=== PATIENT | female | born 1985 | race African-American/Black ===

== ENCOUNTER 2021-01-31 07:54 | Outpatient (REF) | payer OTHER, SELFPAY ==
--- NOTE | ~2021-01-31 | XR_ITS ---
EXAMINATION: XR THORACIC SPINE CLINICAL INFORMATION: Dorsalgia COMPARISON: 07/10/2013 TECHNIQUE: 3 views of the thoracic spine were obtained. FINDINGS: Normal sagittal alignment of the thoracic spine. Partially imaged anterior fusion of the lower cervical spine. Posterior elements intact. XR/XR thoracic spine 3V IMPRESSION: No acute osseous abnormality of the thoracic spine.
== END 2021-01-31 07:55 | disposition home or self-care (01) ==
LOC: HO.XRAY 07:54
PROVIDERS: PCP Internal Medicine; Visit Provider Internal Medicine
DX: M54.9 Dorsalgia, unspecified (principal)
CPT/HCPCS: 72072

== ENCOUNTER 2021-01-31 07:59 | Outpatient (REF) | payer OTHER, SELFPAY ==
[2021-01-31 08:24] LABS: COVID-19 Test Negative (Negative)
== END 2021-01-31 08:00 | disposition home or self-care (01) ==
LOC: HO.LAB 07:59
PROVIDERS: PCP Internal Medicine; Visit Provider Internal Medicine
DX: Z20.822 Contact with and (suspected) exposure to COVID-19 (principal)
CPT/HCPCS: 36415; 87635; C9803

== ENCOUNTER 2021-02-08 22:00 | Emergency (ER) | payer OTHER, SELFPAY ==
[2021-02-08 22:04] VITALS: BP 127/70; PULSE 92; RESP 16; TEMP 36.1; O2SAT 98; BMI 44.1
== END 2021-02-09 00:46 | disposition left against medical advice (07) ==
PROVIDERS: Emergency Provider Emergency Medicine; PCP Internal Medicine
DX: R21 Rash and other nonspecific skin eruption (principal)
CPT/HCPCS: 99281; 99282

== ENCOUNTER 2021-02-13 11:45 | Outpatient (REF) | payer OTHER, SELFPAY | END 2021-02-13 11:46 | disposition home or self-care (01) | LOC: HO.LAB 11:45 | PROVIDERS: PCP Internal Medicine; Visit Provider Internal Medicine | DX: Z20.822 Contact with and (suspected) exposure to COVID-19 (principal) | CPT/HCPCS: C9803; U0003; U0005 ==

== ENCOUNTER 2021-04-14 09:00 | Outpatient (RCR) | payer OTHER, SELFPAY | END 2021-09-24 09:19 | disposition home or self-care (01) | LOC: HO.PTCHIC 09:00 | PROVIDERS: PCP Internal Medicine; Visit Provider Internal Medicine | DX: M54.9 Dorsalgia, unspecified (principal) | CPT/HCPCS: 97110; 97140; 97162 ==

== ENCOUNTER 2023-03-30 14:00 | Outpatient (RCR) | payer MEDICAID, SELFPAY | END 2023-10-14 11:30 | disposition home or self-care (01) | LOC: HO.PTCHIC 14:00 | PROVIDERS: PCP Internal Medicine; Visit Provider General Practice | DX: M54.6 Pain in thoracic spine (principal) | CPT/HCPCS: 97110; 97161 ==

== ENCOUNTER 2023-05-12 13:05 | Outpatient (REF) | payer MEDICAID, SELFPAY ==
--- NOTE | 2023-05-12 13:09 | EMG_ITS ---
Chief complaint: Hand numbness and pain worse at night History of cervical fusion. Reason for referral: Evaluate for Carpal Tunnel Syndrome Referred by: Dr. Quiroga Procedure done: Bilateral upper extremities NCS/EMG Precautions and/or limitations: None The limb temperature was monitored continuously and remained between 32-36 degrees C during the performance of the NCS. Nerve Conduction Studies Anti Sensory Summary Table ?Stim Site NR Onset (ms) Norm Onset (ms) Peak (ms) Norm Peak (ms) O-P Amp (?V) Norm O-P Amp Site1 Site2 Delta-0 (ms) Dist (cm) Farhat (m/s) Norm Farhat (m/s) Left Median Anti Sensory (2nd Digit) Wrist NR <3.6 >10 Wrist 2nd Digit 14.0 Right Median Anti Sensory (2nd Digit) Wrist NR <3.6 >10 Wrist 2nd Digit 14.0 Right Radial Anti Sensory (Thumb) Forearm ? 1.6 2.1 <3.1 20.1 Forearm Thumb 1.6 0.0 Left Ulnar Anti Sensory (5th Digit) Wrist ? 2.7 3.5 <3.7 16.3 >15.0 Wrist 5th Digit 2.7 14.0 52 Right Ulnar Anti Sensory (5th Digit) Wrist ? 2.5 3.3 <3.7 14.2 >15.0 Wrist 5th Digit 2.5 14.0 56 Motor Summary Table ?Stim Site NR Onset (ms) Norm Onset (ms) O-P Amp (mV) Norm O-P Amp iAmp (mV) Amp (1st) (%) Site1 Site2 Delta-0 (ms) Dist (cm) Farhat (m/s) Norm Farhat (m/s) Left Median Motor (Abd Poll Brev) Wrist ? 9.1 <3.9 9.2 >4.5 10.8 100.0 Elbow Wrist 4.3 19.0 44 >45 Elbow ? 13.4 8.2 9.5 89.1 Right Median Motor (Abd Poll Brev) Wrist ? 9.1 <3.9 3.3 >4.5 4.0 100.0 Elbow Wrist 4.3 19.5 45 >45 Elbow ? 13.4 2.6 3.2 78.8 Left Ulnar Motor (Abd Dig Minimi) Wrist ? 3.0 <3.0 8.5 >5 11.3 100.0 B Elbow Wrist 3.8 19.5 51 >45 B Elbow ? 6.8 8.7 11.6 102.4 A Elbow B Elbow 2.0 10.0 50 >45 A Elbow ? 8.8 8.2 10.9 96.5 Right Ulnar Motor (Abd Dig Minimi) Wrist ? 3.0 <3.0 8.4 >5 12.2 100.0 B Elbow Wrist 3.6 18.5 51 >45 B Elbow ? 6.6 8.1 11.9 96.4 A Elbow B Elbow 1.8 10.0 56 >45 A Elbow ? 8.4 7.6 11.1 90.5 EMG ?Side Muscle Nerve Root Ins Act Fibs Psw Amp Dur Poly Recrt Int Pat Comment Right 1stDorInt Ulnar C8-T1 Nml Nml Nml Nml Nml 0 Nml Complete Right FlexCarRad Median C6-7 Nml Nml Nml Nml Nml 0 Nml Complete Right Biceps Musculocut C5-6 Nml Nml Nml Nml Nml 0 Nml Complete Right Triceps Radial C6-7-8 Nml Nml Nml Nml Nml 0 Nml Complete Right Deltoid Axillary C5-6 Nml Nml Nml Nml Nml 0 Nml Complete Left 1stDorInt Ulnar C8-T1 Nml Nml Nml Nml Nml 0 Nml Complete Left FlexCarRad Median C6-7 Nml Nml Nml Nml Nml 0 Nml Complete Left Biceps Musculocut C5-6 Nml Nml Nml Nml Nml 0 Nml Complete Left Triceps Radial C6-7-8 Nml Nml Nml Nml Nml 0 Nml Complete Left Deltoid Axillary C5-6 Nml Nml Nml Nml Nml 0 Nml Complete FINDINGS: Right median motor nerve showed prolonged distal latency, small amplitude and normal conduction velocity. Left median motor nerve showed prolonged distal latency, normal amplitude and slow conduction velocity. Bilateral median sensory nerves showed no response. All other nerves tested were within normal. Concentric needle EMG was performed in selected muscles of the bilateral upper extremities. Study did not reveal signs of electric abnormalities as shown in the table below. IMPRESSION: 1. This is an abnormal study. 2. There is electrodiagnostic evidence for bilateral moderate-severe median neuropathy at the wrist, consistent with carpal tunnel syndrome. 3. There is no electrodiagnostic evidence for ulnar neuropathy, brachial plexopathy, or cervical radiculopathy. Thank you for your kind referral. Isabel Prather MD, [place] Board Certified, [place] Board [employer] Physical Medicine and Rehabilitation (ABPMR) Board Certified, [place] Board of Electrodiagnostic Medicine (ABEM) CODIN 21995 x 2 MTDD
== END 2023-05-12 13:06 | disposition home or self-care (01) ==
LOC: HO.NEURO 13:05
PROVIDERS: PCP Internal Medicine; Visit Provider Internal Medicine
DX: G56.03 Carpal tunnel syndrome, bilateral upper limbs (principal); R20.2 Paresthesia of skin
CPT/HCPCS: 95886; 95911

== ENCOUNTER → 2023-05-12 13:09 | Outpatient (BNV) | payer MEDICAID, SELFPAY | PROVIDERS: PCP Internal Medicine; Visit Provider Physical Medicine & Rehabilitation | DX: G56.13 Other lesions of median nerve, bilateral upper limbs (principal); G56.03 Carpal tunnel syndrome, bilateral upper limbs | CPT/HCPCS: 95886; 95911 ==

== ENCOUNTER 2023-08-26 10:46 | Outpatient (REF) | payer MEDICAID, SELFPAY ==
[2023-08-26 14:36] LABS: Creatinine Urine 100.63 mg/dL; Microalbumin Urine < 5.0 mg/L
[2023-08-27 07:58] LABS: ~HepC Num1 0.19 S/CO (0.00-0.79); ~Hepatitis C Antibody Nonreactive (Nonreactive)
== END 2023-08-26 10:47 | disposition home or self-care (01) ==
LOC: HO.CHCLDS 10:46
PROVIDERS: Visit Provider Internal Medicine
DX: E11.9 Type 2 diabetes mellitus without complications (principal); E66.01 Morbid (severe) obesity due to excess calories; Z68.41 Body mass index [BMI] 40.0-44.9, adult; Z79.4 Long term (current) use of insulin
CPT/HCPCS: 36415; 82570; 86803

== ENCOUNTER 2024-04-24 13:25 | Outpatient (REF) | payer MEDICAID, SELFPAY ==
[2024-04-24 15:19] LABS: Creatinine Urine 61.75 mg/dL; Microalbumin Urine < 5.0 mg/L
[2024-04-25 04:16] LABS: HIV AB/AG Nonreactive (Nonreactive); HIV Num 1 0.06 S/CO (0.00-0.99)
[2024-04-27 08:14] LABS: TS Negative Control Passed; TS Panel A 0; TS Panel B 0; TS Positive Control Passed; TSpotTB Negative (Negative)
== END 2024-04-24 13:26 | disposition home or self-care (01) ==
LOC: HO.CHCLDS 13:25
PROVIDERS: Visit Provider Internal Medicine
DX: Z00.00 Encounter for general adult medical examination without abnormal findings (principal); E11.9 Type 2 diabetes mellitus without complications; Z79.4 Long term (current) use of insulin
CPT/HCPCS: 36415; 82043; 82570; 86481; 87389

== ENCOUNTER 2024-09-20 10:50 | Outpatient (AMB) | payer OTHER, SELFPAY ==
[2024-09-20 11:08] VITALS: BP 156/88; PULSE 102; O2SAT 96
--- NOTE | 2024-09-20 11:08 | MHC.OFFVIS ---
Vital Signs 09/20/24 11:08 Weight 227 lb BP 156/88 H Blood Pressure Location Lt brachial Position Sitting Pulse 102 H Pulse Source Pulse Oximeter Pulse Oximetry (%) 96 Oxygen Delivery Method Room Air Intake Visit Reasons: Diabetic mononeurapthy Seals Engraver Required: No Allergies SEASONAL ALLERGIES Allergy (Intermediate, Uncoded 09/20/24 11:09) WATERY ITCHY EYES Medication List - Last Reconciled 09/20/24 by Susan Rae, [employer] albuterol sulfate 90 mcg/actuation (Ventolin HFA) inhalation aspirin 81 mg PO DAILY cholecalciferol (vitamin D3) 50 mcg PO DAILY diclofenac sodium 1% topical empagliflozin (Jardiance) 10 mg PO DAILY flash glucose sensor ([employer] Neisha 14 Day Sensor kit) As directed fluticasone propionate 110 mcg/actuation inhalation glipizide mg PO Lactobac. rhamnosus GG-inulin 10 billion cell -200 mg ([facility] [employer]) 1 cap PO DAILY lisinopril 5 mg PO DAILY multivitamin 1 tab PO DAILY pantoprazole 40 mg PO DAILY HPI Comments Details: Josiane is very pleasant 39 years old female who presents in my with complains on pain in the left lower extremity with sensation of the numbness in the left lower extremity mainly foot. She stated that this condition started to bother her several months ago when her reproduction order processor performed injection into for left foot. She is suffering from diabetes and she was told that this is diabetic polyneuropathy. However it is very unlikely the condition is polyneuropathy because polyneuropathy from diabetes usually symmetrical condition. Her past medical history significant for asthma and diabetes as well as obesity. Her past surgical history significant for ACDF. She denies smoking cigarettes denies drinking alcohol drinks green tea and she admits cannabis every other night. Review of Systems Const All systems reviewed & are unremarkable except as noted in HPI and below ENT Reports Normal hearing present Neuro Reports Normal hearing present, Denies Abnormal speech present, Denies confusion and Denies Sensory deficit (Neuro) Psych Denies confusion Physical Exam Vital Signs: Last Vital Signs Pulse 102 H 09/20/24 11:08 BP 156/88 H 09/20/24 11:08 Pulse Ox 96 09/20/24 11:08 Oxygen Delivery Method Room Air 09/20/24 11:08 Const General: no acute distress; No confusion Nutritional Appearance: obese morbidly obese Orientation/consciousness: patient oriented x3 and No confusion Eyes General: appearance normal, both eyes and all related structures Pupils: Equal, round and reactive pupils present EOM: EOMs intact bilaterally Neck Neck: Yes full ROM Chest Chest palpation & inspection: normal inspection of the chest Resp Effort & Inspection: normal respiratory effort, able to speak in complete sentences, normal respiratory pattern, no audible wheezes and no cough Cardio Jugular venous distension: no JVD GI Inspection: Yes normal to inspection Neuro General: patient oriented x3, gait normal and No confusion Cranial nerves: Yes CN's II-XII intact bilaterally, Yes Equal, round and reactive pupils present, Yes Normal hearing present and Yes Ability to bilaterally elevate shoulders present Speech: No Abnormal speech present Gait exam (Neuro): Normal gait present Motor exam (neuro): 5/5 motor strength present throughout Sensory Exam: No Sensory deficit (Neuro) Extrem Other: There is very faint pulsation in bilateral dorsalis pedis and posterior tibial arteries. The feet are warm on palpation. The capillary refill is normal bilaterally. No discoloration is observed. Range of motion is preserved in bilateral ankle joints. General: No pedal edema Psych Speech and movement: Normal speech and movement present Affect: normal affect Attitude: cooperative Thought process: Normal thought process present Thought content: Normal thought content present Insight: Good insight present (Psych) Judgement: Good judgement present (Psych) Assessment & Plan Assessment & Plan (1) Neuropathy of left foot: Code(s): G57.92 - Unspecified mononeuropathy of left lower limb Category: Medical (2) Diabetic angiopathy: Code(s): E11.51 - Type 2 diabetes mellitus with diabetic peripheral angiopathy without gangrene Category: Medical Plan The patient reports numbness in the foot after the steroid injection. Range of motion is appropriate. No weakness is observed. However neuropathy can not be excluded. I will send her for EMG. Coincidentally on the exam poor pulses were detected on bilateral lower extremities. I will send her for the examination with vascular surgery. We agreed that the patient will schedule an appointment with me after she will complete EMG. Orders: Orders NE electromyogram (EMG) Today G57.92 - Unspecified mononeuropathy of left lower limb Referrals Vascular Surgery Referral E11.51 - Type 2 diabetes mellitus with diabetic peripheral angiopathy without gangrene Coding Level of Care Code New Pt Level 3 (12079) Diagnoses Neuropathy of left foot G57.92 Diabetic angiopathy E11.51
--- OUTSIDE RECORDS SUMMARY | 2024-09-20 12:16 | XMS_ITS | Encounter Summary ---
Author Organization [employer] Address [address] [facility] 7t [place] [address] Care Team Providers Care Pocket Marker Name Role Phone Manjeet Quiroga MD Primary Care Provider [phone] Reason for Visit * Reason Comments Med Refill Encounter Details Date Type Department Care Team ([facility] Contact Info) Description 03/02/2023 Refill [facility] CHC MED & PEDS [address] [place], [place] [phone] Manjeet Quiroga MD [address] [place], [place] [phone] Type 2 diabetes mellitus with diabetic polyneuropathy (CMS/HCC) Social History Tobacco Use Types Packs/Day Years Used Date Smoking Tobacco: Never Smokeless Tobacco: Never Depression Answer Date Recorded Patient Health Questionnaire-9 Score 0 01/28/2023 Housing Stability Answer Date Recorded What is your housing situation today? I have jaki pittman 02/28/[address] you li ve. Do you have problems with any of the following? None of the above 02/28/2023 Food Insecurity Answer Date Recorded Within the past 12 months, y ou worried that your food would run out before you got money to buy more: Never True 02/28/2023 Within the past 12 months,th e food you bought just didn't last and you didn't have enough money to get more: Never True 12/2022 Transportation Answer Date Recorded In the past 12 months, has l ack of transportation kept you from medical appts, meetings, work or from getting things needed for daily living? No 02/28/2023 Utilities Answer Date Recorded In the past 12 months, has t he electric, gas, oil or water company threatened to shut off services in your home? No 02/28/2023 Depression Answer Date Recorded Patient Health Questionnaire-2 Score 0 01/28/2023 Comments Unknown Sex and Gender Information Value Date Recorded Sex Assigned at Female 03/23/2022 10:20 AM EDT Legal Sex Female 10:20 AM EDT Gender Identity Female 03/23/2022 10:20 AM EDT Sexual Orientation Straight 03/23/2022 10 :20 AM EDT documented as of this encounter Plan of Treatment Not on file documented as of this encounter Visit Diagnoses Diagnosis Type 2 diabetes mellitus with diabetic polyneuropathy (CMS/HCC) documented in this encounter Additional Health Concerns Assessment Noted Time PHQ-9 Depression Total Score: 0 01/29/20 23 4:36 PM EDT documented as of this encounter Care Teams Pocket Marker Relationship Specialty Start Date End Date Manjeet Quiroga MD [address] [place] [id number] PCP - General Internal Medicine 05/31/13 documented as of this encounter
--- OUTSIDE RECORDS SUMMARY | 2024-09-20 12:16 | XMS_ITS | Encounter Summary ---
Author Organization [facility] Address [address] [facility] [address] [place] [address] Care Team Providers Care Hairmasters Manager Name Role Phone Manjeet Quiroga MD Primary Care Provider [phone]- [phone] Encounter Details Date Type Department Care Team ([facility] st Contact Info) Description 12/03/2022 Orders Only [facility] MEDICINE [address] [place], [place] [phone] Arlene Abarca LPN Social History Tobacco Use Types Packs/Day Years Used Date Smoking Tobacco: Never Smokeless Tobacco: Never PHQ-2 Answer Date Recorded Patient Health Questionnaire-2 Score 3 10/13/2022 Comments Unknown Sex and Gender Information Value Date Recorded Sex Assigned at Female 03/23/2022 10:20 AM EDT Legal Sex Female 10:20 AM EDT Gender Identity Female 03/23/2022 10:20 AM EDT Sexual Orientation Straight 03/23/2022 10 :20 AM EDT COVID-19 Exposure Response Date Recorded In the last 10 days, have yo u been in contact with someone who was confirmed or suspected to have Coronavirus/COVID-19? No / Unsure 11/19/2022 9:10 AM EDT documented as of this encounter Plan of Treatment Not on file documented as of this encounter Visit Diagnoses Not on filedocumented in this encounter Additional Health Concerns Assessment Noted Time PHQ-9 Depression Total Score: 8 10/14/19 23 2:38 PM EDT documented as of this encounter Care Teams Hairmasters Manager Relationship Specialty Start Date End Date Manjeet Quiroga MD [address] [place] [phone] PCP - General Internal Medicine 05/31/13 documented as of this encounter
--- OUTSIDE RECORDS SUMMARY | 2024-09-20 12:16 | XMS_ITS | Encounter Summary ---
Author Organization [employer] Address [address] [facility] 7t [place] [address] Care Team Providers Care Property Coordinator Name Role Phone Manjeet Quiroga MD Primary Care Provider [phone]- [phone] Reason for Visit * Reason Comments Med Refill Encounter Details Date Type Department Care Team ([facility] Contact Info) Description 03/09/2023 Refill [facility] CHC MED & PEDS [address] [place], [place] [phone] Manjeet Quiroga MD [address] [place], [place] [phone] Type 2 diabetes mellitus with diabetic polyneuropathy (CMS/HCC) Social History Tobacco Use Types Packs/Day Years Used Date Smoking Tobacco: Never Smokeless Tobacco: Never Depression Answer Date Recorded Patient Health Questionnaire-9 Score 0 01/28/2023 Housing Stability Answer Date Recorded What is your housing situation today? I have jaki pittman 03/08/[address] you li ve. Do you have problems with any of the following? None of the above 03/08/2023 Food Insecurity Answer Date Recorded Within the past 12 months, y ou worried that your food would run out before you got money to buy more: Never True 03/08/2023 Within the past 12 months,th e food you bought just didn't last and you didn't have enough money to get more: Never True Transportation Answer Date Recorded In the past 12 months, has l ack of transportation kept you from medical appts, meetings, work or from getting things needed for daily living? No 03/08/2023 Utilities Answer Date Recorded In the past 12 months, has t he electric, gas, oil or water company threatened to shut off services in your home? No 03/08/2023 Depression Answer Date Recorded Patient Health Questionnaire-2 [...] documented as of this encounter Care Teams Property Coordinator Relationship Specialty Start Date End Date Manjeet Quiroga MD [address] [place] [id number] PCP - General Internal Medicine 05/31/13 documented as of this encounter
--- OUTSIDE RECORDS SUMMARY | 2024-09-20 12:16 | XMS_ITS | Encounter Summary ---
Author Organization [employer] Address [address] [facility] 7t [place] [address] Care Team Providers Care Wood Fence Erector Name Role Phone Manjeet Quiroga MD Primary Care Provider [phone] Reason for Visit * Reason Comments Med Refill Encounter Details Date Type Department Care Team ([facility] Contact Info) Description 03/08/2023 Refill [facility] CHC MED & PEDS [address] [place], [place] [phone] Manjeet Quiroga MD [address] [place], [place] [phone] Type 2 diabetes mellitus with diabetic polyneuropathy [...] documented as of this encounter Care Teams Wood Fence Erector Relationship Specialty Start Date End Date Manjeet Quiroga MD [address] [place] [id number] PCP - General Internal Medicine 05/31/13 documented as of this encounter
--- OUTSIDE RECORDS SUMMARY | 2024-09-20 12:16 | XMS_ITS | Encounter Summary ---
Author Organization [employer] Address [address] [place] [address] 7 [place] [address] Care Team Providers Care Deicer Element Winder Machine Name Role Phone Manjeet Quiroga MD Primary Care Provider [phone]- [phone] Encounter Details Date Type Department Care Team ([facility] st Contact Info) Description 01/05/2023 Orders Only [facility] CHC MED & PEDS [address] [place], [place] [phone] Manjeet Quiroga MD [address] [place] [address] Type 2 diabetes mellitus without complication, without long-term current use of insulin (CMS/HCC) (Primary Dx) Social History Tobacco Use Types Packs/Day Years [...] Visit Diagnoses Diagnosis Type 2 diabetes mellitus without complication, without long-term current use of insulin (CMS/HCC)- Primary documented in this encounter Additional Health Concerns Assessment Noted Time PHQ-9 Depression Total Score: 8 10/14/19 23 2:38 PM EDT documented as of this encounter Care Teams Deicer Element Winder Machine Relationship Specialty Start Date End Date Manjeet Quiroga MD [address] [place] [id number] PCP - General Internal Medicine 05/31/13 documented as of this encounter
--- OUTSIDE RECORDS SUMMARY | 2024-09-20 12:16 | XMS_ITS | Encounter Summary ---
Author Organization [employer] Address [address] [facility] 7t [place] [address] Care Team Providers Care Nonprofit Financial Controller Name Role Phone Manjeet Quiroga MD Primary Care Provider [phone] [phone] Encounter Details Date Type Department Care Team ([facility] Contact Info) Description 03/09/2023 Orders Only [facility] CHC MED & PEDS [address] [place], [place] [phone] Manjeet Quiroga MD [address] [place], [place] [phone] Bilateral carpal tunnel syndrome (Primary Dx); Cervical radiculopathy Social History Tobacco Use Types Packs/Day Years Used Date Smoking Tobacco: Never Smokeless Tobacco: Never Depression Answer Date Recorded Patient Health Questionnaire-9 Score 0 01/28/2023 Housing Stability Answer Date Recorded What is your housing situation today? I have jakitarik pittman 03/08/[address] you [...] as of this encounter Visit Diagnoses Diagnosis Bilateral carpal tunnel syndrome- Primary Carpal tunnel syndrome Cervical radiculopathy Brachial neuritis or radiculitis nos documented in this encounter Additional Health Concerns Assessment Noted Time PHQ-9 Depression Total Score: 0 01/29/20 23 4:36 PM EDT documented as of this encounter Care Teams Nonprofit Financial Controller Relationship Specialty Start Date End Date Manjeet Quiroga MD [address] [place] [phone] PCP - General Internal Medicine 05/31/13 documented as of this encounter
--- OUTSIDE RECORDS SUMMARY | 2024-09-20 12:17 | XMS_ITS | Encounter Summary ---
Author Organization [employer] Address [address] [place] [address] [address] [place] [address] Care Team Providers Care Manager State Name Role Phone Manjeet Quiroga MD Primary Care Provider [phone] Reason for Referral * Consultation (Routine) - Closed Specialty Diagnoses / Procedures Referred By Lu cotto Referred To Contact Physical Therapy Diagnoses Hand paresthesia Neck pain Manjeet Quiroga MD [address] [place] [address] Phone: tel: fax: Physical Therapy, AT [address] [facility] [address] [place] Phone: tel: fax: Referral ID Status Reason Start Date Expiration Date V isits Requested Visits Authorized [id number] Closed Specialty Services Required 08/10/2024 08/10/2025 1 1 Encounter Details Date Type Department Care Team (Late st Contact Info) Description 08/10/2024 Orders Only [facility] MEDICINE [address] [place] [address] Manjeet Quiroga MD [address] [place] [address] Hand paresthesia (Primary Dx); Neck pain Social History Tobacco Use Types Packs/Day Years Used Date Smoking Tobacco: Never Smokeless Tobacco: Never Alcohol Answer Date Recorded Q1: How often do you have a drink containing alc ohol? 3 04/11/2024 Q2: How many drinks containi ng alcohol do you have on a typical day when you are drinking? 1 04/11/2024 Q3: How often do you have six or more drinks on one occasion? 1 04/11/2024 Depression Answer Date Recorded Patient Health Questionnaire-9 Score 10 06/13/2024 Patient Health Questionnaire-9 Score 10 06/13/2024 Last PHQ-9: Questionnaire Data Not on file 0 06/13/2024 Housing Stability Answer Date Recorded What is your housing situation today? I have jaki pittman 04/04/[address] you li ve. Do you have problems with any of the following? None of the above 04/04/2024 Food Insecurity Answer Date Recorded Within the past 12 months, y ou worried that your food would run out before you got money to buy more: Never True 04/04/2024 Within the past 12 months,th e food you bought just didn't last and you didn't have enough money to get more: Never True 04/2024 Transportation Answer Date Recorded In the past 12 months, has l ack of transportation kept you from medical appts, meetings, work or from getting things needed for daily living? No 04/04/2024 Utilities Answer Date Recorded In the past 12 months, has t he electric, gas, oil or water company threatened to shut off services in your home? No 04/04/2024 Depression Answer Date Recorded Patient Health Questionnaire-2 Score 6 06/13/2024 Internet Access Answer Date Recorded Internet Access Q1 Yes 04/04/2024 Internet Access Q2 Not on file 04/04/2024 Comments Unknown Sex and Gender Information Value Date Recorded Sex Assigned at Female 03/23/2022 10:20 AM EDT Legal Sex Female 10:20 AM EDT Gender Identity Female 03/23/2022 10:20 AM EDT Sexual Orientation Straight 03/23/2022 10 :20 AM EDT documented as of this encounter Plan of Treatment Scheduled Referrals Name Type Priority Associated Diagnoses Orde r Schedule Referral to Physical Therapy Outpatient Referral Routine Hand paresthesia Neck pain Expected: 08/10/2024 (Approximate), Expires: 08/10/2025 documented as of this encounter Visit Diagnoses Diagnosis Hand paresthesia- Primary Disturbance of skin sensation Neck pain Cervicalgia documented in this encounter Additional Health Concerns Assessment Noted Time PHQ-9 Depression Total Score: 10 025 10:46 AM EST documented as of this encounter Care Teams Manager State Relationship Specialty Start Date End Date Manjeet Quiroga MD [address] [place] [id number] PCP - General Internal Medicine 05/31/13 documented as of this encounter
--- OUTSIDE RECORDS SUMMARY | 2024-09-20 12:17 | XMS_ITS | Clinical Summary ---
Author Organization [employer] [facility] Address [address] [facility] 7t [place] [address] Care Team Providers Care Electrical Machinist Name Role Phone Manjeet Quiroga MD Primary Care Provider +1- [phone] Allergies No known active allergies Medications * This document contains information received from the source organization and may not represent a complete record from that organization. insulin detemir (Levemir) 100 UNIT/ML injectionIndicat ions:Type 2 diabetes mellitus without complication, with long-term current use of insulin (CMS/[facility]) Inject 40 Units under the skin at bedtime. 10 mL 12 3 Active Blood Glucose Monitoring Suppl (FreeStyle [place] Lite) w/Device kitIndications:T ype 2 diabetes mellitus without complication, without long-term current use of insulin (CMS/HCC) Use 2 - 3 x day 1 kit 3 Active Continuous Blood Gluc Tare Worker (FreeStyle Neisha 2 [place]) deviceIndication s:Type 2 diabetes mellitus without complication, with long-term current use of insulin (CMS/HCC) To use daily 1 each 4 Active Continuous Blood Gluc Sensor (FreeStyle Neisha 2 Sensor) miscIndications: Type 2 diabetes mellitus without complication, with long-term current use of insulin (CMS/HCC) To use daily 2 each 11 4 Active aspirin 81 MG EC tablet Take 1 tablet by mouth. 90 tablet 3 4 Active ferrous sulfate (FeroSul) 325 (65 Fe) MG tabletIndication s:Type 2 diabetes mellitus without complication, without long-term current use of insulin (CMS/HCC) Take 1 tablet (325 mg) by mouth every other day. 45 tablet 4 Active glipiZIDE (Glucotrol) 5 MG tabletIndication s:Type 2 diabetes mellitus without complication, without long-term current use of insulin (CMS/HCC) 1 to 3 tabs ac breakfast 1 to 3 tabs ac supper 180 tablet 3 4 Active glucose blood (FreeStyle Precision Tani Test) test stripIndications :Type 2 diabetes mellitus without complication, without long-term current use of insulin (CMS/HCC) To use 2 times a day 100 each 12 4 02/02/20 25 Active Multiple Vitamin (Multi-Vitamin) tabletIndication s:Type 2 diabetes mellitus without complication, without long-term current use of insulin (CMS/[facility]) Take 1 tablet by mouth Once per day. 90 tablet 3 4 01/28/20 25 Active PARoxetine (Paxil) 10 MG tabletIndication s:Anxiety Take 1 tablet (10 mg) by mouth in the morning. 90 tablet 4 Active Alcohol Swabs (Alcohol Prep) 70 % pads To use 2 times a day 100 each 4 Active empagliflozin (Jardiance) 25 MGIndications:Ty pe 2 diabetes mellitus without complication, without long-term current use of insulin (CMS/[facility]) Take 1 tablet (25 mg) by mouth Once per day. 30 tablet 4 02/02/20 25 Active albuterol (Ventolin HFA) 108 (90 Base) MCG/ACT inhaler INHALE 2 PUFFS BY MOUTH FOUR TIMES DAILY NEEDED FOR WHEEZING OR SHORTNESS OF BREATH 18 g 1 4 Active celecoxib (CeleBREX) 200 MG capsuleIndicatio ns:Plantar fasciitis, bilateral TAKE 1 CAPSULE BY MOUTH TWICE DAILY 60 capsule 5 Active Lactobacillus-In ulin ([facility] skyrockit [facility]) capsuleIndicatio ns:Bloating TAKE 1 CAPSULE BY MOUTH EVERY DAY 30 capsule 5 Active lisinopril 5 MG tabletIndication s:Type 2 diabetes mellitus without complication, without long-term current use of insulin (CMS/HCC) TAKE 1 TABLET BY MOUTH EVERY DAY 90 tablet 5 Active cholecalciferol VITAMIN D (Vitamin D-3) 50 MCG (2000 UT) tabletIndication s:Health care maintenance TAKE 1 TABLET BY MOUTH EVERY DAY 30 tablet 3 5 Active gabapentin (Neurontin) 300 MG capsuleIndicatio ns:Type 2 diabetes mellitus with diabetic neuropathy, without long-term current use of insulin (CMS/HCC),Hand paresthesia Take 1 capsule (300 mg) by mouth 3 times daily. 90 capsule 11 5 08/08/19 26 Active cyclobenzaprine (Flexeril) 10 MG tabletIndication s:Neck pain,Cervical radiculopathy,Pl casa fasciitis, bilateral Take 1 tablet (10 mg) by mouth at bedtime for 10 days. 10 tablet 5 Active Active Problems Problem Noted Date Diagnosed Date Persistent depressive disorder 06/08/2024 Assessment & Plan (06/13/2024 11:11 AM EST): During IBH Consult Josiane presenting with depressed mood, Tearful, crying spells , hopelessness, irritable mood, loss of interests/pleasure , sense of isolation/loneliness , isolating, changes in sleep difficulty falling asleep and difficulty staying asleep , fatigue/loss of energy, inappropriate/excessive guilt , indecisiveness; for a period of 18+ mo, for most or all symptoms in the context of and financial concern. Patient reports she's being living with depression over the last years. Her mother three years ago and her brother two years ago. Josiane states at the beginning of her grieving process it was difficult to find her life purpose. But now she has gained a sense back of what's important and worth living for. Her depression however remains the same. She keeps herself busy at work, trying to socialize with friends and spending time with her dogs in the same house she used to live with her mother. Chronic panic is also associated with her depression as patient is diagnosed with diabetes. clinician engaged patient with active/reflective listening. Reviewed and assessed for risk, current stressors and protective factors using open-ended questions. Validated and empathized with patient's emotions and provided grief counseling. Pt will be referred out with Eric [facility] for medication management. Intake completed with N at [facility] for [facility] individual therapy. clinician will provide additional support as needed. Grief counseling 06/08/2024 Assessment & Plan (06/13/2024 11:11 AM EST): During IBH Consult Josiane presenting with depressed mood, Tearful, crying spells , hopelessness, irritable mood, loss of interests/pleasure , sense of isolation/loneliness , isolating, changes in sleep difficulty falling asleep and difficulty staying asleep , fatigue/loss of energy, inappropriate/excessive guilt , indecisiveness; for a period of 18+ mo, for most or all symptoms in the context of and financial concern. Patient reports she's being living with depression over the last years. Her mother three years ago and her brother two years ago. Josiane states at the beginning of her grieving process it was difficult to find her life purpose. But now she has gained a sense back of what's important and worth living for. Her depression however remains the same. She keeps herself busy at work, trying to socialize with friends and spending time with her dogs in the same house she used to live with her mother. Chronic panic is also associated with her depression as patient is diagnosed with diabetes. clinician engaged patient with active/reflective listening. Reviewed and assessed for risk, current stressors and protective factors using open-ended questions. Validated and empathized with patient's emotions and provided grief counseling. Pt will be referred out with Eric [facility] for medication management. Intake completed with BHN at [facility] for OP individual therapy. clinician will provide additional support as needed. Normocytic anemia 01/23/2022 Acute renal failure syndrome 12/23/2020 Acute nontraumatic kidney injury 12/23/2020 Anxiety 11/08/2017 Neck pain 04/27/2016 Alopecia 01/24/2013 Migraine 01/24/2013 Pes planus 01/24/2013 Chronic obstructive lung disease 02/19/2012 Obesity 02/19/2012 Diabetes mellitus type 2, uncomplicated 11/02/19 12 Encounters * This document contains information received from the source organization and may not represent a complete record from that organization. Date Type Department Care Team Description 09/18/2024 Refill [facility] [address] [place] [address] Manjeet Quiroga MD Neck pain; Cervical radiculopathy; Plantar fasciitis, bilateral 08/10/2024 Orders Only [facility] [address] [place] [address] Manjeet Quiroga MD Hand paresthesia (Primary Dx); Neck pain 08/10/2024 Telephone [place] [employer] [address] [place], [place] [phone] Manjeet Quiroga MD MRI CERVICAL SPINE DENIED 08/07/2024 2:30 PM EDT Office Visit [facility] [address] [place] [address] Manjeet Quiroga MD Controlled type 2 diabetes mellitus with hyperglycemia, without long-term current use of insulin (CMS/HCC) (Primary Dx); Type 2 diabetes mellitus with diabetic neuropathy, without long-term current use of insulin (CMS/HCC); Hand paresthesia; Neck pain; Cervical radiculopathy; Plantar fasciitis, bilateral 08/07/2024 Travel 08/03/2024 Refill [facility] [address] [place] [address] Manjeet Quiroga MD Health care maintenance 07/31/2024 Patient Outreach [facility] [address] [place] [address] Manjeet Osman MD Pre-visit Planning (SDOH negative, Tobacco screening negative. ) 07/16/2024 Refill [facility] [address] [place] [address] Manjeet Quiroga MD Type 2 diabetes mellitus without complication, without long-term current use of insulin ([facility]/HCC) 07/13/2024 Refill [facility] [address] [place] [address] Manjeet Quiroga MD Plantar fasciitis, bilateral; Bloating from Last 3 Months Immunizations Name Administration Dates Next Due DTaP 10/11/1991, 9,1987,1987,1987 HPV 9-Valent 02/24/2021,10/25/2020,07/23/2020 Hep B, adult 05/03/1998,01/03/1998,11/28/1997 Hib (PRP-T) 07/03/1988 IPV 10/11/1991, 9,1987,1987 Influenza injectable quadriv alent IIV4 with preservative 02/20/2019,02/28/2018,02/14/2016,2014 Influenza injectable quadriv alent preservative free 03/10/2022,04/26/2020 Influenza, IIV3, injectable 02/12/2014 Influenza, Split (incl. estefanía fied surface antigen) 02/19/2012 Influenza, seasonal, injecta ble, preservative free 02/02/2024 MMR 11/27/1997,07/03/1988 Pfizer Covid-19 Vaccine 12+ 05/26/2023 Pneumococcal Conjugate PCV 20 05/26/2023 Tdap 05/16/2020,02/12/2014 Varicella 03/30/2018,11/05/1998 Family History Medical History Relation Name Comments Diabetes type II Brother Kidney failure Brother Diabetes type II Father Diabetes type II Mother Relation Name Status Comments Brother Father Mother Social History Tobacco Use Types Packs/Day Years Used Date Smoking Tobacco: Never Smokeless Tobacco: Never Tobacco Cessation:Counseling Given: No Alcohol Answer Date Recorded Q1: How often [...] Orientation Straight 03/23/2022 10 :20 AM EDT Last Filed Vital Signs Vital Sign Reading Time Taken Comments Blood Pressure 112/72 08/07/2024 2:32 PM EDT Pulse 88 08/07/2024 2:32 PM EDT Temperature 36.8 ??C (98.2 ??F) 08/07/2024 2:32 PM ED T Respiratory Rate 20 08/07/2024 2:32 PM EDT Oxygen Saturation 98% 08/07/2024 2:32 PM EDT Inhaled Oxygen Concentration - - Weight 103 kg (227 lb 12.8 oz) 08/07/2024 2:32 P M EDT Height 156 cm (5' 1.42 ) 08/07/2024 2:32 PM EDT Body Mass Index 42.46 08/07/2024 2:32 PM EDT Plan of Treatment Health Maintenance Due Date Last Done Comments Diabetes: Foot Exam 1997 Family Planning (PISQ) 2002 Lipid Panel 11/11/2023 11/10/2022, 090 05/2021, 12/26/2020 COVID-19 Vaccine ( season) 2024 05/26/2023, 07/02/2021, 01/20/2021, Additional history exists Eye Exam 09/02/2024 Cervical Cancer Screening 10/19/2024 HPV/Cotest 10/19/2024 Pap Smear 10/19/2024 09/17/2023, 08/23, 07/05/2020, Additional history exists Diabetes: Hemoglobin A1C 11/07/2024 025, 04/11/2024, 12/21/2023, Additional history exists Alcohol/Substance Use Screening 04/11/2025 04/11/2024 Diabetes: Urine Protein Screening 04/24/2025 04/24/2024, 08/26/2023, 01/22/2022, Additional history exists Depression Screening 06/13/2025 06/13/2024, 06/13/19 SDOH Screening 07/31/2025 07/31/2024 Tobacco Screening 08/07/2025 08/07/2024 DTaP/Tdap/Td Vaccines (8 - Td or Tdap) 05/16/2030 05/16/2020, 02/12/2014, 10/11/1991, Additional history exists Zoster Vaccines (1 of 2) 2037 RSV Patients and Patients Aged 60 years or older (1 - 1-dose 75+ series) 2062 HIB Vaccines Completed 07/03/1988 IPV Vaccines Completed 10/11/1991, 08/23, 1987, Additional history exists Hepatitis B Vaccines Completed 05/03/1998, 01/03/1998, 11/28/1997 HPV Vaccines Completed 02/24/2021, 08/2020, 07/23/2020 Pneumococcal Vaccine: Pediatrics (0 to 5 Years) and At-Risk Patients (6 to 49) Years) Completed 05/26/2023 Hepatitis C Screening Completed 08/26/2023 Influenza Vaccine Completed 02/02/2024, , 04/26/2020, Additional history exists HIV Screening Completed 04/24/2024 Hepatitis A Vaccines Aged Out No long er eligible based on patient's age to complete this topic Meningococcal Vaccine Aged Out No dar brooke eligible based on patient's age to complete this topic RSV under 20 months Aged Out No longe r eligible based on patient's age to complete this topic Rotavirus Vaccines Aged Out No longer eligible based on patient's age to complete this topic Procedures Procedure Name Priority Date/Time Associated Diagnosis Comments POCT GLYCATED HEMOGLOBIN, TOTAL Routine 08/07/2024 2:57 PM EDT Controlled type 2 diabetes mellitus with hyperglycemia, without long-term current use of insulin (CMS/HCC) POCT GLUCOSE Routine 08/07/2024 2:56 PM EDT Controlled type 2 diabetes mellitus with hyperglycemia, without long-term current use of insulin (CMS/HCC) ALBUMIN, RANDOM URINE W/CREATININE Routine 04/24/2024 1:30 PM EST Type 2 diabetes mellitus without complication, with long-term current use of insulin (CMS/HCC) HIV 1/2 ANTIGEN/ANTIBODY, FOURTH GENERATION W/RFL Routine 04/24/2024 1:26 PM EST Health care maintenance HM PAP/HPV Routine 09/17/2023 9:04 AM EDT HEPATITIS C ANTIBODY Routine 08/26/2023 10:47 AM EDT Type 2 diabetes mellitus without complication, without long-term current use of insulin (CMS/HCC) Class 3 severe obesity due to excess calories with serious comorbidity and body mass index (BMI) of 40.0 to 44.9 in adult (CMS/HCC) Type 2 diabetes mellitus without complication, with long-term current use of insulin (CMS/HCC) LIPID PANEL, STANDARD Routine 11/10/2022 10:42 AM EDT Type 2 diabetes mellitus without complication, without long-term current use of insulin (CMS/HCC) from Last 3 Months or Most Recently Relevant to Health Maintenance Results * (ABNORMAL) POCT HGB A1C (08/07/2024 2:57 PM EDT) Hemoglobin A1C 7.8(A) 4.0 - 6.0 % [employer] Lot # [id number] Lot# Expiration Date [id number] Blood 08/07/2024 2:57 PM EDT us Manjeet Quiroga MD POINT OF CARE TEST ENTER/ED IT ORDERABLES Final Result * POCT Glucose (08/07/2024 2:56 PM EDT) Glucose Blood, POC 199 60 - 200 mg/dL [employer] Lot # [id number] Lot# Expiration Date [id number] Blood Capillary blood specimen / Unknown 08/07/2024 2:56 PM EDT Manjeet Quiroga MD POINT OF CARE TEST ENTER/ED IT ORDERABLES Final Result * Albumin, Random Urine W/Creatinine (04/24/2024 1:30 PM EST) Creatinine, Urine 61.75 mg/dL [facility] Microalbumin Urine <5.0 mg/L [facility] Microalbum Creatinine Ratio Ur TNP <30 ug/mg cr [facility] Comment:Unable to calculate albumin/creatinine ratio due to lowmicroalbumin or creatinine result. Urine (Urine, Random) 04/24/2024 1:30 PM EST 04/24/2024 2:09 PM EST Manjeet Quiroga MD LAB URINE ORDERABLES Final Result [facility] [address] [place] [phone] * HIV-1/2 Antigen and Antibodies, Fourth Generation, with Reflexes (04/24/2024 1:26 PM EST) HIV AB/AG Nonreactive Nonreactive [facility] Comment:HIV-1 p24 Ag and/or HIV-1/HIV-2 Ab not detected.A test result that is nonreactive does not exclude thepossibility of exposure to or infection with HIV-1 and/orHIV-2. Nonreactive results in this assay for individualswith prior exposure to HIV-1 and/or HIV-2 may be due toantigen and antibody levels that are below the limit ofdetection of this assay.The coRank HIV Ag/Ab Combo assay result andsupplemental assay results should be interpreted inconjunction with the patient's clinical presentation,history and other laboratory results. If the results areinconsistent with clinical evidence, additional testing issuggested to confirm the result. Blood Venous blood specimen / Unknown 04/24/2024 1:26 PM EST 04/24/2024 2:28 PM EST Manjeet Quiroga MD LAB BLOOD ORDERABLES Final Result Performing Organization Address [facility] Co de Phone Number [facility] [address] [place] [phone] * HM PAP/HPV (09/17/2023 9:04 AM EDT) Historical Provider HEALTH MAINTENANCE Final Result * Hepatitis C Ab (08/26/2023 10:47 AM EDT) Pathologist [facility] Hepatitis C Antibody Nonreactive Nonreactive [facility] Comment:Antibodies to HCV no t detected; does not exclude early acuteHCV infection. Blood Venous blood specimen / Unknown 08/26/2023 10:47 AM EDT 08/26/2023 2:04 PM EDT Manjeet Quiroga MD LAB BLOOD ORDERABLES Final Result Performing Organization Address [facility] Co de Phone Number [facility] [address] [place] [phone] * (ABNORMAL) Lipid Panel, Standard (11/10/2022 10:42 AM EDT) Cholesterol, Total 134 <200 mg/dL [facility] HDL Cholesterol 45(L) > OR = 50 mg/dL [facility] Triglycerides 97 <150 mg/dL [facility] LDL Cholesterol 71 mg/dL (calc) [facility] Comment: Reference range: <100 Desirable range <100 mg/dL for primary prevention; ?? <70 mg/dL for patients with CHD or diabetic patients with > or = 2 CHD risk factors. LDL-C is now calculated using the Sarahi calculation, which is a validated novel method providing better accuracy than the Friedewald equation in the estimation of LDL-C. Jerome PLUMMER et al. ZONIA. 2013;310(19): 0905-1032 (http://education.[employer].Eyesquad/faq/BAN263) Chol/HDLC Ratio 3.0 <5.0 (calc) [facility] Non-HDL Cholesterol 89 <130 mg/dL (calc) [facility] Comment: For patients with diabetes plus 1 major ASCVD risk factor, treating to a non-HDL-C goal of <100 mg/dL (LDL-C of <70 mg/dL) is considered a therapeutic option. Blood Venous blood specimen / Unknown 11/10/2022 10:42 AM EDT 11/10/2022 10:43 AM EDT Narrative [facility] - 11/11/2022 3:27 AM EDT FASTING:NO FASTING: NO Manjeet Quiroga MD LAB BLOOD ORDERABLES Final Result [facility] [address], [place] [phone] [facility] [address] [place] [phone] from Last 3 Months or Most Recently Relevant to Health Maintenance Insurance [facility] Care Teams Electrical Machinist Relationship Specialty Start Date End Date Manjeet Quiroga MD [address] [place] [address] [place] [address] PCP - General Internal Medicine 05/31/13
--- OUTSIDE RECORDS SUMMARY | 2024-09-20 12:17 | XMS_ITS | Encounter Summary ---
Author Organization [employer] [facility] Address [address] [place] [address] [address] [place] [address] Care Team Providers Care General Inspector Name Role Phone Manjeet Quiroga MD Primary Care Provider +[phone]- [phone] Encounter Details Date Type Department Care Team ([facility] st Contact Info) Description 12/22/2022 Orders Only [facility] [address] [place], [place] [phone] Cheryle Cruz LPN Social History Tobacco Use Types Packs/Day [...] documented as of this encounter Care Teams General Inspector Relationship Specialty Start Date End Date Manjeet Quiroga MD [address] [place] [address] PCP - General Internal Medicine 05/31/13 documented as of this encounter
--- OUTSIDE RECORDS SUMMARY | 2024-09-20 12:17 | XMS_ITS | Encounter Summary ---
Author Organization [employer] Address [address] [facility] [address]t [place] [address] Care Team Providers Care Senior Php Developer Name Role Phone Manjeet Quiroga MD Primary Care Provider +1- [phone] Reason for Visit * Reason Comments Med Refill Encounter Details Date Type Department Care Team ([facility] Contact Info) Description 10/25/2023 Refill [facility] [address] [place], [place] [phone] Manjeet Quiroga MD [address], [place] [phone] Mild episode of recurrent major depressive disorder (CMS/HCC) Social History Tobacco Use Types Packs/Day [...] as of this encounter Visit Diagnoses Diagnosis Mild episode of recurrent major depressive disorder (CMS/HCC) documented in this encounter Additional Health Concerns Assessment Noted Time PHQ-9 Depression Total Score: 0 01/29/20 23 4:36 PM EDT documented as of this encounter Care Teams Senior Php Developer Relationship Specialty Start Date End Date Manjeet Quiroga MD [address] [place] [phone] PCP - General Internal Medicine 05/31/13 documented as of this encounter
--- OUTSIDE RECORDS SUMMARY | 2024-09-20 12:17 | XMS_ITS | Encounter Summary ---
Author Organization [employer] Address [address] [facility] [address] [place] [address] Care Team Providers Care X Ray Consultant Name Role Phone Manjeet Quiroga MD Primary Care Provider +1- [phone] Encounter Details Date Type Department Care Team ([facility] st Contact Info) Description 10/21/2023 Orders Only [facility]S [address] [place], [place] [phone] Manjeet Quiroga MD [address] [place], [place] [phone] Type 2 diabetes mellitus without complication, without long-term current use of insulin ([facility]) Social History Tobacco Use Types Packs/Day Years Used Date Smoking Tobacco: Never Smokeless Tobacco: Never Depression Answer Date Recorded Patient Health Questionnaire-9 Score 0 01/28/2023 Housing Stability Answer Date Recorded What is your housing situation today? I have jaki toya 03/08/[address] you li [...] complication, without long-term current use of insulin ([facility]) documented in this encounter Additional Health Concerns Assessment Noted Time PHQ-9 Depression Total Score: 0 01/29/20 23 4:36 PM EDT documented as of this encounter Care Teams X Ray Consultant Relationship Specialty Start Date End Date Manjeet Quiroga MD [address] [place] [phone] PCP - General Internal Medicine 05/31/13 documented as of this encounter
--- OUTSIDE RECORDS SUMMARY | 2024-09-20 12:17 | XMS_ITS | Encounter Summary ---
Author Organization [employer] Address [address] [facility] 7[address] [place] [address] Care Team Providers Care Junior Media Buyer Name Role Phone Manjeet Quiroga MD Primary Care Provider [phone]- [phone] Reason for Visit * Reason Comments Med Refill Encounter Details Date Type Department Care Team ([facility] Contact Info) Description 02/03/2024 Refill [facility] [address] [place] [address] Manjeet Quiroga MD [address] [place], [place] [phone] Social History Tobacco Use Types Packs/Day Years [...] documented as of this encounter Care Teams Junior Media Buyer Relationship Specialty Start Date End Date Manjeet Quiroga MD [address] [place] [address] PCP - General Internal Medicine 05/31/13 documented as of this encounter
--- OUTSIDE RECORDS SUMMARY | 2024-09-20 12:17 | XMS_ITS | Encounter Summary ---
Author Organization [employer] Address 75 [facility] 7t [place] [address] Care Team Providers Care State Appellate Clerk Name Role Phone Manjeet Quiroga MD Primary Care Provider [phone]- [phone] Reason for Visit * Reason Comments Med Refill Encounter Details Date Type Department Care Team ([facility] Contact Info) Description 09/18/2024 Refill [facility] CHC MED & PEDS [address] [place], [place] [phone] Manjeet Quiroga MD 505 [place], [place] [phone] Neck pain; Cervical radiculopathy; Plantar fasciitis, bilateral Social History Tobacco Use Types Packs/Day Years [...] as of this encounter Visit Diagnoses Diagnosis Neck pain Cervicalgia Cervical radiculopathy Brachial neuritis or radiculitis nos Plantar fasciitis, bilateral documented in this encounter Additional Health Concerns Assessment Noted Time PHQ-9 Depression Total Score: 10 025 10:46 AM EST documented as of this encounter Care Teams State Appellate Clerk Relationship Specialty Start Date End Date Manjeet Quiroga MD [address] [place] [address] PCP - General Internal Medicine 05/31/13 documented as of this encounter
--- OUTSIDE RECORDS SUMMARY | 2024-09-20 12:17 | XMS_ITS | Clinical Summary ---
Author Organization [facility] Address 100 [facility] [address] 0 [place] [address] Phone Care Team Providers Care Independent Living Specialist Name Role Phone Manjeet Quiroga MD Primary Care Provider [phone]- [phone] Allergies No known active allergies Medications Multiple Vitamin (MULTIVITAMIN ADULT PO) Take 1 tablet by mouth 1 (one) time each day Active aspirin (ST JOEY) 81 MG EC tablet Take 1 tablet by mouth 1 (one) time each day Active cholecalciferol (VITAMIN D-3) 25 MCG (1000 UT) capsule Take 1 capsule by mouth 1 (one) time each day Active glipiZIDE (GLUCOTROL) 5 MG tablet Take 2 tablets by mouth 2 (two) times a day Active insulin glargine (LANTUS) 100 UNIT/ML injection Active lisinopril 5 MG tablet Take 1 tablet by mouth 1 (one) time each day Active pantoprazole (PROTONIX) 40 MG EC tablet Take 1 tablet by mouth 1 (one) time each day Active SITagliptin (JANUVIA) 50 MG tablet Take 50 mg by mouth 1 (one) time each day Active fluticasone HFA (FLOVENT HFA) 110 MCG/ACT inhaler Inhale 1 puff 2 (two) times a day Rinse mouth with water after use to reduce aftertaste and incidence of candidiasis. Do not swallow. Active albuterol HFA (PROVENTIL HFA;VENTOLIN HFA) 108 (90 Base) MCG/ACT inhaler Inhale 2 puffs if needed for wheezing Active LACTOBACILLUS PROBIOTIC PO Take by mouth 1 (one) time each day Active gabapentin (NEURONTIN) 100 MG capsule Take 100 mg by mouth in the morning and 100 mg in the evening and 100 mg before bedtime. Active Dulaglutide (Trulicity) 1.5 MG/0.5ML solution pen-injector Inject under the skin Active Active Problems Problem Noted Date Diagnosed Date Acute nontraumatic kidney injury 12/23/2020 Family History Medical History Relation Comments Diabetes Father Diabetes Mother Hypertension Mother Diabetes Sibling 1 Kidney disease Sibling 2 Relation Status Comments Father Mother Alive Sibling 1 Sibling 2 Social History Tobacco Use Types Packs/Day Years Used Date Smoking Tobacco: Never Smokeless Tobacco: Never Tobacco Cessation:Counseling Given: Not Answered Alcohol Use Standard Drinks/Week Comments Not Currently 1 (1 standard drink = 0.6 oz pur e alcohol) rare Comments No Sex and Gender Information Value Date Recorded Sex Assigned at Not on file Legal Sex Female 4:58 PM EST Gender Identity Not on file Sexual Orientation Not on file Last Filed Vital Signs Vital Sign Reading Time Taken Comments Blood Pressure 121/77 01/20/2022 3:58 PM EDT Pulse 84 01/20/2022 3:58 PM EDT Temperature - - Respiratory Rate - - Oxygen Saturation 99% 01/20/2022 3:58 PM EDT Inhaled Oxygen Concentration - - Weight 106 kg (233 lb) 01/20/2022 3:58 PM EDT Height 154.9 cm (5' 1 ) 06/10/2020 12:01 PM EST Body Mass Index 44.02 06/10/2020 12:01 PM EST Plan of Treatment Health Maintenance Due Date Last Done Comments Hepatitis B Vaccine (1 of 3 - 19+ 3-dose series) 2006 Diabetes: Hemoglobin A1C 01/20/2022 Diabetes: Ophthalmology Exam 01/20/2022 Diabetes: Pedal Pulse Checked 01/20/2022 Diabetes: Sensory Foot Exam 01/20/2022 Diabetes: Visual Foot Exam 01/20/2022 Influenza Vaccine (Season Ended) 2025 Pneumococcal Vaccine: Peds ( 0 to 5 Years) and At-Risk Patients (6 to 49 Years) Aged Out No longer eligible b ased on patient's age to complete this topic Insurance [facility] Medicaid [facility] Medicaid Care Teams Independent Living Specialist Relationship Specialty Start Date End Date Manjeet Quiroga MD PCP - General 06/03/20
--- OUTSIDE RECORDS SUMMARY | 2024-09-20 12:17 | XMS_ITS | Encounter Summary ---
Author Organization [facility] Address 75 [facility] 7t [place] [address] Care Team Providers Care Sheet Metal Supervisor Name Role Phone Manjeet Quiroga MD Primary Care Provider [phone] Encounter Details Date Type Department Care Team ([facility] st Contact Info) Description 10/06/2023 Orders Only [facility] CHC MED & PEDS [address] [place], [place] [phone] Manjeet Quiroga MD 505 [place], [place] [phone] Type 2 diabetes mellitus without complication, without long-term current use of insulin ([facility]) (Primary Dx) Social History Tobacco Use Types [...] complication, without long-term current use of insulin ([facility])- Primary documented in this encounter Additional Health Concerns Assessment Noted Time PHQ-9 Depression Total Score: 0 01/29/20 23 4:36 PM EDT documented as of this encounter Care Teams Sheet Metal Supervisor Relationship Specialty Start Date End Date Manjeet Quiroga MD [address] [place] [address] PCP - General Internal Medicine 05/31/13 documented as of this encounter
--- OUTSIDE RECORDS SUMMARY | 2024-09-20 12:17 | XMS_ITS | Clinical Summary ---
Author Organization [facility] Address [address] [place] [address] Phone Care Team Providers Care Wire Stitcher Machine Name Role Phone Manjeet Quiroga MD Primary Care Provider [phone] [phone] Allergies No known active allergies Medications diclofenac (VOLTAREN) 1 % topical gel Apply 4 g topically 2 times daily. 4 Active Lactobac. rhamnosus GG-inulin ([facility] [employer]) 10 billion cell -200 mg capsule, sprinkle Take 1 capsule by mouth 1 (one) time each day. 3 Active dulaglutide (Trulicity) 4.5 mg/0.5 mL pen injector injection Inject 5 mg into the skin. Active gabapentin (NEURONTIN) 100 mg capsule TAKE 1 CAPSULE BY MOUTH THREE TIMES DAILY 2 Active thiamine (Vitamin B-1, mononitrate,) 100 mg tablet 0 Active fluticasone HFA (Flovent HFA) 110 mcg/actuation inhaler Inhale 1 puff by mouth 2 (two) times a day. 1 Active multivitamin (MULTIPLE VITAMINS ORAL) TAKE 1 TABLET BY MOUTH EVERY DAY 1 Active lisinopriL (PRINIVIL,ZESTRIL) 5 mg tablet Take 5 mg by mouth daily. Active biotin 5 mg tablet Take 1 tablet by mouth 1 (one) time each day. Active cholecalciferol (VITAMIN D-3) 50 mcg (2,000 unit) tablet Take 1 tablet (2,000 Units total) by mouth 1 (one) time each day. Active aspirin 81 mg EC tablet Take 81 mg by mouth daily. Active clotrimazole-betam ethasone (LOTRISONE) 1-0.05 % cream Apply topically 2 (two) times a day. For 2 weeks 30 g 4 Active lidocaine (LIDODERM) 5 % patchIndications:D iabetic mononeuropathy simplex ([facility] V24, [facility] V28),Arthritis of right ankle,Plantar fascial fibromatosis Apply 1 patch topically 1 (one) time each day. Remove & discard patch within 12 hours or as directed by MD. 30 each 2 5 11/13/19 25 Active diclofenac (Voltaren Arthritis Pain) 1 % topical gel Apply 4 g topically 2 (two) times a day. 240 g 1 5 10/14/19 25 Active Active Problems Problem Noted Date Diagnosed Date Diabetes mellitus type 2, co ntrolled, with complications ([facility] [place], [facility] V28) 03/30/2024 Atypical squamous cells of u ndetermined significance (ASC-US) on cervical Pap smear 07/16/2020 Overview (03/30/2024): 07/05/2019 PAP - ASCUS, + HPV ( neg 16/18/45) Plan: Colpo negative 09/2021 PAP ASCUS, + HPV ( Neg 16/18/45) Colpo neg repeat pap in one year 2022 PAP LSIL, + HPV, ( neg 16, 8, 45) Colpo- benign repeat in one year 2023 PAP LSIL, + HPV Plan: COLPO- benign repeat in one year Obesity, morbid, BMI 40.0-49.9 ([facility] [place], [facility] V28) 07/05/2019 Encounters Date Type Department Care Team Description 08/14/2024 10:00 AM EDT Office Visit Orthopedic Surgery - [address] [address] Ladarius Amaro, DPM Diabetic mononeuropathy simplex ([facility] V24, [facility] V28) (Primary Dx); Arthritis of right ankle; Plantar fascial fibromatosis; Posterior tibial tendon dysfunction (PTTD) of right lower extremity; Posterior tibial tendon dysfunction (PTTD) of left lower extremity from Last 3 Months Immunizations Name Administration Dates Next Due HPV 9-valent (Gardisil) 9yo to less than 46yo 02/24/2021,10/25/2020,07/23/2020 Pfizer SARS-CoV-2 COVID-19, mRNA, LNP-S, preservative free 07/02/2021,01/20/2021,12/30/2020 Surgical History Surgery Date Site/Laterality Comments NECK SURGERY 07/30/2016 PROCEDURE: HISTORICAL NECK SURGERY; COMMENT: [facility] Medical History Medical History Date Comments Anemia DX:Anemia Anxiety state DX:Anxiety state Asthma DX:Asthma Diabetes mellitus type 2, co ntrolled, with complications ([facility] V24, [facility] V28) DX:Diabetes mellitus type 2, controlled, with complications ([facility]) Bacterial vaginosis 01/24/2016 DX:Bacterial vaginosis; COMMENT: 10/05/14, 10/05/13 Vitamin D insufficiency 10/05/2013 DX:Vitam in D insufficiency; COMMENT: Vitamin D = 26 Herpes 2009 DX:Herpes; COMME NT: + HSV Atypical squamous cells of undetermined significance (ASC-US) on cervical Pap smear 07/16/2020 DX:Atypical squamous cells o f undetermined significance (ASC-US) on cervical Pap smear Family History Medical History Relation Name Comments Diabetes Brother kidney disease Diabetes Father Stroke Maternal Grandfather Arthritis Maternal Grandmother Diabetes Maternal Grandmother Hypertension Maternal Grandmother Arthritis Mother Diabetes Mother Hypertension Mother Diabetes Sister Breast cancer Neg Hx Ovarian cancer Neg Hx Relation Name Status Comments Brother Father Maternal Grandfather Maternal Grandmother Mother Alive Sister Social History Tobacco Use Types Packs/Day Years Used Date Smoking Tobacco: Never Smokeless Tobacco: Never Tobacco Cessation:Counseling Given: Not Answered Alcohol Use Standard Drinks/Week Comments Yes 0 (1 standard drink = 0.6 oz pur e alcohol) Comments Unknown Sex and Gender Information Value Date Recorded Sex Assigned at Not on file Legal Sex Female 4:37 AM EST Gender Identity Not on file Sexual Orientation Not on file Obstetrics History Last Filed Vital Signs Vital Sign Reading Time Taken Comments Blood Pressure 111/73 10/20/2023 11:11 AM EDT Sitting R Arm Pulse 92 10/20/2023 11:11 AM EDT Temperature - - Respiratory Rate - - Oxygen Saturation - - Inhaled Oxygen Concentration - - Weight 106 kg (234 lb) 05/12/2024 10:09 AM EST Height 154.9 cm (5' 0.98 ) 05/12/2024 1 0:09 AM EST Body Mass Index 44.24 05/12/2024 10:09 AM EST Plan of Treatment Upcoming Encounters Date Type Department Care Team (Late st Contact Info) Description 10/19/2024 9:30 AM EDT Office Visit Orthopedic Surgery - [place] [address] [phone] Ladarius Amaro, DPNeptali [address] [address] 12/01/2024 9:45 AM EDT Office Visit Obstetrics & Gynecology - [address] [phone] Cher Martinez, RYANM [address] [place] [address] Health Maintenance Due Date Last Done Comments Diabetes: Annual Foot Exam 1997 Diabetes: Annual GFR (Glomerular Filtration Rate) 02/24/2022 02/24/2021 Social Influencers of Health Screening 05/02/2022 Diabetes: Annual Urine Albumin-Creatinine Ratio (uACR) 05/09/2022 02/24/2021 COVID-19 Vaccine ( season) 2024 05/26/2023, 07/02/2021, 01/20/2021, Additional history exists Diabetes: Annual Retina Eye Exam 09/02/2024 09/03/2023 Diabetes: Blood Sugar Control Test (HGBA1C) 02/07/2025 08/07/2024, 04/11/2024, 09/24/2022, Additional history exists Depression Screening 06/13/2025 06/13/2024 Cholesterol Screening (Lipid Panel) 11/11/2027 11/10/2022, 02/24/2021 Cervical Cancer Screening: HPV 09/16/2028 09/17/2023 DTaP,Tdap,and Td Vaccines (8 - Td or Tdap) 05/16/2030 05/16/2020, 02/12/2014, 10/11/1991, Additional history exists HIB Vaccines Completed 07/03/1988 IPV Vaccines Completed 10/11/1991, 08/23, 1987, Additional history exists MMR Vaccines Completed 11/27/1997, 07/03/1988 Hepatitis B Vaccines Completed 05/03/1998, 01/03/1998, 11/28/1997 Varicella Vaccines Aged Out 03/30/2018, 11/05/1998 No longer eligible based on patient's age to complete this topic HPV Vaccines Completed 02/24/2021, 08/2020, 07/23/2020 Hepatitis C Screening Completed 09/24/2022 Pneumococcal Vaccine: Pediatrics (0 to 5 Years) and At-Risk Patients (6 to 64 Years) Completed 05/26/2023 Influenza Vaccine Completed 02/02/2024, , 04/26/2020, Additional history exists HIV Screening Completed 04/24/2024, 07/05/2019 Hepatitis A Vaccines Aged Out No long er eligible based on patient's age to complete this topic Meningococcal ACWY Vaccine Aged Out N o longer eligible based on patient's age to complete this topic Meningococcal B Vaccine Aged Out No l onger eligible based on patient's age to complete this topic RSV Immunization Patients Under 20 months Aged Out No longer eligible based on patient's age to complete this topic Procedures Procedure Name Priority Date/Time Associated Diagnosis Comments HPV Routine 09/17/2023 DIABETES EYE EXAM Routine 09/03/2023 HEPATITIS C SCREENING Routine 09/24/2022 HEMOGLOBIN A1C Routine 09/24/2022 HIV SCREENING Routine 07/05/2019 from Last 3 Months or Most Recently Relevant to Health Maintenance Results * Cervical Cancer Screening: HPV (09/17/2023) Cervical Cancer Screening: HPV no interpretation , abstracted Historical Provider MD HEALTH MAINTENANCE Final Result * Diabetes Eye Exam (09/03/2023) Pathologist [facility] Diabetes: Annual Retina Eye Exam abstracted Historical Provider HEALTH MAINTENANCE Final Result * Hepatitis C Screening (09/24/2022) [facility]ologist [facility] Hepatitis C Screening abstracted Historical Provider HEALTH MAINTENANCE Final Result * (ABNORMAL) Hemoglobin A1c (09/24/2022) Pathologist [facility] Hemoglobin A1C 12.7(A) <=6.5 % Blood Venous blood specimen / Unknown Historical Provider LAB BLOOD ORDERABLES Carol Ann l Result * HIV Screening (07/05/2019) Pathologist [facility] HIV Screening abstracted Historical Provider HEALTH MAINTENANCE Final Result from Last 3 Months or Most Recently Relevant to Health Maintenance Insurance [facility] Care Teams Wire Stitcher Machine Relationship Specialty Start Date End Date Manjeet Quiroga MD [address] [place] [address] PCP - General Internal Medicine 07/22/20
--- OUTSIDE RECORDS SUMMARY | 2024-09-20 12:17 | XMS_ITS | Encounter Summary ---
Author Organization [employer] Address [address] [place] [address] 7 [place] [address] Care Team Providers Care Land Measurer Name Role Phone Manjeet Quiroga MD Primary Care Provider [phone]- [phone] Encounter Details Date Type Department Care Team ([facility] st Contact Info) Description 12/02/2022 Orders Only [facility] CHC MED & PEDS 505 [place], [place] [phone] Cheryle Cruz LPN Social History Tobacco Use [...] documented as of this encounter Care Teams Land Measurer Relationship Specialty Start Date End Date Manjeet Quiroga MD 505 [place], [place] [phone] PCP - General Internal Medicine 05/31/13 documented as of this encounter
--- OUTSIDE RECORDS SUMMARY | 2024-09-20 12:17 | XMS_ITS | Encounter Summary ---
Author Organization [employer] Address [address] [facility] [address] 7t [place] [address] Care Team Providers Care Mapping Technician Name Role Phone Manjeet Quiroga MD Primary Care Provider [phone] [phone] Encounter Details Date Type Department Care Team ([facility] st Contact Info) Description 10/06/2023 Telephone [facility] MEDICINE [address] [place] [address] Manjeet Quiroga MD 505 [place], [place] [phone] Social History Tobacco Use Types Packs/Day Years [...] documented as of this encounter Care Teams Mapping Technician Relationship Specialty Start Date End Date Manjeet Quiroga MD [address] [place] [address] PCP - General Internal Medicine 05/31/13 documented as of this encounter
--- OUTSIDE RECORDS SUMMARY | 2024-09-20 12:17 | XMS_ITS | Encounter Summary ---
Author Organization [employer] Address [address] [facility] [address] 7[address] [place] [address] Care Team Providers Care Clamper Name Role Phone Manjeet Quiroga MD Primary Care Provider [phone] Encounter Details Date Type Department Care Team ([facility] st Contact Info) Description 06/21/2024 Orders Only [facility] MEDICINE [address] [place], [place] [phone] Provider, MD Emilia Social History Tobacco Use Types Packs/Day Years [...] on file documented as of this encounter Procedures Procedure Name Priority Date/Time Associated Diagnosis Comments COLPOSCOPY Routine 10/20/2023 9:03 AM EDT HM PAP/HPV Routine 09/17/2023 9:04 AM EDT COLPOSCOPY Routine 10/13/2021 9:22 AM EDT HM PAP/HPV Routine 09/16/2021 9:15 AM EDT COLPOSCOPY Routine 07/23/2020 9:13 AM EST HM PAP/HPV Routine 07/05/2020 9:11 AM EST HM PAP/HPV Routine 02/21/2018 9:08 AM EDT documented in this encounter Results * Colposcopy (10/20/2023 9:03 AM EDT) Historical Provider IN CLINIC/BEDSIDE ORDERAB LES Final Result * HM PAP/HPV (09/17/2023 9:04 AM EDT) Historical Provider HEALTH MAINTENANCE Final Result * Colposcopy (10/13/2021 9:22 AM EDT) Historical Provider IN CLINIC/BEDSIDE ORDERAB LES Final Result * HM PAP/HPV (09/16/2021 9:15 AM EDT) Historical Provider HEALTH MAINTENANCE Final Result * Colposcopy (07/23/2020 9:13 AM EST) Historical Provider IN CLINIC/BEDSIDE ORDERAB LES Final Result * HM PAP/HPV (07/05/2020 9:11 AM EST) Historical Provider HEALTH MAINTENANCE Final Result * HM PAP/HPV (02/21/2018 9:08 AM EDT) Historical Provider HEALTH MAINTENANCE Final Result documented in this encounter Visit Diagnoses Not on filedocumented in this encounter Additional Health Concerns Assessment Noted Time PHQ-9 Depression Total Score: 10 025 10:46 AM EST documented as of this encounter Care Teams Clamper Relationship Specialty Start Date End Date Manjeet Quiroga MD [address] [place] [address] PCP - General Internal Medicine 05/31/13 documented as of this encounter
--- OUTSIDE RECORDS SUMMARY | 2024-09-20 12:17 | XMS_ITS | Encounter Summary ---
Author Organization [employer] [facility] Address [address] [place] [address] 7 [place] [address] Care Team Providers Care Still Operator Brandy Name Role Phone Manjeet Quiroga MD Primary Care Provider [phone]- [phone] Reason for Visit * Reason Comments Med Refill Encounter Details Date Type Department Care Team ([facility] Contact Info) Description 06/22/2022 Refill [facility] CHC MED & PEDS [address] [place], [place] [phone] Manjeet Quiroga MD [address] [place] [address] Bloating (Primary Dx) Social History Tobacco Use Types Packs/Day Years Used Date Smoking Tobacco: Never Assessed Comments Unknown Sex and Gender Information Value Date Recorded Sex Assigned at Female 03/23/2022 10:20 AM EDT Legal Sex Female 10:20 AM EDT Gender Identity Female 03/23/2022 10:20 AM EDT Sexual Orientation Straight 03/23/2022 10 :20 AM EDT documented as of this encounter Plan of Treatment Not on file documented as of this encounter Visit Diagnoses Diagnosis Bloating- Primary Flatulence, eructation, and gas pain documented in this encounter Care Teams Still Operator Brandy Relationship Specialty Start Date End Date Manjeet Quiroga MD [address] [place] [address] PCP - General Internal Medicine 05/31/13 documented as of this encounter
--- OUTSIDE RECORDS SUMMARY | 2024-09-20 12:17 | XMS_ITS | Encounter Summary ---
Author Organization [employer] Address 75 [facility] 7t [place] [address] Care Team Providers Care Auto Body Repair Teacher Name Role Phone Manjeet Quiroga MD Primary Care Provider [phone]- [phone] Reason for Visit * Reason Onset Date Comments Med Refill 11/04/2022 Encounter Details Date Type Department Care Team ([facility] st Contact Info) Description 11/04/[address] [facility] MEDICINE [address] [place] [address] Manjeet Quiroga MD [address] [place], [place] [phone] Med Refill Social History Tobacco Use Types Packs/Day Years [...] suspected to have Coronavirus/COVID-19? No / Unsure 10/13/2022 2:03 PM EDT documented as of this encounter Miscellaneous Notes * Telephone Encounter - Cheryle Cruz LPN - 11/04/2022 3:31 PM EDT Insulin and pen needles discontinued. * Telephone Encounter - Barbara Wilcox - 11/04/2022 3:14 PM EDT Tc from patient requesting inactive medication pen needle 31 gauge x 10/06. documented in this encounter Plan of Treatment Not on file documented as of this encounter Visit Diagnoses Not on filedocumented in this encounter Additional Health Concerns Assessment Noted Time PHQ-9 Depression Total Score: 8 10/14/19 23 2:38 PM EDT documented as of this encounter Care Teams Auto Body Repair Teacher Relationship Specialty Start Date End Date Manjeet Quiroga MD [address] [place] [address] PCP - General Internal Medicine 05/31/13 documented as of this encounter
--- OUTSIDE RECORDS SUMMARY | 2024-09-20 12:17 | XMS_ITS | Encounter Summary ---
Author Organization [employer] Address 75 [facility] 7t [place] [address] Care Team Providers Care Perfume And Toilet Water Maker Name Role Phone Manjeet Quiroga MD Primary Care Provider [phone]- [phone] Encounter Details Date Type Department Care Team ([facility] st Contact Info) Description 12/01/2022 Orders Only [facility] CHC MED & PEDS [address] [place], [place] [phone] Manjeet Quiroga MD 505 [place], [place] [phone] Type 2 diabetes mellitus without complication, with long-term current use of insulin (CMS/HCC) Social History Tobacco Use Types Packs/Day [...] Diagnosis Type 2 diabetes mellitus without complication, with long-term current use of insulin (CMS/HCC) documented in this encounter Additional Health Concerns Assessment Noted Time PHQ-9 Depression Total Score: 8 05/23/20 23 2:38 PM EDT documented as of this encounter Care Teams Perfume And Toilet Water Maker Relationship Specialty Start Date End Date Manjeet Quiroga MD [address] [place] [address] PCP - General Internal Medicine 05/31/13 documented as of this encounter
--- OUTSIDE RECORDS SUMMARY | 2024-09-20 12:17 | XMS_ITS | Encounter Summary ---
Author Organization [employer] Address [address] [facility] 7t [place] [address] Care Team Providers Care Supervisor Contact And Service Clerks Name Role Phone Manjeet Quiroga MD Primary Care Provider [phone] Encounter Details Date Type Department Care Team ([facility] st Contact Info) Description 10/28/2022 Orders Only [facility] MED & PEDS [address] [place], [place] [phone] Manjeet Quiroga MD [address] [place], [place] [phone] Other emphysema (CMS/HCC) (Primary Dx); Type 2 diabetes mellitus without complication, with [...] PM EDT documented as of this encounter Plan of Treatment Not on file documented as of this encounter Procedures Procedure Name Priority Date/Time Associated Diagnosis Comments QUANTIFERON(R)-TB GOLD PLUS, 1 TUBE Routine 11/10/2022 10:41 AM EDT Other emphysema (CMS/HCC) documented in this encounter Results * QuantiFERON??-TB Gold Plus, 1 Tube (11/10/2022 10:41 AM EDT) Quantiferon ??-TB Gold Plus, 1 Tube NEGATIVE NEGATIVE [facility] [employer] [employer] Comment: Negative test result. M. tuberculosis complex infection unlikely. NIL 0.08 IU/mL [facility] MITOGEN-NIL >10.00 IU/mL [facility] TB1-NIL <0.00 IU/mL [facility] TB2-NIL <0.00 IU/mL [facility] Comment: The Nil tube value reflects the background interferon gamma immune response of the patient's blood sample. This value has been subtracted from the patient's displayed TB and Mitogen results. Lower than expected results with the Mitogen tube prevent false-negative Quantiferon readings by detecting a patient with a potential immune suppressive condition and/or suboptimal pre-analytical specimen handling. The TB1 Antigen tube is coated with the M. tuberculosis-specific antigens designed to elicit responses from TB antigen primed CD4+ helper T-lymphocytes. The TB2 Antigen tube is coated with the M. tuberculosis-specific antigens designed to elicit responses from TB antigen primed CD4+ helper and CD8+ cytotoxic T-lymphocytes. For additional information, please refer to https://education.Appthority.Mojostreet/faq/YYI003 (This link is being provided for informational/ educational purposes only.) Blood Venous blood specimen / Unknown 11/10/2022 10:41 AM EDT 11/10/2022 10:42 AM EDT Manjeet Quiroga MD LAB BLOOD ORDERABLES Final Result [facility] [address], [place] [address] [facility] [address] [place] [address] documented in this encounter Visit Diagnoses Diagnosis Other emphysema (CMS/HCC)- Primary Other emphysema Type 2 diabetes mellitus without complication, with long-term current use of insulin ([facility]) documented in this encounter Additional Health Concerns Assessment Noted Time PHQ-9 Depression Total Score: 8 10/14/19 23 2:38 PM EDT documented as of this encounter Care Teams Supervisor Contact And Service Clerks Relationship Specialty Start Date End Date Manjeet Quiroga MD [address] [place] [address] PCP - General Internal Medicine 05/31/13 documented as of this encounter
== END 2024-09-20 11:13 | disposition home or self-care (01) ==
LOC: HO.PMC 10:51
PROVIDERS: PCP Internal Medicine; Referring Provider Podiatrist Foot & Ankle Surgery; Visit Provider Anesthesiology
DX: G57.92 Unspecified mononeuropathy of left lower limb (principal); E11.51 Type 2 diabetes mellitus with diabetic peripheral angiopathy without gangrene
CPT/HCPCS: 99203

== ENCOUNTER → 2024-09-20 10:50 | Outpatient (BNVA) | payer OTHER, SELFPAY | PROVIDERS: PCP Internal Medicine; Referring Provider Podiatrist Foot & Ankle Surgery; Visit Provider Anesthesiology | DX: E11.51 Type 2 diabetes mellitus with diabetic peripheral angiopathy without gangrene (principal); E11.41 Type 2 diabetes mellitus with diabetic mononeuropathy; G57.92 Unspecified mononeuropathy of left lower limb | CPT/HCPCS: 99202 ==

== ENCOUNTER 2024-09-29 10:22 | Outpatient (AMB) | payer OTHER, SELFPAY ==
--- NOTE | 2024-09-29 10:24 | MHC.OFFVIS ---
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 Patient rpeorts that she has had bilateral hand numbness and tingling for a few years now, She has numbness and tingling in the thumb, pointer finger and middle finger. 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 She has history of a cervical fusion and was worried that the numbness was due to this. Her symptoms are worse at night EMG/NCS done on 05/12/23 IMPRESSION: 1. This is an abnormal study. 2. There is electrodiagnostic evidence for bilateral moderate-severe median neuropathy at the wrist, consistent with carpal tunnel syndrome. 3. 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 Patient rpeorts that she has had bilateral hand numbness and tingling for a few years now, She has numbness and tingling in the thumb, pointer finger and middle finger. 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 She has history of a cervical fusion and was worried that the numbness was due to this. Her symptoms are worse at night EMG/NCS done on 05/12/23 IMPRESSION: 1. This is an abnormal study. 2. There is electrodiagnostic evidence for bilateral moderate-severe median neuropathy at the wrist, consistent with carpal tunnel syndrome. 3. 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 Good APB muscle firing and good finger cross. Vascular: Capillary refill brisk. ROM: Patient can make a fist and extend all their digits. Skin: No lacerations or abrasions noted. General: No ecchymosis. No erythema or evidence of infection. Assessment & Plan Assessment & Plan (1) Bilateral carpal tunnel syndrome: Code(s): G56.03 - Carpal tunnel syndrome, bilateral upper limbs Category: Medical Plan 1. Left carpal tunnel syndrome Symptoms constant, daily, worse at night I educated the patient about the condition. I discussed both operative and nonoperative treatment options. The patient would like to proceed with surgery. The risks and benefits of operative treatment were discussed with the patient and the patient wishes to proceed with surgery. These risks include, but are not limited to, risk of damage to blood vessels, nerves, tendons, infection, recurrence, incomplete relief of preoperative symptoms, persistent pain, possible need for further surgery, and the risks associated with regional blocks and/or anesthesia. Plan is to take the patient to the operating room at some point in the next few weeks for the following procedures: 1. Left carpal tunnel release under local All of the preoperative paperwork including the consent was discussed today. All of the patient's questions were answered in the clinic today. The patient understands that they will be in contact with our surgical specialist to discuss scheduling their procedure. Patient reports diabetes, last known A1c thought to be approximately 7, we will call to confirm this before surgery Denies blood thinners, asthma, heart issues, lung issues, kidney issues, or current smoking. 2. Carpal tunnel syndrome, right Symptoms constant, daily, worse at night Patient would like to proceed with operative intervention of the left prior to any intervention of the right Patient was advised that if she is recovering well at her postop, we can get the other side signed up at that time Patient is amenable to this plan Follow-up as needed Coding Level of Care Code New Pt Level 4 (26579) Diagnoses Bilateral carpal tunnel syndrome G56.03
[2024-09-29 10:30] VITALS: BMI 45.9
--- OUTSIDE RECORDS SUMMARY | 2024-09-29 10:53 | XMS_ITS | Clinical Summary ---
Author Organization [address] [facility] Address [address] [place] [address] Phone Care Team Providers Care Fourdrinier Machine Tender Name Role Phone Manjeet Quiroga MD Primary Care Provider [phone] Allergies No known active allergies Medications diclofenac (VOLTAREN) 1 % topical gel Apply 4 g topically 2 times daily. 4 Active Lactobac. rhamnosus GG-inulin ([facility] [employer] [address]) 10 billion cell -200 mg capsule, sprinkle [...] (LIDODERM) 5 % patchIndications:D iabetic mononeuropathy simplex ([facility] V24, [facility] V28),Arthritis of right ankle,Plantar fascial fibromatosis Apply [...] mellitus type 2, co ntrolled, with complications ([facility] V24, [facility] V28) 03/30/2024 Atypical squamous cells of u [...] in one year Obesity, morbid, BMI 40.0-49.9 ([facility] V24, [facility] V28) 07/05/2019 Encounters Date Type Department Care Team Description 08/14/2024 10:00 AM EDT Office Visit Orthopedic Surgery - [address] [address] Ladarius Amaro, DPM Diabetic mononeuropathy simplex ([facility] V24, [facility] V28) (Primary Dx); Arthritis of right ankle; [...] SURGERY 07/30/2016 PROCEDURE: HISTORICAL NECK SURGERY; COMMENT: [facility] Medical History Medical History Date Comments Anemia DX:Anemia Anxiety state DX:Anxiety state Asthma DX:Asthma Diabetes mellitus type 2, co ntrolled, with complications ([facility] V24, [facility] V28) DX:Diabetes mellitus type 2, controlled, with complications ([facility]) Bacterial vaginosis 01/24/2016 DX:Bacterial vaginosis; COMMENT: 10/05/14, [...] AM EDT Office Visit Orthopedic Surgery - [place] [address] [phone] Ladarius Amaro, DPNeptali [address] [address] 12/01/2024 9:45 AM EDT Office Visit Obstetrics & Gynecology - [address] [phone] Cher Martinez, RYANM [address] [place] [address] Health Maintenance Due Date Last Done Comments [...] Result * Diabetes Eye Exam (09/03/2023) Pathologist [facility] Diabetes: Annual Retina Eye Exam abstracted Historical Provider HEALTH MAINTENANCE Final Result * Hepatitis C Screening (09/24/2022) Pathologist [facility] Hepatitis C Screening abstracted Historical Provider HEALTH MAINTENANCE Final Result * (ABNORMAL) Hemoglobin A1c (09/24/2022) Pathologist [facility] Hemoglobin A1C 12.7(A) <=6.5 % Blood Venous blood specimen / Unknown Historical Provider LAB BLOOD ORDERABLES Carol Ann l Result * HIV Screening (07/05/2019) Pathologist [facility] HIV Screening abstracted Historical Provider HEALTH MAINTENANCE Final Result from Last 3 Months or Most Recently Relevant to Health Maintenance Insurance [facility] Care Teams Fourdrinier Machine Tender Relationship Specialty Start Date End Date Manjeet Quiroga MD [address] [place] [address] PCP - General Internal Medicine 07/22/20
--- OUTSIDE RECORDS SUMMARY | 2024-09-29 10:53 | XMS_ITS | Encounter Summary ---
Author Organization [employer] Address [address] [facility] 7t [place] [address] Care Team Providers Care Outside Property Agent Name Role Phone Manjeet Quiroga MD Primary Care Provider [phone] Reason for Visit * Reason Comments Med Refill Encounter Details Date Type Department Care Team ([facility] Contact Info) Description 02/03/2024 Refill [facility] MEDICINE [address] [place] [address] Manjeet Quiroga MD [address] [facility] [address] [place], [place] [phone] Social History Tobacco Use Types Packs/Day Years [...] documented as of this encounter Care Teams Outside Property Agent Relationship Specialty Start Date End Date Manjeet Quiroga MD [address] [place] [address] PCP - General Internal Medicine 05/31/13 documented as of this encounter
--- OUTSIDE RECORDS SUMMARY | 2024-09-29 10:53 | XMS_ITS | Encounter Summary ---
Author Organization [employer] Address [address] [facility] [address] [facility] [address] 7[address] [place] [address] Care Team Providers Care Special Needs Babysitter Name Role Phone Manjeet Quiroga MD Primary Care Provider [phone] Encounter Details Date Type Department Care Team ([facility] st Contact Info) Description 10/21/2023 Orders Only [facility] CH[facility] MED & PEDS [address] [place], [place] [phone] Manjeet Quiroga MD [address] [place], [place] [phone] Type 2 diabetes mellitus without complication, without long-term current use of insulin ([facility]) Social History Tobacco Use Types Packs/Day Years [...] complication, without long-term current use of insulin ([facility]) documented in this encounter Additional Health Concerns Assessment Noted Time PHQ-9 Depression Total Score: 0 01/29/20 23 4:36 PM EDT documented as of this encounter Care Teams Special Needs Babysitter Relationship Specialty Start Date End Date Manjeet Quiroga MD [address] [place] [address] PCP - General Internal Medicine 05/31/13 documented as of this encounter
--- OUTSIDE RECORDS SUMMARY | 2024-09-29 10:53 | XMS_ITS | Encounter Summary ---
Author Organization [employer] Address [address] [facility] 7t [place] [address] Care Team Providers Care Gang Saw Operator Name Role Phone Manjeet Quiroga MD Primary Care Provider [phone] Reason for Visit * Reason Comments Med Refill Encounter Details Date Type Department Care Team ([facility] Contact Info) Description 10/25/2023 Refill [facility] CHC MED & PEDS [address] [place], [place] [phone] Manjeet Quiroga MD [address] [place], [place] [phone] Mild episode of recurrent major depressive disorder [...] documented as of this encounter Care Teams Gang Saw Operator Relationship Specialty Start Date End Date Manjeet Quiroga MD [address] [place] [address] PCP - General Internal Medicine 05/31/13 documented as of this encounter
--- OUTSIDE RECORDS SUMMARY | 2024-09-29 10:53 | XMS_ITS | Clinical Summary ---
Author Organization [facility] Address [address] [facility] [address] [place] [address] Phone Care Team Providers Care Industrial Technology Education Teacher Name Role Phone Manjeet Quiroga MD Primary Care Provider [phone] Allergies No known active allergies Medications Multiple [...] patient's age to complete this topic Insurance [facility] Medicaid [facility] Medicaid Care Teams Industrial Technology Education Teacher Relationship Specialty Start Date End Date Manjeet Quiroga MD PCP - General 06/03/20
--- OUTSIDE RECORDS SUMMARY | 2024-09-29 10:53 | XMS_ITS | Clinical Summary ---
Author Organization [employer] Address [address] 7t [place] [address] Care Team Providers Care Computer System Technician Name Role Phone Manjeet Quiroga MD Primary Care Provider [phone] Allergies No known active allergies Medications * This document contains information received from the source organization and may not represent a complete record from that organization. insulin detemir (Levemir) 100 UNIT/ML injectionIndicat ions:Type 2 diabetes mellitus without complication, with long-term current use of insulin (CMS/[facility]) Inject 40 Units under the skin at bedtime. 10 mL 12 3 Active Blood Glucose Monitoring Suppl (FreeStyle [place] Lite) w/Device kitIndications:T ype 2 diabetes mellitus without complication, without long-term current use of insulin (CMS/HCC) Use 2 - 3 x day 1 kit 3 Active Continuous Blood Gluc Call Center Coordinator (FreeStyle Neisha 2 [place]) deviceIndication s:Type 2 diabetes mellitus without complication, [...] use of insulin (CMS/HCC) Take 1 tablet by mouth Once per [...] complication, without long-term current use of insulin (CMS/[facility]) Take 1 tablet (25 mg) by [...] DAILY 60 capsule 5 Active Lactobacillus-In ulin ([facility] [employer] [facility]) capsuleIndicatio ns:Bloating TAKE 1 CAPSULE BY MOUTH [...] neuropathy, without long-term current use of insulin ([facility]),Hand paresthesia Take 1 capsule (300 mg) by [...] medication management. Intake completed with N at [facility] for OP individual therapy. clinician will provide [...] medication management. Intake completed with BHN at [facility] for OP individual therapy. clinician will provide additional support as needed. Normocytic anemia 01/23/2022 Acute renal failure syndrome 12/23/2020 Acute nontraumatic kidney injury 12/23/2020 Anxiety 11/08/2017 Neck pain 04/27/2016 Alopecia 01/24/2013 Migraine 01/24/2013 Pes planus 01/24/2013 Chronic obstructive lung disease 02/19/2012 Obesity 02/19/2012 Diabetes mellitus type 2, uncomplicated 11/02/19 12 Encounters Date Type Department Care Team Description 09/18/2024 Refill [facility] MED & PEDS [address] [place] [address] Manjeet Quiroga MD Neck pain; Cervical radiculopathy; Plantar fasciitis, bilateral 08/10/2024 Orders Only [facility] MEDICINE [address] [place] [address] Manjeet Quiroga MD Hand paresthesia (Primary Dx); Neck pain 08/10/2024 Telephone [facility] [employer] [address] [place], [place] [phone] Manjeet Quiroga MD MRI CERVICAL SPINE DENIED 08/07/2024 2:30 PM EDT Office Visit [facility] MED & PEDS [address] [place] [address] Manjeet Quiroga MD Controlled type 2 diabetes mellitus with hyperglycemia, without long-term current use of insulin (CMS/HCC) (Primary Dx); Type 2 diabetes mellitus with diabetic neuropathy, without long-term current use of insulin (CMS/HCC); Hand paresthesia; Neck pain; Cervical radiculopathy; Plantar fasciitis, bilateral 08/07/2024 Travel 08/03/2024 Refill [facility] MED & PEDS [address] [place] [address] Manjeet Quiroga MD Health care maintenance 07/31/2024 Patient Outreach [facility] [address] [place] [address] Manjeet Quiroga MD Pre-visit Planning (SDOH negative, Tobacco screening negative. ) 07/16/2024 Refill [facility] [address] [place] [address] Manjeet Quiroga MD Type 2 diabetes mellitus without complication, without long-term current use of insulin (CMS/HCC) 07/13/2024 Refill [facility] [address] [place] [address] Manjeet Quiroga MD Plantar fasciitis, bilateral; Bloating from Last 3 Months Immunizations Name Administration Dates Next Due DTaP 10/11/1991,198 9,1987,1987,1987 HPV 9-Valent 02/24/2021,10/25/2020,07/23/2020 Hep B, adult [...] Planning (PISQ) 2002 Lipid Panel 11/11/2023 11/10/2022, 09/0 05/2021, 12/26/2020 COVID-19 Vaccine ( season) 2024 [...] Media Lot # [id number] Lot# Expiration Date [id number] Blood 08/07/2024 2:57 PM EDT us Manjeet Quiroga MD POINT OF CARE TEST ENTER/ED IT ORDERABLES Final Result * POCT Glucose (08/07/2024 2:56 PM EDT) Glucose Blood, POC 199 60 - 200 mg/dL QC Media Lot # [id number] Lot# Expiration Date [id number] Blood Capillary blood specimen / Unknown 08/07/2024 2:56 PM EDT Manjeet Quiroga MD POINT OF CARE TEST ENTER/ED IT ORDERABLES Final Result * Albumin, Random Urine W/Creatinine (04/24/2024 1:30 PM EST) Pathologist [facility] Creatinine, Urine 61.75 mg/dL [facility] Microalbumin Urine <5.0 mg/L [facility] Microalbum Creatinine Ratio Ur TNP <30 ug/mg cr [facility] Comment:Unable to calculate albumin/creatinine ratio due to lowmicroalbumin or creatinine result. Urine (Urine, Random) 04/24/2024 1:30 PM EST 04/24/2024 2:09 PM EST Manjeet Quiroga MD LAB URINE ORDERABLES Final Result [facility] [address] [place] [phone] * HIV-1/2 Antigen and Antibodies, Fourth Generation, with Reflexes (04/24/2024 1:26 PM EST) HIV AB/AG Nonreactive Nonreactive [facility] Comment:HIV-1 p24 Ag and/or HIV-1/HIV-2 Ab not detected.A test result that is nonreactive does not exclude thepossibility of exposure to or infection with HIV-1 and/orHIV-2. Nonreactive results in this assay for individualswith prior exposure to HIV-1 and/or HIV-2 may be due toantigen and antibody levels that are below the limit ofdetection of this assay.The [employer] HIV Ag/Ab Combo assay result andsupplemental assay results should be interpreted inconjunction with the patient's clinical presentation,history and other laboratory results. If the results areinconsistent with clinical evidence, additional testing issuggested to confirm the result. Blood Venous blood specimen / Unknown 04/24/2024 1:26 PM EST 04/24/2024 2:28 PM EST Manjeet Quiroga MD LAB BLOOD ORDERABLES Final Result Performing Organization Address [facility] de Phone Number [facility] [address] [place] [phone] * HM PAP/HPV (09/17/2023 9:04 AM EDT) Historical Provider HEALTH MAINTENANCE Final Result * Hepatitis C Ab (08/26/2023 10:47 AM EDT) Pathologist [facility] Hepatitis C Antibody Nonreactive Nonreactive [facility] Comment:Antibodies to HCV no t detected; does not exclude early acuteHCV infection. Blood Venous blood specimen / Unknown 08/26/2023 10:47 AM EDT 08/26/2023 2:04 PM EDT Manjeet Quiroga MD LAB BLOOD ORDERABLES Final Result Performing Organization Address [facility] de Phone Number [facility] [address] [place] [phone] * (ABNORMAL) Lipid Panel, Standard (11/10/2022 10:42 AM EDT) Cholesterol, Total 134 <200 mg/dL [facility] [place] [facility] HDL Cholesterol 45(L) > OR = 50 mg/dL [facility] [place] [facility] Triglycerides 97 <150 mg/dL [facility] [place] [facility] LDL Cholesterol 71 mg/dL (calc) [facility] [place] [facility] Comment: Reference range: <100 Desirable range <100 mg/dL for primary prevention; ?? <70 mg/dL for patients with CHD or diabetic patients with > or = 2 CHD risk factors. LDL-C is now calculated using the Sarahi calculation, which is a validated novel method providing better accuracy than the Friedewald equation in the estimation of LDL-C. Jerome SS et al. ZONIA. 2013;310(19): 9460-7628 (http://education.Lamahui/faq/NDM033) Chol/HDLC Ratio 3.0 <5.0 (calc) [facility] [place] [facility] Non-HDL Cholesterol 89 <130 mg/dL (calc) [facility] [place] [facility] Comment: For patients with diabetes plus 1 major ASCVD risk factor, treating to a non-HDL-C goal of <100 mg/dL (LDL-C of <70 mg/dL) is considered a therapeutic option. Blood Venous blood specimen / Unknown 11/10/2022 10:42 AM EDT 11/10/2022 10:43 AM EDT Narrative [facility] - 11/11/2022 3:27 AM EDT FASTING:NO FASTING: NO Manjeet Quiroga MD LAB BLOOD ORDERABLES Final Result [facility] [address], [place] [address] [facility] [place] [facility] [address] [place] [phone] from Last 3 Months or Most Recently Relevant to Health Maintenance Insurance [facility] [place] [id number] [place] [id number] Care Teams Computer System Technician Relationship Specialty Start Date End Date Manjeet Quiroga MD [address] [place] [address] [place] [address] PCP - General Internal Medicine 05/31/13
--- OUTSIDE RECORDS SUMMARY | 2024-09-29 10:53 | XMS_ITS | Encounter Summary ---
Author Organization [employer] Address [address] [facility] 7t [place] [address] Care Team Providers Care Jd Edwards Name Role Phone Manjeet Quiroga MD Primary Care Provider [phone] Reason for Visit * Reason Onset Date Comments Med Refill 11/04/2022 Encounter Details Date Type Department Care Team ([facility] Contact Info) Description 11/04/2022 Telephone [facility] MEDICINE [address] [place] [address] Manjeet Quiroga MD 505 [place] [address] Med Refill Social History Tobacco Use Types [...] documented as of this encounter Care Teams Jd Edwards Relationship Specialty Start Date End Date Manjeet Quiroga MD [address] [place] [address] PCP - General Internal Medicine 05/31/13 documented as of this encounter
--- OUTSIDE RECORDS SUMMARY | 2024-09-29 10:53 | XMS_ITS | Encounter Summary ---
Author Organization [employer] Address [address] [facility] 7t [place] [address] Care Team Providers Care Cobol Developer Name Role Phone Manjeet Quiroga MD Primary Care Provider [phone] Encounter Details Date Type Department Care Team ([facility] st Contact Info) Description 12/01/2022 Orders Only [facility] CHC MED & PEDS [address] [place], [place] [phone] Manjeet Quiroga MD 505 [place], [place] [phone] Type 2 diabetes mellitus without complication, with [...] documented as of this encounter Care Teams Cobol Developer Relationship Specialty Start Date End Date Manjeet Quiroga MD [address] [place] [address] PCP - General Internal Medicine 05/31/13 documented as of this encounter
--- OUTSIDE RECORDS SUMMARY | 2024-09-29 10:53 | XMS_ITS | Encounter Summary ---
Author Organization [employer] Address [address] 7t [place] [address] Care Team Providers Care Board Certified Arts Therapist Name Role Phone Manjeet Quiroag MD Primary Care Provider [phone] Encounter Details Date Type Department Care Team ([facility] st Contact Info) Description 06/21/2024 Orders Only [facility] MEDICINE [address] [place], [place] [phone] Provider, MD Emilia Social History Tobacco Use [...] documented as of this encounter Care Teams Board Certified Arts Therapist Relationship Specialty Start Date End Date Manjeet Quiroga MD [address] [place] [address] PCP - General Internal Medicine 05/31/13 documented as of this encounter
--- OUTSIDE RECORDS SUMMARY | 2024-09-29 10:53 | XMS_ITS | Encounter Summary ---
Author Organization [employer] Address [address] [facility] 7t [place] [address] Care Team Providers Care Respiratory Physician Name Role Phone Manjeet Quiroga MD Primary Care Provider [phone] Encounter Details Date Type Department Care Team ([facility] st Contact Info) Description 10/28/2022 Orders Only [facility] CHC MED & PEDS [address] [place], [place] [phone] Manjeet Quiroga MD 505 [place], [place] [phone] Other emphysema (CMS/HCC) (Primary Dx); Type 2 [...] ??-TB Gold Plus, 1 Tube NEGATIVE NEGATIVE [facility] Comment: Negative test result. M. tuberculosis complex infection unlikely. NIL 0.08 IU/mL [facility] [employer] MITOGEN-NIL >10.00 IU/mL [facility] [employer] Diagnost TB1-NIL <0.00 IU/mL [facility] [place] [facility] [employer] Diagnost TB2-NIL <0.00 IU/mL [facility] [place] [facility] Comment: The Nil tube value reflects the [...] T-lymphocytes. For additional information, please refer to https://education.SalesLoft.Eduquia/faq/EKD226 (This link is being provided for informational/ educational purposes only.) Blood Venous blood specimen / Unknown 11/10/2022 10:41 AM EDT 11/10/2022 10:42 AM EDT Manjeet Quiroga MD LAB BLOOD ORDERABLES Final Result [facility] [address], [place] [address] [facility] [place] [facility] 200 [place] [address] documented in this encounter Visit Diagnoses Diagnosis Other emphysema (CMS/HCC)- Primary Other emphysema Type 2 diabetes mellitus without complication, with long-term current use of insulin ([facility]) documented in this encounter Additional Health Concerns Assessment Noted Time PHQ-9 Depression Total Score: 8 10/14/19 23 2:38 PM EDT documented as of this encounter Care Teams Respiratory Physician Relationship Specialty Start Date End Date Manjeet Quiroga MD [address] [place] [address] PCP - General Internal Medicine 05/31/13 documented as of this encounter
--- OUTSIDE RECORDS SUMMARY | 2024-09-29 10:53 | XMS_ITS | Encounter Summary ---
Author Organization [employer] Address [address] [facility] 7t [place] [address] Care Team Providers Care Admission Discharge Rn Name Role Phone Manjeet Quiroga MD Primary Care Provider [phone] Reason for Visit * Reason Comments Med Refill Encounter Details Date Type Department [facility] Description 03/08/2023 Refill [facility] CHC MED & PEDS 505 [place], [place] [phone] Manjeet Quiroga MD 505 [place], [place] [phone] Type 2 diabetes mellitus with diabetic polyneuropathy [...] documented as of this encounter Care Teams Admission Discharge Rn Relationship Specialty Start Date End Date Manjeet Quiroga MD [address] [place] [address] PCP - General Internal Medicine 05/31/13 documented as of this encounter
--- OUTSIDE RECORDS SUMMARY | 2024-09-29 10:53 | XMS_ITS | Encounter Summary ---
Author Organization [employer] Address [address] [facility] 7t [place] [address] Care Team Providers Care Utilities Ground Worker Name Role Phone Manjeet Quiroga MD Primary Care Provider [phone] Encounter Details Date Type Department Care Team ([facility] st Contact Info) Description 12/02/2022 Orders Only [facility] CHC MED & PEDS [address] [place] [address] Cheryle Cruz LPN Social History Tobacco Use [...] documented as of this encounter Care Teams Utilities Ground Worker Relationship Specialty Start Date End Date Manjeet Quiroga MD 505 [place], [place] [phone] PCP - General Internal Medicine 05/31/13 documented as of this encounter
--- OUTSIDE RECORDS SUMMARY | 2024-09-29 10:53 | XMS_ITS | Encounter Summary ---
Author Organization [employer] Address [address] [facility] 7t [place] [address] Care Team Providers Care Leather Sprayer Name Role Phone Manjeet Quiroga MD Primary Care Provider [phone] Encounter Details Date Type Department Care Team (Late st Contact Info) Description 12/03/2022 Orders Only [facility] MEDICINE 230 [place], [place] [phone] Arleen Abarca LPN Social History Tobacco Use Types [...] documented as of this encounter Care Teams Leather Sprayer Relationship Specialty Start Date End Date Manjeet Quiroga MD [address] [place] [address] PCP - General Internal Medicine 05/31/13 documented as of this encounter
--- OUTSIDE RECORDS SUMMARY | 2024-09-29 10:53 | XMS_ITS | Encounter Summary ---
Author Organization [employer] Address [address] [facility] [address] 7t [place] [address] Care Team Providers Care Fiber Heel Piece Shaper Name Role Phone Manjeet Quiroga MD Primary Care Provider [phone] Encounter Details Date Type Department Care Team (Late st Contact Info) Description 10/06/2023 Telephone [facility] MEDICINE [address] [place] [address] Manjeet Quiroga MD [address] [place], [place] [phone] Social History Tobacco Use Types Packs/Day Years [...] documented as of this encounter Care Teams Fiber Heel Piece Shaper Relationship Specialty Start Date End Date Manjeet Quiroga MD [address] [place] [address] PCP - General Internal Medicine 05/31/13 documented as of this encounter
--- OUTSIDE RECORDS SUMMARY | 2024-09-29 10:53 | XMS_ITS | Encounter Summary ---
Author Organization [employer] Address [address] [facility] [address] 7t [place] [address] Care Team Providers Care Hydraulic Press Operator Name Role Phone Manjeet Quiroga MD Primary Care Provider [phone] Encounter Details Date Type Department Care Team ([facility] st Contact Info) Description 03/09/2023 Orders Only [facility] CHC MED & PEDS [address] [place], [place] [phone] Manjeet Quiroga MD 505 [place], [place] [phone] Bilateral carpal tunnel syndrome (Primary Dx); Cervical [...] documented as of this encounter Care Teams Hydraulic Press Operator Relationship Specialty Start Date End Date Manjeet Quiroga MD [address] [place] [address] PCP - General Internal Medicine 05/31/13 documented as of this encounter
--- OUTSIDE RECORDS SUMMARY | 2024-09-29 10:53 | XMS_ITS | Encounter Summary ---
Author Organization [employer] Address [address] [facility] 7t [place] [address] Care Team Providers Care Special Police Name Role Phone Manjeet Quiroga MD Primary Care Provider [phone] Reason for Visit * Reason Comments Med Refill Encounter Details Date Type Department Care Team ([facility] Contact Info) Description 03/02/2023 Refill [facility] CHC MED & PEDS 505 [place], [place] [phone] Manjeet Quiroga MD 505 [place], [place] [phone] Type 2 diabetes mellitus with diabetic polyneuropathy (CMS/HCC) Social History Tobacco Use Types Packs/Day Years Used Date Smoking Tobacco: Never Smokeless Tobacco: Never Depression Answer Date Recorded Patient Health Questionnaire-9 Score 0 01/28/2023 Housing Stability Answer Date Recorded What is your housing situation today? I have jakitarik pittman 02/28/[address] you [...] as of this encounter Care Teams Special Police Relationship Specialty Start Date End Date Manjeet Quiroga MD [address] [place] [address] PCP - General Internal Medicine 05/31/13 documented as of this encounter
--- OUTSIDE RECORDS SUMMARY | 2024-09-29 10:53 | XMS_ITS | Encounter Summary ---
Author Organization [employer] Address [address] [place] [address] 7 [place] [address] Care Team Providers Care Electrocardiograph Repairer Name Role Phone Manjeet Quiroga MD Primary Care Provider [phone] Encounter Details Date Type Department Care Team ([facility] st Contact Info) Description 01/05/2023 Orders Only [facility] CHC MED & PEDS 505 [place], [place] [phone] Manjeet Quiroga MD 505 [place] [address] Type 2 diabetes mellitus without complication, without [...] documented as of this encounter Care Teams Electrocardiograph Repairer Relationship Specialty Start Date End Date Manjeet Quiroga MD [address] [place] [address] PCP - General Internal Medicine 05/31/13 documented as of this encounter
--- OUTSIDE RECORDS SUMMARY | 2024-09-29 10:53 | XMS_ITS | Encounter Summary ---
Author Organization [employer] Address [address] [facility] 7t [place] [address] Care Team Providers Care Moisture Conditioner Operator Name Role Phone Manjeet Quiroga MD Primary Care Provider [phone] Reason for Visit * Reason Comments Med Refill Encounter Details Date Type Department Care Team ([facility] Contact Info) Description 09/18/2024 Refill [facility] CHC MED & PEDS 505 [place], [place] [phone] Manjeet Quiroga MD 505 [place], [place] [phone] Neck pain; Cervical radiculopathy; Plantar fasciitis, bilateral [...] documented as of this encounter Care Teams Moisture Conditioner Operator Relationship Specialty Start Date End Date Manjeet Quiroga MD [address] [place] [address] PCP - General Internal Medicine 05/31/13 documented as of this encounter
--- OUTSIDE RECORDS SUMMARY | 2024-09-29 10:53 | XMS_ITS | Encounter Summary ---
Author Organization [employer] Address [address] [place] [address] 7 [place] [address] Care Team Providers Care Vp Analysis Name Role Phone Manjeet Quiroga MD Primary Care Provider [phone] Reason for Visit * Reason Comments Med Refill Encounter Details Date Type Department Care Team ([facility] Contact Info) Description 06/22/2022 Refill [facility] CH[facility] MED & PEDS 505 [place], [place] [phone] Manjeet Quiroga MD 505 [place] [address] Bloating (Primary Dx) Social History Tobacco Use [...] pain documented in this encounter Care Teams Vp Analysis Relationship Specialty Start Date End Date Manjeet Quiroga MD 505 [place] [address] PCP - General Internal Medicine 05/31/13 documented as of this encounter
--- OUTSIDE RECORDS SUMMARY | 2024-09-29 10:53 | XMS_ITS | Encounter Summary ---
Author Organization [employer] Address [address] [facility] 7t [place] [address] Care Team Providers Care Radiation Control Worker Name Role Phone Manjeet Quiroga MD Primary Care Provider [phone] Encounter Details Date Type Department Care Team ([facility] st Contact Info) Description 10/06/2023 Orders Only [facility] CHC MED & PEDS 505 [place], [place] [phone] Manjeet Quiroga MD 505 [place], [place] [phone] Type 2 diabetes mellitus without complication, without long-term current use of insulin (CMS/[facility]) (Primary Dx) Social History Tobacco Use Types [...] complication, without long-term current use of insulin ([facility])- Primary documented in this encounter Additional Health Concerns Assessment Noted Time PHQ-9 Depression Total Score: 0 01/29/20 23 4:36 PM EDT documented as of this encounter Care Teams Radiation Control Worker Relationship Specialty Start Date End Date Manjeet Quiroga MD [address] [place] [address] PCP - General Internal Medicine 05/31/13 documented as of this encounter
--- OUTSIDE RECORDS SUMMARY | 2024-09-29 10:53 | XMS_ITS | Encounter Summary ---
Author Organization [employer] Address [address] [place] [address] 7t [place] [address] Care Team Providers Care Fire Support Man Name Role Phone Manjeet Quiroga MD Primary Care Provider [phone] Encounter Details Date Type Department Care Team (Late st Contact Info) Description 12/22/2022 Orders Only [facility] CHC MED & PEDS 505 [place], [place] [phone] Cheryle Cruz LPN Social History Tobacco Use [...] documented as of this encounter Care Teams Fire Support Man Relationship Specialty Start Date End Date Manjeet Quiroga MD 505 [place] [address] PCP - General Internal Medicine 05/31/13 documented as of this encounter
--- OUTSIDE RECORDS SUMMARY | 2024-09-29 10:53 | XMS_ITS | Encounter Summary ---
Author Organization [employer] Address [address] [facility] 7t [place] [address] Care Team Providers Care College Sports Coach Name Role Phone Manjeet Quiroga MD Primary Care Provider [phone] Reason for Visit * Reason Comments Med Refill Encounter Details Date Type Department Care Team ([facility] Contact Info) Description 03/09/2023 Refill [facility] CHC MED & PEDS [address] [place], [place] [phone] Manjeet Quiroga MD 505 [place], [place] [phone] Type 2 diabetes mellitus with diabetic polyneuropathy [...] documented as of this encounter Care Teams College Sports Coach Relationship Specialty Start Date End Date Manjeet Quiroga MD [address] [place] [address] PCP - General Internal Medicine 05/31/13 documented as of this encounter
--- OUTSIDE RECORDS SUMMARY | 2024-09-29 10:53 | XMS_ITS | Encounter Summary ---
Author Organization [employer] Address 75 [facility] 7t [place] [address] Care Team Providers Care Law Clerk Name Role Phone Manjeet Quiroga MD Primary Care Provider [phone] Reason for Referral * Consultation (Routine) - Closed Specialty Diagnoses / Procedures Referred By Contryder cotto Referred To Contact Physical Therapy Diagnoses Hand paresthesia Neck pain Manjeet Quiroga MD [address] [place] [address] Phone: tel: fax: Physical Therapy, AT [address] [facility] [place] Phone: tel: fax: Referral ID Status Reason Start Date Expiration Date V isits Requested Visits Authorized [id number] Closed Specialty Services Required 08/10/2024 08/10/2025 1 1 Encounter Details Date Type Department Care Team (Late st Contact Info) Description 08/10/2024 Orders Only [facility] MEDICINE [address] [place] [address] Manjeet Quiroga MD [address] [place] [address] Hand paresthesia (Primary Dx); Neck pain Social [...] housing situation today? I have jaki toya 04/04/[address] you li [...] documented as of this encounter Care Teams Law Clerk Relationship Specialty Start Date End Date Manjeet Quiroga MD [address] [place] [address] PCP - General Internal Medicine 05/31/13 documented as of this encounter
== END 2024-09-29 10:52 | disposition home or self-care (01) ==
LOC: HO.HOS 10:23
PROVIDERS: PCP Internal Medicine
DX: G56.03 Carpal tunnel syndrome, bilateral upper limbs (principal)
CPT/HCPCS: 99204

== ENCOUNTER → 2024-09-29 10:22 | Outpatient (BNVA) | payer OTHER, SELFPAY | PROVIDERS: PCP Internal Medicine | DX: G56.03 Carpal tunnel syndrome, bilateral upper limbs (principal) | CPT/HCPCS: 99202 ==

== ENCOUNTER 2024-10-03 09:52 | Outpatient (AMB) | payer OTHER, SELFPAY ==
--- NOTE | 2024-10-03 10:00 | A.OFFVIS_ITS ---
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 Pain has been constant for about two years. Left leg is worse. Legs feel sore and numb at times. Her legs also cramp. Patient is on her feet anywhere from 8-12 hours a day at work. Patient is diabetic, since about 17 years old. Accompanied by: Self / Same As Patient Allergies SEASONAL ALLERGIES Allergy (Intermediate, Uncoded 09/29/24 10:33) WATERY ITCHY EYES HPI HPI HARVEST FIELD TICKETER/Pain Mngmnt referral for LE swelling: Details: Josiane is presenting today on a referral from Pain [facility]te for concerns of bilateral, L>R, lower extremity pain and swelling. Complaints include pain in bilateral lower extremities, swelling of lower extremities, cramping, fatigue, and heaviness of the lower extremities. It has been affecting their daily activities including walking, working, and standing. It is noted in bilateral legs, slightly worse in the left. She has been treated for plantar fasciitis recently as well. She is a diabetic on oral medications; her BG readings get as high as the 200s but never in the 300s. She is not a cigarette smoker, never been a smoker. There is a significant family hx of uncontrolled DM with several family members having arterial dx and amputations. Patient denies any previous venous surgery or injections. Patient denies any history of DVT/ PE. Patient denies any history of phlebitis. Trial of compression includes - elevation, compression socks, and leg massagers, all have been helpful They now present for vascular evaluation regarding their varicose veins. 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 Review of Systems Const Reports as per HPI and Denies weakness ENT Reports Normal hearing present and Denies dizziness Card Reports as per HPI, Denies chest pain, Denies chest pain at rest, Denies chest pain with activity, Denies dyspnea and Denies dyspnea on exertion Resp Reports as per HPI, Denies cough, Denies dyspnea and Denies dyspnea on exertion GI Reports as per HPI, Denies abdominal pain, Denies nausea and Denies vomiting Musc Denies numbness Skin/Breast Reports as per HPI, Denies erythema and Denies wounds Neuro Reports Normal hearing present, Denies dizziness, Denies numbness, Denies Sensory deficit (Neuro) and Denies weakness Psych Reports no additional complaints Endo Reports no additional complaints Physical Exam Const General: healthy appearing and no acute distress Orientation/consciousness: patient oriented x3 HEENT Head: Yes normal to inspection Ears: hearing grossly normal bilaterally Mouth: Normal oral and palatal mucosa present Resp Effort & Inspection: normal respiratory effort and able to speak in complete sentences Auscultation: clear to auscultation bilaterally Cardio Jugular venous distension: no JVD Rate: regular rate Rhythm: regular rhythm Heart sounds: S1 normal heart sound present and S2 normal heart sound present Bruits: no abdominal aortic bruits, no carotid bruits, no femoral bruits and no renal bruits Peripheral pulses: Peripheral pulses 2+ throughout GI Inspection: Yes normal to inspection Palpation (GI): No Abdominal aortic bruit present Skin General skin exam: no rashes or lesions noted Wounds: no wounds Hair: normal Neuro General: patient oriented x3 Cranial nerves: Yes Normal hearing present Cognition (Neuro): normal cognition Gait exam (Neuro): Normal gait present Motor exam (neuro): 5/5 motor strength present throughout Sensory Exam: No Sensory deficit (Neuro) Extrem Other: Bilateral lower extremities: trace peripheral edema noted. No varicosities or tortuosities noted. No discoloration noted. CEAP: C - 3 E - primary A - superficial P - reflux General: Yes normal to inspection, Yes full ROM, Yes capillary refill normal and Yes normal gait Assessment & Plan Assessment & Plan (1) Varicose veins of both lower extremities with inflammation: Code(s): I83.11 - Varicose veins of right lower extremity with inflammation; I83.12 - Varicose veins of left lower extremity with inflammation Category: Medical Plan: Josiane is presenting today on a referral from Pain [facility]te for ongoing bilateral lower extremity pain and swelling >2y. In short, the patient has evidence of venous insufficiency. I have discussed the pathophysiology with the patient. In addition I have provided informational material regarding venous disease to the patient. We have discussed conservative measures including compression, elevation, and exercise. We were able to provide her with some compression socks today. I have taken the liberty of ordering venous insufficiency testing with the patient. They will follow up with me after testing. The patient had an opportunity to ask questions regarding the treatment plan. All questions were answered. Imaging studies, laboratory studies and physical exam results were discussed and reviewed in detail. No major barriers to understanding were identified. The patient expressed understanding and agreement with the above treatment plan. The patient is aware they should c ontact our office by phone for worsening of the current condition or the appearance of new symptoms. Thank you for allowing me to participate in the vascular care of this patient. If you have any questions or concerns regarding the treatment for the above condition please do not hesitate to contact me. The office telephone contact is [phone]. This note is constructed using voice recognition software. While every effort has been made to ensure accuracy, welt maker errors may have been included. Thank you for allowing me to participate in the care of your patient. Yours sincerely, AILEEN Coe Orders: Orders US venous duplex LE BI 1 Week I83.11 - Varicose veins of right lower extremity with inflammation, I83.12 - Varicose veins of left lower extremity with inflammation Coding Level of Care Code New Pt Level 4 (13915) Diagnoses Varicose veins of both lower extremities with inflammation I83.11; I83.12
--- OUTSIDE RECORDS SUMMARY | 2024-10-03 10:42 | XMS_ITS | Encounter Summary ---
Author Organization [employer] Address 75 [facility] 7t [place] [address] Care Team Providers Care Fill Technician Name Role Phone Manjeet Quiroga MD Primary Care Provider [phone] Reason for Visit * Reason Comments Med Refill Encounter Details Date Type Department Care Team ([facility] Contact Info) Description 03/02/2023 Refill [facility] CHC MED & PEDS [address] [place], [place] [phone] Manjeet Quiroga MD 505 [place] [address] Type 2 diabetes mellitus with diabetic polyneuropathy [...] documented as of this encounter Care Teams Fill Technician Relationship Specialty Start Date End Date Manjeet Quiroga MD [address] [place] [address] PCP - General Internal Medicine 05/31/13 documented as of this encounter
--- OUTSIDE RECORDS SUMMARY | 2024-10-03 10:42 | XMS_ITS | Encounter Summary ---
Author Organization [employer] Address 75 [facility] 7t [place] [address] Care Team Providers Care Counterintelligence Agent Name Role Phone Manjeet Quiroga MD Primary Care Provider [phone] Encounter Details Date Type Department Care Team ([facility] st Contact Info) Description 10/06/2023 Orders Only [facility] CHC MED & PEDS [address] [place], [place] [phone] Manjeet Quiroga MD 505 [place], [place] [phone] Type 2 diabetes mellitus without complication, without long-term current use of insulin (CMS/[facility]) (Primary Dx) Social History Tobacco Use [...] complication, without long-term current use of insulin ([facility])- Primary documented in this encounter Additional Health Concerns Assessment Noted Time PHQ-9 Depression Total Score: 0 01/29/20 23 4:36 PM EDT documented as of this encounter Care Teams Counterintelligence Agent Relationship Specialty Start Date End Date Manjeet Quiroga MD [address] [place] [address] PCP - General Internal Medicine 05/31/13 documented as of this encounter
--- OUTSIDE RECORDS SUMMARY | 2024-10-03 10:42 | XMS_ITS | Encounter Summary ---
Author Organization [employer] Address 75 [facility] 7t [place] [address] Care Team Providers Care Security Systems Engineer Name Role Phone Manjeet Quiroga MD Primary Care Provider [phone] Encounter Details Date Type Department Care Team ([facility] st Contact Info) Description 12/01/2022 Orders Only [facility] CHC MED & PEDS [address] [place], [place] [phone] Manjeet Quiroga MD 505 [place], [place] [phone] Type 2 diabetes mellitus without complication, with [...] documented as of this encounter Care Teams Security Systems Engineer Relationship Specialty Start Date End Date Manjeet Quiroga MD [address] [place] [address] PCP - General Internal Medicine 05/31/13 documented as of this encounter
--- OUTSIDE RECORDS SUMMARY | 2024-10-03 10:42 | XMS_ITS | Encounter Summary ---
Author Organization [employer] Address [address] [facility] 7t [place] [address] Care Team Providers Care White Work Cleaner Name Role Phone Manjeet Quiroga MD Primary Care Provider [phone] Reason for Visit * Reason Onset Date Comments Med Refill 11/04/2022 Encounter Details Date Type Department Care Team ([facility] Contact Info) Description 11/04/2022 Telephone [facility] MEDICINE [address] [place] [address] Manjeet Quiroga MD 505 [place] [address] Med Refill Social History Tobacco Use Types [...] documented as of this encounter Care Teams White Work Cleaner Relationship Specialty Start Date End Date Manjeet Quiroga MD [address] [place] [address] PCP - General Internal Medicine 05/31/13 documented as of this encounter
--- OUTSIDE RECORDS SUMMARY | 2024-10-03 10:42 | XMS_ITS | Encounter Summary ---
Author Organization [employer] Address 75 [facility] 7t [place] [address] Care Team Providers Care Diet Supervisor Name Role Phone Manjeet Quiroga MD Primary Care Provider [phone] Encounter Details Date Type Department Care Team (Late st Contact Info) Description 12/22/2022 Orders Only [facility] CHC MED & PEDS [address] [place], [place] [phone] Cheryle Cruz LPN Social History Tobacco Use [...] documented as of this encounter Care Teams Diet Supervisor Relationship Specialty Start Date End Date Manjeet Quiroga MD 505 [place] [address] PCP - General Internal Medicine 05/31/13 documented as of this encounter
--- OUTSIDE RECORDS SUMMARY | 2024-10-03 10:42 | XMS_ITS | Clinical Summary ---
Author Organization [facility] Address [address] [facility] [address] [place] [address] Phone Care Team Providers Care Lithographic Retoucher Apprentice Name Role Phone Manjeet Quiroga MD Primary Care Provider [phone] Allergies No known active allergies Medications Multiple [...] patient's age to complete this topic Insurance [facility] Medicaid [facility] Medicaid Care Teams Lithographic Retoucher Apprentice Relationship Specialty Start Date End Date Manjeet Quiroga MD PCP - General 06/03/20
--- OUTSIDE RECORDS SUMMARY | 2024-10-03 10:42 | XMS_ITS | Encounter Summary ---
Author Organization [employer] Address [address] [place] [address] 7 [place] [address] Care Team Providers Care Hydro Plant Site Manager Name Role Phone Manjeet Quiroga MD Primary Care Provider [phone] Encounter Details Date Type Department Care Team ([facility] st Contact Info) Description 01/05/2023 Orders Only [facility] CHC MED & PEDS [address] [place], [place] [phone] Manjeet Quiroga MD 505 [place] [address] Type 2 diabetes mellitus without complication, without [...] documented as of this encounter Care Teams Hydro Plant Site Manager Relationship Specialty Start Date End Date Manjeet Quiroga MD [address] [place] [address] PCP - General Internal Medicine 05/31/13 documented as of this encounter
--- OUTSIDE RECORDS SUMMARY | 2024-10-03 10:42 | XMS_ITS | Encounter Summary ---
Author Organization [employer] Address 75 [facility] 7t [place] [address] Care Team Providers Care Center Lead Consultant Name Role Phone Manjeet Quiroga MD Primary Care Provider [phone] Encounter Details Date Type Department Care Team ([facility] st Contact Info) Description 10/28/2022 Orders Only [facility] CHC MED & PEDS 505 [place], [place] [phone] Manjeet Quiroga MD 505 [place], [place] [phone] Other emphysema (CMS/HCC) (Primary Dx); Type 2 [...] ??-TB Gold Plus, 1 Tube NEGATIVE NEGATIVE [facility] [place] [facility] Comment: Negative test result. M. tuberculosis complex infection unlikely. NIL 0.08 IU/mL [facility] [place] [employer]-Speak With Met MITOGEN-NIL >10.00 IU/mL [facility] [place] sa[facility] Diagnost TB1-NIL <0.00 IU/mL [facility] [place] [employer] Diagnost TB2-NIL <0.00 IU/mL [facility] [place] [facility] Comment: The Nil tube value reflects the [...] T-lymphocytes. For additional information, please refer to https://education.minicabit.Vive Unique/faq/WJM846 (This link is being provided for informational/ educational purposes only.) Blood Venous blood specimen / Unknown 11/10/2022 10:41 AM EDT 11/10/2022 10:42 AM EDT Manjeet Quiroga MD LAB BLOOD ORDERABLES Final Result [facility] [address], [place] [address] [facility] [place] [facility] [address] [place] [address] documented in this encounter Visit Diagnoses Diagnosis Other emphysema (CMS/HCC)- Primary Other emphysema Type 2 diabetes mellitus without complication, with long-term current use of insulin ([facility]) documented in this encounter Additional Health Concerns Assessment Noted Time PHQ-9 Depression Total Score: 8 10/14/19 23 2:38 PM EDT documented as of this encounter Care Teams Center Lead Consultant Relationship Specialty Start Date End Date Manjeet Quiroga MD [address] [place] [address] PCP - General Internal Medicine 05/31/13 documented as of this encounter
--- OUTSIDE RECORDS SUMMARY | 2024-10-03 10:42 | XMS_ITS | Encounter Summary ---
Author Organization [employer] Address 75 [facility] 7t [place] [address] Care Team Providers Care Sample Collector Name Role Phone Manjeet Quiroga MD Primary Care Provider [phone] Encounter Details Date Type Department Care Team ([facility] st Contact Info) Description 12/02/2022 Orders Only [facility] CHC MED & PEDS [address] [place] [address] Cheryle Cruz LPN Social History [...] documented as of this encounter Care Teams Sample Collector Relationship Specialty Start Date End Date Manjeet Quiroga MD 505 [place], [place] [phone] PCP - General Internal Medicine 05/31/13 documented as of this encounter
--- OUTSIDE RECORDS SUMMARY | 2024-10-03 10:42 | XMS_ITS | Encounter Summary ---
Author Organization [employer] Address [address] [place] [address] 7 [place] [address] Care Team Providers Care Program Aide Group Work Name Role Phone Manjeet Quiroga MD Primary Care Provider [phone] Reason for Visit * Reason Comments Med Refill Encounter Details Date Type Department Care Team ([facility] Contact Info) Description 06/22/2022 Refill [facility] CHC MED & PEDS [address] [place], [place] [phone] Manjeet Quiroga MD 505 [place] [address] Bloating (Primary Dx) Social History Tobacco Use [...] pain documented in this encounter Care Teams Program Aide Group Work Relationship Specialty Start Date End Date Manjeet Quiroga MD 505 [place] [address] PCP - General Internal Medicine 05/31/13 documented as of this encounter
--- OUTSIDE RECORDS SUMMARY | 2024-10-03 10:42 | XMS_ITS | Encounter Summary ---
Author Organization [employer] Address 75 [facility] 7t [place] [address] Care Team Providers Care Refinisher Name Role Phone Manjeet Quiroga MD Primary Care Provider [phone] Reason for Visit * Reason Comments Med Refill Encounter Details Date Type Department Care Team ([facility] Contact Info) Description 02/03/[address] [facility] MEDICINE [address] [place] [address] Manjeet Quiroga MD [address] [facility] [address] [place], [place] [phone] Social History Tobacco Use Types Packs/Day Years [...] documented as of this encounter Care Teams Refinisher Relationship Specialty Start Date End Date Manjeet Quiroga MD [address] [place] [address] PCP - General Internal Medicine 05/31/13 documented as of this encounter
--- OUTSIDE RECORDS SUMMARY | 2024-10-03 10:42 | XMS_ITS | Clinical Summary ---
Author Organization [address] [facility] Address [address] [place] [address] Phone Care Team Providers Care Relay Record Clerk Name Role Phone Manjeet Quiroga MD Primary Care Provider [phone] Allergies No known active allergies Medications diclofenac (VOLTAREN) 1 % topical gel Apply 4 g topically 2 times daily. 4 Active Lactobac. rhamnosus GG-inulin ([facility] Aspyra) 10 billion cell -200 mg capsule, sprinkle [...] (LIDODERM) 5 % patchIndications:D iabetic mononeuropathy simplex ([facility] V24, [facility] V28),Arthritis of right ankle,Plantar fascial fibromatosis Apply [...] mellitus type 2, co ntrolled, with complications ([facility] V24, [facility] V28) 03/30/2024 Atypical squamous cells of u [...] in one year Obesity, morbid, BMI 40.0-49.9 ([facility] V24, [facility] /[facility] V28) 07/05/2019 Encounters Date Type Department Care Team Description 08/14/2024 10:00 AM EDT Office Visit Orthopedic Surgery - [address] [address] Ladarius Amaro, DPM Diabetic mononeuropathy simplex ([facility] V24, [facility] V28) (Primary Dx); Arthritis of right ankle; [...] SURGERY 07/30/2016 PROCEDURE: HISTORICAL NECK SURGERY; COMMENT: [facility] Medical History Medical History Date Comments Anemia DX:Anemia Anxiety state DX:Anxiety state Asthma DX:Asthma Diabetes mellitus type 2, co ntrolled, with complications ([facility]/HCC V24, [facility] V28) DX:Diabetes mellitus type 2, controlled, with complications ([facility]) Bacterial vaginosis 01/24/2016 DX:Bacterial vaginosis; COMMENT: 10/05/14, [...] AM EDT Office Visit Orthopedic Surgery - [place] [address] [phone] Ladarius Amaro, DPNeptali [address] [address] 12/01/2024 9:45 AM EDT Office Visit Obstetrics & Gynecology - [address] [phone] Cher Martinez, RYANM [address] [place] [address] Health Maintenance Due Date Last Done Comments [...] Result * Diabetes Eye Exam (09/03/2023) Pathologist [facility] Diabetes: Annual Retina Eye Exam abstracted Historical Provider HEALTH MAINTENANCE Final Result * Hepatitis C Screening (09/24/2022) Pathologist [facility] Hepatitis C Screening abstracted Historical Provider HEALTH MAINTENANCE Final Result * (ABNORMAL) Hemoglobin A1c (09/24/2022) Pathologist [facility] Hemoglobin A1C 12.7(A) <=6.5 % Blood Venous blood specimen / Unknown Historical Provider LAB BLOOD ORDERABLES Carol Ann l Result * HIV Screening (07/05/2019) Pathologist [facility] HIV Screening abstracted Historical Provider HEALTH MAINTENANCE Final Result from Last 3 Months or Most Recently Relevant to Health Maintenance Insurance [facility] Care Teams Relay Record Clerk Relationship Specialty Start Date End Date Manjeet Quiroga MD [address] [place] [address] PCP - General Internal Medicine 07/22/20
--- OUTSIDE RECORDS SUMMARY | 2024-10-03 10:42 | XMS_ITS | Encounter Summary ---
Author Organization [employer] Address [address] [facility] [address] 7t [place] [address] Care Team Providers Care Account Receivable Associate Name Role Phone Manjeet Quiroga MD Primary Care Provider [phone] Encounter Details Date Type Department Care Team ([facility] st Contact Info) Description 03/09/2023 Orders Only [facility] CHC MED & PEDS [address] [place], [place] [phone] Manjeet Quiroga MD [address] [place], [place] [phone] Bilateral carpal tunnel syndrome (Primary Dx); Cervical [...] documented as of this encounter Care Teams Account Receivable Associate Relationship Specialty Start Date End Date Manjeet Quiroga MD [address] [place] [address] PCP - General Internal Medicine 05/31/13 documented as of this encounter
--- OUTSIDE RECORDS SUMMARY | 2024-10-03 10:42 | XMS_ITS | Encounter Summary ---
Author Organization [employer] Address 75 [facility] 7t [place] [address] Care Team Providers Care Quality Control Tech Raw Materials Name Role Phone Manjeet Quiroga MD Primary Care Provider [phone] Reason for Visit * Reason Comments Med Refill Encounter Details Date Type Department Care Team ([facility] Contact Info) Description 03/09/2023 Refill [facility] CHC MED & PEDS 505 [place], [place] [phone] Manjeet Quiroga MD 505 [place], [place] [phone] Type 2 diabetes mellitus with diabetic polyneuropathy [...] documented as of this encounter Care Teams Quality Control Tech Raw Materials Relationship Specialty Start Date End Date Manjeet Quiroga MD [address] [place] [address] PCP - General Internal Medicine 05/31/13 documented as of this encounter
--- OUTSIDE RECORDS SUMMARY | 2024-10-03 10:42 | XMS_ITS | Encounter Summary ---
Author Organization [employer] Address [address] [facility] [address] 7t [place] [address] Care Team Providers Care Hop Farm Worker Name Role Phone Manjeet Quiroga MD Primary Care Provider [phone] Encounter Details Date Type Department Care Team ([facility] st Contact Info) Description 10/21/2023 Orders Only [facility] CHC MED & PEDS 505 [place], [place] [phone] Manjeet Quiroga MD 505 [place], [place] [phone] Type 2 diabetes mellitus without complication, without long-term current use of insulin ([facility]) Social History Tobacco Use Types Packs/Day Years [...] complication, without long-term current use of insulin ([facility]) documented in this encounter Additional Health Concerns Assessment Noted Time PHQ-9 Depression Total Score: 0 01/29/20 23 4:36 PM EDT documented as of this encounter Care Teams Hop Farm Worker Relationship Specialty Start Date End Date Manjeet Quiroga MD [address] [place] [address] PCP - General Internal Medicine 05/31/13 documented as of this encounter
--- OUTSIDE RECORDS SUMMARY | 2024-10-03 10:42 | XMS_ITS | Encounter Summary ---
Author Organization [employer] Address 75 [facility] 7t [place] [address] Care Team Providers Care Flight Attendant/Inflight Manager Name Role Phone Manjeet Quiroga MD Primary Care Provider [phone] Reason for Visit * Reason Comments Med Refill Encounter Details Date Type Department Care Team ([facility] Contact Info) Description 10/25/2023 Refill [facility] CHC MED & PEDS 505 [place], [place] [phone] Manjeet Quiroga MD 505 [place], [place] [phone] Mild episode of recurrent major depressive disorder [...] documented as of this encounter Care Teams Flight Attendant/Inflight Manager Relationship Specialty Start Date End Date Manjeet Quiroga MD 505 [place] [address] PCP - General Internal Medicine 05/31/13 documented as of this encounter
--- OUTSIDE RECORDS SUMMARY | 2024-10-03 10:42 | XMS_ITS | Encounter Summary ---
Author Organization [employer] Address 75 [facility] 7t [place] [address] Care Team Providers Care Log Chain Worker Name Role Phone Manjeet Quiroga MD Primary Care Provider [phone] Reason for Visit * Reason Comments Med Refill Encounter Details Date Type Department Care Team ([facility] Contact Info) Description 09/18/2024 Refill [facility] CHC MED & PEDS 505 [place], [place] [phone] Manjeet Quiroga MD 505 [place], [place] [phone] Neck pain; Cervical radiculopathy; Plantar fasciitis, bilateral [...] documented as of this encounter Care Teams Log Chain Worker Relationship Specialty Start Date End Date Manjeet Quiroga MD [address] [place] [address] PCP - General Internal Medicine 05/31/13 documented as of this encounter
--- OUTSIDE RECORDS SUMMARY | 2024-10-03 10:42 | XMS_ITS | Encounter Summary ---
Author Organization [employer] Address 75 [facility] 7t [place] [address] Care Team Providers Care Planner Chief Name Role Phone Manjeet Quiroga MD Primary Care Provider [phone] Encounter Details Date Type Department Care Team (Late st Contact Info) Description 12/03/2022 Orders Only [facility] MEDICINE 230 [place], [place] [phone] Arlene Abarca LPN Social History Tobacco Use [...] documented as of this encounter Care Teams Planner Chief Relationship Specialty Start Date End Date Manjeet Quiroga MD [address] [place] [address] PCP - General Internal Medicine 05/31/13 documented as of this encounter
--- OUTSIDE RECORDS SUMMARY | 2024-10-03 10:42 | XMS_ITS | Encounter Summary ---
Author Organization [employer] Address [address] [facility] [address] 7t [place] [address] Care Team Providers Care Manufacturers Agent Name Role Phone Manjeet Quiroga MD Primary Care Provider [phone] Encounter Details Date Type Department Care Team ([facility] st Contact Info) Description 06/21/2024 Orders Only [facility] MEDICINE 230 [place], [place] [phone] Provider, MD Emilia Social History Tobacco Use [...] documented as of this encounter Care Teams Manufacturers Agent Relationship Specialty Start Date End Date Manjeet Quiroga MD [address] [place] [address] PCP - General Internal Medicine 05/31/13 documented as of this encounter
--- OUTSIDE RECORDS SUMMARY | 2024-10-03 10:42 | XMS_ITS | Encounter Summary ---
Author Organization [employer] Address 75 [facility] 7t [place] [address] Care Team Providers Care Lead Carpenter Name Role Phone Manjeet Quiroga MD Primary Care Provider [phone] Reason for Referral * Consultation (Routine) - Closed Specialty Diagnoses / Procedures Referred By Contryder cotto Referred To Contact Physical Therapy Diagnoses Hand paresthesia Neck pain Manjeet Quiroga MD 505 [place] [address] Phone: tel: fax: Physical Therapy, AT [address] [facility] [place] Phone: tel: fax: Referral ID Status Reason Start Date Expiration Date V isits Requested Visits Authorized [id number] Closed Specialty Services Required 08/10/2024 08/10/2025 1 1 Encounter Details Date Type Department Care Team (Late st Contact Info) Description 08/10/2024 Orders Only [facility] MEDICINE 230 [place] [address] Manjeet Quiroga MD 505 [place] [address] Hand paresthesia (Primary Dx); Neck pain Social [...] documented as of this encounter Care Teams Lead Carpenter Relationship Specialty Start Date End Date Manjeet Quiroga MD [address] [place] [address] PCP - General Internal Medicine 05/31/13 documented as of this encounter
--- OUTSIDE RECORDS SUMMARY | 2024-10-03 10:42 | XMS_ITS | Encounter Summary ---
Author Organization [employer] Address [address] [facility] [address] 7t [place] [address] Care Team Providers Care Mixing House Operator Name Role Phone Manjeet Quiroga MD Primary Care Provider [phone] Encounter Details Date Type Department Care Team ([facility] st Contact Info) Description 10/06/2023 Telephone [facility] MEDICINE 230 [place] [address] Manjeet Quiroga MD [address] [place], [place] [phone] Social History Tobacco Use Types Packs/Day Years [...] documented as of this encounter Care Teams Mixing House Operator Relationship Specialty Start Date End Date Manjeet Quiroga MD [address] [place] [address] PCP - General Internal Medicine 05/31/13 documented as of this encounter
--- OUTSIDE RECORDS SUMMARY | 2024-10-03 10:42 | XMS_ITS | Encounter Summary ---
Author Organization [employer] Address 75 [facility] 7t [place] [address] Care Team Providers Care Captain Cannery Tender Name Role Phone Manjeet Quiroga MD Primary Care Provider [phone] Reason for Visit * Reason Comments Med Refill Encounter Details Date Type Department Care Team ([facility] Contact Info) Description 03/08/2023 Refill [facility] CHC MED & PEDS 505 [place], [place] [phone] Manjeet Quiroga MD 505 [place] [address] Type 2 diabetes mellitus with diabetic polyneuropathy [...] documented as of this encounter Care Teams Captain Cannery Tender Relationship Specialty Start Date End Date Manjeet Quiroga MD [address] [place] [address] PCP - General Internal Medicine 05/31/13 documented as of this encounter
--- OUTSIDE RECORDS SUMMARY | 2024-10-03 10:42 | XMS_ITS | Clinical Summary ---
Author Organization [employer] Address [address] [facility] [address] 7t [place] [address] Care Team Providers Care Publications Production Supervisor Name Role Phone Manjeet Quiroga MD Primary Care Provider [phone] Allergies No known active allergies Medications * This document contains information received from the source organization and may not represent a complete record from that organization. insulin detemir (Levemir) 100 UNIT/ML injectionIndicat ions:Type 2 diabetes mellitus without complication, with long-term current use of insulin (CMS/[facility]) Inject 40 Units under the skin at bedtime. 10 mL 12 3 Active Blood Glucose Monitoring Suppl ([employer] [place] Lite) w/Device kitIndications:T ype 2 diabetes mellitus without complication, without long-term current use of insulin (CMS/HCC) Use 2 - 3 x day 1 kit 3 Active Continuous Blood Gluc Marketing Operations Associate ([employer] Neisha 2 [place]) deviceIndication s:Type 2 diabetes mellitus without complication, [...] complication, without long-term current use of insulin (CMS/[facility]) Take 1 tablet (25 mg) by mouth [...] DAILY 60 capsule 5 Active Lactobacillus-In ulin ([facility] [employer] [facility]) capsuleIndicatio ns:Bloating TAKE 1 CAPSULE BY MOUTH [...] neuropathy, without long-term current use of insulin ([facility]),Hand paresthesia Take 1 capsule (300 mg) by [...] medication management. Intake completed with N at [facility] for OP individual therapy. clinician will provide [...] medication management. Intake completed with BHN at [facility] for OP individual therapy. clinician will provide additional support as needed. Normocytic anemia 01/23/2022 Acute renal failure syndrome 12/23/2020 Acute nontraumatic kidney injury 12/23/2020 Anxiety 11/08/2017 Neck pain 04/27/2016 Alopecia 01/24/2013 Migraine 01/24/2013 Pes planus 01/24/2013 Chronic obstructive lung disease 02/19/2012 Obesity 02/19/2012 Diabetes mellitus type 2, uncomplicated 11/02/19 12 Encounters Date Type Department Care Team Description 09/18/2024 Refill [facility] CHC MED & PEDS [address] [place] [address] Manjeet Quiroga MD Neck pain; Cervical radiculopathy; Plantar fasciitis, bilateral 08/10/2024 Orders Only [facility] MEDICINE 230 [place] [address] Manjeet Quiroga MD Hand paresthesia (Primary Dx); Neck pain 08/10/2024 Telephone [employer] 230 [place], [place] [phone] Manjeet Quiroga MD MRI CERVICAL SPINE DENIED 08/07/2024 2:30 PM EDT Office Visit [facility] MED & PEDS 505 [place] [address] Manjeet Quiroga MD Controlled type 2 diabetes mellitus with hyperglycemia, without long-term current use of insulin (CMS/HCC) (Primary Dx); Type 2 diabetes mellitus with diabetic neuropathy, without long-term current use of insulin (CMS/HCC); Hand paresthesia; Neck pain; Cervical radiculopathy; Plantar fasciitis, bilateral 08/07/2024 Travel 08/03/2024 Refill [facility] MED & PEDS 505 [place] [address] Manjeet Quiroga MD Health care maintenance 07/31/2024 Patient Outreach [facility] MED & PEDS 505 [place] [address] Manjeet Quiroga MD Pre-visit Planning (SDOH negative, Tobacco screening negative. ) 07/16/2024 Refill [facility] MED & PEDS 505 [place] [address] Manjeet Quiroga MD Type 2 diabetes mellitus without complication, without long-term current use of insulin (CMS/HCC) 07/13/2024 Refill [facility] MED & PEDS 505 [place] [address] Manjeet Quiroga MD Plantar fasciitis, bilateral; Bloating [...] Media Lot # [id number] Lot# Expiration Date [id number] Blood 08/07/2024 2:57 PM EDT us Manjeet Quiroga MD POINT OF CARE TEST ENTER/ED IT ORDERABLES Final Result * POCT Glucose (08/07/2024 2:56 PM EDT) Glucose Blood, POC 199 60 - 200 mg/dL QC Media Lot # [id number] Lot# Expiration Date [id number] Blood Capillary blood specimen / Unknown 08/07/2024 2:56 PM EDT Manjeet Quiroga MD POINT OF CARE TEST ENTER/ED IT ORDERABLES Final Result * Albumin, Random Urine W/Creatinine (04/24/2024 1:30 PM EST) Pathologist [facility] Creatinine, Urine 61.75 mg/dL [facility] Microalbumin Urine <5.0 mg/L [facility] Microalbum Creatinine Ratio Ur TNP <30 ug/mg cr [facility] Comment:Unable to calculate albumin/creatinine ratio due to lowmicroalbumin or creatinine result. Urine (Urine, Random) 04/24/2024 1:30 PM EST 04/24/2024 2:09 PM EST Manjeet Quiroga MD LAB URINE ORDERABLES Final Result [facility] [address] [place] [phone] * HIV-1/2 Antigen and Antibodies, Fourth Generation, with Reflexes (04/24/2024 1:26 PM EST) HIV AB/AG Nonreactive Nonreactive [facility] Comment:HIV-1 p24 Ag and/or HIV-1/HIV-2 Ab not detected.A test result that is nonreactive does not exclude thepossibility of exposure to or infection with HIV-1 and/orHIV-2. Nonreactive results in this assay for individualswith prior exposure to HIV-1 and/or HIV-2 may be due toantigen and antibody levels that are below the limit ofdetection of this assay.The [employer] HIV Ag/Ab Combo assay result andsupplemental assay results should be interpreted inconjunction with the patient's clinical presentation,history and other laboratory results. If the results areinconsistent with clinical evidence, additional testing issuggested to confirm the result. Blood Venous blood specimen / Unknown 04/24/2024 1:26 PM EST 04/24/2024 2:28 PM EST Manjeet Quiroga MD LAB BLOOD ORDERABLES Final Result Performing Organization Address [facility] de Phone Number [facility] [address] [place] [phone] * HM PAP/HPV (09/17/2023 9:04 AM EDT) Historical Provider HEALTH MAINTENANCE Final Result * Hepatitis C Ab (08/26/2023 10:47 AM EDT) Pathologist [facility] Hepatitis C Antibody Nonreactive Nonreactive [facility] Comment:Antibodies to HCV no t detected; does not exclude early acuteHCV infection. Blood Venous blood specimen / Unknown 08/26/2023 10:47 AM EDT 08/26/2023 2:04 PM EDT Manjeet Quiroga MD LAB BLOOD ORDERABLES Final Result Performing Organization Address [facility] de Phone Number [facility] [address] [place] [phone] * (ABNORMAL) Lipid Panel, Standard (11/10/2022 10:42 AM EDT) Cholesterol, Total 134 <200 mg/dL [facility] HDL Cholesterol 45(L) > OR = 50 mg/dL [facility] Triglycerides 97 <150 mg/dL [facility] LDL Cholesterol 71 mg/dL (calc) [facility] Comment: Reference range: <100 Desirable range <100 mg/dL for primary prevention; ?? <70 mg/dL for patients with CHD or diabetic patients with > or = 2 CHD risk factors. LDL-C is now calculated using the Sarahi calculation, which is a validated novel method providing better accuracy than the Friedewald equation in the estimation of LDL-C. Jerome SS et al. ZONIA. 2013;310(19): 6824-4726 (http://education.Parental Health/faq/KSJ563) Chol/HDLC Ratio 3.0 <5.0 (calc) [facility] Non-HDL Cholesterol 89 <130 mg/dL (calc) [facility] Comment: For patients with diabetes plus 1 major ASCVD risk factor, treating to a non-HDL-C goal of <100 mg/dL (LDL-C of <70 mg/dL) is considered a therapeutic option. Blood Venous blood specimen / Unknown 11/10/2022 10:42 AM EDT 11/10/2022 10:43 AM EDT Narrative [facility] - 11/11/2022 3:27 AM EDT FASTING:NO FASTING: NO Manjeet Quiroga MD LAB BLOOD ORDERABLES Final Result [facility] [address], [place] [phone] [facility] [address] [place] [phone] from Last 3 Months or Most Recently Relevant to Health Maintenance Insurance [facility] [place] [id number] [place] [id number] Care Teams Publications Production Supervisor Relationship Specialty Start Date End Date Manjeet Quiroga MD [address] [place] [address] [place] [address] PCP - General Internal Medicine 05/31/13
== END 2024-10-03 10:46 | disposition home or self-care (01) ==
LOC: HO.HVS 09:53
PROVIDERS: PCP Internal Medicine; Visit Provider Physician Assistant Surgical
DX: I83.11 Varicose veins of right lower extremity with inflammation (principal); I83.12 Varicose veins of left lower extremity with inflammation
CPT/HCPCS: 99204

== ENCOUNTER → 2024-10-03 09:52 | Outpatient (BNVA) | payer OTHER, SELFPAY | PROVIDERS: PCP Internal Medicine; Visit Provider Physician Assistant Surgical | DX: I83.11 Varicose veins of right lower extremity with inflammation (principal); I83.12 Varicose veins of left lower extremity with inflammation | CPT/HCPCS: 99202 ==

== ENCOUNTER 2024-10-26 09:03 | Day surgery (SDC) | payer OTHER, SELFPAY ==
--- OUTSIDE RECORDS SUMMARY | 2024-10-10 15:02 | XMS_ITS | Encounter Summary ---
Author Organization [employer] Address 75 [facility] 7t [place] [address] Care Team Providers Care Physical Security Manager Name Role Phone Manjeet Quiroga MD Primary Care Provider [phone] Reason for Visit * Reason Comments Med Refill Encounter Details Date Type Department Care Team ([facility] Contact Info) Description 03/09/2023 Refill [facility] CHC MED & PEDS 505 [place], [place] [phone] Manjeet Quiroga MD 505 [place], [place] [phone] Type 2 diabetes mellitus with diabetic polyneuropathy [...] as of this encounter Plan of Treatment Upcoming Encounters Date Type Department Care Team (Late st Contact Info) Description 10/19/2024 9:45 AM EDT Office Visit [facility] CHC MED & PEDS 505 [place] [address] Manjeet Quiroga MD 505 [place] [address] documented as of this encounter Visit Diagnoses Diagnosis Type 2 diabetes mellitus with diabetic polyneuropathy (CMS/HCC) documented in this encounter Additional Health Concerns Assessment Noted Time PHQ-9 Depression Total Score: 0 01/29/20 23 4:36 PM EDT documented as of this encounter Care Teams Physical Security Manager Relationship Specialty Start Date End Date Manjeet Quiroga MD 505 [place] [address] PCP - General Internal Medicine 05/31/13 documented as of this encounter
--- OUTSIDE RECORDS SUMMARY | 2024-10-10 15:02 | XMS_ITS | Encounter Summary ---
Author Organization [employer] Address 75 [facility] 7t [place] [address] Care Team Providers Care Svp Business Development Name Role Phone Manjeet Quiroga MD Primary Care Provider [phone] Reason for Visit * Reason Comments Med Refill Encounter Details Date Type Department Care Team ([facility] Contact Info) Description 03/08/2023 Refill [facility] CHC MED & PEDS 505 [place], [place] [phone] Manjeet Quiroga MD 505 [place], [place] [phone] Type 2 diabetes mellitus with diabetic polyneuropathy [...] Description 10/19/2024 9:45 AM EDT Office Visit [facility] CHC MED & PEDS 505 [place] [address] Manjeet Quiroga MD 505 [place] [address] documented as of this encounter Visit Diagnoses Diagnosis Type 2 diabetes mellitus with diabetic polyneuropathy (CMS/HCC) documented in this encounter Additional Health Concerns Assessment Noted Time PHQ-9 Depression Total Score: 0 01/29/20 23 4:36 PM EDT documented as of this encounter Care Teams Svp Business Development Relationship Specialty Start Date End Date Manjeet Quiroga MD 505 [place] [address] PCP - General Internal Medicine 05/31/13 documented as of this encounter
--- OUTSIDE RECORDS SUMMARY | 2024-10-10 15:02 | XMS_ITS | Encounter Summary ---
Author Organization [employer] Address [address] [facility] [address] 7t [place] [address] Care Team Providers Care Merchandise Coordinator Name Role Phone Manjeet Quiroga MD Primary Care Provider [phone] Encounter Details Date Type Department Care Team ([facility] st Contact Info) Description 06/21/2024 Orders Only [facility] MEDICINE 230 [place], [place] [phone] Provider, MD Emilia Social History Tobacco Use [...] Upcoming Encounters Date Type Department Care Team ([facility] st Contact Info) Description 10/19/2024 9:45 AM EDT Office Visit [facility] MED & PEDS 505 [place] [address] Manjeet Quiroga MD 505 [place] [address] documented as of this encounter Procedures Procedure [...] Results * Colposcopy (10/20/2023 9:03 AM EDT) us Historical Provider IN CLINIC/BEDSIDE ORDERAB LES Final Result * HM PAP/HPV (09/17/2023 9:04 AM EDT) Historical Provider HEALTH MAINTENANCE Final Result * Colposcopy (10/13/2021 9:22 AM EDT) Historical Provider IN CLINIC/BEDSIDE ORDERAB LES Final Result * HM PAP/HPV (09/16/2021 9:15 AM EDT) [facility] Provider HEALTH MAINTENANCE Final Result * Colposcopy (07/23/2020 9:13 AM EST) [facility] Provider IN CLINIC/BEDSIDE ORDERAB LES Final Result * HM PAP/HPV (07/05/2020 9:11 AM EST) [facility] Provider HEALTH MAINTENANCE Final Result * HM PAP/HPV (02/21/2018 9:08 AM EDT) [facility] Provider HEALTH MAINTENANCE Final Result documented in this encounter Visit Diagnoses Not on filedocumented in this encounter Additional Health Concerns Assessment Noted Time PHQ-9 Depression Total Score: 10 025 10:46 AM EST documented as of this encounter Care Teams Merchandise Coordinator Relationship Specialty Start Date End Date Manjeet Quiroga MD [address] [place] [phone] PCP - General Internal Medicine 05/31/13 documented as of this encounter
--- OUTSIDE RECORDS SUMMARY | 2024-10-10 15:02 | XMS_ITS | Encounter Summary ---
Author Organization [employer] [facility] Address [address] [place] [address] 7 [place] [address] Care Team Providers Care Career Center Advisor Name Role Phone Manjeet Quiroga MD Primary Care Provider [phone] Encounter Details Date Type Department Care Team ([facility] Contact Info) Description 12/02/2022 Orders Only [facility] MED & PEDS 505 [place] [address] Cheryle Cruz LPN Social History Tobacco Use [...] Upcoming Encounters Date Type Department Care Team ([facility] Contact Info) Description 10/19/2024 9:45 AM EDT Office Visit [facility] MED & PEDS 505 [place] [address] Manjeet Quiroga MD 505 [place] [address] documented as of this encounter Visit Diagnoses Not on filedocumented in this encounter Additional Health Concerns Assessment Noted Time PHQ-9 Depression Total Score: 8 10/14/19 23 2:38 PM EDT documented as of this encounter Care Teams Career Center Advisor Relationship Specialty Start Date End Date Manjeet Quiroga MD 505 [place] [address] PCP - General Internal Medicine 05/31/13 documented as of this encounter
--- OUTSIDE RECORDS SUMMARY | 2024-10-10 15:02 | XMS_ITS | Encounter Summary ---
Author Organization [employer] Address 75 [facility] 7 [place] [address] Care Team Providers Care Landcare Facilitator Name Role Phone Manjeet Quiroga MD Primary Care Provider [phone] Reason for Visit * Reason Onset Date Comments Medication Question 10/09/2024 Encounter Details Date Type Department Care Team ([facility] Contact Info) Description 10/09/2024 Telephone [facility] CHC MED & PEDS [address] [place] [address] Manjeet Quiroga MD [address] [place] [address] Medication Question Social History Tobacco Use Types Packs/Day Years [...] AM EDT documented as of this encounter Miscellaneous Notes * Telephone Encounter - Graciela Gee RN - 10/09/2024 11:09 AM EDT TC to patient. She stated she is still having neck and back pain. We discussed taking cyclobenzaprine PRN vs routinely. She stated she only would like to use medication PRN. She also would like to inform provider that she has finished with PT and she is still having pain. Appointment scheduled for 10/19/24 and appointment in December canceled d/t patient needing to be seen sooner. * Telephone Encounter - Romi Machuca - 10/09/2024 9:29 AM EDT Tc from pt requesting a call back to discuss medication cyclobenzaprine (Flexeril) 10 MG tablet. Contact pt at [phone] documented in this encounter Plan of Treatment Upcoming Encounters Date Type Department Care Team (Late st Contact Info) Description 10/19/2024 9:45 AM EDT Office Visit [facility] CH[facility] MED & PEDS [address] [place] [address] Manjeet Quiroga MD [address] [place] [address] documented as of this encounter Visit Diagnoses Diagnosis Neck pain Cervicalgia Cervical radiculopathy Brachial neuritis or radiculitis nos Plantar fasciitis, bilateral documented in this encounter Additional Health Concerns Assessment Noted Time PHQ-9 Depression Total Score: 10 025 10:46 AM EST documented as of this encounter Care Teams Landcare Facilitator Relationship Specialty Start Date End Date Manjeet Quiroga MD [address] [place] [address] PCP - General Internal Medicine 05/31/13 documented as of this encounter
--- OUTSIDE RECORDS SUMMARY | 2024-10-10 15:02 | XMS_ITS | Encounter Summary ---
Author Organization [employer] [facility] Address [address] [place] [address] [address], [place] [address] Care Team Providers Care Building Services Coordinator Name Role Phone Manjeet Quiroga MD Primary Care Provider [phone] Encounter Details Date Type Department Care Team (Late Contact Info) Description 12/22/2022 Orders Only [facility] MED & PEDS [address] [place] [address] Cheryle Cruz LPN Social History Tobacco Use [...] Encounters Date Type Department Care Team (Late Contact Info) Description 10/19/2024 9:45 AM EDT Office Visit [facility] MED & PEDS [address] [place] [address] Manjeet Quiroga MD 505 [place] [address] documented as of this encounter Visit Diagnoses Not on filedocumented in this encounter Additional Health Concerns Assessment Noted Time PHQ-9 Depression Total Score: 8 10/14/19 23 2:38 PM EDT documented as of this encounter Care Teams Building Services Coordinator Relationship Specialty Start Date End Date Manjeet Quiroga MD [address] [place] [address] PCP - General Internal Medicine 05/31/13 documented as of this encounter
--- OUTSIDE RECORDS SUMMARY | 2024-10-10 15:02 | XMS_ITS | Encounter Summary ---
Author Organization [employer] Address 75 [facility] 7t [place] [address] Care Team Providers Care Supervisor Quilting Name Role Phone Manjeet Quiroga MD Primary Care Provider [phone] Reason for Visit * Reason Comments Med Refill Encounter Details Date Type Department Care Team ([facility] Contact Info) Description 03/02/[address] [facility] CHC MED & PEDS [address] [place], [place] [phone] Manjeet Quiroga MD [address] [place], [place] [phone] Type 2 diabetes mellitus with diabetic polyneuropathy [...] Description 10/19/2024 9:45 AM EDT Office Visit [facility] CHC MED & PEDS [address] [place] [address] Manjeet Quiroga MD [address] [place] [address] documented as of this encounter Visit Diagnoses Diagnosis Type 2 diabetes mellitus with diabetic polyneuropathy (CMS/HCC) documented in this encounter Additional Health Concerns Assessment Noted Time PHQ-9 Depression Total Score: 0 01/29/20 23 4:36 PM EDT documented as of this encounter Care Teams Supervisor Quilting Relationship Specialty Start Date End Date Manjeet Quiroga MD [address] [place] [address] PCP - General Internal Medicine 05/31/13 documented as of this encounter
--- OUTSIDE RECORDS SUMMARY | 2024-10-10 15:02 | XMS_ITS | Encounter Summary ---
Author Organization [employer] [facility] Address [address] [place] [address] 7 [place] [address] Care Team Providers Care Data Specialist Name Role Phone Manjeet Quiroga MD Primary Care Provider [phone] Encounter Details Date Type Department Care Team ([facility] Contact Info) Description 12/03/2022 Orders Only [facility] MEDICINE [address] [place], [place] [phone] Arlene Abarca LPN Social History Tobacco Use [...] Upcoming Encounters Date Type Department Care Team ([facility] Contact Info) Description 10/19/2024 9:45 AM EDT Office Visit [facility] CHC MED & PEDS [address] [place], [place] [phone] Manjeet Quiroga MD [address] [place], [place] [phone] documented as of this encounter Visit Diagnoses Not on filedocumented in this encounter Additional Health Concerns Assessment Noted Time PHQ-9 Depression Total Score: 8 10/14/19 23 2:38 PM EDT documented as of this encounter Care Teams Data Specialist Relationship Specialty Start Date End Date Manjeet Quiroga MD [address] [place] [address] PCP - General Internal Medicine 05/31/13 documented as of this encounter
--- OUTSIDE RECORDS SUMMARY | 2024-10-10 15:02 | XMS_ITS | Clinical Summary ---
Author Organization [address] [employer] [facility] Address [address] [place] [address] Phone Care Team Providers Care Recycling Sorter Name Role Phone Manjeet Quiroga MD Primary Care Provider [phone] Allergies No known active allergies Medications diclofenac (VOLTAREN) 1 % topical gel Apply 4 g topically 2 times daily. 4 Active Lactobac. rhamnosus GG-inulin ([facility] Zoomph) 10 billion cell -200 mg capsule, sprinkle [...] (LIDODERM) 5 % patchIndications:D iabetic mononeuropathy simplex ([facility] V24, [facility] V28),Arthritis of right ankle,Plantar fascial fibromatosis [...] mellitus type 2, co ntrolled, with complications ([facility] V24, [facility] V28) 03/30/2024 Atypical squamous cells of u [...] in one year Obesity, morbid, BMI 40.0-49.9 ([facility] V24, [facility] /[facility] V28) 07/05/2019 Encounters Date Type Department Care Team Description 08/14/2024 10:00 AM EDT Office Visit Orthopedic Surgery - [address] [address] Ladarius Amaro, DPM Diabetic mononeuropathy simplex ([facility] V24, [facility] V28) (Primary Dx); Arthritis of right ankle; [...] SURGERY 07/30/2016 PROCEDURE: HISTORICAL NECK SURGERY; COMMENT: [facility] Medical History Medical History Date Comments Anemia DX:Anemia Anxiety state DX:Anxiety state Asthma DX:Asthma Diabetes mellitus type 2, co ntrolled, with complications ([facility]/HCC V24, [facility] V28) DX:Diabetes mellitus type 2, controlled, with complications ([facility]) Bacterial vaginosis 01/24/2016 DX:Bacterial vaginosis; COMMENT: [...] AM EDT Office Visit Orthopedic Surgery - [place] [address] [phone] Ladarius Amaro, DPNeptali [address] [address] 12/01/2024 9:45 AM EDT Office Visit Obstetrics & Gynecology - [address] [phone] Cher Martinez, RYANM [address] [place] [address] Health Maintenance Due Date Last Done Comments [...] Result * Diabetes Eye Exam (09/03/2023) Pathologist [facility] Diabetes: Annual Retina Eye Exam abstracted Historical Provider HEALTH MAINTENANCE Final Result * Hepatitis C Screening (09/24/2022) Pathologist [facility] Hepatitis C Screening abstracted Historical Provider HEALTH MAINTENANCE Final Result * (ABNORMAL) Hemoglobin A1c (09/24/2022) Pathologist [facility] Hemoglobin A1C 12.7(A) <=6.5 % Blood Venous blood specimen / Unknown Historical Provider LAB BLOOD ORDERABLES Carol Ann l Result * HIV Screening (07/05/2019) Pathologist [facility] HIV Screening abstracted Historical Provider HEALTH MAINTENANCE Final Result from Last 3 Months or Most Recently Relevant to Health Maintenance Insurance [facility] Care Teams Recycling Sorter Relationship Specialty Start Date End Date Manjeet Quiroga MD [address] [place] [address] PCP - General Internal Medicine 07/22/20
--- OUTSIDE RECORDS SUMMARY | 2024-10-10 15:02 | XMS_ITS | Encounter Summary ---
Author Organization [employer] Address 75 [facility] 7t [place] [address] Care Team Providers Care Junior Network Administrator Name Role Phone Manjeet Quiroga MD Primary Care Provider [phone] Encounter Details Date Type Department Care Team ([facility] st Contact Info) Description 03/09/2023 Orders Only [facility] CHC MED & PEDS [address] [place], [place] [phone] Manjeet Quiroga MD [address] [place], [place] [phone] Bilateral carpal tunnel syndrome (Primary Dx); Cervical [...] Office Visit [facility] MED & PEDS [address] [place] [address] Manjeet Quiroga MD [address] [place] [address] documented as of this encounter Visit Diagnoses Diagnosis Bilateral carpal tunnel syndrome- Primary Carpal tunnel syndrome Cervical radiculopathy Brachial neuritis or radiculitis nos documented in this encounter Additional Health Concerns Assessment Noted Time PHQ-9 Depression Total Score: 0 01/29/20 23 4:36 PM EDT documented as of this encounter Care Teams Junior Network Administrator Relationship Specialty Start Date End Date Manjeet Quiroga MD [address] [place] [address] PCP - General Internal Medicine 05/31/13 documented as of this encounter
--- OUTSIDE RECORDS SUMMARY | 2024-10-10 15:02 | XMS_ITS | Encounter Summary ---
Author Organization [employer] Address 75 [facility] 7 [place] [address] Care Team Providers Care Translator/Interpreter Name Role Phone Manjeet Quiroga MD Primary Care Provider [phone] Encounter Details Date Type Department Care Team ([facility] Contact Info) Description 12/01/2022 Orders Only [facility] MED & PEDS [address] [place], [place] [phone] Manjeet Quiroga MD [address] [place] [address] Type 2 diabetes mellitus without complication, with long-term current use of insulin ([facility]) Social History Tobacco Use Types [...] Upcoming Encounters Date Type Department Care Team ([facility] Contact Info) Description 10/19/2024 9:45 AM EDT Office Visit [facility] MED & PEDS [address] [place] [address] Manjeet Quiroga MD [address] [place] [address] documented as of this encounter Visit Diagnoses Diagnosis Type 2 diabetes mellitus without complication, with long-term current use of insulin ([facility]) documented in this encounter Additional Health Concerns Assessment Noted Time PHQ-9 Depression Total Score: 8 10/14/19 23 2:38 PM EDT documented as of this encounter Care Teams Translator/Interpreter Relationship Specialty Start Date End Date Manjeet Quiroga MD 505 [facility] [address] PCP - General Internal Medicine 05/31/13 documented as of this encounter
--- OUTSIDE RECORDS SUMMARY | 2024-10-10 15:02 | XMS_ITS | Encounter Summary ---
Author Organization [employer] [facility] Address [address] [place] [address] 7 [place] [address] Care Team Providers Care Barrel Scraper Name Role Phone Manjeet Quiroga MD Primary Care Provider [phone] Encounter Details Date Type Department Care Team (Late Contact Info) Description 01/05/2023 Orders Only [facility] MED & PEDS [address] [place] [address] Manjeet Quiroga MD [address] [place] [address] Type 2 diabetes mellitus without complication, without long-term current use of insulin ([facility]) (Primary Dx) Social History Tobacco Use Types [...] Description 10/19/2024 9:45 AM EDT Office Visit [facility] MED & PEDS [address] [place] [address] Manjeet Quiroga MD [address] [place], [place] [phone] documented as of this encounter Visit Diagnoses Diagnosis Type 2 diabetes mellitus without complication, without long-term current use of insulin ([facility])- Primary documented in this encounter Additional Health Concerns Assessment Noted Time PHQ-9 Depression Total Score: 8 10/14/19 23 2:38 PM EDT documented as of this encounter Care Teams Barrel Scraper Relationship Specialty Start Date End Date Manjeet Quiroga MD [address] [place] [address] PCP - General Internal Medicine 05/31/13 documented as of this encounter
--- OUTSIDE RECORDS SUMMARY | 2024-10-10 15:03 | XMS_ITS | Encounter Summary ---
Author Organization [employer] Address 75 [facility] 7 [place] [address] Care Team Providers Care Associate Store Leader Name Role Phone Manjeet Quiroga MD Primary Care Provider [phone] Encounter Details Date Type Department Care Team ([facility] Contact Info) Description 10/28/2022 Orders Only [facility] CHC MED & PEDS [address] [place], [place] [phone] Manjeet Quiroga MD [address] [place], [place] [phone] Other emphysema (CMS/HCC) (Primary Dx); Type 2 [...] Upcoming Encounters Date Type Department Care Team ([facility] Contact Info) Description 10/19/2024 9:45 AM EDT Office Visit [facility] MED & PEDS [address] [place] [address] Manjeet Quiroga MD [address] [place] [address] documented as of this encounter Procedures Procedure Name Priority Date/Time Associated Diagnosis Comments QUANTIFERON(R)-TB GOLD PLUS, 1 TUBE Routine 11/10/2022 10:41 AM EDT Other emphysema (CMS/HCC) documented in this encounter Results * QuantiFERON??-TB Gold Plus, 1 Tube (11/10/2022 10:41 AM EDT) Quantiferon ??-TB Gold Plus, 1 Tube NEGATIVE NEGATIVE [place] Comment: Negative test result. M. tuberculosis complex infection unlikely. NIL 0.08 IU/mL [facility] [place] [facility] MITOGEN-NIL >10.00 IU/mL [facility] [place] [facility] TB1-NIL <0.00 IU/mL [facility] TB2-NIL <0.00 IU/mL [facility] Comment: The Nil tube value reflects the [...] T-lymphocytes. For additional information, please refer to https://education.[employer].Bevy/faq/UKC699 (This link is being provided for informational/ educational purposes only.) Blood Venous blood specimen / Unknown 11/10/2022 10:41 AM EDT 11/10/2022 10:42 AM EDT us Manjeet Quiroga MD LAB BLOOD ORDERABLES Final Result [facility] [address] [facility], [facility], [place] [address] [facility] [address] [place] [address] documented in this encounter Visit Diagnoses Diagnosis Other emphysema (CMS/HCC)- Primary Other emphysema Type 2 diabetes mellitus without complication, with long-term current use of insulin (CMS/[facility]) documented in this encounter Additional Health Concerns Assessment Noted Time PHQ-9 Depression Total Score: 8 10/14/19 23 2:38 PM EDT documented as of this encounter Care Teams Associate Store Leader Relationship Specialty Start Date End Date Manjeet Quiroga MD [address] [place] [address] PCP - General Internal Medicine 05/31/13 documented as of this encounter
--- OUTSIDE RECORDS SUMMARY | 2024-10-10 15:03 | XMS_ITS | Clinical Summary ---
Author Organization [facility] Address [address] [facility] [address] 0 [place] [address] Phone Care Team Providers Care Golf Course Manager Name Role Phone Manjeet Quiroga MD Primary Care Provider [phone]- [phone] Allergies No known active allergies Medications Multiple [...] Medicaid [facility] Medicaid Care Teams Golf Course Manager Relationship Specialty Start Date End Date Manjeet Quiroga MD PCP - General 06/03/20
--- OUTSIDE RECORDS SUMMARY | 2024-10-10 15:03 | XMS_ITS | Encounter Summary ---
Author Organization [employer] Address [address] [place] [address] 7[place] [address] Care Team Providers Care Pulmonology Technician Name Role Phone Manjeet Quiroga MD Primary Care Provider [phone] Reason for Referral * Consultation (Routine) - Closed Specialty Diagnoses / Procedures Referred By Lu cotto Referred To Contact Physical Therapy Diagnoses Hand paresthesia Neck pain Manjeet Quiroga MD [address] [place] [address] Phone: tel: fax: Physical Therapy, AT [address] [place] Phone: tel: fax: Referral ID Status Reason Start Date Expiration Date V isits Requested Visits Authorized [id number] Closed Specialty Services Required 08/10/2024 08/10/2025 1 1 Encounter Details Date Type Department Care Team (Late st Contact Info) Description 08/10/2024 Orders Only [facility] MEDICINE [address] [place] [address] Manjeet Quiroga MD [address] [place] [address] Hand paresthesia (Primary Dx); Neck pain Social [...] Upcoming Encounters Date Type Department Care Team ([facility] st Contact Info) Description 10/19/2024 9:45 AM EDT Office Visit [facility] CHC MED & PEDS [address] [place] [address] Manjeet Quiroga MD [address] [place], [place] [phone] Scheduled Referrals Name Type Priority Associated Diagnoses [...] documented as of this encounter Care Teams Pulmonology Technician Relationship Specialty Start Date End Date Manjeet Quiroga MD [address] [place] [address] PCP - General Internal Medicine 05/31/13 documented as of this encounter
--- OUTSIDE RECORDS SUMMARY | 2024-10-10 15:03 | XMS_ITS | Encounter Summary ---
Author Organization [employer] Address 75 [facility] 7t [place] [address] Care Team Providers Care Kier Pleater Name Role Phone Manjeet Quiroga MD Primary Care Provider [phone] Encounter Details Date Type Department Care Team ([facility] st Contact Info) Description 10/21/2023 Orders Only [facility] CHC MED & PEDS [address] [place], [place] [phone] Manjeet Quiroga MD [address] [place], [place] [phone] Type 2 diabetes mellitus without complication, without long-term current use of insulin ([facility]) Social History Tobacco Use Types [...] Description 10/19/2024 9:45 AM EDT Office Visit [facility] MED & PEDS [address] [place] [address] Manjeet Quiroga MD [address] [place] [address] documented as of this encounter Visit Diagnoses Diagnosis Type 2 diabetes mellitus without complication, without long-term current use of insulin ([facility]) documented in this encounter Additional Health Concerns Assessment Noted Time PHQ-9 Depression Total Score: 0 01/29/20 23 4:36 PM EDT documented as of this encounter Care Teams Kier Pleater Relationship Specialty Start Date End Date Manjeet Quiroga MD [address] [place] [address] PCP - General Internal Medicine 05/31/13 documented as of this encounter
--- OUTSIDE RECORDS SUMMARY | 2024-10-10 15:03 | XMS_ITS | Encounter Summary ---
Author Organization [employer] Address 75 [facility] 7 [place] [address] Care Team Providers Care Meter Repairer Helper Name Role Phone Manjeet Quiroga MD Primary Care Provider [phone] Reason for Visit * Reason Onset Date Comments Med Refill 11/04/2022 Encounter Details Date Type Department Care Team ([facility] st Contact Info) Description 11/04/2022 Telephone [facility] MEDICINE [address] [place] [address] Manjeet Quiroga MD [address] [place] [address] Med Refill Social History Tobacco Use Types [...] Description 10/19/2024 9:45 AM EDT Office Visit [facility] MED & PEDS [address] [place] [address] Manjeet Quiroga MD [address] [place] [address] documented as of this encounter Visit Diagnoses Not on filedocumented in this encounter Additional Health Concerns Assessment Noted Time PHQ-9 Depression Total Score: 8 10/14/19 23 2:38 PM EDT documented as of this encounter Care Teams Meter Repairer Helper Relationship Specialty Start Date End Date Manjeet Quiroga MD [address] [place] [address] PCP - General Internal Medicine 05/31/13 documented as of this encounter
--- OUTSIDE RECORDS SUMMARY | 2024-10-10 15:03 | XMS_ITS | Encounter Summary ---
Author Organization [employer] Address 75 [facility] 7 [place] [address] Care Team Providers Care Field Marketing Manager Name Role Phone Manjeet Quiroga MD Primary Care Provider [phone] Reason for Visit * Reason Comments Med Refill Encounter Details Date Type Department Care Team ([facility] Contact Info) Description 09/18/2024 Refill [facility] CHC MED & PEDS [address] [place], [place] [phone] Manjeet Quiroga MD [address] [place], [place] [phone] Neck pain; Cervical radiculopathy; Plantar fasciitis, bilateral [...] 10/19/2024 9:45 AM EDT Office Visit [facility] MED & PEDS [address] [place] [address] Manjeet Quiroga MD [address] [place] [address] documented as of this encounter Visit Diagnoses Diagnosis Neck pain Cervicalgia Cervical radiculopathy Brachial neuritis or radiculitis nos Plantar fasciitis, bilateral documented in this encounter Additional Health Concerns Assessment Noted Time PHQ-9 Depression Total Score: 10 025 10:46 AM EST documented as of this encounter Care Teams Field Marketing Manager Relationship Specialty Start Date End Date Manjeet Quiroga MD [address] [place] [address] PCP - General Internal Medicine 05/31/13 documented as of this encounter
--- OUTSIDE RECORDS SUMMARY | 2024-10-10 15:03 | XMS_ITS | Encounter Summary ---
Author Organization [facility] Address [address] [place] [address] 7 [place] [address] Care Team Providers Care Wing Commander Name Role Phone Manjeet Quiroga MD Primary Care Provider [phone] Reason for Visit * Reason Comments Med Refill Encounter Details Date Type Department Care Team ([facility] Contact Info) Description 06/22/2022 Refill [facility] MED & PEDS [address] [place] [address] Manjeet Quiroga MD 505 [place] [address] Bloating (Primary Dx) Social History Tobacco Use [...] Upcoming Encounters Date Type Department Care Team ([facility] Contact Info) Description 10/19/2024 9:45 AM EDT Office Visit [facility] MED & PEDS [address] [place], [place] [phone] Manjeet Quiroga MD [address] [place], [place] [phone] documented as of this encounter Visit Diagnoses Diagnosis Bloating- Primary Flatulence, eructation, and gas pain documented in this encounter Care Teams Wing Commander Relationship Specialty Start Date End Date Manjeet Quiroga MD [address] [place] [address] PCP - General Internal Medicine 05/31/13 documented as of this encounter
--- OUTSIDE RECORDS SUMMARY | 2024-10-10 15:03 | XMS_ITS | Clinical Summary ---
Author Organization [employer] Address [address] [facility] [address] [address] [place] [address] Care Team Providers Care Pipe Installer Name Role Phone Manjeet Quiroga MD Primary Care Provider [phone] Allergies No known active allergies Medications * This document contains information received from the source organization and may not represent a complete record from that organization. insulin detemir (Levemir) 100 UNIT/ML injectionIndicat ions:Type 2 diabetes mellitus without complication, with long-term current use of insulin (CMS/[facility]) Inject 40 Units under the skin at bedtime. 10 mL 12 3 Active Blood Glucose Monitoring Suppl ([employer]Style [place] Lite) w/Device kitIndications:T ype 2 diabetes mellitus without complication, without long-term current use of insulin (CMS/HCC) Use 2 - 3 x day 1 kit 3 Active Continuous Blood Gluc Banquet Captain (FreeStyle Neisha 2 [place]) deviceIndication s:Type 2 diabetes mellitus without complication, [...] complication, without long-term current use of insulin (CMS/[facility]) Take 1 tablet by mouth Once [...] complication, without long-term current use of insulin (CMS/[facility]) Take 1 tablet (25 mg) by [...] DAILY 60 capsule 5 Active Lactobacillus-In ulin ([facility]) capsuleIndicatio ns:Bloating TAKE 1 CAPSULE BY MOUTH [...] medication management. Intake completed with N at [facility] for OP individual therapy. clinician will provide [...] medication management. Intake completed with BHN at [facility] for OP individual therapy. clinician will provide additional support as needed. Normocytic anemia 01/23/2022 Acute renal failure syndrome 12/23/2020 Acute nontraumatic kidney injury 12/23/2020 Anxiety 11/08/2017 Neck pain 04/27/2016 Alopecia 01/24/2013 Migraine 01/24/2013 Pes planus 01/24/2013 Chronic obstructive lung disease 02/19/2012 Obesity 02/19/2012 Diabetes mellitus type 2, uncomplicated 11/02/19 12 Encounters Date Type Department Care Team Description 10/09/2024 Telephone [facility] [address] [place] [address] Manjeet Quiroga MD Medication Question 09/18/2024 Refill [facility] [address] [place] [address] Manjeet Quiroga MD Neck pain; Cervical radiculopathy; Plantar fasciitis, bilateral 08/10/2024 Orders Only [facility] [address] [place] [phone] Manjeet Quiroga MD Hand paresthesia (Primary Dx); Neck pain 08/10/2024 Telephone [facility] [employer] [facility] [address] [place], [place] [phone] Manjeet Quiroga MD MRI CERVICAL SPINE DENIED 08/07/2024 2:30 PM EDT Office Visit [facility] [address] [place] [address] Manjeet Quiroga MD Controlled type 2 diabetes mellitus with hyperglycemia, without long-term current use of insulin (CMS/HCC) (Primary Dx); Type 2 diabetes mellitus with diabetic neuropathy, without long-term current use of insulin (CMS/HCC); Hand paresthesia; Neck pain; Cervical radiculopathy; Plantar fasciitis, bilateral 08/07/2024 Travel 08/03/2024 Refill [facility] [address] [place] [address] Manjeet Quiroga MD Health care maintenance 07/31/2024 Patient Outreach [facility] [address] [place] [address] Manjeet Quiroga MD Pre-visit Planning (SDOH negative, Tobacco screening negative. ) 07/16/2024 Refill [facility] [address] [place] [address] Manjeet Quiroga MD Type 2 diabetes mellitus without complication, without long-term current use of insulin (CMS/HCC) 07/13/2024 Refill [facility] [address] [place] [address] Manjeet Quiroga MD Plantar fasciitis, bilateral; Bloating from Last 3 Months Immunizations Immunization Administration Dates Next Due DTaP 10/11/1991, 9,1987,1987,1987 [...] 08/07/2024 2:32 PM EDT Plan of Treatment Upcoming Encounters Date Type Department Care Team (Late st Contact Info) Description 10/19/2024 9:45 AM EDT Office Visit [facility] [address] [place], [place] [phone] Manjeet Quiroga MD [address] [place], [place] [phone] Health Maintenance Due Date Last Done Comments Disability Screening 1987 Diabetes: Foot Exam 1997 Family Planning (PISQ) 2002 Lipid Panel 11/11/2023 11/10/2022, 0905/2021, 12/26/2020 COVID-19 Vaccine ( season) 2024 05/26/2023, [...] 05/03/1998, 01/03/1998, 11/28/1997 HPV Vaccines Completed 02/24/2021, 060 08/2020, 07/23/2020 Pneumococcal Vaccine: Pediatrics (0 to [...] Media Lot # [id number] Lot# Expiration Date [id number] Blood 08/07/2024 2:57 PM EDT us Manjeet Quiroga MD POINT OF CARE TEST ENTER/ED IT ORDERABLES Final Result * POCT Glucose (08/07/2024 2:56 PM EDT) Glucose Blood, POC 199 60 - 200 mg/dL QC Media Lot # [id number] Lot# Expiration Date [id number] Blood Capillary blood specimen / Unknown 08/07/2024 2:56 PM EDT Manjeet Quiroga MD POINT OF CARE TEST ENTER/ED IT ORDERABLES Final Result * Albumin, Random Urine W/Creatinine (04/24/2024 1:30 PM EST) Creatinine, Urine 61.75 mg/dL [facility] Microalbumin Urine <5.0 mg/L [facility] Microalbum Creatinine Ratio Ur TNP <30 ug/mg cr [facility] Comment:Unable to calculate albumin/creatinine ratio due to lowmicroalbumin or creatinine result. Urine (Urine, Random) 04/24/2024 1:30 PM EST 04/24/2024 2:09 PM EST Manjeet Quiroga MD LAB URINE ORDERABLES Final Result [facility] [address] [place] [phone] * HIV-1/2 Antigen and Antibodies, Fourth Generation, with Reflexes (04/24/2024 1:26 PM EST) HIV AB/AG Nonreactive Nonreactive [facility] Comment:HIV-1 p24 Ag and/or HIV-1/HIV-2 Ab not detected.A test result that is nonreactive does not exclude thepossibility of exposure to or infection with HIV-1 and/orHIV-2. Nonreactive results in this assay for individualswith prior exposure to HIV-1 and/or HIV-2 may be due toantigen and antibody levels that are below the limit ofdetection of this assay.The [employer] HIV Ag/Ab Combo assay result andsupplemental assay results should be interpreted inconjunction with the patient's clinical presentation,history and other laboratory results. If the results areinconsistent with clinical evidence, additional testing issuggested to confirm the result. Blood Venous blood specimen / Unknown 04/24/2024 1:26 PM EST 04/24/2024 2:28 PM EST us Manjeet Quiroga MD LAB BLOOD ORDERABLES Final Result Performing Organization Address [facility] Co de Phone Number [facility] [address] [place] [phone] * HM PAP/HPV (09/17/2023 9:04 AM EDT) Historical Provider HEALTH MAINTENANCE Final Result * Hepatitis C Ab (08/26/2023 10:47 AM EDT) Hepatitis C Antibody Nonreactive Nonreactive [facility] Comment:Antibodies to HCV no t detected; does not exclude early acuteHCV infection. Blood Venous blood specimen / Unknown 08/26/2023 10:47 AM EDT 08/26/2023 2:04 PM EDT Manjeet Quiroga MD LAB BLOOD ORDERABLES Final Result Performing Organization Address City/[facility] Co de Phone Number [facility] [address] [place] [address] [phone] * (ABNORMAL) Lipid Panel, Standard (11/10/2022 10:42 AM EDT) Cholesterol, Total 134 <200 mg/dL [facility] [place] [email or web address] HDL Cholesterol 45(L) > OR = 50 mg/dL [facility] [place] [email or web address] Triglycerides 97 <150 mg/dL [facility] [place] [email or web address] LDL Cholesterol 71 mg/dL (calc) [facility] [place] [facility] Comment: Reference range: <100 Desirable range <100 mg/dL for primary prevention; ?? <70 mg/dL for patients with CHD or diabetic patients with > or = 2 CHD risk factors. LDL-C is now calculated using the Sarahi calculation, which is a validated novel method providing better accuracy than the Friedewald equation in the estimation of LDL-C. Jerome SS et al. ZONIA. 2013;310(19): 3374-2323 (http://education.FuturestateIT/faq/DQC173) Chol/HDLC Ratio 3.0 <5.0 (calc) [facility] [place] [email or web address] Non-HDL Cholesterol 89 <130 mg/dL (calc) [facility] [place] [email or web address] Comment: For patients with diabetes plus 1 major ASCVD risk factor, treating to a non-HDL-C goal of <100 mg/dL (LDL-C of <70 mg/dL) is considered a therapeutic option. Blood Venous blood specimen / Unknown 11/10/2022 10:42 AM EDT 11/10/2022 10:43 AM EDT Narrative [facility] - 11/11/2022 3:27 AM EDT FASTING:NO FASTING: NO us Manjeet Quiroga MD LAB BLOOD ORDERABLES Final Result [facility] [address], [place] [phone] [facility] [place] [email or web address] [address] [place] [phone] from Last 3 Months or Most Recently Relevant to Health Maintenance Insurance [facility] [place] [id number] # [id number] [place] [id number] 1R [place] [id number] Care Teams Pipe Installer Relationship Specialty Start Date End Date Manjeet Quiroga MD [address] [place] [address] [place] [id number] PCP - General Internal Medicine 05/31/13
--- OUTSIDE RECORDS SUMMARY | 2024-10-10 15:03 | XMS_ITS | Encounter Summary ---
Author Organization [employer] Address [address] [facility] 7[address] [place] [address] Care Team Providers Care Supervisor Cigar Processing Name Role Phone Manjeet Quiroga MD Primary Care Provider [phone] Reason for Visit * Reason Comments Med Refill Encounter Details Date Type Department Care Team ([facility] Contact Info) Description 02/03/2024 Refill [facility] [address] [place] [address] Manjeet Quiroga MD [address] [place], [place] [phone] Social History Tobacco Use Types Packs/Day Years [...] 10/19/2024 9:45 AM EDT Office Visit [facility] [address] [place] [address] Manjeet Quiroga MD [address] [place] [address] documented as of this encounter Visit Diagnoses Not on filedocumented in this encounter Additional Health Concerns Assessment Noted Time PHQ-9 Depression Total Score: 0 01/29/20 23 4:36 PM EDT documented as of this encounter Care Teams Supervisor Cigar Processing Relationship Specialty Start Date End Date Manjeet Quiroga MD [address] [place] [address] PCP - General Internal Medicine 05/31/13 documented as of this encounter
--- OUTSIDE RECORDS SUMMARY | 2024-10-10 15:03 | XMS_ITS | Encounter Summary ---
Author Organization [employer] Address [address] [facility] 7t [place] [address] Care Team Providers Care Aquaculture Worker Name Role Phone Manjeet Quiroga MD Primary Care Provider [phone] Reason for Visit * Reason Comments Med Refill Encounter Details Date Type Department Care Team ([facility] Contact Info) Description 10/25/2023 Refill [facility] [address] [place], [place] [phone] Manjeet Quiroga MD [address] [place], [place] [phone] Mild episode of recurrent major depressive disorder [...] Description 10/19/2024 9:45 AM EDT Office Visit [facility] [address] [place] [address] Manjeet Quiroga MD [address] [place] [address] documented as of this encounter Visit Diagnoses Diagnosis Mild episode of recurrent major depressive disorder (CMS/HCC) documented in this encounter Additional Health Concerns Assessment Noted Time PHQ-9 Depression Total Score: 0 01/29/20 23 4:36 PM EDT documented as of this encounter Care Teams Aquaculture Worker Relationship Specialty Start Date End Date Manjeet Quiroga MD [address] [place] [address] PCP - General Internal Medicine 05/31/13 documented as of this encounter
--- OUTSIDE RECORDS SUMMARY | 2024-10-10 15:03 | XMS_ITS | Encounter Summary ---
Author Organization [employer] Address [address] [facility] [address]t [place] [address] Care Team Providers Care Assistant Spa Director Name Role Phone Manjeet Quiroga MD Primary Care Provider [phone] Encounter Details Date Type Department Care Team ([facility] st Contact Info) Description 10/06/2023 Orders Only [facility] [address] [place], [place] [phone] Manjeet Quiroga MD [address] [place], [place] [phone] Type 2 diabetes mellitus without complication, without long-term current use of insulin ([facility]) (Primary Dx) Social History [...] Description 10/19/2024 9:45 AM EDT Office Visit [facility] [address] [place] [address] Manjeet Quiroga MD [address] [place] [address] documented as of this encounter Visit Diagnoses Diagnosis Type 2 diabetes mellitus without complication, without long-term current use of insulin ([facility])- Primary documented in this encounter Additional Health Concerns Assessment Noted Time PHQ-9 Depression Total Score: 0 01/29/20 23 4:36 PM EDT documented as of this encounter Care Teams Assistant Spa Director Relationship Specialty Start Date End Date Manjeet Quiroga MD [address] [place] [address] PCP - General Internal Medicine 05/31/13 documented as of this encounter
--- OUTSIDE RECORDS SUMMARY | 2024-10-10 15:03 | XMS_ITS | Encounter Summary ---
Author Organization [employer] Address [address] [facility] [address] [place] [address] Care Team Providers Care Librarian Special Library Name Role Phone Manjeet Quiroga MD Primary Care Provider [phone] Encounter Details Date Type Department Care Team ([facility] st Contact Info) Description 10/06/2023 Telephone [facility] [address] [place] [address] Manjeet Quiroga MD [address] [place], [place] [phone] Social History Tobacco Use Types Packs/Day Years [...] Description 10/19/2024 9:45 AM EDT Office Visit [facility] [address] [place] [address] Manjeet Quiroga MD [address] [place] [address] documented as of this encounter Visit Diagnoses Not on filedocumented in this encounter Additional Health Concerns Assessment Noted Time PHQ-9 Depression Total Score: 0 01/29/20 23 4:36 PM EDT documented as of this encounter Care Teams Librarian Special Library Relationship Specialty Start Date End Date Manjeet Quiroga MD [address] [place] [address] PCP - General Internal Medicine 05/31/13 documented as of this encounter
[2024-10-26 10:16] VITALS: BP 126/68; PULSE 78; RESP 12; TEMP 36.6; O2SAT 99; BMI 42.5
--- NOTE | 2024-10-26 10:38 | MHC.SHP ---
Pre-Procedural Eval Section A - 24 Hr Update-Section A only Date of Service: 10/26/24 The patient is an INPATIENT: No Changes since office visit: No Cold of Flu in the past 2 weeks, No New Medical Problems, No Changes in Medication and No Patient answered all questions The patient has been examined within 24 hours of the surgical procedure. The History & Physical has been completed within 30 days and I have reviewed it.: Yes Section B - Complete if H&P > 30 days Chief Complaint: Carpal tunnel syndrome, left upper limb Allergies: Allergies Allergy/AdvReac Type Severity Reaction Status Date / Time SEASONAL ALLERGIES Allergy Intermediate WATERY Uncoded 10/26/24 10:15 ITCHY EYES Plan Diagnosis/Plan: Unchanged I have reviewed the history and physical and performed a pertinent physical examination on my patient. No changes have occurred unless specified. Time Spent With Patient Time: Total time managing care of this patient today ____ minutes.
--- NOTE | 2024-10-26 10:38 | W.PM.OPN ---
Operative Note Operative Note Date of Service: 10/26/24 Narrative: Preop diagnosis: 1. Left Carpal tunnel syndrome Postop diagnosis: same Procedure: 1. Left Carpal tunnel release Surgeon: Diamond Parr MD Fishing Vessel Operator: Skyler GALLAGHER Anesthesia: local block using 1% lidocaine with epinephrine Findings: Thickened transverse carpal ligament. EBL: Less than 5 mL Specimens: None Complications: None Disposition: Brought to recovery room in stable condition Plan: Follow-up for 10-14 days for wound check and suture removal Indications: The patient is 39 years old, with left carpal tunnel syndrome that has been unresponsive to nonoperative management. The risks and benefits of operative treatment including but not limited to risk of damage to blood vessels, nerves, tendons, infection, persistent pain, persistent symptoms, or possible need for additional surgery were discussed with the patient and the patient wishes to proceed with surgery. Procedure: Once consent was obtained a local block was performed using a combination of 1% lidocaine with epinephrine. The patient was then brought back to the operating suite and placed on the operative table in supine position. The left upper extremity was prepped and draped in a standard surgical fashion. Once assured that we had a good block, a 2.0 cm longitudinal incision was made centered over the carpal tunnel. The incision was made through the skin to the subcutaneous tissues using a #15 blade. Dissection was made down to the level of the transverse carpal ligament with care being taken to protect the palmar cutaneous nerve. Once the transverse carpal ligament was clearly visualized, a longitudinal incision was made in the transverse carpal ligament 1st using a #15 blade, then using tenotomy scissors under direct visualization. Care was taken to look for and protect the motor branch of the median nerve when seen in this area. Once satisfied with our carpal tunnel release the wound was copiously irrigated with normal saline and hemostasis was obtained with a brief period of local pressure. The skin edges were reapproximated with some 5.0 nylon suture material and a sterile dressing was applied. The patient appears to have tolerated the procedure well and with no complications. All digits were well vascularized at the conclusion of the case.
[2024-10-26 11:57] VITALS: BP 106/67; PULSE 70; RESP 18; O2SAT 99
== END 2024-10-26 12:43 | disposition home or self-care (01) ==
PROVIDERS: PCP Internal Medicine; Visit Provider Orthopaedic Surgery
PROC: (CPT 64721; principal; 2024-10-26 11:00)
DX: G56.02 Carpal tunnel syndrome, left upper limb (principal); R20.0 Anesthesia of skin; R20.2 Paresthesia of skin; J30.2 Other seasonal allergic rhinitis; Z98.1 Arthrodesis status
CPT/HCPCS: 64721; J0171; J2003

== ENCOUNTER → 2024-10-26 09:03 | Outpatient (BNV) | payer OTHER, SELFPAY | PROVIDERS: PCP Internal Medicine; Visit Provider Orthopaedic Surgery | DX: G56.02 Carpal tunnel syndrome, left upper limb (principal) | CPT/HCPCS: 64721 ==

== ENCOUNTER 2024-10-31 09:11 | Outpatient (REF) | payer OTHER, SELFPAY ==
--- NOTE | 2024-10-31 09:15 | EMG_ITS ---
FINDINGS: Left tibial and peroneal motor studies were performed. Left superficial peroneal, sural, and median and lateral mixed plantar sensory studies were performed. Tibial H-reflex was obtained, and paraspinal muscles were tested with a needle with some limb muscles. IMPRESSION: 1. 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 2. There is also evidence of chronic left lower lumbar radiculopathy. MD ELIZABETH Garcia/BONNY / [id number]
== END 2024-10-31 09:12 | disposition home or self-care (01) ==
LOC: HO.NEURO 09:11
PROVIDERS: PCP Internal Medicine; Visit Provider Anesthesiology
DX: E11.51 Type 2 diabetes mellitus with diabetic peripheral angiopathy without gangrene (principal); G57.92 Unspecified mononeuropathy of left lower limb
CPT/HCPCS: 95886; 95910

== ENCOUNTER 2024-11-01 13:11 | Outpatient (REF) | payer OTHER, SELFPAY ==
--- NOTE | ~2024-11-01 | US_ITS ---
EXAMINATION: US LOWER EXTREMITY VENOUS (REFLUX EXAM), BILATERAL CLINICAL INFORMATION: Inflammation, right lower extremity. COMPARISON: None. TECHNIQUE: Color flow triplex imaging and compression Doppler was performed to evaluate both the deep and the superficial systems bilaterally. To evaluate the superficial system, the examination was performed in the upright position. Color-flow Doppler ultrasound and compression ultrasound were utilized. In addition, maneuvers were utilized to demonstrate reflux. FINDINGS: 1. DEEP VENOUS ULTRASOUND OF THE RIGHT LOWER EXTREMITY: Common Femoral Vein: Compressible, normal respiratory variation and augmented flow. Femoral Vein: Compressible, normal color flow and augmentation. Popliteal Vein: Compressible, normal augmentation. Deep Reflux: There is no evidence of reflux in the deep system in either the common femoral vein, superficial femoral or the popliteal vein. There is no evidence of a Rousseau's cyst. 2. SUPERFICIAL ULTRASOUND WITH DOPPLER OF RIGHT LOWER EXTREMITY: GREAT SAPHENOUS VEIN: Saphenofemoral Junction: 0.7 cm; Reflux: 0 ms Proximal Thigh: 0.4 cm; Reflux: 0 ms Mid Thigh: 0.3 cm; Reflux: 0 ms Distal Thigh: Not identified. At Knee: Not identified. Proximal Calf: 0.1 cm; Reflux: 0 ms Mid Calf: 0.1 cm; Reflux: 0 ms Distal Calf: 0.1 cm; Reflux: 0 ms DUPLICATED MEDIAL GREAT SAPHENOUS VEIN: Diameter: None imaged Reflux: NA DUPLICATED LATERAL GREAT SAPHENOUS VEIN: Diameter: 0.6 cm. Reflux: NA SMALL SAPHENOUS VEIN: Saphenopopliteal Junction: 0.2 cm; Reflux: 0 ms Proximal: 0.2 cm; Reflux: 0 ms Distal: 0.1 cm; Reflux: 0 ms VEIN OF GIACOMINI: Size: 0.3 cm. Reflux: NA PERFORATORS: Location: Mid thigh and proximal calf. Size: 0.2 cm. Reflux: NA VARICOSITIES: Location: None imaged. Size: NA Reflux: NA 3. DEEP VENOUS ULTRASOUND OF THE LEFT LOWER EXTREMITY: Common Femoral Vein: Compressible, normal respiratory variation and augmented flow. Femoral Vein: Compressible, normal color flow and augmentation. Popliteal Vein: Compressible, normal augmentation. Deep Reflux: There is no evidence of reflux in the deep system in either the common femoral vein, superficial femoral or the popliteal vein. There is no evidence of a Rousseau's cyst. 4. SUPERFICIAL ULTRASOUND WITH DOPPLER OF LEFT LOWER EXTREMITY: GREAT SAPHENOUS VEIN: Saphenofemoral Junction: 0.9 cm; Reflux: 0 ms Proximal Thigh: 0.3 cm; Reflux: 0 ms Mid Thigh: 0.3 cm; Reflux: 0 ms Distal Thigh: 0.2 cm; Reflux: 0 ms At Knee: 0.2 cm; Reflux: 0 ms Proximal Calf: 0.2 cm; Reflux: 0 ms Mid Calf: 0.2 cm; Reflux: 0 ms Distal Calf: 0.2 cm; Reflux: 0 ms DUPLICATED MEDIAL GREAT SAPHENOUS VEIN: Diameter: None imaged Reflux: NA DUPLICATED LATERAL GREAT SAPHENOUS VEIN: Diameter: 0.6 cm. Reflux: NA SMALL SAPHENOUS VEIN: Saphenopopliteal Junction: 0.1 cm; Reflux: 0 ms Proximal: 0.2 cm; Reflux: 0 ms Distal: 0.1 cm; Reflux: 0 ms VEIN OF GIACOMINI: Size: 0.3 cm. Reflux: NA PERFORATORS: Location: Small saphenous vein mid segment. Mid thigh and proximal calf. Size: 0.1-0.3 cm. Reflux: NA VARICOSITIES: Location: None Imaged Size: NA Reflux: NA US/US venous insuf bilat IMPRESSION: Right: No venous insufficiency. No gross varices. Perforators without reflux. Left: No venous insufficiency. No gross varices. Perforators without reflux. Electronically signed by: Florentino Roper MD 11/01/2024 03:48 PM EDT
--- OUTSIDE RECORDS SUMMARY | 2024-11-01 14:50 | XMS_ITS | Clinical Summary ---
Author Organization [facility] Address [address] [facility] [address] [place] [address] Phone Care Team Providers Care Financial Investment Adviser Name Role Phone Manjeet Quiroga MD Primary Care Provider [phone] Allergies No known active allergies Medications Multiple [...] patient's age to complete this topic Insurance [facility] Medicaid [facility] Medicaid Care Teams Financial Investment Adviser Relationship Specialty Start Date End Date Manjeet Quiroga MD PCP - General 06/03/20
== END 2024-11-01 13:12 | disposition home or self-care (01) ==
LOC: HO.US 13:11
PROVIDERS: PCP Internal Medicine; Visit Provider Physician Assistant Surgical
DX: I83.11 Varicose veins of right lower extremity with inflammation (principal); I83.12 Varicose veins of left lower extremity with inflammation
CPT/HCPCS: 93970

== ENCOUNTER → 2024-11-01 13:18 | Outpatient (BNV) | payer OTHER, SELFPAY | PROVIDERS: PCP Internal Medicine; Visit Provider Radiology Diagnostic Radiology | DX: R22.41 Localized swelling, mass and lump, right lower limb (principal) | CPT/HCPCS: 93970 ==

== ENCOUNTER 2024-11-08 09:34 | Outpatient (AMB) | payer OTHER, SELFPAY ==
--- NOTE | 2024-11-08 09:37 | MHC.OFFVIS ---
Intake Visit Reasons: PO-Lt CTR 10/26/24 Intake Note: Josiane is a 39 year old right hand dominant female who presents today for a post operative visit status post left carpal tunnel release DOS: 10/26/[address] Diamond Parr. Sutures removed and steri strips applied. Patient reports she is feeling weakness in her left wrist. 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 She would also like to discuss a right carpal tunnel release. Suture removd and steri strips applied. Allergies SEASONAL ALLERGIES Allergy (Intermediate, Uncoded 11/08/24 09:51) WATERY ITCHY EYES HPI HPI PO-Lt CTR 10/26/24: Details: Josiane is a 39 year old right hand dominant female who presents today for a post operative visit status post left carpal tunnel release DOS: 10/26/[address] Diamond Parr. Sutures removed and steri strips applied. Patient reports she is feeling weakness in her left wrist. No numbness or tingling in the left wrist. 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 She would also like to discuss a right carpal tunnel release. Suture removd and steri strips applied. 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 Good APB muscle firing and good finger cross. Vascular: Capillary refill brisk. ROM: Patient can make a fist and extend all their digits. Skin: Well approximated and well healing incision site noted over the volar left wrist No lacerations or abrasions noted. General: No ecchymosis. No erythema or evidence of infection. Assessment & Plan Assessment & Plan (1) Bilateral carpal tunnel syndrome: Code(s): G56.03 - Carpal tunnel syndrome, bilateral upper limbs Category: Medical Plan 1. Status post left carpal tunnel release With almost complete symptom resolution postoperatively DOS 10/26/2024 Patient appears to be recovering well postoperatively Patient is educated about the typical recovery course Due to her slightly limited range of motion, patient is referred to occupational therapy for range of motion and gentle strengthening of the left hand Patient is amenable to this plan We will hold off on right carpal tunnel release until the left hand has recovered fully per the patient Follow-up as needed Orders: Orders OT Evaluation and Treatment Today G56.03 - Carpal tunnel syndrome, bilateral upper limbs Coding Level of Care Code Global (17219) Diagnoses Bilateral carpal tunnel syndrome G56.03
--- OUTSIDE RECORDS SUMMARY | 2024-11-08 10:33 | XMS_ITS | Encounter Summary ---
Author Organization [employer] Address [address] [facility] [address] [place] [address] Care Team Providers Care Ad Clerk Name Role Phone Manjeet Quiroga MD Primary Care Provider [phone] Reason for Visit * Reason Comments Med Refill Encounter Details Date Type Department Care Team ([facility] Contact Info) Description 03/09/2023 Refill [facility] MED & PEDS [address] [place], [place] [phone] Manjeet Quiroga MD [address] [place], [place] [phone] Type 2 diabetes mellitus with diabetic polyneuropathy [...] Care Team (Late st Contact Info) Description 11/16/2024 1:00 PM EDT Office Visit [facility] MED & PEDS [address] [place] [address] Manjeet Quiroga MD [address] [place] [address] documented as of this encounter Visit Diagnoses Diagnosis Type 2 diabetes mellitus with diabetic polyneuropathy (CMS/HCC) documented in this encounter Additional Health Concerns Assessment Noted Time PHQ-9 Depression Total Score: 0 01/29/20 23 4:36 PM EDT documented as of this encounter Care Teams Ad Clerk Relationship Specialty Start Date End Date Manjeet Quiroga MD [address] [place] [address] PCP - General Internal Medicine 05/31/13 documented as of this encounter
== END 2024-11-08 10:03 | disposition home or self-care (01) ==
LOC: HO.HOS 09:35
PROVIDERS: PCP Internal Medicine
DX: G56.03 Carpal tunnel syndrome, bilateral upper limbs (principal)
CPT/HCPCS: 99024

== ENCOUNTER → 2024-11-08 09:34 | Outpatient (BNVA) | payer OTHER, SELFPAY | PROVIDERS: PCP Internal Medicine | DX: G56.03 Carpal tunnel syndrome, bilateral upper limbs (principal) | CPT/HCPCS: 99212 ==

== ENCOUNTER 2024-11-09 10:27 | Outpatient (AMB) | payer OTHER, SELFPAY ==
[2024-11-09 10:32] VITALS: BMI 42.3
--- NOTE | 2024-11-09 10:32 | MHC.OFFVIS ---
Vital Signs 11/09/24 10:32 Height 5 ft 1 in Weight 224 lb BMI 42.3 Intake Visit Reasons: follow up s/p [facility] 11/01/24 Intake Note: follow up [facility] 11/01/24 for LE pain, Left LE worse than Right LE. Pt works on feet 8-12 hours a day. Accompanied by: Self / Same As Patient Allergies SEASONAL ALLERGIES Allergy (Intermediate, Uncoded 11/09/24 10:34) WATERY ITCHY EYES HPI HPI follow up s/p [facility] 11/01/24: Details: Josiane is presenting today on a follow up to [facility], performed on 11/01. She continues to endorse bilateral lower extremity swelling and pain. She recently had carpal tunnel surgery in the left hand, which has made it difficult for her to put on the compression socks; she had been wearing compression socks prior to that with relief. She has no new concerns today. 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 Review of Systems Const Reports as per HPI and Denies weakness ENT Reports Normal hearing present and Denies dizziness Card Reports as per HPI, Denies chest pain, Denies chest pain at rest, Denies chest pain with activity, Denies dyspnea and Denies dyspnea on exertion Resp Reports as per HPI, Denies cough, Denies dyspnea and Denies dyspnea on exertion GI Reports as per HPI, Denies abdominal pain, Denies nausea and Denies vomiting Musc Denies numbness Skin/Breast Reports as per HPI, Denies erythema and Denies wounds Neuro Reports Normal hearing present, Denies dizziness, Denies numbness, Denies Sensory deficit (Neuro) and Denies weakness Psych Reports no additional complaints Endo Reports no additional complaints Physical Exam Vital Signs: BMI result Body Mass Index 42.3 Const General: healthy appearing and no acute distress Orientation/consciousness: patient oriented x3 HEENT Head: Yes normal to inspection Ears: hearing grossly normal bilaterally Mouth: Normal oral and palatal mucosa present Resp Effort & Inspection: normal respiratory effort and able to speak in complete sentences Auscultation: clear to auscultation bilaterally Cardio Jugular venous distension: no JVD Rate: regular rate Rhythm: regular rhythm Heart sounds: S1 normal heart sound present and S2 normal heart sound present Bruits: no abdominal aortic bruits, no carotid bruits, no femoral bruits and no renal bruits Peripheral pulses: Peripheral pulses 2+ throughout GI Inspection: Yes normal to inspection Palpation (GI): No Abdominal aortic bruit present Skin General skin exam: no rashes or lesions noted Wounds: no wounds Hair: normal Neuro General: patient oriented x3 Cranial nerves: Yes Normal hearing present Cognition (Neuro): normal cognition Gait exam (Neuro): Normal gait present Motor exam (neuro): 5/5 motor strength present throughout Sensory Exam: No Sensory deficit (Neuro) Extrem Other: Bilateral lower extremities: trace peripheral edema noted. No varicosities or tortuosities noted. No discoloration noted. General: Yes normal to inspection, Yes full ROM, Yes capillary refill normal and Yes normal gait Results Reviewed Results Reviewed: Brief summary of venous insufficiency testing is as follows: right great saphenous vein: negative; diminuitive past mid-thigh, unable to follow until prox right calf right small saphenous vein: negative right accessory vein: none present left great saphenous vein: negative left small saphenous vein: negative left accessory vein: none present Please note there is no evidence of any venous aneurysms or significant tortuosity Assessment & Plan Assessment & Plan (1) Varicose veins of both lower extremities with inflammation: Code(s): I83.11 - Varicose veins of right lower extremity with inflammation; I83.12 - Varicose veins of left lower extremity with inflammation Category: Medical Plan: Josiane is presenting today on follow up to US, performed on 11/01. The US was negative for insufficiency. She continues with bilateral lower extremity swelling and pain. We discussed the importance of continuing with compression socks (when she is able to put them on), elevation, and physical activity. We discussed to follow up with her PCP for further evaluation. We discussed the importance of healthy, well balanced meals. We discussed that if she had any further vascular concerns in the future, she can reach out to us. Thank you for allowing us to participate in the patient's care. If there are any questions or concerns, please do not hesitate to reach out to us. Coding Level of Care Code Est Pt Level 4 (66677) Diagnoses Varicose veins of both lower extremities with inflammation I83.11; I83.12 Comment review of US
--- OUTSIDE RECORDS SUMMARY | 2024-11-09 11:52 | XMS_ITS | Encounter Summary ---
Author Organization [employer] Address [address] [facility] 7[address] [place] [address] Care Team Providers Care Time Buyer Name Role Phone Manjeet Quiroga MD Primary Care Provider [phone] Reason for Visit * Reason Comments Med Refill Encounter Details Date Type Department Care Team ([facility] Contact Info) Description 03/09/2023 Refill [facility] MED & PEDS [address] [place], [place] [phone] Manjeet Quiroga MD [address] [place], [place] [phone] Type 2 diabetes mellitus with diabetic polyneuropathy [...] Description 11/16/2024 1:00 PM EDT Office Visit [facility] MED & PEDS [address] [place] [address] Manjeet Quiroga MD [address] [place] [address] documented as of this encounter Visit Diagnoses Diagnosis Type 2 diabetes mellitus with diabetic polyneuropathy (CMS/HCC) documented in this encounter Additional Health Concerns Assessment Noted Time PHQ-9 Depression Total Score: 0 01/29/20 23 4:36 PM EDT documented as of this encounter Care Teams Time Buyer Relationship Specialty Start Date End Date Manjeet Quiroga MD [address] [place] [address] PCP - General Internal Medicine 05/31/13 documented as of this encounter
== END 2024-11-09 10:44 | disposition home or self-care (01) ==
LOC: HO.HVS 10:28
PROVIDERS: PCP Internal Medicine; Visit Provider Physician Assistant Surgical
DX: I83.11 Varicose veins of right lower extremity with inflammation (principal); I83.12 Varicose veins of left lower extremity with inflammation
CPT/HCPCS: 99214

== ENCOUNTER → 2024-11-09 10:27 | Outpatient (BNVA) | payer OTHER, SELFPAY | PROVIDERS: PCP Internal Medicine; Visit Provider Physician Assistant Surgical | DX: I83.11 Varicose veins of right lower extremity with inflammation (principal); I83.12 Varicose veins of left lower extremity with inflammation | CPT/HCPCS: 99212 ==

== ENCOUNTER 2024-11-23 11:00 | Outpatient (RCR) | payer OTHER, SELFPAY ==
--- NOTE | 2024-11-13 11:32 | MHC.OT.EP ---
[address] [phone] Occupational Therapy Plan of Care Patient Name: Josiane Pettit Date of Evaluation: 11/13/24 Diagnosis: B/L CTS; Post-op L CTR Pain Location: Pain free at rest Moderate sharp pain w/ unexpected gripping Pain Score: 0 Pain Scale Used: Numeric (0 - 10) Aggravating Factors: Gripping, lifting Alleviating Factors: Ice PRN, no longer taking meds Assessment: 39 yo female w/ hx of B/L CTS over the past year with worsening symptoms at night, now post-op CTR 10/26/24. 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 Currently, she reports mostly pain free and has some tenderness in palm, but has been doing massage as instructed by Skyler. She still have numbness in both hands, but has been able to sleep better overall and is still avoiding heavy lifting and gripping with left. We have initiated OT with education on scar and soft tissue management, tendon glides and wrist stretches. I anticipate she will do well w/ course of OT. Frequency and Duration: The patient will be seen 2x/wk for 4 weeks Short Term Goals: Ind w/ self massage Ind w/ heat and cold modalities Ind w/ HEP [facility] Goals: Progress to strengthening program Good use of left hand w/ bimanual homecare tasks Full wrist AROM Treatment Plan: Therapeutic Exercise Therapeutic Activity Home Exercise Program Splinting Neuro Re-ed Patient Education Desensitization/Sensory Re-ed Edema Control ADL Training Paraffin Fluidotherapy MHP Cold Packs Joint Mobilization Soft Tissue Mobilization Kinesiotaping right nighttime CTS orthosis Electronically Signed By: Jasmin Claudio, OTR/L CHT Please Sign and return to therapist. Thank you once again for your referral.
--- NOTE | 2024-11-23 12:52 | MHC.OT.OP ---
[address] [phone] F: [phone] Occupational Therapy Progress Note Patient Name: Josiane Pettit Diagnosis: B/L CTS; Post-op L CTR Date of Surgery: 10/26/24 Date of Evaluation: 11/13/24 Treatments to Date: 2 Cancellations to Date: No Shows to Date: Subjective: I dont think i need to come to therapy it all feels good Pain Score: 0 Pain Location: pain free Objective Measures: Pt reports constant numbness in D1-D3 B/L'ly [place] Median nerve distribution 4.31 B/L'ly and ulnar distribution 2.83 B/L'ly Status: Assessment: Mild edema over surgical area Short Term Goals: Ind w/ self massage MET Ind w/ heat and cold modalities Ind w/ HEP MET [facility] Goals: Progress to strengthening program Good use of left hand w/ bimanual homecare tasks Full wrist AROM Frequency and Duration: The patient will be seen 2x/wk for 4 weeks Treatment Plan: Therapeutic Exercise Therapeutic Activity Home Exercise Program Splinting Neuro Re-ed Patient Education Desensitization/Sensory Re-ed Edema Control ADL Training Paraffin Fluidotherapy MHP Cold Packs Joint Mobilization Soft Tissue Mobilization Kinesiotaping right nighttime CTS orthosis Electronically Signed By: Moon Talavera OTR/L Reviewed/agree with student documentation: Therapist:
== END 2024-11-23 12:51 | disposition home or self-care (01) ==
LOC: HO.OT 11:00
PROVIDERS: PCP Internal Medicine
DX: G56.03 Carpal tunnel syndrome, bilateral upper limbs (principal)
CPT/HCPCS: 97110; 97140; 97165

== ENCOUNTER 2025-02-28 09:16 | Outpatient (REF) | payer OTHER, SELFPAY ==
[2025-02-28 14:22] LABS: MANUAL DIFF FLAG NO
[2025-02-28 14:24] LABS: MANUAL DIFF FLAG NO
[2025-02-28 14:29] LABS: Hematocrit 37.1 % (37.0-47.0); Hematocrit 38.6 % (37.0-47.0); Hemoglobin 12.0 g/dl (12.0-16.0); Hemoglobin 12.1 g/dl (12.0-16.0); Imm Gran Abs Auto 0.02 X10*3/uL (0.00-0.03); Imm Gran Abs Auto 0.03 X10*3/uL (0.00-0.03); Imm Gran Pct Auto 0.2 % (0.0-0.4); Imm Gran Pct Auto 0.3 % (0.0-0.4); Lymphocytes Absolute Auto 1.9 X10*3/uL (1.2-4.9); Lymphocytes Absolute Auto 2.0 X10*3/uL (1.2-4.9); Mean Corpuscular HGB Conc 31.1 g/dl (31.0-35.0); Mean Corpuscular HGB Conc 32.6 g/dl (31.0-35.0); Mean Corpuscular Hemoglobin 25.5 pg (27.0-33.0); Mean Corpuscular Hemoglobin 26.4 pg (27.0-33.0); Mean Corpuscular Volume 80.8 fL (80.0-98.0); Mean Corpuscular Volume 82.1 fL (80.0-98.0); NRBC Abs Auto 0.000 X10*3/uL (0.0-0.012); NRBC Pct Auto 0.0 /100WBC (0.0-0.2); Platelet Count 272 X10*3/uL (160-400); Platelet Count 276 X10*3/uL (160-400); Red Blood Count 4.59 X10*6/uL (4.20-5.50); Red Blood Count 4.70 X10*6/uL (4.20-5.50); White Blood Count 10.9 X10*3/uL (4.8-10.8); White Blood Count 11.0 X10*3/uL (4.8-10.8)
[2025-02-28 14:59] LABS: Alanine Aminotransferase 22 U/L (0-31); Albumin Level 4.0 g/dL (3.5-5.0); Alkaline Phosphatase 87 U/L (39-117); Anion Gap 10 (12-20); Aspartate Amino Transferase 29 U/L (5-31); Blood Urea Nitrogen 15 mg/dL (9-16); Calcium 8.9 mg/dL (8.4-10.2); Carbon Dioxide 27 mmol/L (22-29); Chloride 106 mmol/L (96-108); Cholesterol 147 mg/dL (<200); Estimated Glomerular Filt Rate > 60; HDL Cholesterol 44 mg/dL (>40); Potassium 4.1 mmol/L (3.3-5.1); Sodium 139 mmol/L (135-145); Total Protein 6.9 g/dL (6.5-8.0); Triglycerides 75 mg/dL (<150)
== END 2025-02-28 09:17 | disposition home or self-care (01) ==
LOC: HO.CHCLDS 09:16
PROVIDERS: Visit Provider Internal Medicine
DX: E11.9 Type 2 diabetes mellitus without complications (principal); D64.9 Anemia, unspecified; L68.0 Hirsutism
CPT/HCPCS: 36415; 80053; 80061; 82627; 83036; 84403; 84443; 85025

== ENCOUNTER 2025-03-13 15:48 | Outpatient (REF) | payer OTHER, SELFPAY ==
--- OUTSIDE RECORDS SUMMARY | 2025-03-08 11:15 | XMS_ITS | Encounter Summary ---
Author Organization [employer] Address [address] [facility] [address] [place] [address] Care Team Providers Care Press Tender Name Role Phone Manjeet Quiroga MD Primary Care Provider [phone] Reason for Visit * Reason Comments Discussed the blood test results and ult rasound Asthma Rash Encounter Details Date Type Department Care Team ([facility] Contact Info) Description 03/08/2025 11:15 AM EDT Telemedicine [facility] MED & PEDS [address] [place] [address] Manjeet Quiroga MD [address] [place] [address] Skin rash (Primary Dx); Chronic obstructive pulmonary disease, unspecified COPD type (CMS/HCC) (HCC); Hirsutism Social History Tobacco Use Types Packs/Day Years [...] Orientation Straight 03/23/2022 10 :20 AM EDT Travel History Travel Start Travel End [place] 02/22/2025 02/26/2025 documented as of this encounter Progress Notes * Manjeet Quiroga MD - 03/08/2025 11:15 AM EDT SUBJECTIVE Josiane Pettit is a 40 y.o. female who presents for Discussed the blood test results and ultrasound, Asthma, and Rash. Asthma She complains of cough. There is no shortness of breath. Pertinent negatives include no appetite change. Her past medical history is significant for asthma. Rash Associated symptoms include coughing. Pertinent negatives include no shortness of breath. Her past medical history is significant for asthma. 1) patient was concerned about PCOS. Some blood test were ordered as well as an ultrasound of the pelvis. 2) history of cough that started that started 2 to 3 days ago alleviated by the use of albuterol. No associated fever. Patient is also complaining of a runny nose. 3)skin rash of the right posterior thoracic wall that started after a trip to [facility] 1 week ago. The rash is itchy. The itchiness is partially alleviated with the use of 1 tab of 25 benadryl taken last night. Problem List[1] Allergies[2] Medications Ordered Prior to Encounter[3] Review of Systems Constitutional: Negative for appetite change, chills and diaphoresis. Respiratory: Positive for cough. Negative for choking and shortness of breath. Cardiovascular: Negative for leg swelling. Gastrointestinal: Negative for anal bleeding, blood in stool and constipation. Musculoskeletal: Negative for gait problem and joint swelling. Skin: Positive for rash. OBJECTIVE There were no vitals filed for this visit. Physical Exam Assessment/Plan Assessment/Plan Diagnoses and all orders for this visit: Skin rash - hydrocortisone 2.5 % cream; Apply topically 2 times daily. - fexofenadine (Lou) 180 MG tablet; Take 1 tablet (180 mg) by mouth if needed each day (Allergies). Possible contact dermatitis ( Pt recently travelled to [facility] ). Instructed to contact the office if no improvement in the next week or so. Chronic obstructive pulmonary disease, unspecified COPD type (CMS/HCC) ([facility]) Comments: H/o Ashtma/COPD Continue w/ albuterol as needed for now Start Lou as directed Call if no improvement in the next 24-48 hours. Hirsutism Comments: Labs reviewed: acceptable. All questions answered. US of the Pelvis: no convincing findings to suggest PCOS. [1] Patient Active Problem List Diagnosis Acute renal failure syndrome Anxiety Chronic obstructive lung disease ([facility]) Diabetes mellitus type 2, uncomplicated ([facility]) Normocytic anemia Obesity Alopecia Migraine Neck pain Pes planus Acute nontraumatic kidney injury Persistent depressive disorder Grief counseling [2] No Known Allergies [3] Current Outpatient Medications on File Prior to Visit Medication Sig Dispense Refill albuterol (Ventolin HFA) 108 (90 Base) MCG/ACT inhaler INHALE 2 PUFFS BY MOUTH FOUR TIMES DAILY NEEDED FOR WHEEZING OR SHORTNESS OF BREATH 18 g 1 Alcohol Swabs (Alcohol Prep) 70 % pads To use 2 times a day 100 each 11 Aspirin Low Dose 81 MG EC tablet TAKE 1 TABLET BY MOUTH EVERY DAY 90 tablet 3 Blood Glucose Monitoring Suppl (Red [place] Lite) w/Device kit Use 2 - 3 x day 1 kit 0 celecoxib (CeleBREX) 200 MG capsule TAKE 1 CAPSULE BY MOUTH TWICE DAILY 60 capsule 0 cholecalciferol VITAMIN D (Vitamin D-3) 50 MCG (2000 UT) tablet TAKE 1 TABLET BY MOUTH EVERY DAY 90tablet 1 Continuous Blood Gluc Food Service Employee (FreeStyle Nesiha 2 [place]) device To use daily 1 each 0 Continuous Blood Gluc Sensor (FreeStyle Neisha 2 Sensor) misc To use daily 2 each 11 cyclobenzaprine (Flexeril) 10 MG tablet Take 1 tablet (10 mg) by mouth at bedtime for 10 days. 10 tablet 0 Ferrous Sulfate (iron) 325 (65 Fe) MG tablet TAKE 1 TABLET BY MOUTH EVERY OTHER DAY 45 tablet 11 gabapentin (Neurontin) 300 MG capsule Take 1 capsule (300 mg) by mouth 3 times daily. 90 capsule 11 glipiZIDE (Glucotrol) 5 MG tablet 1 to 3 tabs ac breakfast 1 to 3 tabs ac supper 180 tablet 3 Jardiance 25 MG TAKE 1 TABLET BY MOUTH EVERY DAY 30 tablet 11 Lactobacillus-Inulin (Culturee Digestive Health) capsule TAKE 1 CAPSULE BY MOUTH EVERY DAY 30 capsule 11 lisinopril 5 MG tablet TAKE 1 TABLET BY MOUTH EVERY DAY 90 tablet 0 PARoxetine (Paxil) 10 MG tablet Take 1 tablet (10 mg) by mouth in the morning. 90 tablet 0 Tirzepatide (Mounjaro) 2.5 MG/0.5ML solution auto-injector Inject 2.5 mg under the skin 1 (one) time per week. 2 mL 2 No current facility-administered medications on file prior to visit. documented in this encounter Plan of Treatment Upcoming Encounters Date Type Department Care Team (Late st Contact Info) Description 07/16/2025 10:30 AM EST Office Visit [facility] [address] [place] [address] Nury Draper, OD [address] [place] [address] documented as of this encounter Visit Diagnoses Diagnosis Skin rash- Primary Rash and other nonspecific skin eruption Chronic obstructive pulmonary disease, unspecified COPD type (CMS/HCC) (HCC) Hirsutism documented in this encounter Additional Health Concerns Assessment Noted Time PHQ-9 Depression Total Score: 10 025 10:46 AM EST documented as of this encounter Care Teams Press Tender Relationship Specialty Start Date End Date Manjeet Quiroga MD [address] [place] [id number] PCP - General Internal Medicine 05/31/13 documented as of this encounter
--- NOTE | ~2025-03-13 | XR_ITS ---
EXAMINATION: XR CHEST CLINICAL INFORMATION: cough > 2 weeks COMPARISON: February 27, 2011 is not available on PACS. TECHNIQUE: PA and lateral views FINDINGS: No consolidation, pleural effusion or pneumothorax. No hyperinflation. Cardiomediastinal silhouette size is normal. Metallic plate lower cervical spine no fully included in the exam. Patient's large body habitus/obesity. No multilevel thoracic spondylosis. XR/XR chest 2V IMPRESSION: No acute airspace disease. Electronically signed by: Florentino Roper MD 03/13/2025 03:57 PM EDT
--- OUTSIDE RECORDS SUMMARY | 2025-03-13 15:20 | XMS_ITS | Encounter Summary ---
Author Organization [facility] Address [address] [facility] 7t [place] [address] Care Team Providers Care Digital Intern Name Role Phone Manjeet Quiroga MD Primary Care Provider [phone] Reason for Referral * Medications - Closed Specialty Diagnoses / Procedures Referred By Contac t Referred To Contact Diagnoses Chronic obstructive pulmonary disease, unspecified COPD type (CMS/HCC) ([facility]) Trinidad Bravo MD [address] [place] [address] Phone: tel: fax: Referral ID Status Reason Start Date Expiration Date Visits Re quested Visits Authorized [id number] Closed 1 1 Reason for Visit * Reason Comments Cough Nasal Congestion Sore Throat Shortness of Breath Encounter Details Date Type Department Care Team ([facility] st Contact Info) Description 03/13/2025 3:20 PM EDT Office Visit [facility] [address] [place] [address] Trinidad Bravo MD [address] [place] [phone] Cough in adult (Primary Dx); Sore throat; Nasal congestion; Chronic obstructive pulmonary disease, unspecified COPD type (CMS/HCC) (HCC) Social History Tobacco Use Types Packs/Day Years Used Date Smoking Tobacco: Never Passive Smoke Exposure: Never Smokeless Tobacco: Never Tobacco Cessation:Counseling Given: Not Answered Alcohol Answer Date Recorded Q1: How often [...] EDT Travel History Travel Start Travel End [place] 02/22/2025 02/26/2025 documented as of this encounter Last Filed Vital Signs Vital Sign Reading Time Taken Comments Blood Pressure 122/82 03/13/2025 3:25 PM EDT Pulse 91 03/13/2025 3:25 PM EDT Temperature 37.2 C (98.9 F) 03/13/2025 3:25 PM EDT Respiratory Rate 22 03/13/2025 3:25 PM EDT Oxygen Saturation 96% 03/13/2025 3:25 PM EDT Inhaled Oxygen Concentration - - Weight 99.3 kg (219 lb) 03/13/2025 3:25 PM EDT Height 154.9 cm (5' 1 ) 03/13/2025 3:25 PM EDT Body Mass Index 41.38 03/13/2025 3:25 PM EDT documented in this encounter Progress Notes * Trinidad Bravo MD - 03/13/2025 3:20 PM EDT Subjective History was provided by the patient. Josiane Pettit is a 40 y.o. female with type 2 diabetes, copd, renal diease who presents for evaluation of symptoms of a URI. She was in [place] and returned on 02/26 then on 02/28 had stuffy nose, head cold then had stomach bug on 03/04/ with nausea, vomiting diarrhea and has had dry cough, chills and SOB since. She also had rash on right back. Onset of symptoms was 2 weeks ago, unchanged since that time. Evaluation to date: none. Treatment to date: seen 03/08/25 for cough diagnosis COPD allegrastarted. Objective Vitals: 03/13/25 1525 BP: 122/82 BP Location: Left arm Patient Position: Sitting BP Cuff Size: Large adult Pulse: 91 Resp: 22 Temp: 98.9 ??F (37.2 ??C) TempSrc: Oral SpO2: 96% Weight: 219 lb (99.3 kg) Height: 5' 1 (1.549 m) Physical Exam Constitutional: Appearance: Normal appearance. HENT: Right Ear: Tympanic membrane normal. Left Ear: Tympanic membrane normal. Nose: Congestion and rhinorrhea present. Mouth/Throat: Pharynx: Oropharynx is clear. No oropharyngeal exudate. Eyes: Conjunctiva/sclera: Conjunctivae normal. Cardiovascular: Rate and Rhythm: Normal rate and regular rhythm. Heart sounds: Normal heart sounds. Pulmonary: Effort: Pulmonary effort is normal. Breath sounds: Normal breath sounds. Comments: Episodes of hacking cough Musculoskeletal: Cervical back: Normal range of motion. No rigidity or tenderness. Lymphadenopathy: Cervical: Cervical adenopathy present. Skin: Findings: Bruising present. Neurological: Mental Status: She is alert. Psychiatric: Behavior: Behavior normal. No visits with results within 2 Day(s) from this visit. Latest known visit with results is: Documentation on 03/05/2025 Component Date Value Ref Range Status Pap Smear 02/08/2025 4. LSIL (A) 1. NILM Final HPV 02/08/2025 Detected (A) Undetected, Indeterminate, Quantitative, Not Detected Final Assessment & Plan Cough in adult Cough > 2 weeks with cough suggestive of pertussis. Will treatment with azithromycin and check chest x-ray. Starti ICS due to history COPD. Supportive care and follow up is symptoms worsen or do not improve. Orders: POCT Rapid Influenza B MARIO ID NOW POCT Rapid Influenza A MARIO ID NOW azithromycin (Zithromax) 250 MG tablet; Take 2 tablets (500 mg) by mouth Once per day for 1 day, THEN 1 tablet (250 mg) Once per day for 4 days. XR Chest 2 Views; Future albuterol (Ventolin HFA) 108 (90 Base) MCG/ACT inhaler; INHALE 2 PUFFS BY MOUTH FOUR TIMES DAILY ASNEEDED FOR WHEEZING OR SHORTNESS OF BREATH benzonatate (Tessalon Perles) 100 MG capsule; Take 1 capsule (100 mg) by mouth if needed in the morning, at noon, and at bedtime for cough for up to 7 days. Do not crush or chew. Sore throat Orders: POCT Rapid Strep A MARIO ID NOW POCT Rapid Covid-19 MARIO ID NOW Nasal congestion Orders: POCT Rapid Influenza B MARIO ID NOW POCT Rapid Strep A MARIO ID NOW POCT Rapid Influenza A MARIO ID NOW POCT Rapid Covid-19 MARIO ID NOW Chronic obstructive pulmonary disease, unspecified COPD type ([facility]/HCC) ([facility]) Orders: Mometasone Furoate (Asmanex HFA) 200 MCG/ACT aerosol; 1 puff po bid -No evidence of respiratory distress. Symptoms mild. -No evidence of dehydration. -Supportive care advised. -Isolation recommendations discussed. -ER precautions discussed. -Seek medical attention for worsening symptoms. documented in this encounter Miscellaneous Notes * Assessment & Plan Note - Trinidad Bravo MD - 03/13/2025 3:20 PM EDT Associated Problem(s): Chronic obstructive lung disease (HCC) Orders: Mometasone Furoate (Asmanex HFA) 200 MCG/ACT aerosol; 1 puff po bid documented in this encounter Plan of Treatment Upcoming Encounters Date Type Department Care Team (Late st Contact Info) Description 07/16/2025 10:30 AM EST Office Visit [facility] [address] [place] [address] Nury Draper, OD [address] [place] [address] documented as of this encounter Procedures Procedure Name Priority Date/Time Associated Diagnosis Comments XR CHEST 2 VIEWS Routine 03/13/2025 4:07 PM EDT Cough in adult POC MARIO ID NOW STREP A Routine 03/13/2025 3:42 PM EDT Sore throat Nasal congestion POCT INFLUENZA A (ID NOW RAPID MOLECULAR) Routine 03/13/2025 3:41 PM EDT Nasal congestion Cough in adult POCT COVID-19 AG MARIO ID NOW Routine 03/13/2025 3:41 PM EDT Sore throat Nasal congestion POCT INFLUENZA B (ID NOW RAPID MOLECULAR) Routine 03/13/2025 3:40 PM EDT Nasal congestion Cough in adult documented in this encounter Results * XR Chest 2 Views (03/13/2025 4:07 PM EDT) Anatomical Region Laterality Modality Chest Radiographic Candi ging 03/13/2025 4:07 PM EDT Narrative 03/13/2025 4:00 PM EDT [facility] [address] [place] [address] XRay Report Signed Patient: Josiane Pettit MR#: [id number] : 1985 Acct:[id number] Age/Sex: 40 / F ADM Date: 03/13/25 Loc: [facility] Attending Dr: Trinidad Bravo MD Ordering Physician: Trinidad Bravo MD Date of Service: 03/13/25 Procedure(s): XR chest 2V Accession Number(s): [id number] cc: Trinidad Bravo MD Reason for Exam: cough > 2 weeks EXAMINATION: XR CHEST CLINICAL INFORMATION: cough > 2 weeks COMPARISON: February 27, 2011 is not available on PACS. TECHNIQUE: PA and lateral views FINDINGS: No consolidation, pleural effusion or pneumothorax. No hyperinflation. Cardiomediastinal silhouette size is normal. Metallic plate lower cervical spine no fully included in the exam. Patient's large body habitus/obesity. No multilevel thoracic spondylosis. XR/XR chest 2V IMPRESSION: No acute airspace disease. Electronically signed by: Florentino Roper MD 03/13/2025 03:57 PM EDT Dictated By: Florentino Lyon MD Signed By: <Electronically signed by Florentino Monte MD in OV> 03/13/25 1557 DD/ 1607 TD/TT: 03/13/25 1555 Acquisition Manager: Procedure Note Donotuseinterpreter, Image - 03/13/2025 [place] [address] XRay Report Signed Patient: Babar Pettit#: [id number] : 1985Acct:[id number] Age/Sex: 40 / FADM Date: 03/13/25 Loc: [facility] Attending Dr: Trinidad Bravo MD Ordering Physician: Trinidad Bravo MD Date of Service: 03/13/25 Procedure(s): XR chest 2V Accession Number(s): [id number] cc: Trinidad Bravo MD Reason for Exam: cough > 2 weeks EXAMINATION: XR CHEST CLINICAL INFORMATION: cough > 2 weeks COMPARISON: February 27, 2011 is not available on PACS. TECHNIQUE: PA and lateral views FINDINGS: No consolidation, pleural effusion or pneumothorax. No hyperinflation. Cardiomediastinal silhouette size is normal. Metallic plate lower cervical spine no fully included in the exam. Patient's large body habitus/obesity. No multilevel thoracic spondylosis. XR/XR chest 2V IMPRESSION: No acute airspace disease. Electronically signed by: Florentino Roper MD 03/13/2025 03:57 PM EDT RP Dictated By: Florentino yLon MD Signed By: <Electronically signed by Florentino Monte MDin OV> 03/13/25 1557 DD/ 1607 TD/TT: 03/13/25 155 Acquisition Manager: Trinidad Bravo MD IMG XR PROCEDURES Final Re sult * POCT Rapid Strep A MARIO ID NOW (03/13/2025 3:42 PM EDT) [facility] Rapid Strep A Screen Negative Negative, None Detected QC Media Lot # [id number] Lot# Expiration Date Swab 03/13/2025 3:42 PM EDT Trinidad Bravo MD POINT OF CARE TEST ENTER/E DIT ORDERABLES Final Result * POCT Rapid Covid-19 MARIO ID NOW (03/13/2025 3:41 PM EDT) [facility] Coronavirus Antigen PCR Negative Negative, Indeterminate, None Detected, Invalid, Specimen unsatisfactory for evaluation, Weakly Positive, 2+ QC Media Lot # [id number] Lot# Expiration Date Swab 03/13/2025 3:41 PM EDT Trinidad Bravo MD POINT OF CARE TEST ENTER/E DIT ORDERABLES Final Result * POCT Rapid Influenza A MARIO ID NOW (03/13/2025 3:41 PM EDT) [facility] Influenza A Negative Negative, Indeterminate [facility] QC Media Lot # [id number] [facility] Lot# Expiration Date [facility] Swab 03/13/2025 3:41 PM EDT Trinidad Bravo MD POINT OF CARE TEST ENTER/E DIT ORDERABLES Final Result Performing Organization Address City/[facility]/ZIP Co de Phone Number [facility] [address] [place] [address] [phone] * POCT Rapid Influenza B MARIO ID NOW (03/13/2025 3:40 PM EDT) Influenza B Negative Negative, Indeterminate [facility] QC Media Lot # [id number] [facility] Lot# Expiration Date [facility] Swab 03/13/2025 3:40 PM EDT Trinidad Bravo MD POINT OF CARE TEST ENTER/E DIT ORDERABLES Final Result Performing Organization Address [facility] Co de Phone Number [facility] [address] [place] [address] [phone] documented in this encounter Visit Diagnoses Diagnosis Cough in adult- Primary Sore throat Acute pharyngitis Nasal congestion Other diseases of nasal cavity and sinuses Chronic obstructive pulmonary disease, unspecified COPD type (CMS/HCC) (HCC) documented in this encounter Additional Health Concerns Assessment Noted Time PHQ-9 Depression Total Score: 10 025 10:46 AM EST documented as of this encounter Care Teams Digital Intern Relationship Specialty Start Date End Date Manjeet Quiroga MD [address] [place] [address] PCP - General Internal Medicine 05/31/13 documented as of this encounter
--- OUTSIDE RECORDS SUMMARY | 2025-03-13 20:48 | XMS_ITS | Encounter Summary ---
Author Organization [employer] [facility] Address [address] [facility] 7t [place] [address] Care Team Providers Care Director Of Property Management Name Role Phone Manjeet Quiroga MD Primary Care Provider [phone] Encounter Details Date Type Department Care Team (Late Contact Info) Description 12/03/2022 Orders Only [facility] [address] [place], [place] [phone] Arlene Abarca LPN Social History Tobacco Use [...] EDT Travel History Travel Start Travel End [place] 02/22/2025 02/26/2025 COVID-19 Exposure Response Date Recorded In the last 10 days, have yo u been in contact with someone who was confirmed or suspected to have Coronavirus/COVID-19? No / Unsure 11/19/2022 9:10 AM EDT documented as of this encounter Plan of Treatment Upcoming Encounters Date Type Department Care Team (Late Contact Info) Description 07/16/2025 10:30 AM EST Office Visit [facility] [address] [place], [place] [phone] Nury Draper, OD [address] [place], [place] [phone] documented as of this encounter Visit Diagnoses Not on filedocumented in this encounter Additional Health Concerns Assessment Noted Time PHQ-9 Depression Total Score: 8 10/14/19 23 2:38 PM EDT documented as of this encounter Care Teams Director Of Property Management Relationship Specialty Start Date End Date Manjeet Quiroga MD [address] [place] [address] PCP - General Internal Medicine 05/31/13 documented as of this encounter
--- OUTSIDE RECORDS SUMMARY | 2025-03-13 20:48 | XMS_ITS | Encounter Summary ---
Author Organization [employer] Address [address] [place] [address] 7 [place] [address] Care Team Providers Care Sales Estimator Name Role Phone Manjeet Quiroga MD Primary Care Provider [phone] Encounter Details Date Type Department Care Team (Late Contact Info) Description 01/05/2023 Orders Only [facility] MED & PEDS [address] [place], [place] [phone] Manjeet Quiroga MD [address] [place] [address] Type 2 diabetes mellitus without complication, without long-term current use of insulin ([facility]) (Primary Dx) Social History Tobacco Use [...] EDT Travel History Travel Start Travel End [place] 02/22/2025 02/26/2025 documented as of this encounter Plan of Treatment Upcoming Encounters Date Type Department Care Team (Late Contact Info) Description 07/16/2025 10:30 AM EST Office Visit [facility] OPT[facility] [address] [place], [place] [phone] Nury Draper, OD [address] [place], [place] [phone] documented as of this encounter Visit Diagnoses Diagnosis Type 2 diabetes mellitus without complication, without long-term current use of insulin (HCC)- Primary documented in this encounter Additional Health Concerns Assessment Noted Time PHQ-9 Depression Total Score: 8 10/14/19 23 2:38 PM EDT documented as of this encounter Care Teams Sales Estimator Relationship Specialty Start Date End Date Manjeet Quiroga MD [address] [place] [address] PCP - General Internal Medicine 05/31/13 documented as of this encounter
--- OUTSIDE RECORDS SUMMARY | 2025-03-13 20:48 | XMS_ITS | Encounter Summary ---
Author Organization [employer] Address [address] [facility] 7t [place] [address] Care Team Providers Care Pulp Maker Name Role Phone Manjeet Quiroga MD Primary Care Provider [phone] Reason for Visit * Reason Comments Med Refill Encounter Details Date Type Department Care Team ([facility] Contact Info) Description 03/02/2023 Refill [facility] CH[facility] MED & PEDS [address] [place], [place] [phone] Manjeet Quiroga MD [address] [place], [place] [phone] Type 2 diabetes mellitus with diabetic polyneuropathy [...] EDT Travel History Travel Start Travel End [place] 02/22/2025 02/26/2025 documented as of this encounter Plan of Treatment Upcoming Encounters Date Type Department Care Team (Late st Contact Info) Description 07/16/2025 10:30 AM EST Office Visit [facility] OPT[facility] [address] [place] [address] TarNury salas, OD [address] [place] [address] documented as of this encounter Visit Diagnoses Diagnosis Type 2 diabetes mellitus with diabetic polyneuropathy (HCC) documented in this encounter Additional Health Concerns Assessment Noted Time PHQ-9 Depression Total Score: 0 01/29/20 23 4:36 PM EDT documented as of this encounter Care Teams Pulp Maker Relationship Specialty Start Date End Date Manjeet Quiroga MD [address] [place] [address] PCP - General Internal Medicine 05/31/13 documented as of this encounter
--- OUTSIDE RECORDS SUMMARY | 2025-03-13 20:48 | XMS_ITS | Encounter Summary ---
Author Organization [employer] Address [address] [facility] 7t [place] [address] Care Team Providers Care Warehouse Incentive Selector Name Role Phone Manjeet Quiroga MD Primary Care Provider [phone] Reason for Visit * Reason Comments Med Refill Encounter Details Date Type Department Care Team ([facility] Contact Info) Description 03/09/2023 Refill [facility] CHC MED & PEDS [address] [place], [place] [phone] Manjeet Quiroga MD [address] [place], [place] [phone] Type 2 diabetes mellitus with diabetic polyneuropathy [...] EDT Travel History Travel Start Travel End [place] 02/22/2025 02/26/2025 documented as of this encounter Plan of Treatment Upcoming Encounters Date Type Department Care Team (Late st Contact Info) Description 07/16/2025 10:30 AM EST Office Visit [facility] OPT[facility] [address] [place] [address] TarNury salas, OD [address] [place] [address] documented as of this encounter Visit Diagnoses Diagnosis Type 2 diabetes mellitus with diabetic polyneuropathy (HCC) documented in this encounter Additional Health Concerns Assessment Noted Time PHQ-9 Depression Total Score: 0 01/29/20 23 4:36 PM EDT documented as of this encounter Care Teams Warehouse Incentive Selector Relationship Specialty Start Date End Date Manjeet Quiroga MD [address] [place] [address] PCP - General Internal Medicine 05/31/13 documented as of this encounter
--- OUTSIDE RECORDS SUMMARY | 2025-03-13 20:48 | XMS_ITS | Encounter Summary ---
Author Organization [employer] Address [address] [facility] 7t [place] [address] Care Team Providers Care Nicking Machine Operator Name Role Phone Manjeet Quiroga MD Primary Care Provider [phone] Encounter Details Date Type Department Care Team ([facility] st Contact Info) Description 03/09/2023 Orders Only [facility] CHC MED & PEDS [address] [place], [place] [phone] Manjeet Quiroga MD [address] [place], [place] [phone] Bilateral carpal tunnel syndrome (Primary Dx); Cervical [...] EDT Travel History Travel Start Travel End [place] 02/22/2025 02/26/2025 documented as of this encounter Plan of Treatment Upcoming Encounters Date Type Department Care Team (Late st Contact Info) Description 07/16/2025 10:30 AM EST Office Visit [facility] OPT[facility] [address] [place] [address] Nury Draper, OD [address] [place] [address] documented as of this encounter Visit Diagnoses Diagnosis Bilateral carpal tunnel syndrome- Primary Carpal tunnel syndrome Cervical radiculopathy Brachial neuritis or radiculitis nos documented in this encounter Additional Health Concerns Assessment Noted Time PHQ-9 Depression Total Score: 0 01/29/20 23 4:36 PM EDT documented as of this encounter Care Teams Nicking Machine Operator Relationship Specialty Start Date End Date Manjeet Quiroga MD [address] [place] [address] PCP - General Internal Medicine 05/31/13 documented as of this encounter
--- OUTSIDE RECORDS SUMMARY | 2025-03-13 20:48 | XMS_ITS | Encounter Summary ---
Author Organization [employer] Address [address] [facility] 7t [place] [address] Care Team Providers Care Press Bucker Name Role Phone Manjeet Quiroga MD Primary Care Provider [phone] Reason for Visit * Reason Comments Med Refill Encounter Details Date Type Department Care Team ([facility] Contact Info) Description 03/08/2023 Refill [facility] CHC MED & PEDS [address] [place], [place] [phone] Manjeet Quiroga MD [address] [place], [place] [phone] Type 2 diabetes mellitus with diabetic polyneuropathy [...] EDT Travel History Travel Start Travel End [place] 02/22/2025 02/26/2025 documented as of this encounter Plan of Treatment Upcoming Encounters Date Type Department Care Team (Late st Contact Info) Description 07/16/2025 10:30 AM EST Office Visit [facility] OPT[facility] [address] [place] [address] TarNury salas, OD [address] [place] [address] documented as of this encounter Visit Diagnoses Diagnosis Type 2 diabetes mellitus with diabetic polyneuropathy (HCC) documented in this encounter Additional Health Concerns Assessment Noted Time PHQ-9 Depression Total Score: 0 01/29/20 23 4:36 PM EDT documented as of this encounter Care Teams Press Bucker Relationship Specialty Start Date End Date Manjeet Quiroga MD [address] [place] [address] PCP - General Internal Medicine 05/31/13 documented as of this encounter
--- OUTSIDE RECORDS SUMMARY | 2025-03-13 20:49 | XMS_ITS | Encounter Summary ---
Author Organization [employer] Address [address] [facility] 7t [place] [address] Care Team Providers Care Credit Collection Associate Name Role Phone Manjeet Quiroga MD Primary Care Provider [phone] Encounter Details Date Type Department Care Team (Late Contact Info) Description 12/02/2022 Orders Only [facility] CHC MED & PEDS [address] [place], [place] [phone] Cheryle Cruz LPN Social History Tobacco Use [...] EDT Travel History Travel Start Travel End [place] 02/22/2025 02/26/2025 COVID-19 Exposure Response Date Recorded In the last 10 days, have yo u been in contact with someone who was confirmed or suspected to have Coronavirus/COVID-19? No / Unsure 11/19/2022 9:10 AM EDT documented as of this encounter Plan of Treatment Upcoming Encounters Date Type Department Care Team (Late Contact Info) Description 07/16/2025 10:30 AM EST Office Visit [facility] OPTOMETRY [address] [place], [place] [phone] Nury Draper, OD [address] [place], [place] [phone] documented as of this encounter Visit Diagnoses Not on filedocumented in this encounter Additional Health Concerns Assessment Noted Time PHQ-9 Depression Total Score: 8 10/14/19 23 2:38 PM EDT documented as of this encounter Care Teams Credit Collection Associate Relationship Specialty Start Date End Date Manjeet Quiroga MD [address] [place] [address] PCP - General Internal Medicine 05/31/13 documented as of this encounter
--- OUTSIDE RECORDS SUMMARY | 2025-03-13 20:49 | XMS_ITS | Encounter Summary ---
Author Organization [employer] Address 75 [facility] 7t [place] [address] Care Team Providers Care Rad Technologist Name Role Phone Manjeet Quiroga MD Primary Care Provider [phone] Encounter Details Date Type Department Care Team ([facility] st Contact Info) Description 10/06/2023 Orders Only [facility] CHC MED & PEDS [address] [place], [place] [phone] Manjeet Quiroga MD [address] [place], [place] [phone] Type 2 diabetes mellitus without complication, without long-term current use of insulin ([facility]) (Primary Dx) Social History Tobacco Use Types [...] EDT Travel History Travel Start Travel End [place] 02/22/2025 02/26/2025 documented as of this encounter Plan of Treatment Upcoming Encounters Date Type Department Care Team (Late st Contact Info) Description 07/16/2025 10:30 AM EST Office Visit [facility] OPT[facility] [address] [place] [address] TarNury salas, OD [address] [place] [address] documented as of this encounter Visit Diagnoses Diagnosis Type 2 diabetes mellitus without complication, without long-term current use of insulin (HCC)- Primary documented in this encounter Additional Health Concerns Assessment Noted Time PHQ-9 Depression Total Score: 0 01/29/20 23 4:36 PM EDT documented as of this encounter Care Teams Rad Technologist Relationship Specialty Start Date End Date Manjeet Quiroga MD [address] [place] [address] PCP - General Internal Medicine 05/31/13 documented as of this encounter
--- OUTSIDE RECORDS SUMMARY | 2025-03-13 20:49 | XMS_ITS | Encounter Summary ---
Author Organization [employer] Address 75 [facility] 7t [place] [address] Care Team Providers Care Wash House Supervisor Name Role Phone Manjeet Quiroga MD Primary Care Provider [phone] Reason for Visit * Reason Comments Med Refill Encounter Details Date Type Department Care Team ([facility] Contact Info) Description 10/25/2023 Refill [facility] CHC MED & PEDS [address] [place], [place] [phone] Manjeet Quiroga MD 505 [place], [place] [phone] Mild episode of recurrent major depressive disorder [...] EDT Travel History Travel Start Travel End [place] 02/22/2025 02/26/2025 documented as of this encounter Plan of Treatment Upcoming Encounters Date Type Department Care Team (Late st Contact Info) Description 07/16/2025 10:30 AM EST Office Visit [facility] OPTOMETRY [address] [place], [place] [phone] Nury Draper, OD [address] [place] [address] documented as of this encounter Visit Diagnoses Diagnosis Mild episode of recurrent major depressive disorder (CMS/HCC) documented in this encounter Additional Health Concerns Assessment Noted Time PHQ-9 Depression Total Score: 0 01/29/20 4:36 PM EDT documented as of this encounter Care Teams Wash House Supervisor Relationship Specialty Start Date End Date Manjeet Quiroga MD 505 [place] [address] PCP - General Internal Medicine 05/31/13 documented as of this encounter
--- OUTSIDE RECORDS SUMMARY | 2025-03-13 20:49 | XMS_ITS | Encounter Summary ---
Author Organization [employer] Address 75 [facility] 7 [place] [address] Care Team Providers Care Cable Rigger Name Role Phone Manjeet Quiroga MD Primary Care Provider [phone] Encounter Details Date Type Department Care Team (Latest Contact Info) Description 02/28/2025 Results Follow-Up [facility] CHC MED & PEDS 505 [place], [place] [phone] Manjeet Quiroga MD [address] [place], [place] [phone] CBC auto differential, CBC auto differential, Comprehensive Metabolic Panel, Additional followed-up results: 8 Social History Tobacco Use Types Packs/Day Years [...] EDT Travel History Travel Start Travel End [place] 02/22/2025 02/26/2025 documented as of this encounter Plan of Treatment Upcoming Encounters Date Type Department Care Team (Late st Contact Info) Description 07/16/2025 10:30 AM EST Office Visit [facility] OPTOMETRY [address] [place] [address] Tarjosue Nury, OD [address] [place] [address] documented as of this encounter Visit Diagnoses Not on filedocumented in this encounter Additional Health Concerns Assessment Noted Time PHQ-9 Depression Total Score: 10 025 10:46 AM EST documented as of this encounter Care Teams Cable Rigger Relationship Specialty Start Date End Date Manjeet Quiroga MD 505 [place] [address] PCP - General Internal Medicine 05/31/13 documented as of this encounter
--- OUTSIDE RECORDS SUMMARY | 2025-03-13 20:49 | XMS_ITS | Encounter Summary ---
Author Organization [employer] Address [address] [facility] [address] 7t [place] [address] Care Team Providers Care Director International Name Role Phone Manjeet Quiroga MD Primary Care Provider [phone] Encounter Details Date Type Department Care Team ([facility] st Contact Info) Description 10/06/2023 Telephone [facility] MEDICINE [address] [place] [address] Manjeet Quiroga MD [address] [place], [place] [phone] Social History Tobacco Use Types Packs/Day Years [...] Description 07/16/2025 10:30 AM EST Office Visit [facility] OPTOMETRY [address] [place], [place] [phone] Nury Draper, OD [address] [place] [address] documented as of this encounter Visit Diagnoses Not on filedocumented in this encounter Additional Health Concerns Assessment Noted Time PHQ-9 Depression Total Score: 0 01/29/20 23 4:36 PM EDT documented as of this encounter Care Teams Director International Relationship Specialty Start Date End Date Manjeet Quiroga MD 505 [place] [address] PCP - General Internal Medicine 05/31/13 documented as of this encounter
--- OUTSIDE RECORDS SUMMARY | 2025-03-13 20:49 | XMS_ITS | Encounter Summary ---
Author Organization [employer] Address 75 [facility] 7t [place] [address] Care Team Providers Care Transformer Mechanic Name Role Phone Manjeet Quiroga MD Primary Care Provider [phone] Encounter Details Date Type Department Care Team ([facility] Contact Info) Description 02/13/2025 Orders Only [facility] [address] [place], [place] [phone] Provider, MD Emilia Social History Tobacco Use [...] EDT Travel History Travel Start Travel End [place] 02/22/2025 02/26/2025 documented as of this encounter Plan of Treatment Upcoming Encounters Date Type Department Care Team (Late st Contact Info) Description 07/16/2025 10:30 AM EST Office Visit [facility] OPTOMETRY [address] [place] [address] TarkaMekaNury, OD [address] [place] [address] documented as of this encounter Procedures Procedure Name Priority Date/Time Associated Diagnosis Comments US ABDOMEN LIMITED Routine 02/13/2025 2:10 PM EDT documented in this encounter Results * US Abdomen Limited (02/13/2025 2:10 PM EDT) Anatomical Region Laterality Modality Abdomen Ultrasound us Historical Provider MD RODRIGUEZ US PROCEDURES Final R esult documented in this encounter Visit Diagnoses Not on filedocumented in this encounter Additional Health Concerns Assessment Noted Time PHQ-9 Depression Total Score: 10 025 10:46 AM EST documented as of this encounter Care Teams Transformer Mechanic Relationship Specialty Start Date End Date Manjeet Quiroga MD 505 [place] [address] PCP - General Internal Medicine 05/31/13 documented as of this encounter
--- OUTSIDE RECORDS SUMMARY | 2025-03-13 20:49 | XMS_ITS | Encounter Summary ---
Author Organization [employer] Address 75 [facility] 7t [place] [address] Care Team Providers Care Plater Helper Name Role Phone Manjeet Quiroga MD Primary Care Provider [phone] Encounter Details Date Type Department Care Team ([facility] Contact Info) Description 10/28/2022 Orders Only [facility] CHC MED & PEDS 505 [place], [place] [phone] Manjeet Quiroga MD [address] [place], [place] [phone] Other emphysema (CMS/HCC) (Primary Dx); Type 2 [...] Travel Start Travel End [place] 02/22/2025 02/26/2025 COVID-19 Exposure Response Date Recorded In the last 10 days, have yo u been in contact with someone who was confirmed or suspected to have Coronavirus/COVID-19? No / Unsure 10/13/2022 2:03 PM EDT documented as of this encounter Plan of Treatment Upcoming Encounters Date Type Department Care Team (Late st Contact Info) Description 07/16/2025 10:30 AM EST Office Visit [facility] OPTOMETRY [address] [place] [address] Nury Draper, OD [address] [place] [address] documented as of this encounter Procedures Procedure Name Priority Date/Time Associated Diagnosis Comments QUANTIFERON(R)-TB GOLD PLUS, 1 TUBE Routine 11/10/2022 10:41 AM EDT Other emphysema (CMS/HCC) documented in this encounter Results * QuantiFERON??-TB Gold Plus, 1 Tube (11/10/2022 10:41 AM EDT) [facility] Quantiferon -TB Gold Plus, 1 Tube NEGATIVE NEGATIVE [facility] [place] [employer] Comment: Negative test result. M. tuberculosis complex infection unlikely. NIL 0.08 IU/mL [facility] [place] [employer] MITOGEN-NIL >10.00 IU/mL [facility] [place] [employer] TB1-NIL <0.00 IU/mL [facility] [place] [employer] TB2-NIL <0.00 IU/mL [facility] [place] [employer] Comment: The Nil tube value reflects [...] T-lymphocytes. For additional information, please refer to https://education.SavvyCard.Localo/faq/MRA577 (This link is being provided for informational/ educational purposes only.) Blood Venous blood specimen / Unknown 11/10/2022 10:41 AM EDT 11/10/2022 10:42 AM EDT Manjeet Quiroga MD LAB BLOOD ORDERABLES Final Result [facility] [address] [facility], [facility], [place] [address] [facility] [place] [facility] [address] [place] [address] documented in this encounter Visit Diagnoses Diagnosis Other emphysema (HCC)- Primary Other emphysema Type 2 diabetes mellitus without complication, with long-term current use of insulin (HCC) documented in this encounter Additional Health Concerns Assessment Noted Time PHQ-9 Depression Total Score: 8 10/14/19 23 2:38 PM EDT documented as of this encounter Care Teams Plater Helper Relationship Specialty Start Date End Date Manjeet Quiroga MD [address] [place] [address] PCP - General Internal Medicine 05/31/13 documented as of this encounter
--- OUTSIDE RECORDS SUMMARY | 2025-03-13 20:49 | XMS_ITS | Encounter Summary ---
Author Organization [employer] Address 75 [facility] 7t [place] [address] Care Team Providers Care Nuclear Auxiliary Operator Name Role Phone Manjeet Quiroga MD Primary Care Provider [phone] Encounter Details Date Type Department Care Team ([facility] Contact Info) Description 12/01/2022 Orders Only [facility] CHC MED & PEDS 505 [place], [place] [phone] Manjeet Quiroga MD [address] [place], [place] [phone] Type 2 diabetes mellitus without complication, with long-term current use of insulin ([facility]) Social History Tobacco Use Types [...] Upcoming Encounters Date Type Department Care Team ([facility] Contact Info) Description 07/16/2025 10:30 AM EST Office Visit [facility] OPTOMETRY [address] [place] [address] ManjeetNury salas, OD [address] [place] [address] documented as of this encounter Visit Diagnoses Diagnosis Type 2 diabetes mellitus without complication, with long-term current use of insulin (HCC) documented in this encounter Additional Health Concerns Assessment Noted Time PHQ-9 Depression Total Score: 8 10/14/19 23 2:38 PM EDT documented as of this encounter Care Teams Nuclear Auxiliary Operator Relationship Specialty Start Date End Date Manjeet Quiroga MD [address] [place] [address] PCP - General Internal Medicine 05/31/13 documented as of this encounter
--- OUTSIDE RECORDS SUMMARY | 2025-03-13 20:49 | XMS_ITS | Encounter Summary ---
Author Organization [employer] Address 75 [facility] 7t [place] [address] Care Team Providers Care Programming Development Project Manager Name Role Phone Manjeet Quiroga MD Primary Care Provider [phone] Encounter Details Date Type Department Care Team (Late Contact Info) Description 12/22/2022 Orders Only [facility] CHC MED & PEDS [address] [place], [place] [phone] Cheryle Cruz LPN Social History Tobacco Use [...] EDT Travel History Travel Start Travel End [place] 02/22/2025 02/26/2025 documented as of this encounter Plan of Treatment Upcoming Encounters Date Type Department Care Team (Late Contact Info) Description 07/16/2025 10:30 AM EST Office Visit [facility] OPTOMETRY [address] [place], [place] [phone] Nury Draper OD [address] [place] [address] documented as of this encounter Visit Diagnoses Not on filedocumented in this encounter Additional Health Concerns Assessment Noted Time PHQ-9 Depression Total Score: 8 10/14/19 23 2:38 PM EDT documented as of this encounter Care Teams Programming Development Project Manager Relationship Specialty Start Date End Date Manjeet Quiroga MD [address] [place] [address] PCP - General Internal Medicine 05/31/13 documented as of this encounter
--- OUTSIDE RECORDS SUMMARY | 2025-03-13 20:49 | XMS_ITS | Encounter Summary ---
Author Organization [employer] Address [address] [place] [address] 7t [place] [address] Care Team Providers Care Warp Clamper Name Role Phone Manjeet Quiroga MD Primary Care Provider [phone] Reason for Referral * Consultation (Routine) - Closed Specialty Diagnoses / Procedures Referred By Lu cotto Referred To Contact Physical Therapy Diagnoses Hand paresthesia Neck pain Manjeet Quiroga MD [address] [place] [address] Phone: tel: fax: Physical Therapy, AT [address] [facility] [address] [place] Phone: tel: fax: Referral ID Status Reason Start Date Expiration Date V isits Requested Visits Authorized [id number] Closed Specialty Services Required 08/10/2024 08/10/2025 1 1 Encounter Details Date Type Department Care Team (Late st Contact Info) Description 08/10/2024 Orders Only [facility] MEDICINE [address] [place] [address] Manjeet Quiroga MD [address] [place] [address] Hand paresthesia (Primary Dx); Neck pain Social [...] EDT Travel History Travel Start Travel End [place] 02/22/2025 02/26/2025 documented as of this encounter Plan of Treatment Upcoming Encounters Date Type Department Care Team (Late st Contact Info) Description 07/16/2025 10:30 AM EST Office Visit [facility] OPTOMETRY [address] [place] [address] Nury Draper, CRUZITO [address] [place] [address] Scheduled Referrals Name Type Priority Associated Diagnoses [...] documented as of this encounter Care Teams Warp Clamper Relationship Specialty Start Date End Date Manjeet Quiroga MD [address] [place] [address] PCP - General Internal Medicine 05/31/13 documented as of this encounter
--- OUTSIDE RECORDS SUMMARY | 2025-03-13 20:49 | XMS_ITS | Encounter Summary ---
Author Organization [employer] Address 75 [facility] 7t [place] [address] Care Team Providers Care Pocket Cutter Name Role Phone Manjeet Quiroga MD Primary Care Provider [phone] Encounter Details Date Type Department Care Team ([facility] st Contact Info) Description 10/21/2023 Orders Only [facility] CHC MED & PEDS 505 [place], [place] [phone] Manjeet Quiroga MD [address] [place], [place] [phone] Type 2 diabetes mellitus without complication, without long-term current use of insulin ([facility]) Social History Tobacco Use [...] EDT Travel History Travel Start Travel End [place] 02/22/2025 02/26/2025 documented as of this encounter Plan of Treatment Upcoming Encounters Date Type Department Care Team (Late st Contact Info) Description 07/16/2025 10:30 AM EST Office Visit [facility] OPTOMETRY [address] [place], [place] [phone] Nury Draper, OD [address] [place] [address] documented as of this encounter Visit Diagnoses Diagnosis Type 2 diabetes mellitus without complication, without long-term current use of insulin (HCC) documented in this encounter Additional Health Concerns Assessment Noted Time PHQ-9 Depression Total Score: 0 01/29/20 23 4:36 PM EDT documented as of this encounter Care Teams Pocket Cutter Relationship Specialty Start Date End Date Manjeet Quiroga MD [address] [place] [address] PCP - General Internal Medicine 05/31/13 documented as of this encounter
--- OUTSIDE RECORDS SUMMARY | 2025-03-13 20:49 | XMS_ITS | Encounter Summary ---
Author Organization [employer] Address [address] [place] [address] 7 [place] [address] Care Team Providers Care Talent Consultant Name Role Phone Manjeet Quiroga MD Primary Care Provider [phone] Reason for Visit * Reason Comments Med Refill Encounter Details Date Type Department Care Team ([facility] Contact Info) Description 06/22/2022 Refill [facility] CHC MED & PEDS [address] [place], [place] [phone] Manjeet Quiroga MD [address] [place] [address] Bloating (Primary Dx) Social History Tobacco Use Types Packs/Day Years Used Date Smoking Tobacco: Never Assessed Comments Unknown Sex and Gender Information Value Date Recorded Sex Assigned at Female 03/23/2022 10:20 AM EDT Legal Sex Female 10:20 AM EDT Gender Identity Female 03/23/2022 10:20 AM EDT Sexual Orientation Straight 03/23/2022 10 :20 AM EDT Travel History Travel Start Travel End [place] 02/22/2025 02/26/2025 documented as of this encounter Plan of Treatment Upcoming Encounters Date Type Department Care Team ([facility] Contact Info) Description 07/16/2025 10:30 AM EST Office Visit [facility] OPTOMETRY [address] [place], [place] [phone] TarkaNury, OD [address] [place] [address] documented as of this encounter Visit Diagnoses Diagnosis Bloating- Primary Flatulence, eructation, and gas pain documented in this encounter Care Teams Talent Consultant Relationship Specialty Start Date End Date Manjeet Quiroga MD [address] [place] [address] PCP - General Internal Medicine 05/31/13 documented as of this encounter
--- OUTSIDE RECORDS SUMMARY | 2025-03-13 20:49 | XMS_ITS | Clinical Summary ---
Author Organization [employer] Address [address] [place] [address] Care Team Providers Care Director Cardiac Name Role Phone Manjeet Quiroga MD Primary Care Provider [phone] Allergies No known active allergies Medications * This document contains information received from the source organization and may not represent a complete record from that organization. Blood Glucose Monitoring Suppl ([employer] [place] Lite) w/Device kitIndications: Type 2 diabetes mellitus without complication, without long-term current use of insulin (HCC) Use 2 - 3 x day 1 kit 02/17/20 23 Active Continuous Blood Gluc Powder Coat Painter (FreeStyle Neisha 2 [place]) deviceIndicatio ns:Type 2 diabetes mellitus without complication, with long-term current use of insulin ([facility]) To use daily 1 each 08/26/19 24 Active Continuous Blood Gluc Sensor (FreeStyle Neisha 2 Sensor) miscIndications :Type 2 diabetes mellitus without complication, with long-term current use of insulin ([facility]) To use daily 2 each 11 08/26/19 24 Active glipiZIDE (Glucotrol) 5 MG tabletIndicatio ns:Type 2 diabetes mellitus without complication, without long-term current use of insulin ([facility]) 1 to 3 tabs ac breakfast 1 to 3 tabs ac supper 180 tablet 3 02/02/20 24 Active PARoxetine (Paxil) 10 MG tabletIndicatio ns:Anxiety Take 1 tablet (10 mg) by mouth in the morning. 90 tablet 02/02/20 24 Active Alcohol Swabs (Alcohol Prep) 70 % pads To use 2 times a day 100 each 11 02/02/20 24 Active Lactobacillus-I nulin ([facility]) capsuleIndicati ons:Bloating TAKE 1 CAPSULE BY MOUTH EVERY DAY 30 capsule 11 07/14/19 25 Active gabapentin (Neurontin) 300 MG capsuleIndicati ons:Type 2 diabetes mellitus with diabetic neuropathy, without long-term current use of insulin ([facility]),Hand paresthesia Take 1 capsule (300 mg) by mouth 3 times daily. 90 capsule 11 08/08/19 25 026 Active cholecalciferol VITAMIN D (Vitamin D-3) 50 MCG (1999) tabletIndicatio ns:Health care maintenance TAKE 1 TABLET BY MOUTH EVERY DAY 90 tablet 1 10/26/19 25 Active Aspirin Low Dose 81 MG EC tablet TAKE 1 TABLET BY MOUTH EVERY DAY 90 tablet 3 12/29/19 25 Active lisinopril 5 MG tabletIndicatio ns:Type 2 diabetes mellitus without complication, without long-term current use of insulin ([facility]) TAKE 1 TABLET BY MOUTH EVERY DAY 90 tablet 01/03/20 25 Active cyclobenzaprine (Flexeril) 10 MG tabletIndicatio ns:Neck pain,Cervical radiculopathy,P lantar fasciitis, bilateral Take 1 tablet (10 mg) by mouth at bedtime for 10 days. 10 tablet 02/16/20 25 Active celecoxib (CeleBREX) 200 MG capsuleIndicati ons:Cervical radiculopathy,P lantar fasciitis, bilateral TAKE 1 CAPSULE BY MOUTH TWICE DAILY 60 capsule 02/16/20 25 Active Tirzepatide (Mounjaro) 2.5 MG/0.5ML solution auto-injectorIn dications:Type 2 diabetes mellitus without complication, without long-term current use of insulin ([facility]),Class 3 severe obesity due to excess calories with serious comorbidity and body mass index (BMI) of 40.0 to 44.9 in adult ([facility]) Inject 2.5 mg under the skin 1 (one) time per week. 2 mL 2 02/16/20 25 Active Ferrous Sulfate (iron) 325 (65 Fe) MG tabletIndicatio ns:Type 2 diabetes mellitus without complication, without long-term current use of insulin ([facility]) TAKE 1 TABLET BY MOUTH EVERY OTHER DAY 45 tablet 11 02/21/20 25 Active Jardiance 25 MGIndications:T ype 2 diabetes mellitus without complication, without long-term current use of insulin ([facility]) TAKE 1 TABLET BY MOUTH EVERY DAY 30 tablet 11 02/21/20 25 Active hydrocortisone 2.5 % creamIndication s:Skin rash Apply topically 2 times daily. 20 g 03/08/20 25 Active fexofenadine (Lou) 180 MG tabletIndicatio ns:Skin rash Take 1 tablet (180 mg) by mouth if needed each day (Allergies). 30 tablet 3 03/08/20 25 026 Active azithromycin (Zithromax) 250 MG tabletIndicatio ns:Cough in adult Take 2 tablets (500 mg) by mouth Once per day for 1 day, THEN 1 tablet (250 mg) Once per day for 4 days. 6 tablet 03/13/20 25 025 Active albuterol (Ventolin HFA) 108 (90 Base) MCG/ACT inhalerIndicati ons:Cough in adult INHALE 2 PUFFS BY MOUTH FOUR TIMES DAILY NEEDED FOR WHEEZING OR SHORTNESS OF BREATH 18 g 1 03/13/20 25 Active Mometasone Furoate (Asmanex HFA) 200 MCG/ACT aerosolIndicati ons:Chronic obstructive pulmonary disease, unspecified COPD type (CMS/HCC) (HCC) 1 puff po bid 13 g 1 03/13/20 25 Active benzonatate (Tessalon Perles) 100 MG capsuleIndicati ons:Cough in adult Take 1 capsule (100 mg) by mouth if needed in the morning, at noon, and at bedtime for cough for up to 7 days. Do not crush or chew. 20 capsule 03/13/20 25 025 Active ferrous sulfate (FeroSul) 325 (65 Fe) MG tabletIndicatio ns:Type 2 diabetes mellitus without complication, without long-term current use of insulin ([facility]) Take 1 tablet (325 mg) by mouth every other day. 45 tablet 02/02/20 24 025 Discontinued empagliflozin (Jardiance) 25 MGIndications:T ype 2 diabetes mellitus without complication, without long-term current use of insulin ([facility]) Take 1 tablet (25 mg) by mouth Once per day. 30 tablet 02/02/20 24 025 Discontinued albuterol (Ventolin HFA) 108 (90 Base) MCG/ACT inhaler INHALE 2 PUFFS BY MOUTH FOUR TIMES DAILY NEEDED FOR WHEEZING OR SHORTNESS OF BREATH 18 g 1 05/19/20 24 025 Discontinued(Re order (will not trigger notification to Pharmacy)) celecoxib (CeleBREX) 200 MG capsuleIndicati ons:Plantar fasciitis, bilateral TAKE 1 CAPSULE BY MOUTH TWICE DAILY 60 capsule 07/14/19 25 025 Discontinued(Re order (will not trigger notification to Pharmacy)) cyclobenzaprine (Flexeril) 10 MG tabletIndicatio ns:Neck pain,Cervical radiculopathy,P lantar fasciitis, bilateral Take 1 tablet (10 mg) by mouth at bedtime for 10 days. 10 tablet 08/08/19 25 025 Discontinued(Re order (will not trigger notification to Pharmacy)) Active Problems Problem Noted Date Diagnosed Date [...] medication management. Intake completed with [facility] at [facility] for OP individual therapy. clinician will provide [...] medication management. Intake completed with N at [facility] for OP individual therapy. clinician will provide additional support as needed. Normocytic anemia 01/23/2022 Acute renal failure syndrome 12/23/2020 Acute nontraumatic kidney injury 12/23/2020 Anxiety 11/08/2017 Neck pain 04/27/2016 Alopecia 01/24/2013 Migraine 01/24/2013 Pes planus 01/24/2013 Chronic obstructive lung disease 02/19/2012 Assessment & Plan (03/13/2025 3:41 PM EDT): Orders: Mometasone Furoate (Asmanex HFA) 200 MCG/ACT aerosol; 1 puff po bid Obesity 02/19/2012 Diabetes mellitus type 2, uncomplicated 11/02/19 12 Encounters Date Type Department Care Team Description 03/13/2025 3:20 PM EDT Office Visit [facility] [address] [place] [address] Trinidad Bravo MD Cough in adult (Primary Dx); Sore throat; Nasal congestion; Chronic obstructive pulmonary disease, unspecified COPD type (CMS/HCC) (HCC) 03/13/2025 Travel 03/08/2025 11:15 AM EDT Telemedicine [facility] [address] [place] [address] Manjeet Quiroga MD Skin rash (Primary Dx); Chronic obstructive pulmonary disease, unspecified COPD type ([facility]/HCC) ([facility]); Hirsutism 03/07/2025 Telephone [facility] [address] [place] [address] Manjeet Quiroga MD Chart Prep 03/01/2025 Telephone [facility] [address] [place] [address] Manjeet Quiroga MD Results 02/28/2025 Results Follow-Up [facility] [address] [place] [address] Manjeet Quiroga MD CBC auto differential, CBC auto differential, Comprehensive Metabolic Panel, Additional followed-up results: 8 02/19/2025 Refill [facility] [address] [place] [address] Manjeet Quiroga MD Type 2 diabetes mellitus without complication, without long-term current use of insulin ([facility]) 02/15/2025 1:00 PM EDT Office Visit [facility] [address] [place] [address] Manjeet Quiroga MD Type 2 diabetes mellitus without complication, without long-term current use of insulin ([facility]) (Primary Dx); Chronic obstructive pulmonary disease, unspecified COPD type (CMS/HCC); Cervical radiculopathy; Bilateral carpal tunnel syndrome; Normocytic anemia; Neck pain; Cervical radiculopathy; Plantar fasciitis, bilateral; Hirsutism; Encounter for immunization; Class 3 severe obesity due to excess calories with serious comorbidity and body mass index (BMI) of 40.0 to 44.9 in adult 02/15/2025 Travel 02/14/2025 Telephone [facility] [address] [place] [address] Manjeet Quiroga MD Chart Prep 02/13/2025 Orders Only [facility] [address] [place] [address] [phone] ProviderEmilia MD 01/01/2025 Refill [facility] [address] [place] [address] Manjeet Quiroga MD Type 2 diabetes mellitus without complication, without long-term current use of insulin ([facility]) 12/27/2024 Refill [facility] [address] [place] [address] Manjeet Quiroga MD from Last 3 Months Immunizations Immunization Administration Dates Next Due DTaP 10/11/1991, 9,1987,1987,1987 HPV 9-Valent 02/24/2021,10/25/2020,07/23/2020 Hep B, adult 05/03/1998,01/03/1998,11/28/1997 Hib (PRP-T) 07/03/1988 IPV 10/11/1991, 9,1987,1987 Influenza injectable quadriv alent IIV4 with preservative 02/20/2019,02/28/2018,02/14/2016,2014 Influenza injectable quadriv alent preservative free 03/10/2022,04/26/2020 Influenza, IIV3, injectable 02/12/2014 Influenza, Split (incl. estefanía fied surface antigen) 02/19/2012 Influenza, seasonal, injecta ble, preservative free 02/15/2025,02/02/2024 MMR 11/27/1997,07/03/1988 Pfizer Covid-19 Vaccine 12+ 05/26/2023 [...] Travel Start Travel End [place] 02/22/2025 02/26/2025 Last Filed Vital Signs Vital Sign Reading [...] Mass Index 41.38 03/13/2025 3:25 PM EDT Plan of Treatment Upcoming Encounters Date Type Department Care Team (Late st Contact Info) Description 07/16/2025 10:30 AM EST Office Visit [facility] [address] [place] [address] Nury Draper, OD [address] [place] [address] Health Maintenance Due Date Last Done Comments Family Planning (PISQ) 2002 Eye Exam 09/02/2024 Depression Monitoring 12/11/2024 06/13/2024, 025 COVID-19 Vaccine ( season) 2025 05/26/2023, 07/02/2021, 01/20/2021, Additional history exists Colposcopy 02/09/2025 10/20/2023, 09/22, 07/23/2020 Alcohol/Substance Use Screening 04/11/2025 04/11/2024 Diabetes: Urine Protein Screening 04/24/2025 04/24/2024, 08/26/2023, 01/22/2022, Additional history exists Diabetes: Hemoglobin A1C 05/31/2025 025, 02/15/2025, 11/16/2024, Additional history exists SDOH Screening 07/31/2025 07/31/2024 Diabetes: Foot Exam 11/16/2025 11/16/2024 Cervical Cancer Screening 02/08/2026 HPV/Cotest 02/08/2026 02/08/2025 Pap Smear 02/08/2026 02/08/2025, 08/23, 09/16/2021, Additional history exists Lipid Panel 02/28/2026 02/28/2025, 10/23, 01/22/2022, Additional history exists Disability Screening 03/08/2026 03/08/2025 Tobacco Screening 03/13/2026 03/13/2025 DTaP/Tdap/Td Vaccines (8 - Td or Tdap) [...] Years) and At-Risk Patients (6 to 49) Years Completed 05/26/2023 Hepatitis C Screening Completed 08/26/2023 HIV Screening Completed 04/24/2024 Influenza Vaccine Completed 02/15/2025, , 03/10/2022, Additional history exists Hepatitis A Vaccines Aged Out No long [...] PM EDT Sore throat Nasal congestion POCT COVID-19 AG MARIO ID NOW Routine 03/13/2025 3:41 PM EDT Sore throat Nasal congestion POCT INFLUENZA A (ID NOW RAPID MOLECULAR) Routine 03/13/2025 3:41 PM EDT Nasal congestion Cough in adult POCT INFLUENZA B (ID NOW RAPID MOLECULAR) Routine 03/13/2025 3:40 PM EDT Nasal congestion Cough in adult DHEA SULFATE Routine 02/28/2025 9:21 AM EDT Hirsutism TESTOSTERONE, TOTAL, MALES (ADULT), IA Routine 02/28/2025 9:21 AM EDT Hirsutism HEMOGLOBIN A1C Routine 02/28/2025 9:21 AM EDT Type 2 diabetes mellitus without complication, without long-term current use of insulin (HCC) TSH W/REFLEX TO FT4 Routine 02/28/2025 9 :21 AM EDT Type 2 diabetes mellitus without complication, without long-term current use of insulin (HCC) Normocytic anemia LIPID PANEL, STANDARD Routine 02/28/2025 9:21 AM EDT Type 2 diabetes mellitus without complication, without long-term current use of insulin (HCC) Normocytic anemia COMPREHENSIVE METABOLIC PANEL Routine 02/28/2025 9:21 AM EDT Type 2 diabetes mellitus without complication, without long-term current use of insulin (HCC) Normocytic anemia CBC WITH AUTO DIFFERENTIAL Routine 02/28/2025 9:21 AM EDT Type 2 diabetes mellitus without complication, without long-term current use of insulin (HCC) Normocytic anemia CBC WITH AUTO DIFFERENTIAL Routine 02/28/2025 9:21 AM EDT Normocytic anemia US PELVIS TRANSVAGINAL Routine 02/28/2025 Hirsutism POCT GLUCOSE Routine 02/15/2025 3:23 PM EDT Type 2 diabetes mellitus without complication, without long-term current use of insulin (CMS/HCC) POCT GLYCATED HEMOGLOBIN, TOTAL Routine 02/15/2025 3:22 PM EDT Type 2 diabetes mellitus without complication, without long-term current use of insulin (CMS/HCC) US ABDOMEN LIMITED Routine 02/13/2025 2: 10 PM EDT HM PAP/HPV Routine 02/08/2025 ALBUMIN, RANDOM URINE W/CREATININE Routine 04/24/2024 1:30 PM EST Type 2 diabetes mellitus without complication, with long-term current use of insulin (CMS/HCC) HIV 1/2 ANTIGEN/ANTIBODY, FOURTH GENERATION W/RFL Routine 04/24/2024 1:26 PM EST Health care maintenance COLPOSCOPY Routine 10/20/2023 9:03 AM EDT HEPATITIS C ANTIBODY Routine 08/26/2023 10:47 AM EDT Type 2 diabetes mellitus without complication, without long-term current use of insulin (CMS/HCC) Class 3 severe obesity due to excess calories with serious comorbidity and body mass index (BMI) of 40.0 to 44.9 in adult (CMS/HCC) Type 2 diabetes mellitus without complication, with long-term current use of insulin (CMS/HCC) from Last 3 Months or Most Recently Relevant to Health Maintenance Results * XR Chest 2 Views (03/13/2025 4:07 PM EDT) Anatomical Region Laterality Modality Chest Radiographic Candi ging 03/13/2025 4:07 PM EDT Narrative 03/13/2025 4:00 PM EDT [address] [address] XRay Report Signed Patient: Josiane Pettit MR#: [id number] : 1985 Acct:[id number] Age/Sex: 40 / F ADM Date: 03/13/25 Loc: [facility] Attending Dr: Trinidad Bravo MD Ordering Physician: Trinidad Bravo MD Date of Service: 03/13/25 Procedure(s): XR chest 2V Accession Number(s): [id number] cc: Trinidad Bravo MD Reason for Exam: [...] 03:57 PM EDT RP Dictated By: Florentino Lyon MD Signed By: <Electronically signed by Florentino Monte MD in OV> 03/13/25 1557 DD/ 1607 TD/TT: 03/13/25 1555 Software Program Manager: Procedure Note Donotuseinterpreter, Image - 03/13/[address] [address] XRay Report Signed Patient: Soila PettitdMR#: [id number] : 1985Acct:[id number] Age/Sex: 40 / FADM Date: 03/13/25 Loc: T[facility] Attending Dr: Trinidad Bravo MD Ordering Physician: Trinidad Bravo MD Date of Service: 03/13/25 Procedure(s): XR chest 2V Accession Number(s): [id number] cc: Trinidad Bravo MD Reason for Exam: [...] 03:57 PM EDT RP Dictated By: Florentino Lyon MD Signed By: <Electronically signed by Florentino Monte MDin OV> 03/13/25 1557 DD/ 1607 TD/TT: 03/13/25 1555 Software Program Manager: Trinidad Bravo MD IMG XR PROCEDURES Final Re sult * POCT Rapid Strep A MARIO ID NOW (03/13/2025 3:42 PM EDT) Pathologist [facility] Rapid Strep A Screen Negative Negative, None Detected QC Media Lot # [id number] Lot# Expiration Date Swab 03/13/2025 3:42 PM EDT Trinidad Bravo MD POINT OF CARE TEST ENTER/E DIT ORDERABLES Final Result * POCT Rapid Influenza A MARIO ID NOW (03/13/2025 3:41 PM EDT) Influenza A Negative Negative, Indeterminate [facility] QC Media Lot # [id number] [facility] Lot# Expiration Date [facility] Swab 03/13/2025 3:41 PM EDT Trinidad Bravo MD POINT OF CARE TEST ENTER/E DIT ORDERABLES Final Result [facility] [address] [place] [phone] * POCT Rapid Covid-19 MARIO ID NOW (03/13/2025 3:41 PM EDT) [facility] Coronavirus Antigen PCR Negative Negative, Indeterminate, None Detected, Invalid, Specimen unsatisfactory for evaluation, Weakly Positive, 2+ QC Media Lot # [id number] Lot# Expiration Date ,026 Swab 03/13/2025 3:41 PM EDT Trinidad Bravo MD POINT OF CARE TEST ENTER/E DIT ORDERABLES Final Result * POCT Rapid Influenza B MARIO ID NOW (03/13/2025 3:40 PM EDT) [facility] Influenza B Negative Negative, Indeterminate [facility] QC Media Lot # [id number] [facility] Lot# Expiration Date , [facility] Swab 03/13/2025 3:40 PM EDT Trinidad Bravo MD POINT OF CARE TEST ENTER/E DIT ORDERABLES Final Result Performing Organization Address City/[facility]/ZIP Co de Phone Number [facility] [address] [place] [phone] * TSH with Reflex to Free T4 (02/28/2025 9:21 AM EDT) [facility] TSH reflex Free T4 1.70 0.32 - 4.0 uIU/mL [facility] Blood Venous blood specimen / Unknown 02/28/2025 9:21 AM EDT 02/28/2025 2:18 PM EDT Manjeet Quiroga MD LAB BLOOD ORDERABLES Final Result Performing Organization Address [facility]/ZIP Co de Phone Number [facility] [address] [place] [phone] * (ABNORMAL) CBC auto differential (02/28/2025 9:21 AM EDT) Only the most recent of2 resultswithin the time period is included. White Blood Count 10.9(H) 4.8 - 10.8 X10*3/uL [facility] Red Blood Count 4.70 4.20 - 5.50 X10*6/uL [facility] Hemoglobin 12.0 12.0 - 16.0 g/dl [facility] Hematocrit 38.6 37.0 - 47.0 % [facility] Mean Corpuscular Volume 82.1 80.0 - 98.0 fL [facility] Mean Corpuscular Hemoglobin 25.5(L) 27.0 - 33.0 pg [facility] Mean Corpuscular HGB Conc 31.1 31.0 - 35.0 g/dl [facility] Red Cell Distribution Width 15.3 11.0 - 16.0 % [facility] Platelet Count 272 160 - 400 X10*3/uL [facility] Mean Platelet Volume 11.6 9.4 - 12.3 fL [facility] Neutrophils Percent Auto 64.5 45 - 73 % [facility] Imm Gran Pct Auto 0.3 0.0 - 0.4 % [facility] Lymphocytes Percent Auto 18.1(L) 20 - 40 % [facility] Monocytes Percent Auto 9.0 2 - 11 % [facility] Eosinophils Percent Auto 7.5(H) 0 - 4 % [facility] Basophils Percent Auto 0.6 0 - 2 % [facility] NRBC Pct Auto 0.0 0.0 - 0.2 /100WBC [facility] Neutrophils Absolute Auto 7.0 2.0 - 8.3 x10*3/uL [facility] Imm Gran Abs Auto 0.03 0.00 - 0.03 X10*3/uL [facility] Lymphocytes Absolute Auto 2.0 1.2 - 4.9 X10*3/uL [facility] Monocytes Absolute Auto 1.0 0.1 - 1.2 X10*3/uL [facility] Eosinophils Absolute Auto 0.8(H) 0.0 - 0.4 X10*3/uL [facility] Basophils Absolute Auto 0.1 0.0 - 0.2 X10*3/uL [facility] NRBC Abs Auto 0.000 0.0 - 0.012 X10*3/uL [facility] Blood Venous blood specimen / Unknown 02/28/2025 9:21 AM EDT 02/28/2025 2:18 PM EDT us Manjeet Quiroga MD LAB BLOOD ORDERABLES Final Result Performing Organization Address [facility]/ZIP Co de Phone Number [facility] [address] [place] [phone] * DHEA Sulfate (02/28/2025 9:21 AM EDT) DHEA Sulfate 133 19 - 237 mcg/dL [facility] Comment:THIS TEST WAS PERFOR MED AT:[facility] [address] [id number] WESTBROOK MD Blood Venous blood specimen / Unknown 02/28/2025 9:21 AM EDT 02/28/2025 2:18 PM EDT us Manjeet Quiroga MD LAB BLOOD ORDERABLES Final Result Performing Organization Address City/[facility]/ZIP Co de Phone Number [facility] [address] [place] [phone] * Testosterone, Total, males (Adult), IA (02/28/2025 9:21 AM EDT) Testosterone, Total 13 2 - 45 ng/dL [facility] Comment:For additional infor robert, please refer [email or web address](This link is being provided for informational/educational purposes only.)This test was developed and its analytical performancecharacteristics have been determined by [employer] [place], [place]. It hasnot been cleared or approved by the U.S. Food and DrugAdministration. This assay has been validated pursuantto the CLIA regulations and is used for clinicalpurposes.THIS TEST WAS PERFORMED AT:[facility] [place] [address]LPKLJNHRYAN STEIN MD,PHD Blood Venous blood specimen / Unknown 02/28/2025 9:21 AM EDT 02/28/2025 2:18 PM EDT Manjeet Quiroga MD LAB BLOOD ORDERABLES Final Result Performing Organization Address [facility]/ZIP Co de Phone Number [facility] [address] [place] [phone] * (ABNORMAL) Hemoglobin A1c (02/28/2025 9:21 AM EDT) Hemoglobin A1c 7.3(H) <6.0 % [facility] Comment:Hemoglobin A1C Refer ence Range Adults: 4.8 - 6.0 % Non diabetic: < 6.0 % Goal: < 7.0 %Additional Action Suggested: > 8.0 %Note: Hemoglobin A1c results are invalid for patients with abnormal amounts of HbF. Blood transfusions may impact the HbA1c concentration in the patient sample. Estimated Average Glucose 163 mg/dL [facility] Comment:eAG = Estimated ave rage glucose which is %A1C expressed asaverage glucose, using the formula of the [id number] Glucose study (ADAG), Diabetes Care, Vol.31,#8,Aug. 2007 Blood Venous blood specimen / Unknown 02/28/2025 9:21 AM EDT 02/28/2025 2:18 PM EDT Manjeet Quiroga MD LAB BLOOD ORDERABLES Final Result Performing Organization Address [facility]/ZIP Co de Phone Number [facility] [address] [place] [phone] * Lipid Panel, Standard (02/28/2025 9:21 AM EDT) Triglycerides 75 <150 mg/dL [facility] Comment:Desirable Triglyceri de: less than 150 mg/dLBorderline High Triglyceride 150-199 mg/dLHigh Triglyceride: 200-499 mg/dLVery High Triglyceride: greater than or equal to 5OO mg/dL Cholesterol 147 <200 mg/dL [facility] Comment:Desirable Cholestero l: less than 200 mg/dLBorderline High Cholesterol: 200-239 mg/dLHigh Cholesterol: greater than 239 mg/dL LDL Cholesterol Calculated 88 <100 mg/dL [facility] Comment:Desirable LDL: less than 100 mg/dLNear Optimal/Above Optimal LDL: 110- 129 mg/dLBorderline High LDL: 130-159 mg/dLHigh LDL: 160-189 mg/dLVery High LDL: greater than or equal to 190 mg/dL HDL Cholesterol 44 >40 mg/dL [facility] Comment:Desirable HDL: great er than 40 mg/dL Note: This HDL assay may give artificially low results in patients with liver disease. Blood Venous blood specimen / Unknown 02/28/2025 9:21 AM EDT 02/28/2025 2:18 PM EDT us Manjeet Quiroga MD LAB BLOOD ORDERABLES Final Result [facility] [address] [place], [place] [phone] * (ABNORMAL) Comprehensive Metabolic Panel (02/28/2025 9:21 AM EDT) Sodium 139 135 - 145 mmol/L [facility] Potassium 4.1 3.3 - 5.1 mmol/L [facility] Chloride 106 96 - 108 mmol/L [facility] Carbon Dioxide 27 22 - 29 mmol/L [facility] Anion Gap 10(L) 12 - 20 [facility] Urea Nitrogen (BUN) 15 9 - 16 mg/dL [facility] Creatinine, Serum 0.69 0.5 - 1.4 mg/dL [facility] Estimated Glomerular Filt Rate >60 [facility] Comment:Chronic Kidney Disea se: Estimated GFR < 60 mL/min/1.98z0Wteavn Kidney Disease: Estimated GFR < 15 mL/min/1.73m2 Glucose 94 60 - 115 mg/dL [facility] Calcium 8.9 8.4 - 10.2 mg/dL [facility] Bilirubin, Total 0.6 0.0 - 1.0 mg/dL [facility] Aspartate Amino Transferase 29 5 - 31 U/L [facility] Alanine Aminotransferase 22 0 - 31 U/L [facility] Total Protein 6.9 6.5 - 8.0 g/dL [facility] Albumin Level 4.0 3.5 - 5.0 g/dL [facility] Alkaline Phosphatase 87 39 - 117 U/L [facility] Blood Venous blood specimen / Unknown 02/28/2025 9:21 AM EDT 02/28/2025 2:18 PM EDT us Manjeet Quiroga MD LAB BLOOD ORDERABLES Final Result [facility] [address] [place] [address] [phone] * US Pelvis Transvaginal (02/28/2025) Anatomical Region Laterality Modality Pelvis Ultrasound us Manjeet Quiroga MD IMG US PROCEDURES Final Res ult * POCT Glucose (02/15/2025 3:23 PM EDT) Glucose Blood, POC 184 60 - 200 mg/dL QC Media Lot # [id number] Lot# Expiration Date Blood Capillary blood specimen / Unknown 02/15/2025 3:23 PM EDT us Manjeet Quiroga MD POINT OF CARE TEST ENTER/ED IT ORDERABLES Final Result * (ABNORMAL) POCT Hgb A1c (02/15/2025 3:22 PM EDT) Hemoglobin A1C 7.2(A) 4.0 - 5.7 % QC Media Lot # [id number] Lot# Expiration Date ,[id number] Blood 02/15/2025 3:22 PM EDT Manjeet Quiroga MD POINT OF CARE TEST ENTER/ED IT ORDERABLES Edited Result - Final * US Abdomen Limited (02/13/2025 2:10 PM EDT) Anatomical Region Laterality Modality Abdomen Ultrasound Historical Provider IMG US PROCEDURES Final R esult * (ABNORMAL) HM PAP/HPV (02/08/2025) Pap Smear 4. LSIL(A) 1. NILM HPV Detected(A ) Undetected, Indeterminate , Quantitative, Not Detected Narrative Cherie Banks - 02/08/2025 Results in care every where under labs Historical Provider HEALTH MAINTENANCE Final Result * Albumin, Random Urine W/Creatinine (04/24/2024 1:30 PM EST) Creatinine, Urine 61.75 mg/dL [facility] Microalbumin Urine <5.0 mg/L [facility] Microalbum Creatinine Ratio Ur TNP <30 ug/mg cr [facility] Comment:Unable to calculate albumin/creatinine ratio due to lowmicroalbumin or creatinine result. Urine (Urine, Random) 04/24/2024 1:30 PM EST 04/24/2024 2:09 PM EST Manjeet Quiroga MD LAB URINE ORDERABLES Final Result [facility] [address] [place] [phone] * HIV-1/2 Antigen and Antibodies, Fourth Generation, with Reflexes (04/24/2024 1:26 PM EST) Pathologist [facility] HIV AB/AG Nonreactive Nonreactive [facility] Comment:HIV-1 p24 Ag and/or HIV-1/HIV-2 Ab not detected.A test result that is nonreactive does not exclude thepossibility of exposure to or infection with HIV-1 and/orHIV-2. Nonreactive results in this assay for individualswith prior exposure to HIV-1 and/or HIV-2 may be due toantigen and antibody levels that are below the limit ofdetection of this assay.The [facility] HIV Ag/Ab Combo assay result andsupplemental assay results should be interpreted inconjunction with the patient's clinical presentation,history and other laboratory results. If the results areinconsistent with clinical evidence, additional testing issuggested to confirm the result. Blood Venous blood specimen / Unknown 04/24/2024 1:26 PM EST 04/24/2024 2:28 PM EST us Manjeet Quiroga MD LAB BLOOD ORDERABLES Final Result [facility] [address] [place] [phone] * Colposcopy (10/20/2023 9:03 AM EDT) us Historical Provider MD IN CLINIC/BEDSIDE ORDERAB LES Final Result * Hepatitis C Ab (08/26/2023 10:47 AM EDT) Pathologist [facility] Hepatitis C Antibody Nonreactive Nonreactive [facility] Comment:Antibodies to HCV no t detected; does not exclude early acuteHCV infection. Blood Venous blood specimen / Unknown 08/26/2023 10:47 AM EDT 08/26/2023 2:04 PM EDT Manjeet Quiroga MD LAB BLOOD ORDERABLES Final Result Performing Organization Address [facility]/ZIP Co de Phone Number [facility] [address] [place] [phone] from Last 3 Months or Most Recently Relevant to Health Maintenance Insurance [facility] [place] [id number] Care Teams Director Cardiac Relationship Specialty Start Date End Date Manjeet Quiroga MD [address] [place] [address] RAS Conde [phone] PCP - General Internal Medicine 05/31/13
--- OUTSIDE RECORDS SUMMARY | 2025-03-13 20:49 | XMS_ITS | Encounter Summary ---
Author Organization [employer] Address [address] [place] [address] Care Team Providers Care Clearance Rep Name Role Phone Manjeet Quiroga MD Primary Care Provider [phone] Encounter Details Date Type Department Care Team (Latest Contact Info) Description 03/13/2025 Travel Social History Tobacco Use Types Packs/Day Years Used Date Smoking Tobacco: Never Passive Smoke Exposure: Never Smokeless Tobacco: Never Alcohol Answer Date [...] Description 07/16/2025 10:30 AM EST Office Visit [facility] [address] [place] [address] TarkaNury, OD [address] [place] [address] documented as of this encounter Visit Diagnoses Not on filedocumented in this encounter Additional Health Concerns Assessment Noted Time PHQ-9 Depression Total Score: 10 025 10:46 AM EST documented as of this encounter Care Teams Clearance Rep Relationship Specialty Start Date End Date Manjeet Quiroga MD [address] [place] [phone] PCP - General Internal Medicine 05/31/13 documented as of this encounter
--- OUTSIDE RECORDS SUMMARY | 2025-03-13 20:49 | XMS_ITS | Encounter Summary ---
Author Organization [employer] Address [address] [place] [address] Care Team Providers Care Manager Services Name Role Phone Manjeet Quiroga MD Primary Care Provider [phone] Reason for Visit * Reason Comments Med Refill Encounter Details Date Type Department Care Team ([facility] Contact Info) Description 09/18/2024 Refill [facility] [address] [place], [place] [phone] Manjeet Quiroga MD [address] [place], [place] [phone] Neck pain; Cervical radiculopathy; Plantar fasciitis, bilateral [...] Description 07/16/2025 10:30 AM EST Office Visit [facility] [address] [place] [address] Manjeetjosue Nury, OD [address] [place] [address] documented as of this encounter Visit Diagnoses Diagnosis Neck pain Cervicalgia Cervical radiculopathy Brachial neuritis or radiculitis nos Plantar fasciitis, bilateral documented in this encounter Additional Health Concerns Assessment Noted Time PHQ-9 Depression Total Score: 10 025 10:46 AM EST documented as of this encounter Care Teams Manager Services Relationship Specialty Start Date End Date Manjeet Quiroga MD [address] [place] [address] PCP - General Internal Medicine 05/31/13 documented as of this encounter
--- OUTSIDE RECORDS SUMMARY | 2025-03-13 20:49 | XMS_ITS | Clinical Summary ---
Author Organization [address] [facility] Address [address] [place] [address] Phone Care Team Providers Care Nurse'S Companion Name Role Phone Manjeet Quiroga MD Primary Care Provider [phone] Allergies No known active allergies Medications diclofenac (VOLTAREN) 1 % topical gel Apply 4 g topically 2 times daily. 4 Active Lactobac. rhamnosus GG-inulin ([facility]) 10 billion cell -200 mg capsule, sprinkle [...] BY MOUTH EVERY DAY 1 Active lisinopriL (PRINIVIL,ZESTR IL) 5 mg tablet Take 5 mg by mouth daily. Active biotin 5 mg tablet Take 1 tablet by mouth 1 (one) time each day. Active cholecalciferol (VITAMIN D-3) 50 mcg (2,000 unit) tablet Take 1 tablet (2,000 Units total) by mouth 1 (one) time each day. Active aspirin 81 mg EC tablet Take 81 mg by mouth daily. Active clotrimazole-be tamethasone (LOTRISONE) 1-0.05 % cream Apply topically 2 (two) times a day. For 2 weeks 30 g 4 Active Jardiance 25 mg tablet Take 1 tablet (25 mg total) by mouth 1 (one) time each day. 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 Persistent depressive disorder 06/08/2024 Diabetes mellitus type 2, co ntrolled, with complications ([facility] V24, [facility] V28) 03/30/2024 Normocytic anemia 01/23/2022 Acute nontraumatic kidney injury ([facility] V24) 0 12/23/2020 Acute renal failure syndrome ([facility] V24) 12/23 Atypical squamous cells of u ndetermined significance [...] in one year Obesity, morbid, BMI 40.0-49.9 ([facility] V24, [facility] V28) 07/05/2019 Anxiety 11/08/2017 Neck pain 04/27/2016 Alopecia 01/24/2013 Migraine 01/24/2013 Pes planus 01/24/2013 Chronic obstructive lung disease ([facility] V24, [place]/[facility] V28) 02/19/2012 Encounters Date Type Department Care Team Description 02/28/2025 10:27 AM EDT - 02/28/2025 11:59 PM EDT Hospital Encounter [facility] Ultrasound [address] [place] [phone] Hirsutism Discharge Disposition: Home or Self Care 02/28/2025 Results Follow-Up Obstetrics and Gynecology - [address] [phone] Judy Mckeon RN 02/13/2025 7:15 AM EDT - 02/13/2025 11:59 PM EDT Hospital Encounter Radiology Department - [address] [phone] LUQ pain Discharge Disposition: Home or Self Care 02/08/2025 10:00 AM EDT Office Visit Obstetrics & Gynecology - [address] [phone] Sherrell Santos, RYANM Women's annual routine gynecological examination (Primary Dx); LGSIL of cervix of undetermined significance; Papanicolaou smear of cervix with low risk human papillomavirus (HPV) DNA test positive; Female infertility; Venereal disease screening; Encounter for screening for viral disease; Vaginal discharge; Vaginal itching; LUQ pain 01/23/2025 9:00 AM EDT Office Visit Orthopedic Surgery [facility] [address] [place] [phone] Ladarius Amaro, DPM Plantar fascial fibromatosis (Primary Dx); Equinus contracture of ankle; Diabetic mononeuropathy simplex (CMS/HCC V24, CMS/HCC V28); Arthritis of right ankle; Posterior tibial tendon dysfunction (PTTD) of left lower extremity; Posterior tibial tendon dysfunction (PTTD) of right lower extremity from Last 3 Months Immunizations Immunization Administration Dates Next Due DTaP (Infanrix) 6wks to less than 7yo ,09/14/1988,1987,1987,1987 HPV 9-valent (Gardisil) 9yo to less than 46yo 02/24/2021,10/25/2020,07/23/2020 Hepatitis B (Bvwghfy-S-Cajun , Recombivax HB-Adult) 19yo and older 05/03/1998,01/03/1998,11/28/1997 HiB PRP-T conjugate (Acthib, Hiberix) 6wks and older 07/03/1988 IPV Inactivated polio (Ipol) 6wks and older 10/11/1991,09/14/1988,1987,1987 Influenza Quadrivalent, 0.5m l, preservative free (Fluarix; FluLaval; Fluzone) ages 6mo and older (Afluria) 3yo and older 03/10/2022,04/26/2020 Influenza Quadrivalent, with preservative (Fluzone; Afluria) 6mo and older 02/20/2019,02/28/2018,02/14/2016,2014 Influenza Split 02/19/2012 Influenza trivalent, 0.5mL, preservative free (Fluarix; FluLaval; Fluzone) ages 6mo and older (Afluria) 3 years and older 02/02/2024 Influenza trivalent, with preservative (Fluzone; Afluria) 6mo and older 02/12/2014 MMR, measles mumps and rubel la Live (Priorix; M-M-R II) 12mo and older 11/27/1997,07/03/1988 Pfizer (ages 12 & older) YE S-CoV-2 COVID-19, mRNA, LNP-S, rosalba-sucrose, preservative free 07/02/2021 Pfizer SARS-CoV-2 COVID-19, mRNA, LNP-S, preservative free 07/02/2021,01/20/2021,12/30/2020 Pneumococcal conjugate 20 va lent (Prevnar 20, PCV 20) 2mo and older 05/26/2023 Tdap Tetanus diptheria acell ular pertussis (Boostrix; Adacel) 7yo and older 05/16/2020,02/12/2014 Varicella live (Varivax) 12m o and older 03/30/2018,11/05/1998 Surgical History Surgery Date Site/Laterality Comments NECK SURGERY 07/30/2016 PROCEDURE: HISTORICAL NECK SURGERY; COMMENT: [facility] Medical History Medical History Date Comments Anemia DX:Anemia Anxiety state DX:Anxiety state Asthma DX:Asthma Diabetes mellitus type 2, co ntrolled, with complications ([facility]/HCC V24, [facility] V28) DX:Diabetes mellitus type 2, controlled, with complications ([facility]) Bacterial vaginosis 01/24/2016 DX:Bacterial vaginosis; COMMENT: 10/05/14, [...] Sexual Orientation Not on file Obstetrics History Para Term AB IAB SAB Ectopic Multiple Livin g Live Births 0 0 0 0 0 0 0 0 Last Filed Vital Signs Vital Sign Reading Time Taken Comments Blood Pressure 113/77 02/08/2025 10:19 AM EDT Pulse 90 02/08/2025 10:19 AM EDT Temperature - - Respiratory Rate - - Oxygen Saturation - - Inhaled Oxygen Concentration - - Weight 99.5 kg (219 lb 6.4 oz) 02/08/2025 10:19 AM EDT Height 154.9 cm (5' 1 ) 02/08/2025 10:19 AM EDT Body Mass Index 41.46 02/08/2025 10:19 AM EDT Plan of Treatment Upcoming Encounters Date Type Department Care Team (Late st Contact Info) Description 04/23/2025 1:30 PM EST Procedure visit Obstetrics [facility]necology [facility] [address] [place], [place] [phone] Tasia Palma DO [address] [place], [place] 04/23/2025 1:30 PM EST Procedure visit Obstetrics and Gynecology - [facility] [address] [place] [phone] 05/02/2025 9:45 AM EST Office Visit Orthopedic Surgery - [place] [address] [phone] Ladarius Amaro, DPM [address] [phone] Health Maintenance Due Date Last Done Comments Diabetes: Annual Foot Exam 1997 Diabetes: Annual GFR (Glomerular Filtration Rate) 02/24/2022 02/24/2021 Social Influencers of Health Screening 05/02/2022 Diabetes: Annual Urine Albumin-Creatinine Ratio (uACR) 05/09/2022 02/24/2021 Depression Screening 05/24/2024 Diabetes: Annual Retina Eye Exam 09/02/2024 09/03/2023 COVID-19 Vaccine ( season) 2025 05/26/2023, 07/02/2021, 07/02/2021, Additional history exists Diabetes: Blood Sugar Control Test (HGBA1C) 08/15/2025 02/15/2025, 11/16/2024, 08/07/2024, Additional history exists Cholesterol Screening (Lipid Panel) 11/11/2027 11/10/2022, 02/24/2021 Cervical Cancer Screening: HPV 02/08/2030 02/08/2025, 02/08/2025, 09/17/2023 DTaP,Tdap,and Td Vaccines (8 - Td or Tdap) 05/16/2030 05/16/2020, 02/12/2014, 10/11/1991, Additional history exists RSV Immunization Adult Patients (1 - 1-dose 75+ series) 2062 HIB Vaccines Completed 07/03/1988 IPV Vaccines Completed 10/11/1991, 08/23, 1987, Additional history exists MMR Vaccines Completed 11/27/1997, 07/03/1988 Hepatitis B Vaccines Completed 05/03/1998, 01/03/1998, 11/28/1997 Varicella Vaccines Aged Out 03/30/2018, 11/05/1998 No longer eligible based on patient's age to complete this topic HPV Vaccines Completed 02/24/2021, 08/2020, 07/23/2020 Pneumococcal Vaccine: Pediatrics (0 to 5 Years) and At-Risk Patients (6 to 49 Years) Completed 05/26/2023 HIV Screening Completed 02/08/2025, 06/2023, 07/05/2019 Hepatitis C Screening Completed 02/08/2025, 023 Influenza Vaccine Completed 02/15/2025, , 03/10/2022, Additional [...] Name Priority Date/Time Associated Diagnosis Comments US PELVIS NON OB COMPLETE W TRANSVAGINAL Routine 02/28/2025 10:51 AM EDT Hirsutism US ABDOMEN LIMITED Routine 02/13/2025 7: 42 AM EDT LUQ pain HEPATITIS C ANTIBODY Routine 02/08/2025 10:48 AM EDT Encounter for screening for viral disease HIV 1, 2 ANTIBODY, P24 ANTIGEN WITH REFLEX TO DIFFERENTIATION Routine 02/08/2025 10:48 AM EDT Encounter for screening for viral disease TREPONEMA PALLIDUM ANTIBODY WITH REFLEX TO RPR AND PARTICLE AGGLUTINATION Routine 02/08/2025 10:48 AM EDT Venereal disease screening TRICHOMONAS VAGINALIS ANTIGEN Routine 02/08/2025 10:36 AM EDT Vaginal discharge Vaginal itching WET PREP, GENITAL Routine 02/08/2025 10: 36 AM EDT Vaginal discharge Vaginal itching CHLAMYDIA TRACHOMATIS AND NEISSERIA GONORRHOEAE PCR Routine 02/08/2025 10:36 AM EDT Venereal disease screening PAP SMEAR Routine 02/08/2025 10:27 AM EDT Women's annual routine gynecological examination LGSIL of cervix of undetermined significance Papanicolaou smear of cervix with low risk human papillomavirus (HPV) DNA test positive HPV GENOTYPE Routine 02/08/2025 10:27 AM EDT Women's annual routine gynecological examination LGSIL of cervix of undetermined significance Papanicolaou smear of cervix with low risk human papillomavirus (HPV) DNA test positive HPV WITH REFLEX GENOTYPE Routine 02/08/2025 10:27 AM EDT Women's annual routine gynecological examination LGSIL of cervix of undetermined significance Papanicolaou smear of cervix with low risk human papillomavirus (HPV) DNA test positive HM DIABETES EYE EXAM Routine 09/03/2023 HEMOGLOBIN A1C Routine 09/24/2022 from Last 3 Months or Most Recently Relevant to Health Maintenance Results * US Pelvis Non OB Complete w Transvaginal (02/28/2025 10:51 AM EDT) Anatomical Region Laterality Modality Body, Pelvis Ultrasound 03/05/2025 2:00 PM EDT Impressions 03/05/2025 2:03 PM EDT No convincing findings to suggest PCOS. 1. 2.7 cm diameter hypoechoic right ovarian cysts, likely functional in a patient of this age. This results in a larger than normal calculated right ovarian volume. 2. Solitary small cyst arising from the left ovary suggestive of a normal follicle. -------- FINAL REPORT -------- Dictated By: Celestine Jaimes Dictated Date: 03/05/2025 14:00 ET Assigned Physician: Celestine Jaimes Reviewed and Electronically Signed By: Celestine Jaimes Signed Date: 03/05/2025 14:03 ET Workstation ID: [id number] Transcribed By: Self Edit Transcribed Date: 03/05/2025 14:00 ET Narrative 03/05/2025 2:03 PM EDT Procedure: Ultrasound of the pelvis. HISTORY: hirsutism ? pcos?. TECHNIQUE: Transabdominal and endovaginal grayscale, color Doppler, and spectral Doppler ultrasound evaluation of the pelvis. COMPARISON: 10/02/2022. FINDINGS: The uterus is anteverted and measures 8 x 3.8 x 5.1 cm. Endometrial stripe within normal limits in this premenopausal aged patient, measuring 9 mm. Normal myometrium. Incidentally noted clustered nabothian cysts. Right ovarian volume is 16.1 mL. Left ovarian volume is 5.6 mL. Normal bilateral ovarian Doppler flow. There is a 2.7 x 1.8 x 2.1 cm hypoechoic lesion without Doppler flow in the left ovary suggestive of a functional cyst. A small solitary cyst in the left ovary is likely a normal follicle. Procedure Note Celestine Jaimes MD - 03/05/2025 Procedure: Ultrasound of the pelvis. HISTORY: hirsutism ? pcos?. TECHNIQUE: Transabdominal and endovaginal grayscale, color Doppler, andspectral Doppler ultrasound evaluation of the pelvis. COMPARISON: 10/02/2022. FINDINGS: The uterus is anteverted and measures 8 x 3.8 x 5.1 cm. Endometrialstripe within normal limits in this premenopausal aged patient, measuring9 mm. Normal myometrium. Incidentally noted clustered nabothian cysts. Right ovarian volume is 16.1 mL. Left ovarian volume is 5.6 mL. Normal bilateral ovarian Doppler flow. There is a 2.7 x 1.8 x 2.1 cm hypoechoic lesion without Doppler flow inthe left ovary suggestive of a functional cyst. A small solitary cyst in the left ovary is likely a normal follicle. IMPRESSION: No convincing findings to suggest PCOS. 1. 2.7 cm diameter hypoechoic right ovarian cysts, likely functional in apatient of this age. This results in a larger than normal calculatedright ovarian volume. 2. Solitary small cyst arising from the left ovary suggestive of a normalfollicle. -------- FINAL REPORT -------- Dictated By: Celestine Jaimes Dictated Date: 03/05/2025 14:00 ET Assigned Physician: Celestine Jaimes Reviewed and Electronically Signed By: Celestine Jaimes Signed Date: 03/05/2025 14:03 ET Workstation ID: [id number] Transcribed By: Self Edit Transcribed Date: 03/05/2025 14:00 ET us Manjeet Quiroga MD IMG US PROCEDURES Final R esult * US Abdomen Limited (02/13/2025 7:42 AM EDT) Anatomical Region Laterality Modality Body Ultrasound 02/13/2025 8:18 AM EDT Impressions 02/13/2025 8:20 AM EDT No abnormality detected in the left upper quadrant. -------- FINAL REPORT -------- Dictated By: Avani Pedro Dictated Date: 02/13/2025 08:18 ET Assigned Physician: Avani Pedro Reviewed and Electronically Signed By: Avani Pedro Signed Date: 02/13/2025 08:20 ET Workstation ID: [id number] Transcribed By: Self Edit Transcribed Date: 02/13/2025 08:18 ET Narrative 02/13/2025 8:20 AM EDT EXAM: Abdomen ultrasound, limited HISTORY: Incidental left upper quadrant pain with light palpation during routine physical exam. COMPARISON: None, correlation with CT abdomen and pelvis 05/04/2020 FINDINGS: Spleen: Normal in size measuring 9.2 cm. No focal abnormality. Left kidney: Normal in size measuring 11.6 cm in craniocaudad extent. No hydronephrosis, focal lesions, or shadowing stones. Free fluid: None. Procedure Note Avani Pedro MD - 02/13/2025 EXAM: Abdomen ultrasound, limited HISTORY: Incidental left upper quadrant pain with light palpation duringroutine physical exam. COMPARISON: None, correlation with CT abdomen and pelvis 05/04/2020 FINDINGS: Spleen: Normal in size measuring 9.2 cm. No focal abnormality. Left kidney: Normal in size measuring 11.6 cm in craniocaudad extent. Nohydronephrosis, focal lesions, or shadowing stones. Free fluid: None. IMPRESSION: No abnormality detected in the left upper quadrant. -------- FINAL REPORT -------- Dictated By: Avani Pedro Dictated Date: 02/13/2025 08:18 ET Assigned Physician: Avani Pedro Reviewed and Electronically Signed By: Avani Pedro Signed Date: 02/13/2025 08:20 ET Workstation ID: [id number] Transcribed By: Self Edit Transcribed Date: 02/13/2025 08:18 ET Sherrell Santos CNM IMG US PROCEDURES Final Resul t * Hepatitis C antibody (02/08/2025 10:48 AM EDT) Hepatitis C Antibody Negative Negative LAB CHEMISTRY METHOD 02/08/2025 1:20 PM EDT [facility] Blood Venous blood specimen / Unknown Venipuncture / Unknown 02/08/2025 10:48 AM EDT 02/08/2025 11:29 AM EDT Sherrell Santos [facility] BLOOD ORDERABLES Final Re sult [facility] [address] [place] [address], [place] [phone] * HIV 1,2 antibody, p24 antigen with reflex to differentiation (02/08/2025 10:48 AM EDT) HIV Combo AB/AG Negative Negative LAB CHEMISTRY METHOD 02/08/2025 1:21 PM EDT [facility] Blood Venous blood specimen / Unknown Venipuncture / Unknown 02/08/2025 10:48 AM EDT 02/08/2025 11:29 AM EDT Narrative [facility] - 02/08/2025 1:21 PM EDT This assay is a 4th generation assay allowing for earlier detection of HIV infection by detecting the presence of the HIV-1 p24 antigen as well as the traditional antibodies to HIV type 1 (including group O) and type 2. Use of a 4th generation assay is the current CDC recommendation for HIV screening. [facility] BLOOD ORDERABLES Final Re sult Performing Organization Address [facility]/ZIP Co de Phone Number [facility] [address] [place] [address], [place] [phone] * Treponema pallidum antibody with reflex to RPR and particle agglutination (02/08/2025 10:48 AM EDT) T. Pallidum Antibodies Negative Negative LAB CHEMISTRY METHOD 02/08/2025 2:13 PM EDT [facility] Blood Venous blood specimen / Unknown Venipuncture / Unknown 02/08/2025 10:48 AM EDT 02/08/2025 11:29 AM EDT [facility] BLOOD ORDERABLES Final Re sult Performing Organization Address [facility] Co de Phone Number [facility] [address] [place] [address], [place] [phone] * Trichomonas vaginalis antigen (02/08/2025 10:36 AM EDT) Trichomonas vaginalis Negative Negative 02/08/2025 1:40 PM EDT [facility] Swab Vaginal structure / Unknown Non-blood Collection / Unknown 02/08/2025 10:36 AM EDT 02/08/2025 11:47 AM EDT [facility] MICROBIOLOGY - GENERAL OR DERABLES Final Result Performing Organization Address City/[facility]/ZIP Co de Phone Number [facility] [address] [place] [address], [place] [phone] * Chlamydia trachomatis and Neisseria gonorrhoeae molecular study (02/08/2025 10:36 AM EDT) Neisseria gonorrhoeae PCR Negative Negative LAB MOLECULAR DIAGNOSTICS METHOD 02/09/2025 1:18 PM EDT [facility] Chlamydia trachomatis PCR Negative Negative LAB MOLECULAR DIAGNOSTICS METHOD 02/09/2025 1:18 PM EDT [facility] Swab Vaginal structure / Unknown Non-blood Collection / Unknown 02/08/2025 10:36 AM EDT 02/08/2025 11:47 AM EDT [facility] MICROBIOLOGY - GENERAL OR DERABLES Final Result [facility] [address] [place] [address], * Wet prep, genital (02/08/2025 10:36 AM EDT) Clue Cells, Wet Prep Negative Negative 02/08/2025 1:40 PM EDT [facility] Yeast, Wet Prep Negative Negative 02/08/2025 1:40 PM EDT [facility] Trichomonas, Wet Prep Indeterminate Negative 02/08/2025 1:40 PM EDT [facility] Comment:Refer to Trichomonas antigen. Swab Vaginal structure / Unknown Non-blood Collection / Unknown 02/08/2025 10:36 AM EDT 02/08/2025 11:47 AM EDT [facility] MICROBIOLOGY - GENERAL OR DERABLES Final Result [facility] [address] [place] [address], * HPV genotype (02/08/2025 10:27 AM EDT) HPV Type 16 Negative Negative LAB MICROBIOLOGY METHOD 02/16/2025 6:40 AM EDT [facility] HPV Type 18/45 Negative Negative LAB MICROBIOLOGY METHOD 02/16/2025 6:40 AM EDT [facility] HPV Type 16,18, and others Valid LAB MICROBIOLOGY METHOD 02/16/2025 6:40 AM EDT [facility] Brushing Cervix uteri structure / Unknown 02/08/2025 10:27 AM EDT 02/09/2025 6:18 AM EDT Sherrell Santos [facility] MOLECULAR DIAGNOSTICS ORD ERABLES Final Result [facility] [address] [place] [address], [place] [phone] * (ABNORMAL) HPV with reflex genotype (02/08/2025 10:27 AM EDT) HPV Positive( A) Negative LAB MICROBIOLOGY METHOD 02/15/2025 8:00 AM EDT [facility] Brushing Cervix uteri structure / Unknown 02/08/2025 10:27 AM EDT 02/09/2025 6:18 AM EDT Sherrell DAVIS LAB MOLECULAR DIAGNOSTICS ORD ERABLES Final Result Performing Organization Address City/[facility]/ZIP Co de Phone Number [facility] [address] [place] [address], [place] [phone] * (ABNORMAL) Pap smear (02/08/2025 10:27 AM EDT) Interpretation Low grade squamous intraepithelial lesion Atypical squamous cells of undetermined significance, cannot exclude high grade(A) 02/28/2025 11:50 AM EDT [facility] at 1150 EDT Clinical Information Lgsil pos hpv 2023 colpo benign 02/28/2025 11:50 AM EDT [facility] General Categorization Epithelial cell abnormality, see interpretation 02/28/2025 11:50 AM EDT [facility] Other Findings Fungal organisms morphologically consistent with Jolene spp Shift in ele suggestive of bacterial vaginosis 02/28/2025 11:50 AM EDT [facility] Specimen Adequacy Satisfactory for evaluation, endocervical/lindsay sformation zone component absent 02/28/2025 11:50 AM EDT [facility] Pap Methodology Liquid Based Pap Test 02/28/2025 11:50 AM EDT [facility] Disclaimer The Pap test is a screening test which carries an inherent false negative rate. These test results should be correlated with the patient's clinical findings and history. This Pap test was processed using an automated screening system. Technical cytopathology services provided by [facility], at [address] [place] [id number] (CLIA # [id number]/Dashawn Reynoso MD, Stone Repairer.) 02/28/2025 11:50 AM EDT [facility] Console Pap Interpretation Reported 02/28/2025 11:50 AM [facility] Brushing Cervix uteri structure / Unknown 02/08/2025 10:27 AM EDT 02/09/2025 6:18 AM EDT Comment:Lgsil pos hpv 2023 c olpo benign Sherrell Santos CNNeptali LAB CYTOLOGY ORDERABLES Final Result [facility] [address] [place] [address], * Diabetes Eye Exam (09/03/2023) Diabetes: Annual Retina Eye Exam abstracted Historical Provider HEALTH MAINTENANCE Final Result * (ABNORMAL) Hemoglobin A1c (09/24/2022) Hemoglobin A1C 12.7(A) <=6.5 % Blood Venous blood specimen / Unknown us Historical Provider LAB BLOOD ORDERABLES Carol Ann racquel Result from Last 3 Months or Most Recently Relevant to Health Maintenance Insurance [facility] Care Teams Nurse'S Companion Relationship Specialty Start Date End Date Manjeet Quiroga MD [address] [place] [address] PCP - General Internal Medicine 07/22/20
--- OUTSIDE RECORDS SUMMARY | 2025-03-13 20:49 | XMS_ITS | Clinical Summary ---
Author Organization Located Within [facility] Address [address] [facility] [address] [place] [address] Phone Care Team Providers Care Director Voice Name Role Phone Manjeet Quiroga MD Primary Care Pr ovider Allergies No known active allergies Medications Lactobac 42-Bifid 0-cffzkj-MEO 30-500-50 mg PwPk Take by mouth. Activ e multivitamins with iron-folic acid (CENTRUM COMPLETE) 18-400 mg-mcg Tab Take 1 tablet by mouth. Active albuterol 90 mcg/actuation inhaler Inhale 2 puffs into the lungs. Active VENTOLIN HFA 90 mcg/actuation inhaler TAKE 2 PUFFS BY MOUTH FOUR TIMES DAILY NEEDED FOR SHORTNESS OF BREATH OR FOR WHEEZING 1 Active aspirin 81 MG EC tablet Take 1 tablet by mouth. Active cholecalcifero l (VITAMIN D3) 2,000 unit tablet Take 2,000 Units by mouth daily. 1 Active FREESTYLE ELIZABETH 14 DAY READER Misc as directed. 1 Active fluticasone propionate (FLOVENT HFA) 110 mcg/actuation inhaler Inhale 1 puff into the lungs. Active lisinopril (PRINIVIL,ZEST RIL) 5 MG tablet Take 1 tablet by mouth. Active pantoprazole (PROTONIX) 40 MG tablet Take 1 tablet by mouth. Active FREESTYLE ELIZABETH 14 DAY SENSOR Kit by Miscellaneous route. Active JARDIANCE 10 mg tabletIndicati ons:Type 2 diabetes mellitus with hyperglycemia, with long-term current use of insulin Take 1 tablet (10 mg total) by mouth every morning. 90 tablet 1 2 Active LANTUS SOLOSTAR U-100 INSULIN 100 unit/mL (3 mL) InPn injection penIndications :Type 2 diabetes mellitus with hyperglycemia, with long-term current use of insulin Inject 50 Units under the skin nightly at bedtime. 45 mL 1 2 Active Active Problems Problem Noted Date Diagnosed Date Type 2 diabetes mellitus wit h hyperglycemia, with long-term current use of insulin 02/20/2021 Assessment & Plan (05/19/2022 2:24 PM EST): The patient informs me that she apparently had an A1c below 7% but cannot recall exactly when this was when I saw her over 10 months ago she had an A1c of 7.2% and I increase Trulicity to 3.0 so is possible that her A1c dropped below 7% but she stopped taking her medications. She stopped Trulicity because of vomiting but she also stopped all her other medications. So at this point I am prescribing Lantus to 50 units as opposed to 30 and stopping the glipizide. I also prescribed Jardiance 10 mg daily. She should take her medications in order to have improved glycemic control. I do not have any of her lab work I requested repeat hemoglobin A1c for follow- up visit in 3 months urine microalbumin comprehensive and lipid panel which should be done fasting prior to the follow-up visit. I told the patient that if she has lab work done at another facility and is current she should bring that in to have the primary care physician's office forwarded to us. The patient did ask if I could check a cortisol level because she has difficulty losing weight. If the cortisol was elevated then I can do dexamethasone suppression test. She was advised to do cortisol level fasting. Assessment & Plan (07/07/2021 12:00 PM EST): Good improvement in the hemoglobin A1c from 9.9 to 7.2%. I am going to increase Trulicity to 3.0 mg weekly and. Januvia but she will continue her other medications such as Jardiance and glipizide. Eventually if her glucose do decreases below 7% we can potentially stop glipizide. Assuming that she tolerates the higher dose of Trulicity. She is having vomiting and diarrhea but she believes it is from eating certain food products and hopefully that is the case so that she will have to stop her medication or Trulicity because she is doing quite well with it. She will follow in 3 months. Assessment & Plan (02/20/2021 12:46 PM EDT): The patient does not want to become dependent on insulin. She had an improvement in her glycemic control her hemoglobin A1c dropped from 11.3 to 9.9%. This is on glipizide and Jardiance and monitoring her diet. I have convinced the patient to try Trulicity which is GLP-1 agonist. This medication has 4 mechanisms of action. It acts on the hypothalamus to suppress appetite so she will need as much. It decreases gastric emptying so she feels full and does not eat as much. It inhibits hepatic gluconeogenesis to prevent sugar production in the liver. It also stimulates insulin secretion in a glucose dependent manner. It is associated with possible nausea, vomiting, diarrhea, constipation. We will not know if she will tolerate it until she tries it. The patient will experience nausea but the nausea does improve and we start out with the smallest dose of Trulicity. Today I have given the patient a sample of Trulicity 0.75 mg weekly. I gave her a sample lot number [id number], expiration 7 01/2023. She has no history of pancreatitis or medullary thyroid carcinoma so she should be fine to use this medication. Family History Medical History Relation Comments No Known Problems Father COPD Mother Diabetes Mother Hypertension Mother Relation Status Comments Father Other Mother Alive Social History Tobacco Use Types Packs/Day Years Used Date Smoking Tobacco: Never Smokeless Tobacco: Never Alcohol Use Standard Drinks/Week Comments Not Currently 0 (1 standard drink = 0.6 oz pur e alcohol) Education Answer Date Recorded Are you interested in more education? Not on mariaelena e 09/19/2022 Are you concerned about learning? Not on file 09/19/2022 No 09/19/2022 No 09/19/2022 Digital Access Answer Date Recorded No 10/17/2022 No 10/17/2022 No 10/17/2022 Reliable internet access at home? Not on file 10/17/2022 Device with a working camera? Not on file Comments Unknown Sex and Gender Information Value Date Recorded Sex Assigned at Not on file Legal Sex Female 9:38 AM EDT Gender Identity Not on file Sexual Orientation Not on file Last Filed Vital Signs Vital Sign Reading Time Taken Comments Blood Pressure 108/62 05/19/2022 1:43 PM EST Pulse 85 05/19/2022 1:43 PM EST Temperature - - Respiratory Rate 16 02/20/2021 11:53 AM EDT Oxygen Saturation 100% 05/19/2022 1:43 PM EST Inhaled Oxygen Concentration - - Weight 110 kg (242 lb 6.4 oz) 05/19/2022 1:43 PM EST Height 154.9 cm (5' 0.98 ) 07/07/2021 11:[address] Body Mass Index 45.83 07/07/2021 11:42 AM EST Plan of Treatment Health Maintenance Due Date Last Done Comments DEPRESSION SCREENING 1999 HEPATITIS C SCREENING 2005 HIV ONE-TIME SCREENING (18-65 YEARS) 2005 PNEUMOCOCCAL VACCINES (0-49 years) (1 of 2 - PCV) 2006 PAP SMEAR 02/18/2008 DIABETIC EYE EXAM 02/20/2021 CREATININE LEVEL 02/24/2022 02/24/2021 LIPID PANEL 02/24/2022 02/24/2021 POTASSIUM LEVEL 02/24/2022 02/24/2021 HEMOGLOBIN A1C 08/17/2022 05/19/2022, 06/24, 02/20/2021 BLOOD PRESSURE 11/17/2022 05/19/2022 INFLUENZA VACCINE (#1) 2024 , 02/20/2019, 02/28/2018, Additional history exists COVID-19 VACCINE ( season) 2025 01/20/2021, 12/30/2020 Adult Td,Tdap Booster 05/16/2030 05/16/2020, 014 HIB VACCINES Completed 07/03/1988 SMOKING STATUS SCREENING (Once After 26 Yrs) Completed 02/20/2021 HEPATITIS A VACCINES Aged Out No long er eligible based on patient's age to complete this topic MENINGOCOCCAL VACCINES (ACWY) Aged Out No longer eligible based on patient's age to complete this topic MENINGOCOCCAL VACCINES (B) Aged Out N o longer eligible based on patient's age to complete this topic Medical Devices Not on file Procedures Procedure Name Priority Date/Time Associated Diagnosis Comments POCT HEMOGLOBIN A1C Routine 05/19/2022 2 :13 PM EST Type 2 diabetes mellitus with hyperglycemia, with long-term current use of insulin LIPID PANEL Routine 02/24/2021 7:50 AM EDT Type 2 diabetes mellitus with hyperglycemia, with long-term current use of insulin COMPREHENSIVE METABOLIC PANEL Routine 02/24/2021 7:50 AM EDT Type 2 diabetes mellitus with hyperglycemia, with long-term current use of insulin from Last 3 Months or Most Recently Relevant to Health Maintenance Results * (ABNORMAL) POCT Hemoglobin A1c (05/19/2022 2:13 PM EST) Hemoglobin A1c 12.5(A) 4.2 - 5.8 % Other 05/19/2022 2:13 PM EST Tan York DO POINT OF CARE TEST ORDERABLES Fi nal Result * (ABNORMAL) Comprehensive metabolic panel (02/24/2021 7:50 AM EDT) Pathologist [facility] SODIUM 137 133 - 146 mmol/L [facility] POTASSIUM 4.5 3.3 - 5.1 mmol/L [facility] Comment:Specimen slightly he molyzed, result may be falsely elevated. CHLORIDE 102 96 - 108 mmol/L [facility] CO2 26 21 - 35 mmol/L [facility] BUN 15 6 - 19 mg/dL [facility] CREATININE 0.70 0.5 - 1.5 mg/dL [facility] GLUCOSE 164(H) 70 - 99 mg/dL [facility] ALBUMIN 3.9 3.9 - 4.8 g/dL [facility] TOTAL PROTEIN 7.3 6.5 - 8.0 g/dL [facility] CALCIUM 9.2 8.4 - 10.3 mg/dL [facility] ALKALINE PHOSPHATASE 81 39 - 117 U/L [facility] TOTAL BILIRUBIN 0.3 0.0 - 1.2 mg/dL [facility] AST 19 0 - 37 U/L [facility] ALT 14 0 - 40 U/L [facility] GLOBULIN 3.4 1 - 4.8 g/dL [facility] EGFR 113 >59 mL/min/1.7 3m2 [facility] Comment:Estimated glomerular filtration rate calculated using the CKD-EPI equation. ANION GAP 14 10 - 20 mmol/L [facility] Blood 02/24/2021 7:50 AM EDT 02/24/2021 7:51 AM EDT us [facility] BLOOD ORDERABLES Final Resul t Performing Organization Address City/[facility] Co de Phone Number [address] [phone] * (ABNORMAL) Lipid panel (02/24/2021 7:50 AM EDT) HDL 49 mg/dL [facility] Comment: Interpretation <40 mg/dL: Low HDL cholesterol (major risk factor for CHD) Greater than or equal to 60 mg/dL: High HDL cholesterol ( negative risk factor for CHD) HDL - cholesterol is affected by a number of factors, e.g. smoking, excerise, hormones, sex and age. CHOLESTEROL 151 0 - 240 mg/dL [facility] TRIGLYCERIDES 116 30 - 160 mg/dL [facility] LDL 79 50 - 129 mg/dL [facility] Comment: LDL levels in terms of risk for coronary heart disease: <100 mg/dL: Optimal 100-129 mg/dL: Near or above optimal 130-159 mg/dL: Borderline high 160-189 mg/dL: High >190 mg/dL: Very High CARDIAC RISK RATIO 3.1(L) 3.3 - 4.4 C [facility] Blood 02/24/2021 7:50 AM EDT 02/24/2021 7:51 AM EDT us Tan York LAB BLOOD ORDERABLES Final Resul t Performing Organization Address City/[facility]/ZIP Co de Phone Number [address] [phone] from Last 3 Months or Most Recently Relevant to Health Maintenance Insurance [facility] [employer] [facility] [employer] [facility] [employer] [facility] [employer] [facility] [employer] [facility] C3 ACO Care Teams Director Voice Relationship Specialty Start Date End Date Manjeet Quiroga MD [address] [place] [address] [place] [address] PCP - General Internal Medicine 01/08/21 Additional Source Comments The information contained in this document represents components of the legal health record. It is not the complete legal health record.Located Within [facility]
--- OUTSIDE RECORDS SUMMARY | 2025-03-13 20:49 | XMS_ITS | Encounter Summary ---
Author Organization [facility] Address [address] [place] [address] Care Team Providers Care Record Press Supervisor Name Role Phone Manjeet Quiroga MD Primary Care Provider [phone] Encounter Details Date Type Department Care Team (Late Contact Info) Description 02/28/2025 Results Follow-Up Obstetrics and Gynecology [address] [phone] Judy Mckeon RN Social History Tobacco Use Types Packs/Day Years Used Date Smoking Tobacco: Never Smokeless Tobacco: Never Alcohol Use Standard Drinks/Week Comments Yes 0 (1 standard drink = 0.6 oz pur e alcohol) Comments Unknown Sex and Gender Information Value Date Recorded Sex Assigned at Not on file Legal Sex Female 4:37 AM EST Gender Identity Not on file Sexual Orientation Not on file documented as of this encounter Plan of Treatment Upcoming Encounters Date Type Department Care Team ([facility] Contact Info) Description 04/23/2025 1:30 PM EST Procedure visit Obstetrics [facility] [place] [address] [place], [place] [phone] Tasia Palma DO [address] [place], [place] 04/23/2025 1:30 PM EST Procedure visit Obstetrics [facility]necology [place] [address] [place] [phone] 05/02/2025 9:45 AM EST Office Visit Orthopedic Surgery - [place] [address] [facility] [address] [place] [phone] Ladarius Amaro DPM [address] [phone] documented as of this encounter Visit Diagnoses Not on filedocumented in this encounter Care Teams Record Press Supervisor Relationship Specialty Start Date End Date Manjeet Quiroga MD [address] [place] [address] PCP - General Internal Medicine 07/22/20 documented as of this encounter
--- OUTSIDE RECORDS SUMMARY | 2025-03-13 20:49 | XMS_ITS | Encounter Summary ---
Author Organization [employer] Address [address] [facility] 7 [place] [address] Care Team Providers Care Senior Technical Trainer Name Role Phone Manjeet Quiroga MD Primary Care Provider [phone] Reason for Visit * Reason Onset Date Comments Med Refill 11/04/2022 Encounter Details Date Type Department Care Team ([facility] st Contact Info) Description 11/04/2022 Telephone [facility] MEDICINE [address] [place] [address] Manjeet Quiroga MD [address] [place] [address] Med Refill Social History Tobacco Use Types [...] inactive medication pen needle 31 gauge x /16. documented in this encounter Plan of Treatment Upcoming Encounters Date Type Department Care Team (Late st Contact Info) Description 07/16/2025 10:30 AM EST Office Visit [facility] OPTOMETRY [address] [place], [place] [phone] Nury Draper, OD [address] [place] [address] documented as of this encounter Visit Diagnoses Not on filedocumented in this encounter Additional Health Concerns Assessment Noted Time PHQ-9 Depression Total Score: 8 10/14/19 23 2:38 PM EDT documented as of this encounter Care Teams Senior Technical Trainer Relationship Specialty Start Date End Date Manjeet Quiroga MD [address] [place] [id number] PCP - General Internal Medicine 05/31/13 documented as of this encounter
--- OUTSIDE RECORDS SUMMARY | 2025-03-13 20:49 | XMS_ITS | Encounter Summary ---
Author Organization [employer] Address [address] [facility] 7t [place] [address] Care Team Providers Care Casino Manager Name Role Phone Manjeet Quiroga MD Primary Care Provider [phone] Reason for Visit * Reason Comments Med Refill Encounter Details Date Type Department Care Team ([facility] Contact Info) Description 02/03/2024 Refill [facility] MEDICINE [address] [place] [address] Manjeet Quiroga MD [address] [place], [place] [phone] Social History Tobacco Use Types Packs/Day Years [...] EDT Travel History Travel Start Travel End [place] 02/22/2025 02/26/2025 documented as of this encounter Plan of Treatment Upcoming Encounters Date Type Department Care Team (Late st Contact Info) Description 07/16/2025 10:30 AM EST Office Visit [facility] OPTOMETRY [address] [place] [address] TarNury salas, OD [address] [place] [address] documented as of this encounter Visit Diagnoses Not on filedocumented in this encounter Additional Health Concerns Assessment Noted Time PHQ-9 Depression Total Score: 0 01/29/20 23 4:36 PM EDT documented as of this encounter Care Teams Casino Manager Relationship Specialty Start Date End Date Manjeet Quiroga MD [address] [place] [address] PCP - General Internal Medicine 05/31/13 documented as of this encounter
--- OUTSIDE RECORDS SUMMARY | 2025-03-13 20:49 | XMS_ITS | Encounter Summary ---
Author Organization [employer] Address [address] [facility] [address] [place] [address] Care Team Providers Care Map Maker Name Role Phone Manjeet Quiroga MD Primary Care Provider [phone] Encounter Details Date Type Department Care Team ([facility] st Contact Info) Description 06/21/2024 Orders Only [facility] MEDICINE [address] [place], [place] [phone] Provider, MD Emilia Social History Tobacco Use [...] EDT Travel History Travel Start Travel End [place] 02/22/2025 02/26/2025 documented as of this encounter Plan of Treatment Upcoming Encounters Date Type Department Care Team (Late st Contact Info) Description 07/16/2025 10:30 AM EST Office Visit [facility] OPTOMETRY [address] [place] [address] Nury Draper, OD [address] [place] [address] documented as of this encounter Procedures Procedure [...] * HM PAP/HPV (09/16/2021 9:15 AM EDT) [facility] Provider HEALTH MAINTENANCE Final Result * Colposcopy (07/23/2020 9:13 AM EST) [facility] Provider IN CLINIC/BEDSIDE ORDERAB LES Final Result * HM PAP/HPV (07/05/2020 9:11 AM EST) [facility] Provider HEALTH MAINTENANCE Final Result * HM PAP/HPV (02/21/2018 9:08 AM EDT) [facility] Provider HEALTH MAINTENANCE Final Result documented in this encounter Visit Diagnoses Not on filedocumented in this encounter Additional Health Concerns Assessment Noted Time PHQ-9 Depression Total Score: 10 025 10:46 AM EST documented as of this encounter Care Teams Map Maker Relationship Specialty Start Date End Date Manjeet Quiroga MD [address] [place] [id number] PCP - General Internal Medicine 05/31/13 documented as of this encounter
== END 2025-03-13 15:49 | disposition home or self-care (01) ==
LOC: HO.HHCX 15:48
PROVIDERS: Visit Provider Family Medicine
DX: R05.9 Cough, unspecified (principal)
CPT/HCPCS: 71046

== ENCOUNTER → 2025-03-13 15:48 | Outpatient (BNV) | payer OTHER, SELFPAY | PROVIDERS: Visit Provider Radiology Diagnostic Radiology | DX: R05.9 Cough, unspecified (principal) | CPT/HCPCS: 71046 ==

== ENCOUNTER 2025-03-30 10:42 | Outpatient (REF) | payer OTHER, SELFPAY ==
--- OUTSIDE RECORDS SUMMARY | 2025-03-30 09:40 | XMS_ITS | Encounter Summary ---
Author Organization [employer] Address [address] [facility] 7t [place] [address] Care Team Providers Care Wire Puller Name Role Phone Manjeet Quiroga MD Primary Care Provider [phone] Reason for Visit * Reason Comments Rash Encounter Details Date Type Department Care Team ([facility] Contact Info) Description 03/30/2025 9:40 AM EST Office Visit [facility] [address] [place] [address] Larissa Almanza NP [address] [place] [address] Rash (Primary Dx) Social History Tobacco Use Types [...] the past 12 months, has t he [employer], gas, oil or water company threatened to [...] AM EDT documented as of this encounter Last Filed Vital Signs Vital Sign Reading Time Taken Comments Blood Pressure 109/62 03/30/2025 9:48 AM EST Pulse 86 03/30/2025 9:48 AM EST Temperature 36.6 C (97.9 F) 03/30/2025 9:48 AM EST Respiratory Rate 18 03/30/2025 9:48 AM EST Oxygen Saturation 98% 03/30/2025 9:48 AM EST Inhaled Oxygen Concentration - - Weight 99.3 kg (219 lb) 03/30/2025 9:48 AM EST Height - - Body Mass Index 41.38 03/13/2025 3:25 PM EDT documented in this encounter Progress Notes * Larissa Almanza NP - 03/30/2025 9:40 AM EST Josiane Pettit is a 40 y.o. female who presents to the office for Chief Complaint Patient presents with Rash Problem List[1] Medical History[2] Allergies[3] Josiane Pettit, 40-year-old female - Developed slight itch preceding trip to [employer] - Persistent itch in same area after returning home - Progression to itchy, dark patch on right side and stomach, onset of patch on stomach 2 days prior to visit (March 28, 2025) - Tried triamcinolone and hydrocortisone creams without improvement, worsening itch - Denies history of eczema - Denies fever, joint pain, cough, abdominal symptoms, urinary symptoms, vaginal symptoms - History of diabetes, reports frequent UTIs - Reports chronic body aches, recently more severe Review of Systems Musculoskeletal: Positive for back pain. BP 109/62 (BP Location: Right arm, Patient Position: Sitting, BP Cuff Size: Large adult) Pulse 86 Temp 97.9 ??F (36.6 ??C) (Temporal) Resp 18 Wt 219 lb (99.3 kg) LMP 03/07/2025 (Exact Date) SpO2 98% BMI 41.38 kg/m?? Physical Exam Vitals reviewed. HENT: Head: Normocephalic and atraumatic. Nose: Nose normal. Eyes: Conjunctiva/sclera: Conjunctivae normal. Cardiovascular: Rate and Rhythm: Normal rate and regular rhythm. Pulmonary: Effort: Pulmonary effort is normal. Breath sounds: Normal breath sounds. Musculoskeletal: General: Tenderness present. Cervical back: Normal range of motion and neck supple. Neurological: General: No focal deficit present. Mental Status: She is alert. - HEENT: Examination of the face reveals no rashes. - ABDOMEN: Examination reveals hyperpigmented macules on the right side and stomach, well demarcated, starting as papules and coalescing into plaques. - SKIN: Hyperpigmented macules, well demarcated, starting as papules and coalescing into plaques, noted on the right side and stomach. No rashes on the face. Results: Assessment & Plan Rash Orders: RPR (Monitor) with Reflex to Titer; Future Chlamydia/N. Gonorrhoeae, PCR, Urine Hepatitis C Antibody with Reflex to HCV, RNA, Quantitative, Real-Time PCR; Future HIV-1/2 Antigen and Antibodies, Fourth Generation, with Reflexes; Future Rash: - Rash with pruritus and hyperpigmentation, etiology unclear. Differential diagnosis includes eczematous, autoimmune, or inflammatory process. Pattern not consistent with classic eczema. Tinea considered but not confirmed. STI-related rash considered unlikely. - Ordered urine tests for gonorrhea and chlamydia, HIV, Hepatitis C, and syphilis screening. Recommended continuation of topical steroids and consideration of systemic steroids. Requested dermatologycolleague consultation for further evaluation. - Risks and side effects: Consent obtained for additional evaluation. Current Medications[4] Based on our discussion, I have outlined the following instructions for you: - Go to the lab to have the urine and blood tests done for gonorrhea, chlamydia, HIV, Hepatitis C, and syphilis as ordered. - Keep using the cream or ointment (topical steroids) on your rash as you have been doing. - You may be asked to take medicine by mouth (systemic steroids) if needed, depending on further evaluation. - You will see a paint specialist (guardian ad litem) soon for more help with your rash. - You have agreed to have these extra tests and evaluations done. Thank you again for your visit, and we look forward to supporting you in your journey to better health. This note was drafted using Ambient (AI) technology. The patient/patient's guardian has been informed and has consented to the use of this technology: Yes [1] Patient Active Problem List Diagnosis Acute renal failure syndrome Anxiety Chronic obstructive lung disease (HCC) Diabetes mellitus type 2, uncomplicated (HCC) Normocytic anemia Obesity Alopecia Migraine Neck pain Pes planus Acute nontraumatic kidney injury Persistent depressive disorder Grief counseling [2] No past medical history on file. [3] No Known Allergies [4] Current Outpatient Medications: albuterol (Ventolin HFA) 108 (90 Base) MCG/ACT inhaler, INHALE 2 PUFFS BY MOUTH FOUR TIMES DAILY ASNEEDED FOR WHEEZING OR SHORTNESS OF BREATH, Disp: 18 g, Rfl: 1 Alcohol Swabs (Alcohol Prep) 70 % pads, To use 2 times a day, Disp: 100 each, Rfl: 11 Aspirin Low Dose 81 MG EC tablet, TAKE 1 TABLET BY MOUTH EVERY DAY, Disp: 90 tablet, Rfl: 3 Blood Glucose Monitoring Suppl (DonorPathyle [place] Lite) w/Device kit, Use 2 - 3 x day, Disp: 1 kit,Rfl: 0 celecoxib (CeleBREX) 200 MG capsule, TAKE 1 CAPSULE BY MOUTH TWICE DAILY, Disp: 60 capsule, Rfl: 0 cholecalciferol VITAMIN D (Vitamin D-3) 50 MCG (2000 UT) tablet, TAKE 1 TABLET BY MOUTH EVERY DAY, Disp: 90 tablet, Rfl: 1 Continuous Blood Gluc Joy Operator Helper (DonorPathyle Neisha 2 [place]) device, To use daily, Disp: 1 each, Rfl: 0 Continuous Blood Gluc Sensor (FreeStyle Neisha 2 Sensor) [facility], To use daily, Disp: 2 each, Rfl: 11 cyclobenzaprine (Flexeril) 10 MG tablet, Take 1 tablet (10 mg) by mouth at bedtime for 10 days., Disp: 10 tablet, Rfl: 0 Ferrous Sulfate (iron) 325 (65 Fe) MG tablet, TAKE 1 TABLET BY MOUTH EVERY OTHER DAY, Disp: 45 tablet, Rfl: 11 fexofenadine (Lou) 180 MG tablet, Take 1 tablet (180 mg) by mouth if needed each day (Allergies)., Disp: 30 tablet, Rfl: 3 fluticasone furoate (Arnuity Ellipta) 200 MCG/ACT inhaler, Inhale 1 puff Once per day. Rinse mouth with water after use to reduce aftertaste and incidence of candidiasis. Do not swallow., Disp: 1 each, Rfl: 11 gabapentin (Neurontin) 300 MG capsule, Take 1 capsule (300 mg) by mouth 3 times daily., Disp: 90 capsule, Rfl: 11 glipiZIDE (Glucotrol) 5 MG tablet, 1 to 3 tabs ac breakfast 1 to 3 tabs ac supper, Disp: 180 tablet, Rfl: 3 hydrocortisone 2.5 % cream, Apply topically 2 times daily., Disp: 20 g, Rfl: 0 Jardiance 25 MG, TAKE 1 TABLET BY MOUTH EVERY DAY, Disp: 30 tablet, Rfl: 11 Lactobacillus-Inulin ([facility]) capsule, TAKE 1 CAPSULE BY MOUTH EVERY DAY, Disp: 30 capsule, Rfl: 11 lisinopril 5 MG tablet, TAKE 1 TABLET BY MOUTH EVERY DAY, Disp: 90 tablet, Rfl: 1 Mometasone Furoate (Asmanex HFA) 200 MCG/ACT aerosol, 1 puff po bid, Disp: 13 g, Rfl: 1 PARoxetine (Paxil) 10 MG tablet, Take 1 tablet (10 mg) by mouth in the morning., Disp: 90 tablet, Rfl: 0 Tirzepatide (Mounjaro) 2.5 MG/0.5ML solution auto-injector, Inject 2.5 mg under the skin 1 (one) time per week., Disp: 2 mL, Rfl: 2 triamcinolone (Kenalog) 0.1 % cream, Apply topically if needed in the morning and at bedtime (pain and swelling)., Disp: 30 g, Rfl: 2 documented in this encounter Plan of Treatment Upcoming Encounters Date Type Department Care Team (Late st Contact Info) Description 04/27/2025 2:30 PM EST Office Visit [facility] [address] [place], [place] [phone] Manjeet Quiroga MD [address] [place], [place] [phone] 07/16/2025 10:30 AM EST Office Visit [facility] [address] [place], [place] [phone] TarkaNury, OD [address] [place] [address] Scheduled Orders Name Type Priority Associated Diagnoses Orde r Schedule RPR (Monitor) with Reflex to Titer Lab Routine Rash Expected: 03/30/2025, Expires: 03/30/2026 Chlamydia/N. Gonorrhoeae, PCR, Urine Lab Routine Rash Ordered: 03/30/2025 Hepatitis C Antibody with Reflex to HCV, RNA, Quantitative, Real-Time PCR Lab Routine Rash Expected: 03/30/2025, Expires: 03/30/2026 HIV-1/2 Antigen and Antibodies, Fourth Generation, with Reflexes Lab Routine Rash Expected: 03/30/2025 (Approximate), Expires: 03/30/2026 documented as of this encounter Visit Diagnoses Diagnosis Rash- Primary Rash and other nonspecific skin eruption documented in this encounter Additional Health Concerns Assessment Noted Time PHQ-9 Depression Total Score: 10 025 10:46 AM EST documented as of this encounter Care Teams Wire Puller Relationship Specialty Start Date End Date Manjeet Quiroga MD [address] [place] [address] PCP - General Internal Medicine 05/31/13 documented as of this encounter
[2025-03-30 12:20] LABS: Alanine Aminotransferase 26 U/L (0-31); Albumin Level 4.5 g/dL (3.5-5.0); Alkaline Phosphatase 92 U/L (39-117); Anion Gap 14 (12-20); Aspartate Amino Transferase 34 U/L (5-31); Blood Urea Nitrogen 16 mg/dL (9-16); Calcium 9.3 mg/dL (8.4-10.2); Carbon Dioxide 22 mmol/L (22-29); Chloride 106 mmol/L (96-108); Cholesterol 172 mg/dL (<200); Estimated Glomerular Filt Rate > 60; HDL Cholesterol 49 mg/dL (>40); Potassium 4.0 mmol/L (3.3-5.1); Sodium 138 mmol/L (135-145); Total Protein 8.0 g/dL (6.5-8.0); Triglycerides 63 mg/dL (<150)
[2025-03-30 12:40] LABS: HIV Num 1 0.08 S/CO (0.00-0.99); ~HepC Num1 0.13 S/CO (0.00-0.79); ~Hepatitis C Antibody Nonreactive (Nonreactive)
--- OUTSIDE RECORDS SUMMARY | 2025-03-30 12:40 | XMS_ITS | Encounter Summary ---
Author Organization [facility] Address [address] [place] [address] Care Team Providers Care General Farmer Name Role Phone Manjeet Quiroga MD Primary Care Provider [phone] Encounter Details Date Type Department Care Team (Late Contact Info) Description 02/28/2025 Results Follow-Up Obstetrics and Gynecology [address] [phone] Judy Mckeon RN Social History Tobacco Use [...] Upcoming Encounters Date Type Department Care Team ([facility] Contact Info) Description 04/23/2025 1:30 PM EST Procedure visit [facility] [place] [address] [place], [place] [phone] Tasia Palma DO [address] [place], [place] 04/23/2025 1:30 PM EST Procedure visit [facility] [place] [address] [place] [phone] 05/02/2025 9:45 AM EST Office Visit Orthopedic Surgery - [place] [address] [facility] [address] [place] [phone] Ladarius Amaro DPM [address] [phone] documented as of this encounter Visit Diagnoses Not on filedocumented in this encounter Care Teams General Farmer Relationship Specialty Start Date End Date Majneet Quiroga MD [address] [place] [address] PCP - General Internal Medicine 07/22/20 documented as of this encounter
--- OUTSIDE RECORDS SUMMARY | 2025-03-30 12:40 | XMS_ITS | Encounter Summary ---
Author Organization [employer] [facility] Address [address] [place] [address] [place] [address] Care Team Providers Care Rehabilitation Medicine Physician Name Role Phone Manjeet Quiroga MD Primary Care Provider [phone] Encounter Details Date Type Department Care Team (Late Contact Info) Description 12/02/2022 Orders Only [facility] [address] [place] [address] Cheryle Cruz LPN Social History Tobacco Use [...] Department Care Team (Late Contact Info) Description 04/27/2025 2:30 PM EST Office Visit [facility] [address] [place] [address] Manjeet Quiroga MD [address] [place] [address] 07/16/2025 10:30 AM EST Office Visit [facility] [address] [place] [address] Nury Draper, OD [address] [place] [address] documented as of this encounter Visit Diagnoses Not on filedocumented in this encounter Additional Health Concerns Assessment Noted Time PHQ-9 Depression Total Score: 8 10/14/19 23 2:38 PM EDT documented as of this encounter Care Teams Rehabilitation Medicine Physician Relationship Specialty Start Date End Date Manjeet Quiroga MD [address] [place] [phone] PCP - General Internal Medicine 05/31/13 documented as of this encounter
--- OUTSIDE RECORDS SUMMARY | 2025-03-30 12:40 | XMS_ITS | Clinical Summary ---
Author Organization [facility] Address [address] [facility] [address] [place] [phone] Phone Care Team Providers Care Simulation Tech Name Role Phone Manjeet Quiroga MD Primary Care Pr ovider Allergies No known active allergies Medications Lactobac 42-Bifid 7-kqezlb-SBL 30-500-50 mg PwPk Take by mouth. Activ [...] 1 Active FREESTYLE ELIZABETH 14 DAY READER Mis as directed. 1 Active fluticasone propionate (FLOVENT [...] I gave her a sample lot number [id number], expiration 7 01/2023. She has no history [...] 05/16/2030 05/16/2020, 014 HIB VACCINES Completed 07/03/1988 IPV VACCINES Completed 10/11/1991, 08/23, 1987, Additional history exists SMOKING STATUS SCREENING (Once After 26 Yrs) [...] current use of insulin COMPREHENSIVE METABOLIC PANEL (CMP) Routine 02/24/2021 7:50 AM EDT Type 2 diabetes mellitus with hyperglycemia, with long-term current use of insulin from Last 3 Months or Most Recently Relevant to Health Maintenance Results * (ABNORMAL) POCT Hemoglobin A1c (05/19/2022 2:13 PM EST) Pathologist [facility] Hemoglobin A1c 12.5(A) 4.2 - 5.8 % Other 05/19/2022 2:13 PM EST Tan York DO LAB POCT ENTER/EDIT ORDERABLES F inal Result * (ABNORMAL) Comprehensive metabolic panel (02/24/2021 7:50 AM EDT) Pathologist [facility] SODIUM 137 133 - 146 mmol/L [facility] POTASSIUM 4.5 3.3 - 5.1 mmol/L [facility] Comment:Specimen slightly he molyzed, result may be falsely elevated. CHLORIDE 102 96 - 108 mmol/L [facility] CO2 26 21 - 35 mmol/L [facility] BUN 15 6 - 19 mg/dL [facility] CREATININE 0.70 0.5 - 1.5 mg/dL [facility] GLUCOSE 164(H) 70 - 99 mg/dL [facility] ALBUMIN 3.9 3.9 - 4.8 g/dL [facility] TOTAL PROTEIN 7.3 6.5 - 8.0 g/dL [facility] CALCIUM 9.2 8.4 - 10.3 mg/dL [facility] ALKALINE PHOSPHATASE 81 39 - 117 U/L [facility] TOTAL BILIRUBIN 0.3 0.0 - 1.2 mg/dL [facility] AST 19 0 - 37 U/L [facility] ALT 14 0 - 40 U/L [facility] GLOBULIN 3.4 1 - 4.8 g/dL [facility] EGFR 113 >59 mL/min/1.7 3m2 [facility] Comment:Estimated glomerular filtration rate calculated using the CKD-EPI equation. ANION GAP 14 10 - 20 mmol/L [facility] Blood 02/24/2021 7:50 AM EDT 02/24/2021 7:51 AM EDT us Tan York DO LAB BLOOD BKR ORDERABLES Final R esult [address] [address] * (ABNORMAL) Lipid panel (02/24/2021 7:50 AM EDT) HDL 49 mg/dL [facility] Comment: Interpretation <40 mg/dL: Low HDL cholesterol (major risk factor for CHD) Greater than or equal to 60 mg/dL: High HDL cholesterol ( negative risk factor for CHD) HDL - cholesterol is affected by a number of factors, e.g. smoking, excerise, hormones, sex and age. CHOLESTEROL 151 0 - 240 mg/dL [facility] TRIGLYCERIDES 116 30 - 160 mg/dL [facility] LDL 79 50 - 129 mg/dL [facility] Comment: LDL levels in terms of risk for coronary heart disease: <100 mg/dL: Optimal 100-129 mg/dL: Near or above optimal 130-159 mg/dL: Borderline high 160-189 mg/dL: High >190 mg/dL: Very High CARDIAC RISK RATIO 3.1(L) 3.3 - 4.4 C [facility] Blood 02/24/2021 7:50 AM EDT 02/24/2021 7:51 AM EDT us Tan Pahala DO LAB BLOOD BKR ORDERABLES Final R esult [facility] [address] [place] [address] from Last 3 Months or Most Recently Relevant to Health Maintenance Insurance [facility] [employer] [facility] C3 ACO Care Teams Simulation Tech Relationship Specialty Start Date End Date Manjeet Quiroga MD [address] [place] [address] [place] [address] PCP - General Internal Medicine 01/08/21 Additional Source Comments The information contained in this document represents components of the legal health record. It is not the complete legal health record.[facility]
--- OUTSIDE RECORDS SUMMARY | 2025-03-30 12:40 | XMS_ITS | Encounter Summary ---
Author Organization [employer] Address [address] [facility] 7 [place] [address] Care Team Providers Care Car Greaser Name Role Phone Manjeet Quiroga MD Primary Care Provider [phone] Encounter Details Date Type Department Care Team (Late st Contact Info) Description 03/09/2023 Orders Only [facility] MED & PEDS [address] [place] [address] Manjeet Quiroga MD 505 [place] [address] Bilateral carpal tunnel syndrome (Primary Dx); Cervical [...] Description 04/27/2025 2:30 PM EST Office Visit [facility] [address] [place], [place] [phone] Manjeet Quiroga MD 505 [place] [address] 07/16/2025 10:30 AM EST Office Visit [facility] OPTOMETRY [address] [place] [address] Tarka, Nury, OD [address] [place] [address] documented as of this encounter Visit Diagnoses Diagnosis Bilateral carpal tunnel syndrome- Primary Carpal tunnel syndrome Cervical radiculopathy Brachial neuritis or radiculitis nos documented in this encounter Additional Health Concerns Assessment Noted Time PHQ-9 Depression Total Score: 0 01/29/20 23 4:36 PM EDT documented as of this encounter Care Teams Car Greaser Relationship Specialty Start Date End Date Manjeet Quiroga MD 505 [place] [address] PCP - General Internal Medicine 05/31/13 documented as of this encounter
--- OUTSIDE RECORDS SUMMARY | 2025-03-30 12:40 | XMS_ITS | Encounter Summary ---
Author Organization [employer] Address [address] [facility] 7 [place] [address] Care Team Providers Care Child Monitor Name Role Phone Manjeet Quiroga MD Primary Care Provider [phone] Reason for Visit * Reason Comments Med Refill Encounter Details Date Type Department Care Team ([facility] st Contact Info) Description 02/03/2024 Refill [facility] MEDICINE [address] [place] [address] Manjeet Quiroga MD [address] [place] [address] Social History Tobacco Use Types Packs/Day Years [...] Description 04/27/2025 2:30 PM EST Office Visit [facility] MED & PEDS 505 [place] [address] Manjeet Quiroga MD [address] [place], [place] [phone] 07/16/2025 10:30 AM EST Office Visit [facility] OPTOMETRY [address] [place], [place] [phone] TarkaNury, OD 267 [place] [address] documented as of this encounter Visit Diagnoses Not on filedocumented in this encounter Additional Health Concerns Assessment Noted Time PHQ-9 Depression Total Score: 0 01/29/20 23 4:36 PM EDT documented as of this encounter Care Teams Child Monitor Relationship Specialty Start Date End Date Manjeet Quiroga MD [address] [place] [address] PCP - General Internal Medicine 05/31/13 documented as of this encounter
--- OUTSIDE RECORDS SUMMARY | 2025-03-30 12:40 | XMS_ITS | Encounter Summary ---
Author Organization [employer] Address [address] [facility] 7 [place] [address] Care Team Providers Care Post Partum Nurse Name Role Phone Manjeet Quiroga MD Primary Care Provider [phone] Reason for Visit * Reason Comments Med Refill Encounter Details Date Type Department Care Team ([facility] st Contact Info) Description 03/02/2023 Refill [facility] MED & PEDS [address] [place] [address] Manjeet Quiroga MD 505 [place] [address] Type 2 diabetes mellitus with diabetic polyneuropathy [...] Description 04/27/2025 2:30 PM EST Office Visit [facility] CH[facility] MED & PEDS [address] [place] [address] Manjeet Quiroga MD 505 [place] [address] 07/16/2025 10:30 AM EST Office Visit [facility] OPTOMETRY [address] [place] [address] Tarka, Nury, OD 267 [place] [address] documented as of this encounter Visit Diagnoses Diagnosis Type 2 diabetes mellitus with diabetic polyneuropathy (HCC) documented in this encounter Additional Health Concerns Assessment Noted Time PHQ-9 Depression Total Score: 0 01/29/20 23 4:36 PM EDT documented as of this encounter Care Teams Post Partum Nurse Relationship Specialty Start Date End Date Manjeet Quiroga MD [address] [place] [address] PCP - General Internal Medicine 05/31/13 documented as of this encounter
--- OUTSIDE RECORDS SUMMARY | 2025-03-30 12:40 | XMS_ITS | Clinical Summary ---
Author Organization [address] [facility] Address [address] [place] [address] Phone Care Team Providers Care Manager Skilled Name Role Phone Manjeet Quiroga MD Primary Care Provider [phone] Allergies No known active allergies Medications diclofenac (VOLTAREN) 1 % topical gel Apply 4 g topically 2 times daily. 4 Active Lactobac. rhamnosus GG-inulin ([facility] Chip Estimate [facility]) 10 billion cell -200 mg capsule, [...] mellitus type 2, co ntrolled, with complications ([facility] V24, [facility] V28) 03/30/2024 Normocytic anemia 01/23/2022 Acute nontraumatic kidney injury ([facility] V24) 0 12/23/2020 Acute renal failure syndrome ([facility] V24) 12/23 Atypical squamous cells of u [...] in one year Obesity, morbid, BMI 40.0-49.9 ([facility] V24, [facility] V28) 07/05/2019 Anxiety 11/08/2017 Neck pain 04/27/2016 Alopecia 01/24/2013 Migraine 01/24/2013 Pes planus 01/24/2013 Chronic obstructive lung disease ([facility] V24, [facility] V28) 02/19/2012 Encounters Date Type Department Care Team Description 02/28/2025 10:27 AM EDT - 02/28/2025 11:59 PM EDT Hospital Encounter [facility] Ultrasound [address] [place] [phone] Hirsutism Discharge Disposition: Home or Self Care 02/28/2025 Results Follow-Up Obstetrics and Gynecology - [address] [phone] Judy Mckeon RN 02/13/2025 7:15 AM EDT - 02/13/2025 11:59 PM EDT Hospital Encounter Radiology Department - [address] [phone] LUQ pain Discharge Disposition: Home or Self Care 02/08/2025 10:00 AM EDT Office Visit Obstetrics & Gynecology - [address] [phone] Sherrell Santos, RYANM Women's annual routine gynecological examination (Primary Dx); LGSIL of cervix of undetermined significance; Papanicolaou smear of cervix with low risk human papillomavirus (HPV) DNA test positive; Female infertility; Venereal disease screening; Encounter for screening for viral disease; Vaginal discharge; Vaginal itching; LUQ pain 01/23/2025 9:00 AM EDT Office Visit Orthopedic Surgery [facility] [address] [facility] [address] [place] [phone] Ladarius Amaro, DPM Plantar fascial fibromatosis (Primary [...] to less than 46yo 02/24/2021,10/25/2020,07/23/2020 Hepatitis B (Xqrldtj-E-Ariks , Recombivax HB-Adult) 19yo and older 05/03/1998,01/03/1998,11/28/1997 [...] SURGERY 07/30/2016 PROCEDURE: HISTORICAL NECK SURGERY; COMMENT: [facility] Medical History Medical History Date Comments Anemia DX:Anemia Anxiety state DX:Anxiety state Asthma DX:Asthma Diabetes mellitus type 2, co ntrolled, with complications ([facility] V24, [facility] V28) DX:Diabetes mellitus type 2, controlled, with complications ([facility]) Bacterial vaginosis 01/24/2016 DX:Bacterial vaginosis; COMMENT: 10/05/14, [...] Obst[facility]s [facility]ne[facility] [address] [place], [place] [phone] Tasia Palma DO [address] [place], [place] 04/23/2025 1:30 PM EST Procedure visit Obstetrics and Gynecology - [facility] [address] [place], [place] [phone] 05/02/2025 9:45 AM EST Office Visit Orthopedic Surgery - [place] [address] [phone] Ladarius Amaro, DPM [address] [phone] Health Maintenance Due Date Last Done Comments [...] Signed Date: 03/05/2025 14:03 ET Workstation ID: [id number] Transcribed By: Self Edit Transcribed Date: 03/05/2025 [...] Celestine Jaimes Reviewed and Electronically Signed By: Celsetine Jaimes Signed Date: 03/05/2025 14:03 ET Workstation ID: [id number] Transcribed By: Self Edit Transcribed Date: 03/05/2025 [...] Signed Date: 02/13/2025 08:20 ET Workstation ID: [id number] Transcribed By: Self Edit Transcribed Date: 02/13/2025 [...] Signed Date: 02/13/2025 08:20 ET Workstation ID: [id number] Transcribed By: Self Edit Transcribed Date: 02/13/2025 08:18 ET Sherrell Santos CNM IMG US PROCEDURES Final Resul t * Hepatitis C antibody (02/08/2025 10:48 AM EDT) Hepatitis C Antibody Negative Negative LAB CHEMISTRY METHOD 02/08/2025 1:20 PM EDT [facility] Blood Venous blood specimen / Unknown Venipuncture / Unknown 02/08/2025 10:48 AM EDT 02/08/2025 11:29 AM EDT Sherrell Santos [facility] BLOOD ORDERABLES Final Re sult [facility] [address] [place] [address], [place] [phone] * HIV 1,2 antibody, p24 antigen with reflex to differentiation (02/08/2025 10:48 AM EDT) HIV Combo AB/AG Negative Negative LAB CHEMISTRY METHOD 02/08/2025 1:21 PM EDT [facility] Blood Venous blood specimen / Unknown Venipuncture / Unknown 02/08/2025 10:48 AM EDT 02/08/2025 11:29 AM EDT Narrative [facility] - 02/08/2025 1:21 PM EDT This assay is a 4th generation assay allowing for earlier detection of HIV infection by detecting the presence of the HIV-1 p24 antigen as well as the traditional antibodies to HIV type 1 (including group O) and type 2. Use of a 4th generation assay is the current CDC recommendation for HIV screening. [facility] BLOOD ORDERABLES Final Re sult Performing Organization Address [facility]/ZIP Co de Phone Number [facility] [address] [place] [address], [place] [phone] * Treponema pallidum antibody with reflex to RPR and particle agglutination (02/08/2025 10:48 AM EDT) T. Pallidum Antibodies Negative Negative LAB CHEMISTRY METHOD 02/08/2025 2:13 PM EDT [facility] Blood Venous blood specimen / Unknown Venipuncture / Unknown 02/08/2025 10:48 AM EDT 02/08/2025 11:29 AM EDT [facility] BLOOD ORDERABLES Final Re sult Performing Organization Address [facility] Co de Phone Number [facility] [address] [place] [address], [place] [phone] * Trichomonas vaginalis antigen (02/08/2025 10:36 AM EDT) Trichomonas vaginalis Negative Negative 02/08/2025 1:40 PM EDT [facility] Swab Vaginal structure / Unknown Non-blood Collection / Unknown 02/08/2025 10:36 AM EDT 02/08/2025 11:47 AM EDT [facility] MICROBIOLOGY - GENERAL OR DERABLES Final Result Performing Organization Address City/[facility]/ZIP Co de Phone Number [facility] [address] [place] [address], [place] [phone] * Chlamydia trachomatis and Neisseria gonorrhoeae molecular study (02/08/2025 10:36 AM EDT) Neisseria gonorrhoeae PCR Negative Negative LAB MOLECULAR DIAGNOSTICS METHOD 02/09/2025 1:18 PM EDT [facility] Chlamydia trachomatis PCR Negative Negative LAB MOLECULAR DIAGNOSTICS METHOD 02/09/2025 1:18 PM EDT [facility] Swab Vaginal structure / Unknown Non-blood Collection / Unknown 02/08/2025 10:36 AM EDT 02/08/2025 11:47 AM EDT [facility] MICROBIOLOGY - GENERAL OR DERABLES Final Result [facility] [address] [place] [address], * Wet prep, genital (02/08/2025 10:36 AM EDT) Clue Cells, Wet Prep Negative Negative 02/08/2025 1:40 PM EDT [facility] Yeast, Wet Prep Negative Negative 02/08/2025 1:40 PM EDT [facility] Trichomonas, Wet Prep Indeterminate Negative 02/08/2025 1:40 PM EDT [facility] Comment:Refer to Trichomonas antigen. Swab Vaginal structure / Unknown Non-blood Collection / Unknown 02/08/2025 10:36 AM EDT 02/08/2025 11:47 AM EDT [facility] MICROBIOLOGY - GENERAL OR DERABLES Final Result [facility] [address] [place] [address], * HPV genotype (02/08/2025 10:27 AM EDT) HPV Type 16 Negative Negative LAB MICROBIOLOGY METHOD 02/16/2025 6:40 AM EDT [facility] HPV Type 18/45 Negative Negative LAB MICROBIOLOGY METHOD 02/16/2025 6:40 AM EDT [facility] HPV Type 16,18, and others Valid LAB MICROBIOLOGY METHOD 02/16/2025 6:40 AM EDT [facility] Brushing Cervix uteri structure / Unknown 02/08/2025 10:27 AM EDT 02/09/2025 6:18 AM EDT Sherrell Santos [facility] MOLECULAR DIAGNOSTICS ORD ERABLES Final Result [facility] [address] [place] [address], [place] [phone] * (ABNORMAL) HPV with reflex genotype (02/08/2025 10:27 AM EDT) HPV Positive( A) Negative LAB MICROBIOLOGY METHOD 02/15/2025 8:00 AM EDT [facility] Brushing Cervix uteri structure / Unknown 02/08/2025 10:27 AM EDT 02/09/2025 6:18 AM EDT Sherrell DAVIS LAB MOLECULAR DIAGNOSTICS ORD ERABLES Final Result Performing Organization Address City/[facility]/ZIP Co de Phone Number [facility] [address] [place] [address], [place] [phone] * (ABNORMAL) Pap smear (02/08/2025 10:27 AM EDT) Interpretation Low grade squamous intraepithelial lesion Atypical squamous cells of undetermined significance, cannot exclude high grade(A) 02/28/2025 11:50 AM EDT [facility] at 1150 EDT Clinical Information Lgsil pos hpv 2023 colpo benign 02/28/2025 11:50 AM EDT [facility] General Categorization Epithelial cell abnormality, see interpretation 02/28/2025 11:50 AM EDT [facility] Other Findings Fungal organisms morphologically consistent with Jolene spp Shift in ele suggestive of bacterial vaginosis 02/28/2025 11:50 AM EDT [facility] Specimen Adequacy Satisfactory for evaluation, endocervical/lindsay sformation zone component absent 02/28/2025 11:50 AM EDT [facility] Pap Methodology Liquid Based Pap Test 02/28/2025 11:50 AM EDT [facility] Disclaimer The Pap test is a screening test which carries an inherent false negative rate. These test results should be correlated with the patient's clinical findings and history. This Pap test was processed using an automated screening system. Technical cytopathology services provided by [facility], at [address] [place] [address] (CLIA # [id number]/Dashawn Reynoso MD, Assistant Plant Manager.) 02/28/2025 11:50 AM EDT [facility] Console Pap Interpretation Reported 02/28/2025 11:50 AM [facility] Brushing Cervix uteri structure / Unknown 02/08/2025 10:27 AM EDT 02/09/2025 6:18 AM EDT Comment:Lgsil pos hpv 2023 c olpo benign Sherrell Santos CNNeptali LAB CYTOLOGY ORDERABLES Final Result [facility] [address] [place] [address], * Diabetes Eye Exam (09/03/2023) Diabetes: Annual Retina Eye Exam abstracted Historical Provider HEALTH MAINTENANCE Final Result * (ABNORMAL) Hemoglobin A1c (09/24/2022) Hemoglobin A1C 12.7(A) <=6.5 % Blood Venous blood specimen / Unknown us Historical Provider LAB BLOOD ORDERABLES Carol Ann racquel Result from Last 3 Months or Most Recently Relevant to Health Maintenance Insurance [facility] Care Teams Manager Skilled Relationship Specialty Start Date End Date Manjeet Quiroga MD [address] [place] [address] PCP - General Internal Medicine 07/22/20
--- OUTSIDE RECORDS SUMMARY | 2025-03-30 12:40 | XMS_ITS | Encounter Summary ---
Author Organization [employer] Address [address] [place] [address] 7 [place] [address] Care Team Providers Care Mds Manager Name Role Phone Manjeet Quiroga MD Primary Care Provider [phone] Encounter Details Date Type Department Care Team (Late Contact Info) Description 10/28/2022 Orders Only [facility] CHC MED & PEDS [address] [place] [address] Manjeet Quiroga MD 505 [place] [address] Other emphysema (CMS/HCC) (Primary Dx); Type 2 [...] [facility] CH[facility] MED & PEDS [address] [place] [address] Manjeet Quiroga MD [address] [place] [address] 07/16/2025 10:30 AM EST Office Visit [facility] OPTOMETRY [address] [place] [address] Nury Draper, OD [address] [place] [address] documented as of this encounter Procedures Procedure Name Priority Date/Time Associated Diagnosis Comments QUANTIFERON(R)-TB GOLD PLUS, 1 TUBE Routine 11/10/2022 10:41 AM EDT Other emphysema (CMS/HCC) documented in this encounter Results * QuantiFERON??-TB Gold Plus, 1 Tube (11/10/2022 10:41 AM EDT) [facility] Quantiferon -TB Gold Plus, 1 Tube NEGATIVE NEGATIVE [id number] [place] [facility] Comment: Negative test result. M. tuberculosis complex infection unlikely. NIL 0.08 IU/mL [facility] [place] [facility] MITOGEN-NIL >10.00 IU/mL [facility] [place] [facility] TB1-NIL <0.00 IU/mL [facility] [place] [facility] TB2-NIL <0.00 IU/mL [facility] [place] [facility] Comment: The Nil tube value reflects the [...] T-lymphocytes. For additional information, please refer to https://education.[employer]/faq/BLX640 (This link is being provided for informational/ educational purposes only.) Blood Venous blood specimen / Unknown 11/10/2022 10:41 AM EDT 11/10/2022 10:42 AM EDT Manjeet Quiroga MD LAB BLOOD ORDERABLES Final Result [employer] [address] [place] [address], [place] [address] [facility] [address] [place] [address] documented in this encounter Visit Diagnoses Diagnosis Other emphysema (HCC)- Primary Other emphysema Type 2 diabetes mellitus without complication, with long-term current use of insulin (HCC) documented in this encounter Additional Health Concerns Assessment Noted Time PHQ-9 Depression Total Score: 8 10/14/19 23 2:38 PM EDT documented as of this encounter Care Teams Mds Manager Relationship Specialty Start Date End Date Manjeet Quiroga MD [address] [place] [address] PCP - General Internal Medicine 05/31/13 documented as of this encounter
--- OUTSIDE RECORDS SUMMARY | 2025-03-30 12:40 | XMS_ITS | Encounter Summary ---
Author Organization [employer] Address [address] [place] [address] 7 [place] [address] Care Team Providers Care Commercial Insulator Name Role Phone Manjeet Quiroga MD Primary Care Provider [phone] Encounter Details Date Type Department Care Team (Late Contact Info) Description 12/03/2022 Orders Only [facility] MEDICINE [address] [place] [address] rAlene Abarca LPN Social History Tobacco Use Types [...] Description 04/27/2025 2:30 PM EST Office Visit [facility] CHC MED & PEDS [address] [place], [place] [phone] Manjeet Quiroga MD 505 [place], [place] [phone] 07/16/2025 10:30 AM EST Office Visit [facility] OPTOMETRY [address] [place] [address] Bonny Nury, OD [address] [place] [address] documented as of this encounter Visit Diagnoses Not on filedocumented in this encounter Additional Health Concerns Assessment Noted Time PHQ-9 Depression Total Score: 8 10/14/19 23 2:38 PM EDT documented as of this encounter Care Teams Commercial Insulator Relationship Specialty Start Date End Date Manjeet Quiroga MD [address] [place] [address] PCP - General Internal Medicine 05/31/13 documented as of this encounter
--- OUTSIDE RECORDS SUMMARY | 2025-03-30 12:40 | XMS_ITS | Encounter Summary ---
Author Organization [employer] Address 75 [facility] 7 [place] [address] Care Team Providers Care Rn Transplant Name Role Phone Manjeet Quiroga MD Primary Care Provider [phone] Reason for Visit * Reason Comments Med Refill Encounter Details Date Type Department Care Team ([facility] st Contact Info) Description 09/18/2024 Refill [facility] CHC MED & PEDS [address] [place] [address] Manjeet Quiroga MD 505 [place] [address] Neck pain; Cervical radiculopathy; Plantar fasciitis, bilateral [...] Description 04/27/2025 2:30 PM EST Office Visit [facility] CHC MED & PEDS [address] [place] [address] Manjeet Quiroga MD 505 [place] [address] 07/16/2025 10:30 AM EST Office Visit [facility] OPTOMETRY [address] [place] [address] Nury Draper, OD [address] [place] [address] documented as of this encounter Visit Diagnoses Diagnosis Neck pain Cervicalgia Cervical radiculopathy Brachial neuritis or radiculitis nos Plantar fasciitis, bilateral documented in this encounter Additional Health Concerns Assessment Noted Time PHQ-9 Depression Total Score: 10 025 10:46 AM EST documented as of this encounter Care Teams Rn Transplant Relationship Specialty Start Date End Date Manjeet Quiroga MD [address] [place] [address] PCP - General Internal Medicine 05/31/13 documented as of this encounter
--- OUTSIDE RECORDS SUMMARY | 2025-03-30 12:40 | XMS_ITS | Encounter Summary ---
Author Organization [employer] Address [address] [place] [address] Care Team Providers Care Aprn Name Role Phone Manjeet Quiroga MD Primary Care Provider [phone] Encounter Details Date Type Department Care Team (Late Contact Info) Description 01/05/2023 Orders Only [facility] MED & PEDS [address] [place] [address] Manjeet Quiroga MD [address] [place] [address] Type 2 diabetes mellitus without complication, without long-term current use of insulin ([facility]) (Primary Dx) Social History Tobacco [...] Description 04/27/2025 2:30 PM EST Office Visit [facility] MED & PEDS [address] [place] [address] Manjeet Quiroga MD [address] [place], [place] [phone] 07/16/2025 10:30 AM EST Office Visit [facility] OPTOMETRY [address] [place] [address] Bonny Nury, OD [address] [place] [address] documented as of this encounter Visit Diagnoses Diagnosis Type 2 diabetes mellitus without complication, without long-term current use of insulin (HCC)- Primary documented in this encounter Additional Health Concerns Assessment Noted Time PHQ-9 Depression Total Score: 8 10/14/19 23 2:38 PM EDT documented as of this encounter Care Teams Aprn Relationship Specialty Start Date End Date Manjeet Quiroga MD [address] [place] [address] PCP - General Internal Medicine 05/31/13 documented as of this encounter
--- OUTSIDE RECORDS SUMMARY | 2025-03-30 12:40 | XMS_ITS | Encounter Summary ---
Author Organization [employer] Address [address] [place] [address] Care Team Providers Care Glove Examiner Name Role Phone Manjeet Quiroga MD Primary Care Provider [phone] Reason for Visit * Reason Comments Med Refill Encounter Details Date Type Department Care Team ([facility] st Contact Info) Description 03/08/2023 Refill [facility] [address] [place] [address] Manjeet Quiroga MD [address] [place] [address] Type 2 diabetes mellitus with diabetic polyneuropathy [...] Description 04/27/2025 2:30 PM EST Office Visit [facility] [address] [place] [address] Manjeet Quiroga MD [address] [place] [address] 07/16/2025 10:30 AM EST Office Visit [facility] [address] [place] [address] Tarka, Nury, OD [address] [place] [address] documented as of this encounter Visit Diagnoses Diagnosis Type 2 diabetes mellitus with diabetic polyneuropathy (HCC) documented in this encounter Additional Health Concerns Assessment Noted Time PHQ-9 Depression Total Score: 0 01/29/20 23 4:36 PM EDT documented as of this encounter Care Teams Glove Examiner Relationship Specialty Start Date End Date Manjeet Quiroga MD [address] [place] [address] PCP - General Internal Medicine 05/31/13 documented as of this encounter
--- OUTSIDE RECORDS SUMMARY | 2025-03-30 12:40 | XMS_ITS | Encounter Summary ---
Author Organization [employer] Address [address] [place] [address] Care Team Providers Care Tanbark Peeler Name Role Phone Manjeet Quiroga MD Primary Care Provider [phone] Reason for Visit * Reason Onset Date Comments Med Refill 11/04/2022 Encounter Details Date Type Department Care Team ([facility] st Contact Info) Description 11/04/[address] [facility] MED[facility] [address] [place] [address] Manjeet Quiroga MD [address] [place] [address] Med Refill Social History Tobacco Use Types [...] needles discontinued. * Telephone Encounter - Barbara Dasnez - 11/04/2022 3:14 PM EDT Tc from patient requesting inactive medication pen needle 31 gauge x 10/06. documented in this encounter Plan of Treatment Upcoming Encounters Date Type Department Care Team (Late st Contact Info) Description 04/27/2025 2:30 PM EST Office Visit [facility] MED [facility] PEDS [address] [place] [address] Manjeet Quiroga MD [address] [place], [place] [id number] 07/16/2025 10:30 AM EST Office Visit [facility] OPT[facility] [address] [place], [place] [id number] TarkaNury, OD [address] [place] [address] documented as of this encounter Visit Diagnoses Not on filedocumented in this encounter Additional Health Concerns Assessment Noted Time PHQ-9 Depression Total Score: 8 10/14/19 23 2:38 PM EDT documented as of this encounter Care Teams Tanbark Peeler Relationship Specialty Start Date End Date Manjeet Quiroga MD [address] [place] [address] PCP - General Internal Medicine 05/31/13 documented as of this encounter
--- OUTSIDE RECORDS SUMMARY | 2025-03-30 12:40 | XMS_ITS | Clinical Summary ---
Author Organization [employer] Address [address] [facility] 7 [place] [address] Care Team Providers Care Hot Press Operator Name Role Phone Manjeet Quiroga MD Primary Care Provider [phone] Allergies No known active allergies Medications * This document contains information received from the source organization and may not represent a complete record from that organization. Blood Glucose Monitoring Suppl ([employer] [place]) w/Device kitIndications :Type 2 diabetes mellitus without complication, without long-term current use of insulin ([facility]) Use 2 - 3 x day 1 kit 02/17/20 23 Active Continuous Blood Gluc Research [employer] (FreeStyle Neisha 2 [place]) deviceIndicati ons:Type 2 diabetes mellitus without complication, with long-term current use of insulin ([facility]) To use daily 1 each 08/26/19 24 Active Continuous Blood Gluc Sensor (FreeStyle Neisha 2 Sensor) miscIndication s:Type 2 diabetes mellitus without complication, with long-term current use of insulin ([facility]) To use daily 2 each 11 08/26/19 24 Active glipiZIDE (Glucotrol) 5 MG tabletIndicati ons:Type 2 diabetes mellitus without complication, without long-term current use of insulin ([facility]) 1 to 3 tabs ac breakfast 1 to 3 tabs ac supper 180 tablet 3 02/02/20 24 Active PARoxetine (Paxil) 10 MG tabletIndicati ons:Anxiety Take 1 tablet (10 mg) by mouth in the morning. 90 tablet 02/02/20 24 Active Alcohol Swabs (Alcohol Prep) 70 % pads To use 2 times a day 100 each 11 02/02/20 24 Active Lactobacillus- Inulin ([facility]) capsuleIndicat ions:Bloating TAKE 1 CAPSULE BY MOUTH EVERY DAY 30 capsule 11 07/14/19 25 Active gabapentin (Neurontin) 300 MG capsuleIndicat ions:Type 2 diabetes mellitus with diabetic neuropathy, without long-term current use of insulin ([facility]),Hand paresthesia Take 1 capsule (300 mg) by mouth 3 times daily. 90 capsule 11 08/08/19 25 026 Active cholecalcifero l VITAMIN D (Vitamin D-3) 50 MCG (1999 UT) tabletIndicati ons:Health care maintenance TAKE 1 TABLET BY MOUTH EVERY DAY 90 tablet 1 10/26/19 25 Active Aspirin Low Dose 81 MG EC tablet TAKE 1 TABLET BY MOUTH EVERY DAY 90 tablet 3 12/29/19 25 Active cyclobenzaprin e (Flexeril) 10 MG tabletIndicati ons:Neck pain,Cervical radiculopathy, Plantar fasciitis, bilateral Take 1 tablet (10 mg) by mouth at bedtime for 10 days. 10 tablet 02/16/20 25 Active celecoxib (CeleBREX) 200 MG capsuleIndicat ions:Cervical radiculopathy, Plantar fasciitis, bilateral TAKE 1 CAPSULE BY MOUTH TWICE DAILY 60 capsule 02/16/20 25 Active Tirzepatide (Mounjaro) 2.5 MG/0.5ML solution auto-injectorI ndications:Typ e 2 diabetes mellitus without complication, without long-term current use of insulin ([facility]),Class 3 severe obesity due to excess calories with serious comorbidity and body mass index (BMI) of 40.0 to 44.9 in adult ([facility]) Inject 2.5 mg under the skin 1 (one) time per week. 2 mL 2 02/16/20 25 Active Ferrous Sulfate (iron) 325 (65 Fe) MG tabletIndicati ons:Type 2 diabetes mellitus without complication, without long-term current use of insulin ([facility]) TAKE 1 TABLET BY MOUTH EVERY OTHER DAY 45 tablet 11 02/21/20 25 Active Jardiance 25 MGIndications: Type 2 diabetes mellitus without complication, without long-term current use of insulin ([facility]) TAKE 1 TABLET BY MOUTH EVERY DAY 30 tablet 11 02/21/20 25 Active hydrocortisone 2.5 % creamIndicatio ns:Skin rash Apply topically 2 times daily. 20 g 03/08/20 25 Active fexofenadine (Lou) 180 MG tabletIndicati ons:Skin rash Take 1 tablet (180 mg) by mouth if needed each day (Allergies). 30 tablet 3 03/08/20 25 026 Active albuterol (Ventolin HFA) 108 (90 Base) MCG/ACT inhalerIndicat ions:Cough in adult INHALE 2 PUFFS BY MOUTH FOUR TIMES DAILY NEEDED FOR WHEEZING OR SHORTNESS OF BREATH 18 g 1 03/13/20 25 Active Mometasone Furoate (Asmanex HFA) 200 MCG/ACT aerosolIndicat ions:Chronic obstructive pulmonary disease, unspecified COPD type (CMS/HCC) (HCC) 1 puff po bid 13 g 1 03/13/20 25 Active lisinopril 5 MG tabletIndicati ons:Type 2 diabetes mellitus without complication, without long-term current use of insulin ([facility]) TAKE 1 TABLET BY MOUTH EVERY DAY 90 tablet 1 03/27/20 25 Active fluticasone furoate (Arnuity Ellipta) 200 MCG/ACT inhaler Inhale 1 puff Once per day. Rinse mouth with water after use to reduce aftertaste and incidence of candidiasis. Do not swallow. 1 each 11 03/27/20 25 026 Active triamcinolone (Kenalog) 0.1 % cream Apply topically if needed in the morning and at bedtime (pain and swelling). 30 g 2 03/30/20 25 Active albuterol (Ventolin HFA) 108 (90 Base) MCG/ACT inhaler INHALE 2 PUFFS BY MOUTH FOUR TIMES DAILY NEEDED FOR WHEEZING OR SHORTNESS OF BREATH 18 g 1 05/19/20 24 025 Discontinued(Re order (will not trigger notification to Pharmacy)) lisinopril 5 MG tabletIndicati ons:Type 2 diabetes mellitus without complication, without long-term current use of insulin ([facility]) TAKE 1 TABLET BY MOUTH EVERY DAY 90 tablet 01/03/20 25 025 Discontinued azithromycin (Zithromax) 250 MG tabletIndicati ons:Cough in adult Take 2 tablets (500 mg) by mouth Once per day for 1 day, THEN 1 tablet (250 mg) Once per day for 4 days. 6 tablet 03/13/20 25 025 benzonatate (Tessalon Perles) 100 MG capsuleIndicat ions:Cough in adult Take 1 capsule (100 mg) by mouth if needed in the morning, at noon, and at bedtime for cough for up to 7 days. Do not crush or chew. 20 capsule 03/13/20 25 025 Active Problems Problem Noted Date Diagnosed Date [...] medication management. Intake completed with N at [facility] for OP individual therapy. clinician will provide [...] medication management. Intake completed with N at [facility] for OP individual therapy. clinician will provide [...] Encounters Date Type Department Care Team Description 03/30/2025 9:40 AM EST Office Visit [facility] WALK[facility] [address] [place] [address] Larissa Almanza NP Rash (Primary Dx) 03/30/2025 Travel 03/26/2025 Refill [facility] MED & PEDS [address] [place] [address] Manjeet Quiroga MD Type 2 diabetes mellitus without complication, without long-term current use of insulin ([facility]) 03/13/2025 3:20 PM EDT Office Visit [facility] [address] [place], [place] [phone] Trinidad Bravo MD Cough in adult (Primary Dx); Sore throat; Nasal congestion; Chronic obstructive pulmonary disease, unspecified COPD type (CMS/HCC) (HCC) 03/13/2025 Travel 03/08/2025 11:15 AM EDT Telemedicine [facility] MED & PEDS [address] [place] [address] Manjeet Quiroga MD Skin rash (Primary Dx); Chronic obstructive pulmonary disease, unspecified COPD type (CMS/HCC) ([facility]); Hirsutism 03/07/2025 Telephone [facility] MED [facility] PEDS [address] [place] [address] Manjeet Quiroga MD Chart Prep 03/01/2025 Telephone [facility] MED [facility] PEDS [address] [place] [address] Manjeet Quiroga MD Results 02/28/2025 Results Follow-Up [facility] MED [facility] P[facility] [address] [place] [address] Manjeet Quiroga MD CBC auto differential, CBC auto differential, Comprehensive Metabolic Panel, Additional followed-up results: 8 02/19/2025 Refill [facility] MED [facility] PED[facility] [address] [place] [address] Manjeet Quiroga MD Type 2 diabetes mellitus without complication, without long-term current use of insulin ([facility]/HCC) 02/15/2025 1:00 PM EDT Office Visit [facility] MED [facility] PEDS [address] [place] [address] Manjeet Quiroga MD Type 2 diabetes mellitus without complication, without long-term current use of insulin ([facility]) (Primary Dx); Chronic obstructive pulmonary disease, unspecified COPD type (CMS/HCC); Cervical radiculopathy; Bilateral carpal tunnel syndrome; Normocytic anemia; Neck pain; Cervical radiculopathy; Plantar fasciitis, bilateral; Hirsutism; Encounter for immunization; Class 3 severe obesity due to excess calories with serious comorbidity and body mass index (BMI) of 40.0 to 44.9 in adult 02/15/2025 Travel 02/14/2025 Telephone [facility] MED [facility] [address] [place] [address] Manjeet Quiroga MD Chart Prep 02/13/2025 Orders Only Formerly [facility] Information Management [address] [place] [address] [phone] ProviderEmilia MD 01/01/2025 Refill [facility] PEDS [address] [place], [place] [phone] Manjeet Quiroga MD Type 2 diabetes mellitus without complication, without long-term current use of insulin ([facility]) from Last 3 Months Immunizations Immunization Administration [...] (219 lb) 03/30/2025 9:48 AM EST Height 154.9 cm (5' 1 ) 03/13/2025 3:25 PM EDT Body Mass Index 41.38 03/13/2025 3:25 PM EDT Plan of Treatment Upcoming Encounters Date Type Department Care Team (Late st Contact Info) Description 04/27/2025 2:30 PM EST Office Visit [facility]S [address] [place], [place] [phone] Manjeet Quiroga MD [address] [place] [address] 07/16/2025 10:30 AM EST Office Visit [facility] OPTOMETRY [address] [place] [address] Nury Draper, OD [address] [place] [address] Health Maintenance Due Date Last Done Comments Family Planning (PISQ) 2002 Eye Exam 09/02/2024 Depression Monitoring 12/11/2024 06/13/2024, 025 COVID-19 Vaccine ( season) 2025 05/26/2023, 07/02/2021, 01/20/2021, Additional history exists Colposcopy 02/09/2025 10/20/2023, 09/22, 07/23/2020 Alcohol/Substance Use Screening 04/11/2025 04/11/2024 Diabetes: Urine Protein Screening 04/24/2025 04/24/2024, 08/26/2023, 01/22/2022, Additional history exists Diabetes: Hemoglobin A1C 06/30/2025 025, 02/28/2025, 02/15/2025, Additional history exists SDOH Screening 07/31/2025 07/31/2024 Diabetes: Foot Exam 11/16/2025 11/16/2024 Cervical Cancer Screening 02/08/2026 HPV/Cotest 02/08/2026 02/08/2025 Pap Smear 02/08/2026 02/08/2025, 08/23, 09/16/2021, Additional history exists Disability Screening 03/08/2026 03/08/2025 Lipid Panel 03/30/2026 03/30/2025, 12/2024, 11/10/2022, Additional history exists Tobacco Screening 03/30/2026 03/30/2025 DTaP/Tdap/Td Vaccines (8 - Td or Tdap) [...] Procedure Name Priority Date/Time Associated Diagnosis Comments COMPREHENSIVE METABOLIC PANEL Routine 03/30/2025 10:49 AM EST Type 2 diabetes mellitus without complication, without long-term current use of insulin (HCC) LIPID PANEL, STANDARD Routine 03/30/2025 10:49 AM EST Type 2 diabetes mellitus without complication, without long-term current use of insulin (HCC) HEMOGLOBIN A1C Routine 03/30/2025 10:49 AM EST Controlled type 2 diabetes mellitus with hyperglycemia, without long-term current use of insulin (HCC) XR CHEST 2 VIEWS Routine 03/13/2025 4:07 [...] complication, with long-term current use of insulin ([facility]) from Last 3 Months or Most Recently Relevant to Health Maintenance Results * (ABNORMAL) Hemoglobin A1c (03/30/2025 10:49 AM EST) Only the most recent of2 resultswithin the time period is included. Hemoglobin A1c 7.0(H) <6.0 % [facility] Comment:Hemoglobin A1C Refer ence Range Adults: 4.8 - 6.0 % Non diabetic: < 6.0 % Goal: < 7.0 %Additional Action Suggested: > 8.0 %Note: Hemoglobin A1c results are invalid for patients with abnormal amounts of HbF. Blood transfusions may impact the HbA1c concentration in the patient sample. Estimated Average Glucose 154 mg/dL [facility] Comment:eAG = Estimated ave rage glucose which is %A1C expressed asaverage glucose, using the formula of the I0U-LyrbyxcVhjnoea Glucose study (ADAG), Diabetes Care, Vol.31,#8,Dec. 2007 Blood Venous blood specimen / Unknown 03/30/2025 10:49 AM EST 03/30/2025 11:40 AM EST us Manjeet Quiroga MD LAB BLOOD ORDERABLES Final Result Performing Organization Address City/State/[facility] Co de Phone Number [facility] [address] [place] [phone] * XR Chest 2 Views (03/13/2025 4:07 PM EDT) Anatomical Region Laterality Modality Chest Radiographic Candi ging 03/13/2025 4:07 PM EDT Narrative 03/13/2025 4:00 PM EDT [facility] [address] [place] [address] XRay Report Signed Patient: Josiane Pettit MR#: [id number] : 1985 Acct:[id number] Age/Sex: 40 / F ADM Date: 03/13/25 Loc: .HHCX Attending Dr: Trinidad Bravo MD Ordering Physician: Trinidad Bravo MD Date of Service: 03/13/25 Procedure(s): XR chest 2V Accession Number(s): [id number] cc: Trinidad Bravo MD Reason for Exam: [...] 03/13/25 1557 DD/ 1607 TD/TT: 03/13/25 1555 Surveillance Officer: Procedure Note Donotuseinterpreter, Image - 03/13/2025 [place] [address] XRay Report Signed Patient: Robert PettitR#: [id number] : 1985Acct:[id number] Age/Sex: 40 / FADM Date: 03/13/25 Loc: HO.HHCX Attending Dr: Trinidad Bravo MD Ordering Physician: Trinidad Bravo MD Date of Service: 03/13/25 Procedure(s): XR chest 2V Accession Number(s): [id number] cc: Trinidad Bravo MD Reason for Exam: [...] 03/13/25 1557 DD/ 1607 TD/TT: 03/13/25 1555 Surveillance Officer: Trinidad Bravo MD IMG XR PROCEDURES Final Re sult * POCT Rapid Strep A MARIO ID NOW (03/13/2025 3:42 PM EDT) [facility] Rapid Strep A Screen Negative Negative, None Detected QC Media Lot # [id number] Lot# Expiration Date Swab 03/13/2025 3:42 PM EDT Trinidad Bravo MD POINT OF CARE TEST ENTER/E DIT ORDERABLES Final Result * POCT Rapid Influenza A MARIO ID NOW (03/13/2025 3:41 PM EDT) [facility] Influenza A Negative Negative, Indeterminate [facility] QC Media Lot # [id number] [facility] Lot# Expiration Date [facility] Swab 03/13/2025 3:41 PM EDT Trinidad Bravo MD POINT OF CARE TEST ENTER/E DIT ORDERABLES Final Result [facility] [address] [place] [phone] * POCT Rapid Covid-19 MARIO ID NOW (03/13/2025 3:41 PM EDT) Pathologist [facility] Coronavirus Antigen PCR Negative Negative, Indeterminate, None Detected, Invalid, Specimen unsatisfactory for evaluation, Weakly Positive, 2+ QC Media Lot # [id number] Lot# Expiration Date Swab 03/13/2025 3:41 PM EDT Trinidad Bravo MD POINT OF CARE TEST ENTER/E DIT ORDERABLES Final Result * POCT Rapid Influenza B MARIO ID NOW (03/13/2025 3:40 PM EDT) Pathologist [facility] Influenza B Negative Negative, Indeterminate [facility] QC Media Lot # [id number] [facility] Lot# Expiration Date ,257 [facility] Swab 03/13/2025 3:40 PM EDT Trinidad Bravo MD POINT OF CARE TEST ENTER/E DIT ORDERABLES Final Result Performing Organization Address [facility]/ZIP Co de Phone Number [facility] [address] [place] [phone] * TSH with Reflex to Free T4 (02/28/2025 9:21 AM EDT) Pathologist [facility] TSH reflex Free T4 1.70 0.32 - 4.0 uIU/mL [facility] Blood Venous blood specimen / Unknown 02/28/2025 9:21 AM EDT 02/28/2025 2:18 PM EDT Manjeet Quiroga MD LAB BLOOD ORDERABLES Final Result Performing Organization Address [facility]/ZIP Co de Phone Number [facility] [address] [place] [phone] * (ABNORMAL) CBC auto differential (02/28/2025 9:21 AM EDT) Only the most recent of2 resultswithin the time period is included. Pathologist [facility] White Blood Count 10.9(H) 4.8 - 10.8 X10*3/uL [facility] Red Blood Count 4.70 4.20 - 5.50 X10*6/uL [facility] Hemoglobin 12.0 12.0 - 16.0 g/dl [facility] Hematocrit 38.6 37.0 - 47.0 % [facility] Mean Corpuscular Volume 82.1 80.0 - 98.0 fL [facility] Mean Corpuscular Hemoglobin 25.5(L) 27.0 - 33.0 pg [facility] Mean Corpuscular HGB Conc 31.1 31.0 - 35.0 g/dl [facility] Red Cell Distribution Width 15.3 11.0 - 16.0 % [facility] Platelet Count 272 160 - 400 X10*3/uL [facility] Mean Platelet Volume 11.6 9.4 - 12.3 fL [facility] Neutrophils Percent Auto 64.5 45 - 73 % [facility] Imm Gran Pct Auto 0.3 0.0 - 0.4 % [facility] Lymphocytes Percent Auto 18.1(L) 20 - 40 % [facility] Monocytes Percent Auto 9.0 2 - 11 % [facility] Eosinophils Percent Auto 7.5(H) 0 - 4 % [facility] Basophils Percent Auto 0.6 0 - 2 % [facility] NRBC Pct Auto 0.0 0.0 - 0.2 /100WBC [facility] Neutrophils Absolute Auto 7.0 2.0 - 8.3 x10*3/uL [facility] Imm Gran Abs Auto 0.03 0.00 - 0.03 X10*3/uL [facility] Lymphocytes Absolute Auto 2.0 1.2 - 4.9 X10*3/uL [facility] Monocytes Absolute Auto 1.0 0.1 - 1.2 X10*3/uL [facility] Eosinophils Absolute Auto 0.8(H) 0.0 - 0.4 X10*3/uL [facility] Basophils Absolute Auto 0.1 0.0 - 0.2 X10*3/uL [facility] NRBC Abs Auto 0.000 0.0 - 0.012 X10*3/uL [facility] Blood Venous blood specimen / Unknown 02/28/2025 9:21 AM EDT 02/28/2025 2:18 PM EDT Manjeet Quiroga MD LAB BLOOD ORDERABLES Final Result Performing Organization Address [facility]/ZIP Co de Phone Number [facility] [address] [place] [phone] * DHEA Sulfate (02/28/2025 9:21 AM EDT) DHEA Sulfate 133 19 - 237 mcg/dL [facility] Comment:THIS TEST WAS PERFOR MED AT:[employer] [address] [id number] WESTBROOK MD Blood Venous blood specimen / Unknown 02/28/2025 9:21 AM EDT 02/28/2025 2:18 PM EDT us Manjeet Quiroga MD LAB BLOOD ORDERABLES Final Result Performing Organization Address [facility] Co de Phone Number [facility] [address] [place] [phone] * Testosterone, Total, males (Adult), [place] (02/28/2025 9:21 AM EDT) Testosterone, Total 13 2 - 45 ng/dL [facility] Comment:For additional infor mation, please refer [email or web address]/faq/[email or web address](This link is being provided for informational/educational purposes only.)This test was developed and its analytical performancecharacteristics have been determined by [employer] [place], [place]. It hasnot been cleared or approved by the U.S. Food and DrugAdministration. This assay has been validated pursuantto the CLIA regulations and is used for clinicalpurposes.THIS TEST WAS PERFORMED AT:[employer]/[id number] [place] [address]PDSQRZLRYAN STEIN MD,PHD Blood Venous blood specimen / Unknown 02/28/2025 9:21 AM EDT 02/28/2025 2:18 PM EDT us Manjeet Quiroga MD LAB BLOOD ORDERABLES Final Result Performing Organization Address City/[facility]/ZIP Co de Phone Number [facility] [address] [place] [phone] * Lipid Panel, Standard (02/28/2025 9:21 AM EDT) Triglycerides 75 <150 mg/dL [facility] Comment:Desirable Triglyceri de: less than 150 mg/dLBorderline High Triglyceride 150-199 mg/dLHigh Triglyceride: 200-499 mg/dLVery High Triglyceride: greater than or equal to 5OO mg/dL Cholesterol 147 <200 mg/dL [facility] Comment:Desirable Cholestero l: less than 200 mg/dLBorderline High Cholesterol: 200-239 mg/dLHigh Cholesterol: greater than 239 mg/dL LDL Cholesterol Calculated 88 <100 mg/dL [facility] Comment:Desirable LDL: less than 100 mg/dLNear Optimal/Above Optimal LDL: 110- 129 mg/dLBorderline High LDL: 130-159 mg/dLHigh LDL: 160-189 mg/dLVery High LDL: greater than or equal to 190 mg/dL HDL Cholesterol 44 >40 mg/dL [facility] Comment:Desirable HDL: great er than 40 mg/dL Note: This HDL assay may give artificially low results in patients with liver disease. Blood Venous blood specimen / Unknown 02/28/2025 9:21 AM EDT 02/28/2025 2:18 PM EDT us Manjeet Quiroga MD LAB BLOOD ORDERABLES Final Result Performing Organization Address City/[facility]/ZIP Co de Phone Number [facility] [address] [place] [phone] * (ABNORMAL) Comprehensive Metabolic Panel (02/28/2025 9:21 AM EDT) Sodium 139 135 - 145 mmol/L [facility] Potassium 4.1 3.3 - 5.1 mmol/L [facility] Chloride 106 96 - 108 mmol/L [facility] Carbon Dioxide 27 22 - 29 mmol/L [facility] Anion Gap 10(L) 12 - 20 [facility] Urea Nitrogen (BUN) 15 9 - 16 mg/dL [facility] Creatinine, Serum 0.69 0.5 - 1.4 mg/dL [facility] Estimated Glomerular Filt Rate >60 [facility] Comment:Chronic Kidney Disea se: Estimated GFR < 60 mL/min/1.17u2Lzydli Kidney Disease: Estimated GFR < 15 mL/min/1.73m2 Glucose 94 60 - 115 mg/dL [facility] Calcium 8.9 8.4 - 10.2 mg/dL [facility] Bilirubin, Total 0.6 0.0 - 1.0 mg/dL [facility] Aspartate Amino Transferase 29 5 - 31 U/L [facility] Alanine Aminotransferase 22 0 - 31 U/L [facility] Total Protein 6.9 6.5 - 8.0 g/dL [facility] Albumin Level 4.0 3.5 - 5.0 g/dL [facility] Alkaline Phosphatase 87 39 - 117 U/L [facility] Blood Venous blood specimen / Unknown 02/28/2025 9:21 AM EDT 02/28/2025 2:18 PM EDT us Manjeet Quiroga MD LAB BLOOD ORDERABLES Final Result [facility] [address] [place] [phone] * US Pelvis Transvaginal (02/28/2025) Anatomical Region [...] Media Lot # [id number] Lot# Expiration Date Blood 02/15/2025 3:22 PM EDT Manjeet Quiroga [...] 1:30 PM EST) Creatinine, Urine 61.75 mg/dL [facility] Microalbumin Urine <5.0 mg/L [facility] Microalbum Creatinine Ratio Ur TNP <30 ug/mg cr [facility] Comment:Unable to calculate albumin/creatinine ratio due to lowmicroalbumin or creatinine result. Urine (Urine, Random) 04/24/2024 1:30 PM EST 04/24/2024 2:09 PM EST Manjeet Quiroga MD LAB URINE ORDERABLES Final Result Performing Organization Address [facility] Co de Phone Number [facility] [address] [place] [phone] * HIV-1/2 Antigen and Antibodies, Fourth Generation, with Reflexes (04/24/2024 1:26 PM EST) HIV AB/AG Nonreactive Nonreactive [facility] Comment:HIV-1 p24 Ag and/or HIV-1/HIV-2 Ab not detected.A test result that is nonreactive does not exclude thepossibility of exposure to or infection with HIV-1 and/orHIV-2. Nonreactive results in this assay for individualswith prior exposure to HIV-1 and/or HIV-2 may be due toantigen and antibody levels that are below the limit ofdetection of this assay.The [employer] HIV Ag/Ab Combo assay result andsupplemental assay results should be interpreted inconjunction with the patient's clinical presentation,history and other laboratory results. If the results areinconsistent with clinical evidence, additional testing issuggested to confirm the result. Blood Venous blood specimen / Unknown 04/24/2024 1:26 PM EST 04/24/2024 2:28 PM EST us Manjeet Quiroga MD LAB BLOOD ORDERABLES Final Result Performing Organization Address City/[facility]/ZIP Co de Phone Number [facility] [address] [place] [address] [phone] * Colposcopy (10/20/2023 9:03 AM EDT) us Historical Provider IN CLINIC/BEDSIDE ORDERAB LES Final Result * Hepatitis C Ab (08/26/2023 10:47 AM EDT) Hepatitis C Antibody Nonreactive Nonreactive [facility] Comment:Antibodies to HCV no t detected; does not exclude early acuteHCV infection. Blood Venous blood specimen / Unknown 08/26/2023 10:47 AM EDT 08/26/2023 2:04 PM EDT Manjeet Quiroga MD LAB BLOOD ORDERABLES Final Result [facility] [address] [place] [address] [phone] from Last 3 Months or Most Recently Relevant to Health Maintenance Insurance [facility] Care Teams Hot Press Operator Relationship Specialty Start Date End Date Manjeet Quiroga MD [address] [place] [address] PCP - General Internal Medicine 05/31/13
--- OUTSIDE RECORDS SUMMARY | 2025-03-30 12:40 | XMS_ITS | Encounter Summary ---
Author Organization [employer] Address [address] [place] [address] 7 [place] [address] Care Team Providers Care Latent Print Examiner Name Role Phone Manjeet Quiroga MD Primary Care Provider [phone] Encounter Details Date Type Department Care Team (Late Contact Info) Description 12/01/2022 Orders Only [facility] MED & PEDS [address] [place], [place] [phone] Manjeet Quiroga MD 505 [place] [address] Type 2 diabetes mellitus without complication, with long-term current use of insulin ([facility]) Social History Tobacco Use Types Packs/Day Years [...] Description 04/27/2025 2:30 PM EST Office Visit [facility] [address] [place] [address] Manjeet Quiroga MD [address] [place] [address] 07/16/2025 10:30 AM EST Office Visit [facility] OPTOMETRY [address] [place] [address] Nury Draper, OD [address] [place] [address] documented as of this encounter Visit Diagnoses Diagnosis Type 2 diabetes mellitus without complication, with long-term current use of insulin (HCC) documented in this encounter Additional Health Concerns Assessment Noted Time PHQ-9 Depression Total Score: 8 10/14/19 23 2:38 PM EDT documented as of this encounter Care Teams Latent Print Examiner Relationship Specialty Start Date End Date Manjeet Quiroga MD [address] [place] [address] PCP - General Internal Medicine 05/31/13 documented as of this encounter
--- OUTSIDE RECORDS SUMMARY | 2025-03-30 12:40 | XMS_ITS | Encounter Summary ---
Author Organization [employer] Address [address] [place] [address] 7 [place] [address] Care Team Providers Care Manifold Operator Name Role Phone Manjeet Quiroga MD Primary Care Provider [phone] Reason for Referral * Consultation (Routine) - Closed Specialty Diagnoses / Procedures Referred By Contryder cotto Referred To Contact Physical Therapy Diagnoses Hand paresthesia Neck pain Manjeet Quiroga MD [address] [place] [address] Phone: tel: fax: Physical Therapy, AT [address] [facility] [address] [place], [place] Phone: tel: fax: Referral ID Status Reason Start Date Expiration Date V isits Requested Visits Authorized [id number] Closed Specialty Services Required 08/10/2024 08/10/2025 1 1 Encounter Details Date Type Department Care Team (Late st Contact Info) Description 08/10/[address] [facility] MEDICINE [address] [place] [address] Manjeet Quiroga MD [address] [place], [place] [phone] Hand paresthesia (Primary Dx); Neck pain Social [...] Upcoming Encounters Date Type Department Care Team ([facility] st Contact Info) Description 04/27/2025 2:30 PM EST Office Visit [facility] MED & PEDS [address] [place] [address] Manjeet Quiroga MD [address] [place] [address] 07/16/2025 10:30 AM EST Office Visit [facility] OPTOMETRY [address] [place], [place] [phone] Manjeetjosue Nury, OD [address] [place] [address] Scheduled Referrals Name Type Priority Associated Diagnoses [...] documented as of this encounter Care Teams Manifold Operator Relationship Specialty Start Date End Date Manjeet Quiroga MD [address] [place] [address] PCP - General Internal Medicine 05/31/13 documented as of this encounter
--- OUTSIDE RECORDS SUMMARY | 2025-03-30 12:40 | XMS_ITS | Encounter Summary ---
Author Organization [employer] Address 75 [facility] 7 [place] [address] Care Team Providers Care Plodding Operator Name Role Phone Manjeet Quiroga MD Primary Care Provider [phone] Reason for Visit * Reason Comments Med Refill Encounter Details Date Type Department Care Team ([facility] st Contact Info) Description 03/09/2023 Refill [facility] MED & PEDS [address] [place] [address] Manjeet Quiroga MD [address] [place] [address] Type 2 diabetes mellitus with diabetic polyneuropathy [...] 2:30 PM EST Office Visit [facility] MED & PEDS [address] [place] [address] Manjeet Quiroga MD [address] [place] [address] 07/16/2025 10:30 AM EST Office Visit [facility] OPTOMETRY [address] [place] [address] Tarka, Nury, OD [address] [place] [address] documented as of this encounter Visit Diagnoses Diagnosis Type 2 diabetes mellitus with diabetic polyneuropathy (HCC) documented in this encounter Additional Health Concerns Assessment Noted Time PHQ-9 Depression Total Score: 0 01/29/20 23 4:36 PM EDT documented as of this encounter Care Teams Plodding Operator Relationship Specialty Start Date End Date Manjeet Quiroga MD [address] [place] [address] PCP - General Internal Medicine 05/31/13 documented as of this encounter
--- OUTSIDE RECORDS SUMMARY | 2025-03-30 12:40 | XMS_ITS | Encounter Summary ---
Author Organization [employer] [facility] Address [address] [place] [address] Care Team Providers Care Solution Make Up Operator Name Role Phone Manjeet Quiroga MD Primary Care Provider [phone] Reason for Visit * Reason Comments Med Refill Encounter Details Date Type Department Care Team ([facility] Contact Info) Description 06/22/[address] [facility] MED & PEDS [address] [place] [address] Manjeet Quiroga MD [address] [place] [address] Bloating (Primary Dx) Social History Tobacco Use [...] Upcoming Encounters Date Type Department Care Team ([facility] Contact Info) Description 04/27/2025 2:30 PM EST Office Visit [facility] MED & PEDS [address] [place], [place] [phone] Manjeet Quiroga MD [address] [place] [address] 07/16/2025 10:30 AM EST Office Visit [facility] OPTOMETRY [address] [place] [address] Nury Draper, OD [address] [place] [address] documented as of this encounter Visit Diagnoses Diagnosis Bloating- Primary Flatulence, eructation, and gas pain documented in this encounter Care Teams Solution Make Up Operator Relationship Specialty Start Date End Date Manjeet Quiroga MD [address] [place] [address] PCP - General Internal Medicine 05/31/13 documented as of this encounter
--- OUTSIDE RECORDS SUMMARY | 2025-03-30 12:40 | XMS_ITS | Encounter Summary ---
Author Organization [employer] Address [address] [facility] [address] 7t [place] [address] Care Team Providers Care Airplane Mechanic Name Role Phone Manjeet Quiroga MD Primary Care Provider [phone] Encounter Details Date Type Department Care Team (Late st Contact Info) Description 06/21/2024 Orders Only [facility] MEDICINE [address] [place] [address] Provider, MD Emilia Social History Tobacco Use [...] [facility] 505 [place] [address] Manjeet Quiroga MD 505 [place] [address] 07/16/2025 10:30 AM EST Office Visit [facility] OPTOMETRY [address] [place] [address] Nury Draper, OD [address] [place] [address] documented as of this encounter Procedures Procedure [...] Results * Colposcopy (10/20/2023 9:03 AM EDT) [facility] Provider IN CLINIC/BEDSIDE ORDERAB LES Final Result * HM PAP/HPV (09/17/2023 9:04 AM EDT) [facility] Provider HEALTH MAINTENANCE Final Result * Colposcopy (10/13/2021 9:22 AM EDT) [facility] Provider IN CLINIC/BEDSIDE ORDERAB LES Final Result * HM PAP/HPV (09/16/2021 9:15 AM EDT) [facility] Provider HEALTH MAINTENANCE Final Result * Colposcopy (07/23/2020 9:13 AM EST) [facility] Provider IN CLINIC/BEDSIDE ORDERAB LES Final Result * HM PAP/HPV (07/05/2020 9:11 AM EST) [facility] Provider HEALTH MAINTENANCE Final Result * HM PAP/HPV (02/21/2018 9:08 AM EDT) [facility] Provider HEALTH MAINTENANCE Final Result documented in this encounter Visit Diagnoses Not on filedocumented in this encounter Additional Health Concerns Assessment Noted Time PHQ-9 Depression Total Score: 10 025 10:46 AM EST documented as of this encounter Care Teams Airplane Mechanic Relationship Specialty Start Date End Date Manjeet Quiroga MD [address] [place] [address] PCP - General Internal Medicine 05/31/13 documented as of this encounter
--- OUTSIDE RECORDS SUMMARY | 2025-03-30 12:40 | XMS_ITS | Encounter Summary ---
Author Organization [employer] [facility] Address [address] [place] [address] Care Team Providers Care Rubber Turner Name Role Phone Manjeet Quiroga MD Primary Care Provider [phone] Encounter Details Date Type Department Care Team (Late st Contact Info) Description 12/22/2022 Orders Only [facility] MED & PEDS [address] [place] [address] Cheryle Cruz LPN Social History Tobacco Use [...] Description 04/27/2025 2:30 PM EST Office Visit [facility] CH[facility] MED & PEDS [address] [place] [address] Manjeet Quiroga MD 505 [place] [address] 07/16/2025 10:30 AM EST Office Visit [facility] OPTOMETRY [address] [place] [address] Nury Draper, OD [address] [place] [address] documented as of this encounter Visit Diagnoses Not on filedocumented in this encounter Additional Health Concerns Assessment Noted Time PHQ-9 Depression Total Score: 8 10/14/19 23 2:38 PM EDT documented as of this encounter Care Teams Rubber Turner Relationship Specialty Start Date End Date Manjeet Quiroga MD [address] [place] [address] PCP - General Internal Medicine 05/31/13 documented as of this encounter
--- OUTSIDE RECORDS SUMMARY | 2025-03-30 12:41 | XMS_ITS | Clinical Summary ---
Author Organization [facility] Address [address] [facility] 20 0 [place] [address] Phone Care Team Providers Care Manager Post Name Role Phone Manjeet Quiroga MD Primary Care Provider [phone]- [phone] Allergies No known active allergies Medications Multiple [...] Diabetes: Visual Foot Exam 01/20/2022 Influenza Vaccine (#1) 2025 Pneumococcal Vaccine: Peds ( 0 to 5 Years) and At-Risk Patients (6 to 49 Years) Aged Out No longer eligible b ased on patient's age to complete this topic Insurance [facility] Medicaid [facility] Medicaid Care Teams Manager Post Relationship Specialty Start Date End Date Manjeet Quiroga MD PCP - General 06/03/20
--- OUTSIDE RECORDS SUMMARY | 2025-03-30 12:41 | XMS_ITS | Encounter Summary ---
Author Organization [employer] Address 75 [facility] 7 [place] [address] Care Team Providers Care Daily Sales Audit Clerk Name Role Phone Manjeet Quiroga MD Primary Care Provider [phone] Reason for Visit * Reason Comments Med Refill Encounter Details Date Type Department Care Team ([facility] st Contact Info) Description 10/25/2023 Refill [facility] CHC MED & PEDS 505 [place] [address] Manjeet Quiroga MD 505 [place] [address] Mild episode of recurrent major depressive disorder [...] Description 04/27/2025 2:30 PM EST Office Visit [facility] CHC MED & PEDS 505 [place] [address] Manjeet Quiroga MD 505 [place] [address] 07/16/2025 10:30 AM EST Office Visit [facility] OPTOMETRY [address] [place] [address] Tarka, Nury, OD [address] [place] [address] documented as of this encounter Visit Diagnoses Diagnosis Mild episode of recurrent major depressive disorder (CMS/HCC) documented in this encounter Additional Health Concerns Assessment Noted Time PHQ-9 Depression Total Score: 0 01/29/20 23 4:36 PM EDT documented as of this encounter Care Teams Daily Sales Audit Clerk Relationship Specialty Start Date End Date Manjeet Quiroga MD 505 [place] [address] PCP - General Internal Medicine 05/31/13 documented as of this encounter
--- OUTSIDE RECORDS SUMMARY | 2025-03-30 12:41 | XMS_ITS | Encounter Summary ---
Author Organization [employer] Address 75 [facility] 7t [place] [address] Care Team Providers Care Easement Man Name Role Phone Manjeet Quiroga MD Primary Care Provider [phone] Encounter Details Date Type Department Care Team (Late st Contact Info) Description 10/06/2023 Telephone [facility] [address] [place] [address] Manjeet Quiroga MD [address] [place], [place] [phone] Social History Tobacco Use Types Packs/Day Years [...] Description 04/27/2025 2:30 PM EST Office Visit [facility] MED & PEDS 505 [place], [place] [phone] Manjeet Quiroga MD [address] [place], [place] [phone] 07/16/2025 10:30 AM EST Office Visit [facility] OPTOMETRY [address] [place], [place] [phone] TarkaNury, OD [address] [place] [address] documented as of this encounter Visit Diagnoses Not on filedocumented in this encounter Additional Health Concerns Assessment Noted Time PHQ-9 Depression Total Score: 0 01/29/20 23 4:36 PM EDT documented as of this encounter Care Teams Easement Man Relationship Specialty Start Date End Date Manjeet Quiroga MD [address] [place] [address] PCP - General Internal Medicine 05/31/13 documented as of this encounter
--- OUTSIDE RECORDS SUMMARY | 2025-03-30 12:41 | XMS_ITS | Encounter Summary ---
Author Organization [employer] Address [address] [place] [address] 7 [place] [address] Care Team Providers Care Signal Engineer Name Role Phone Manjeet Quiroga MD Primary Care Provider [phone] Encounter Details Date Type Department Care Team (Latest Contact Info) Description 02/28/2025 Results Follow-Up [facility] CH[facility] MED & PEDS [address] [place] [address] Manjeet Quiroga MD 505 [place] [address] CBC auto differential, CBC auto differential, Comprehensive [...] [facility] [address] [place] [address] Manjeet Quiroga MD 505 [place] [address] 07/16/2025 10:30 AM EST Office Visit [facility] OPTOMETRY [address] [place] [address] TarkaNury, OD [address] [place] [address] documented as of this encounter Visit Diagnoses Not on filedocumented in this encounter Additional Health Concerns Assessment Noted Time PHQ-9 Depression Total Score: 10 025 10:46 AM EST documented as of this encounter Care Teams Signal Engineer Relationship Specialty Start Date End Date Manjeet Quiroga MD 505 [place] [address] PCP - General Internal Medicine 05/31/13 documented as of this encounter
--- OUTSIDE RECORDS SUMMARY | 2025-03-30 12:41 | XMS_ITS | Encounter Summary ---
Author Organization [employer] Address 75 [facility] 7t [place] [address] Care Team Providers Care Basketballs And Footballs Reverser Name Role Phone Manjeet Quiroga MD Primary Care Provider [phone] Encounter Details Date Type Department Care Team (Latest Contact Info) Description 03/30/2025 Travel Social History Tobacco Use Types Packs/Day [...] Description 04/27/2025 2:30 PM EST Office Visit [facility] CHC MED & PEDS 505 [place], [place] [phone] Manjeet Quiroga MD 505 [place] [address] 07/16/2025 10:30 AM EST Office Visit [facility] OPTOMETRY [address] [place], [place] [phone] TarkaNury, OD 267 [place] [address] documented as of this encounter Visit Diagnoses Not on filedocumented in this encounter Additional Health Concerns Assessment Noted Time PHQ-9 Depression Total Score: 10 025 10:46 AM EST documented as of this encounter Care Teams Basketballs And Footballs Reverser Relationship Specialty Start Date End Date Manjeet Quiroga MD [address] [place] [address] PCP - General Internal Medicine 05/31/13 documented as of this encounter
--- OUTSIDE RECORDS SUMMARY | 2025-03-30 12:41 | XMS_ITS | Encounter Summary ---
Author Organization [employer] Address 75 [facility] 7 [place] [address] Care Team Providers Care L D Rn Name Role Phone Manjeet Quiroga MD Primary Care Provider [phone] Reason for Visit * Reason Comments Med Refill Encounter Details Date Type Department Care Team ([facility] Contact Info) Description 03/26/2025 Refill [facility] CHC MED & PEDS 505 [place] [address] Manjeet Quiroga MD 505 [place] [address] Type 2 diabetes mellitus without complication, without long-term current use of insulin (HCC) Social History Tobacco Use Types Packs/Day [...] the past 12 months, has t he [employer], gas, oil or water company threatened to [...] Description 04/27/2025 2:30 PM EST Office Visit [facility] CH[facility] MED & PEDS 505 [place] [address] Manjeet Quiroga MD 505 [place] [address] 07/16/2025 10:30 AM EST Office Visit [facility] OPTOMETRY [address] [place] [address] Nury Draper, OD [address] [place] [address] documented as of this encounter Visit Diagnoses Diagnosis Type 2 diabetes mellitus without complication, without long-term current use of insulin (HCC) documented in this encounter Additional Health Concerns Assessment Noted Time PHQ-9 Depression Total Score: 10 025 10:46 AM EST documented as of this encounter Care Teams L D Rn Relationship Specialty Start Date End Date Manjeet Quiroga MD [address] [place] [address] PCP - General Internal Medicine 05/31/13 documented as of this encounter
--- OUTSIDE RECORDS SUMMARY | 2025-03-30 12:41 | XMS_ITS | Encounter Summary ---
Author Organization [employer] Address 75 [facility] 7 [place] [address] Care Team Providers Care Act Tutor Name Role Phone Manjeet Quiroga MD Primary Care Provider [phone] Encounter Details Date Type Department Care Team (Late st Contact Info) Description 10/21/2023 Orders Only [facility] CHC MED & PEDS [address] [place] [address] Manjeet Quiroga MD 505 [place] [address] Type 2 diabetes mellitus without complication, without long-term current use of insulin ([facility]) Social History Tobacco Use Types Packs/Day [...] Description 04/27/2025 2:30 PM EST Office Visit [facility] CHC MED & PEDS [address] [place] [address] Manjeet Quiroga MD [address] [place] [address] 07/16/2025 10:30 AM EST Office Visit [facility] OPTOMETRY [address] [place] [address] Tarka, Nury, OD [address] [place] [address] documented as of this encounter Visit Diagnoses Diagnosis Type 2 diabetes mellitus without complication, without long-term current use of insulin (HCC) documented in this encounter Additional Health Concerns Assessment Noted Time PHQ-9 Depression Total Score: 0 01/29/20 23 4:36 PM EDT documented as of this encounter Care Teams Act Tutor Relationship Specialty Start Date End Date Manjeet Quiroga MD [address] [place] [address] PCP - General Internal Medicine 05/31/13 documented as of this encounter
--- OUTSIDE RECORDS SUMMARY | 2025-03-30 12:41 | XMS_ITS | Encounter Summary ---
Author Organization [employer] Address 75 [facility] 7 [place] [address] Care Team Providers Care Developer Programmer Analyst Name Role Phone Manjeet Quiroga MD Primary Care Provider [phone] Encounter Details Date Type Department Care Team (Late st Contact Info) Description 02/13/2025 Orders Only [facility] [address] [place] [address] Provider, MD Emilia Social History Tobacco Use [...] Description 04/27/2025 2:30 PM EST Office Visit [facility] CHC MED & PEDS [address] [place] [address] Manjeet Quiroga MD 505 [place] [address] 07/16/2025 10:30 AM EST Office Visit [facility] OPTOMETRY [address] [place] [address] TarkaNury, OD [address] [place] [address] documented as of this encounter Procedures Procedure [...] documented as of this encounter Care Teams Developer Programmer Analyst Relationship Specialty Start Date End Date Manjeet Quiroga MD [address] [place] [address] PCP - General Internal Medicine 05/31/13 documented as of this encounter
--- OUTSIDE RECORDS SUMMARY | 2025-03-30 12:41 | XMS_ITS | Encounter Summary ---
Author Organization [employer] Address 75 [facility] 7 [place] [address] Care Team Providers Care Long Wall Shear Operator Name Role Phone Manjeet Quiroga MD Primary Care Provider [phone] Encounter Details Date Type Department Care Team (Late st Contact Info) Description 10/06/2023 Orders Only [facility] CHC MED & PEDS 505 [place], [place] [phone] Manjeet Quiroga MD 505 [place] [address] Type 2 diabetes mellitus without complication, without long-term current use of insulin ([facility]) (Primary Dx) Social History Tobacco Use Types [...] Description 04/27/2025 2:30 PM EST Office Visit [facility] CHC MED & PEDS [address] [place], [place] [phone] Manjeet Quiroga MD [address] [place] [address] 07/16/2025 10:30 AM EST Office Visit [facility] OPTOMETRY [address] [place] [address] Tarka, Nury, OD [address] [place] [address] documented as of this encounter Visit Diagnoses Diagnosis Type 2 diabetes mellitus without complication, without long-term current use of insulin (HCC)- Primary documented in this encounter Additional Health Concerns Assessment Noted Time PHQ-9 Depression Total Score: 0 01/29/20 23 4:36 PM EDT documented as of this encounter Care Teams Long Wall Shear Operator Relationship Specialty Start Date End Date Manjeet Quiroga MD [address] [place] [address] PCP - General Internal Medicine 05/31/13 documented as of this encounter
[2025-03-30 21:48] LABS: CT PCR Urine NOT DETECTED (Not Detect.); NG PCR Urine NOT DETECTED (Not Detect.)
== END 2025-03-30 10:43 | disposition home or self-care (01) ==
LOC: HO.HHCL 10:42
PROVIDERS: PCP Internal Medicine; Visit Provider Nurse Practitioner Family
DX: Z11.4 Encounter for screening for human immunodeficiency virus [HIV] (principal); Z11.59 Encounter for screening for other viral diseases; Z20.2 Contact with and (suspected) exposure to infections with a predominantly sexual mode of transmission; E11.65 Type 2 diabetes mellitus with hyperglycemia; R21 Rash and other nonspecific skin eruption
CPT/HCPCS: 36415; 80053; 80061; 83036; 84443; 86592; 86803; 87389; 87491; 87591

== ENCOUNTER 2025-04-02 16:16 | Outpatient (REF) | payer OTHER, SELFPAY ==
--- OUTSIDE RECORDS SUMMARY | 2025-03-30 09:40 | XMS_ITS | Encounter Summary ---
Author Organization [employer] Address [address] [facility] 7t [place] [address] Care Team Providers Care Fisherman Helper Name Role Phone Manjeet Quiroga MD Primary Care Provider [phone] Reason for Visit * Reason Comments Rash Encounter Details Date Type Department Care Team ([facility] Contact Info) Description 03/30/2025 9:40 AM EST Office Visit [facility] [address] [place] [address] Larissa Almanza NP [address] [place] [address] Rash (Primary Dx) Social History Tobacco Use [...] the past 12 months, has t he [employer], gas, oil or water company threatened to [...] with Rash Problem List[1] Medical History[2] Allergies[3] Jsoiane Pettit, 40-year-old female - Developed slight itch preceding trip to [place] - Persistent itch in same area after [...] further evaluation. - You will see a sales development specialist (bull ladle tender) soon for more help with your rash. [...] tablet, Rfl: 3 Blood Glucose Monitoring Suppl ([employer] Technologies Corporationyle [place] Lite) w/Device kit, Use 2 - 3 x day, Disp: 1 kit,Rfl: 0 celecoxib (CeleBREX) 200 MG capsule, TAKE 1 CAPSULE BY MOUTH TWICE DAILY, Disp: 60 capsule, Rfl: 0 cholecalciferol VITAMIN D (Vitamin D-3) 50 MCG (2000 UT) tablet, TAKE 1 TABLET BY MOUTH EVERY DAY, Disp: 90 tablet, Rfl: 1 Continuous Blood Gluc Outdoor Guide (Applied Genetics Technologies Corporationyle Neisha 2 [place]) device, To use daily, Disp: 1 each, Rfl: 0 Continuous Blood Gluc Sensor (FreeStyle Neisha 2 Sensor) [facility], To use daily, Disp: 2 each, Rfl: [...] DAY, Disp: 30 tablet, Rfl: 11 Lactobacillus-Inulin ([facility] TagArray [facility]) capsule, TAKE 1 CAPSULE BY MOUTH [...] Description 04/27/2025 2:30 PM EST Office Visit [facility] [address] [place], [place] [phone] Manjeet Quiroga MD [address] [place], [place] [phone] 07/16/2025 10:30 AM EST Office Visit [facility] [address] [place], [place] [phone] Nury Draper, OD [address] [place] [address] documented as of this encounter Procedures Procedure Name Priority Date/Time Associated Diagnosis Comments HEPATITIS C AB W/REFL TO HCV RNA, QN, PCR Routine 03/30/2025 10:49 AM EST Rash RPR (MONITOR) W/REFL TITER Routine 03/30/2025 10:49 AM EST Rash HIV 1/2 ANTIGEN/ANTIBODY, FOURTH GENERATION W/RFL Routine 03/30/2025 10:49 AM EST Rash CHLAMYDIA/TRICHOMONA S/NEISSERIA GONORRHOEAE, PCR, URINE Routine 03/30/2025 12:00 AM EST Rash documented in this encounter Results * HIV-1/2 Antigen and Antibodies, Fourth Generation, with Reflexes (03/30/2025 10:49 AM EST) HIV AB/AG Nonreactive Nonreactive [facility] Comment:HIV-1 p24 Ag and/or HIV-1/HIV-2 Ab not detected.A test result that is nonreactive does not exclude thepossibility of exposure to or infection with HIV-1 and/orHIV-2. Nonreactive results in this assay for individualswith prior exposure to HIV-1 and/or HIV-2 may be due toantigen and antibody levels that are below the limit ofdetection of this assay.The [email or web address] HIV Ag/Ab Combo assay result andsupplemental assay results should be interpreted inconjunction with the patient's clinical presentation,history and other laboratory results. If the results areinconsistent with clinical evidence, additional testing issuggested to confirm the result. Blood Venous blood specimen / Unknown 03/30/2025 10:49 AM EST 03/30/2025 11:40 AM EST Larissa Almanza NP LAB BLOOD ORDERABLES Final Resul t Performing Organization Address [facility]/ZIP Co de Phone Number [facility] [address] [place] [phone] * Hepatitis C Antibody with Reflex to HCV, RNA, Quantitative, Real-Time PCR (03/30/2025 10:49 AM EST) Hepatitis C Antibody Nonreactive Nonreactive [facility] Comment:Antibodies to HCV no t detected; does not exclude early acuteHCV infection. Blood Venous blood specimen / Unknown 03/30/2025 10:49 AM EST 03/30/2025 11:40 AM EST us Larissa Almanza NP LAB BLOOD ORDERABLES Final Resul t Performing Organization Address [facility] Co de Phone Number [facility] [address] [place] [phone] * RPR (Monitor) with Reflex to??Titer (03/30/2025 10:49 AM EST) RPR (Monitor) w/Refl Titer NON-REACTI VE NON-REACT ADRIANA [facility] Comment:THIS TEST WAS PERFOR MED AT:[employer] [place] [phone] WESTBROOK MD Rapid Plasma Reagin Ab Titer TNP [facility] Blood Venous blood specimen / Unknown 03/30/2025 10:49 AM EST 03/30/2025 11:40 AM EST us Larissa Almanza NP LAB BLOOD ORDERABLES Final Resul t [facility] [address] [place] [address] [phone] * Chlamydia/N. Gonorrhoeae, PCR, Urine (03/30/2025 12:00 AM EST) CT PCR, Urine NOT DETECTED Not Detect. [facility] Comment:A not detected test result does not exclude the possibilityof infection because test results can be affected byimproper specimen collection, concurrent antibiotic therapy,or the number of organisms in the specimen which may bebelow the sensitivity of the test. As with many diagnostictests, results from the Xpert CT/NG assay should beinterpreted in conjunction with other laboratory andclinical data available to the clinician.The Xpert CT/NG assay should not be used for the evaluationof suspected sexual abuse or for other medico-legalindications. Additional testing is recommended in anycircumstance when false positive or false negative resultscould lead to adverse medical, social or psychologicalconsequences. NG PCR, Urine NOT DETECTED Not Detect. [facility] Comment:A not detected test result does not exclude the possibilityof infection because test results can be affected byimproper specimen collection, concurrent antibiotic therapy,or the number of organisms in the specimen which may bebelow the sensitivity of the test. As with many diagnostictests, results from the Xpert CT/NG assay should beinterpreted in conjunction with other laboratory andclinical data available to the clinician.The Xpert CT/NG assay should not be used for the evaluationof suspected sexual abuse or for other medico-legalindications. Additional testing is recommended in anycircumstance when false positive or false negative resultscould lead to adverse medical, social or psychologicalconsequences. Urine (Urine, Random) 03/30/2025 03/30/2025 us Larissa Almanza NP LAB URINE ORDERABLES Final Resul t [facility] [address] [place] [phone] [phone] documented in this encounter Visit Diagnoses Diagnosis Rash- Primary Rash and other nonspecific skin eruption documented in this encounter Additional Health Concerns Assessment Noted Time PHQ-9 Depression Total Score: 10 025 10:46 AM EST documented as of this encounter Care Teams Fisherman Helper Relationship Specialty Start Date End Date Manjeet Quiroga MD [address] [place] [phone] PCP - General Internal Medicine 05/31/13 documented as of this encounter
--- OUTSIDE RECORDS SUMMARY | 2025-04-02 17:58 | XMS_ITS | Encounter Summary ---
Author Organization [employer] Address 75 [facility] 7 [place] [address] Care Team Providers Care Sculpture Instructor Name Role Phone Manjeet Quiroga MD Primary Care Provider [phone] Reason for Visit * Reason Comments Med Refill Encounter Details Date Type Department Care Team ([facility] st Contact Info) Description 03/02/2023 Refill [facility] CHC MED & PEDS [address] [place] [address] Manjeet Quiroga MD [address] [place] [address] Type 2 diabetes mellitus with diabetic polyneuropathy [...] PM EST Office Visit [facility] CHC MED & PEDS [address] [place] [address] Manjeet Quiroga MD 505 [place] [address] 07/16/2025 10:30 AM EST Office Visit [facility] OPTOMETRY [address] [place] [address] Tarka, Nury, OD [address] [place] [address] documented as of this encounter Visit Diagnoses Diagnosis Type 2 diabetes mellitus with diabetic polyneuropathy (HCC) documented in this encounter Additional Health Concerns Assessment Noted Time PHQ-9 Depression Total Score: 0 01/29/20 23 4:36 PM EDT documented as of this encounter Care Teams Sculpture Instructor Relationship Specialty Start Date End Date Manjeet Quiroga MD 505 [place] [address] PCP - General Internal Medicine 05/31/13 documented as of this encounter
--- OUTSIDE RECORDS SUMMARY | 2025-04-02 17:58 | XMS_ITS | Encounter Summary ---
Author Organization [employer] Address [address] [place] [address] 7 [place] [address] Care Team Providers Care Charge Authorizer Name Role Phone Manjeet Quiroga MD Primary Care Provider [phone] Reason for Referral * Imaging (Routine) - Authorized Specialty Diagnoses / Procedures Referred By Contac t Referred To Contact Radiology Diagnoses Transaminitis Procedures US Abdomen Comp w elastography Manjeet Quiroga MD [address] [place] [address] Phone: tel: fax: [address] Phone: tel: fax: Referral ID Status Reason Start Date Expiration Date V isits Requested Visits Authorized [id number] Authorized 03/30/2025 03/30/2026 1 1 Encounter Details Date Type Department Care Team (Late st Contact Info) Description 03/30/2025 Orders Only [facility] CHC MED & PEDS [address] [place] [address] Manjeet Quiroga MD [address] [place] [address] Transaminitis (Primary Dx) Social History Tobacco Use Types [...] Upcoming Encounters Date Type Department Care Team ([facility] st Contact Info) Description 04/27/2025 2:30 PM EST Office Visit [facility] CHC MED & PEDS [address] [place], [place] [phone] Manjeet Quiroga MD [address] [place], [place] [phone] 07/16/2025 10:30 AM EST Office Visit [facility] OPTOMETRY [address] [place] [address] Nury Draper, OD [address] [place] [address] Scheduled Orders Name Type Priority Associated Diagnoses Orde r Schedule Hepatitis B Surface Antibody, Qualitative Lab Routine Transaminitis Expected: 03/30/2025 (Approximate), Expires: 03/30/2026 US Abdomen Comp w elastography Imaging Routine Transaminitis Expected: 03/30/2025, Expires: 03/30/2026 Smooth Muscle Antibody with Reflex to Titer Lab Routine Transaminitis Expected: 03/30/2025 (Approximate), Expires: 03/30/2026 Immunoglobulins, Quantitative, IgA, IgG, IgM Lab Routine Transaminitis Expected: 03/30/2025 (Approximate), Expires: 03/30/2026 Prothrombin Time-INR Lab Routine Transaminitis Expected: 03/30/2025, Expires: 03/30/2026 Ferritin Lab Routine Transaminitis Expected: 03/30/2025, Expires: 03/30/2026 Iron And Total Iron Binding Capacity Lab Routine Transaminitis Expected: 03/30/2025, Expires: 03/30/2026 Alpha 1 Antitrypsin Lab Routine Transaminitis Expected: 03/30/2025 (Approximate), Expires: 03/30/2026 documented as of this encounter Visit Diagnoses Diagnosis Transaminitis- Primary Nonspecific elevation of levels of transaminase or lactic acid dehydrogenase (LDH) documented in this encounter Additional Health Concerns Assessment Noted Time PHQ-9 Depression Total Score: 10 025 10:46 AM EST documented as of this encounter Care Teams Charge Authorizer Relationship Specialty Start Date End Date Manjeet Quiroga MD [address] [place] [address] PCP - General Internal Medicine 05/31/13 documented as of this encounter
--- OUTSIDE RECORDS SUMMARY | 2025-04-02 17:58 | XMS_ITS | Encounter Summary ---
Author Organization [employer] Address [address] [place] [address] Care Team Providers Care Warehouse Packer Name Role Phone Manjeet Quiroga MD Primary Care Provider [phone] Encounter Details Date Type Department Care Team (Late Contact Info) Description 01/05/2023 Orders Only [facility] MED & PEDS [address] [place] [address] Manjeet Quiroga MD 505 [place] [address] Type 2 diabetes mellitus without complication, without long-term current use of insulin ([facility]) (Primary Dx) Social History [...] Description 04/27/2025 2:30 PM EST Office Visit [facility] MED & PEDS 505 [place] [address] Manjeet Quiroga MD [address] [place], [place] [phone] 07/16/2025 10:30 AM EST Office Visit [facility] OPTOMETRY [address] [place] [address] Bonny Nury, OD [address] [place] [address] documented as of this encounter Visit Diagnoses Diagnosis Type 2 diabetes mellitus without complication, without long-term current use of insulin (HCC)- Primary documented in this encounter Additional Health Concerns Assessment Noted Time PHQ-9 Depression Total Score: 8 10/14/19 23 2:38 PM EDT documented as of this encounter Care Teams Warehouse Packer Relationship Specialty Start Date End Date Manjeet Quiroga MD [address] [place] [address] PCP - General Internal Medicine 05/31/13 documented as of this encounter
--- OUTSIDE RECORDS SUMMARY | 2025-04-02 17:58 | XMS_ITS | Encounter Summary ---
Author Organization [employer] Address [address] [facility] 7t [place] [address] Care Team Providers Care Sanitary Aide Name Role Phone Manjeet Quiroga MD Primary Care Provider [phone] Reason for Visit * Reason Onset Date Comments Results 04/02/2025 Encounter Details Date Type Department Care Team (Latest Contact Info) Description 04/02/2025 Results Follow-Up [facility] CHC MED & PEDS [address] [place], [place] [phone] Trinidad Ford RN Lipid Panel, Standard, Comprehensive Metabolic Panel, TSH W/Reflex to FT4 Social History Tobacco Use Types Packs/Day Years [...] encounter Miscellaneous Notes * Telephone Encounter - Trinidad Ford RN - 04/02/2025 9:19 AM EST TC to pt. Reviewed results and additional testing ordered. Pt verbalized understanding and agreement with plan. * Telephone Encounter - Trinidad Ford RN - 04/02/2025 9:19 AM EST ----- Message from Manjeet Quiroga MD sent at 03/30/2025 4:14 PM EST ----- Please inform Ms Josiane Pettit that her blood work was reviewed and showed an elevated liver enzyme. I recommend a work up in an attempt to find the cause. Pt will be contacted w/ the results. ----- Message ----- From: Interface, Lab Results In Sent: 03/30/2025 12:21 PM EST To: Manjeet Quiroga MD documented in this encounter Plan of Treatment Upcoming Encounters Date Type Department Care Team (Late st Contact Info) Description 04/27/2025 2:30 PM EST Office Visit [facility] CHC MED & PEDS 505 [place], [place] [phone] Manjeet Quiroga MD [address] [place], [place] [phone] 07/16/2025 10:30 AM EST Office Visit [facility] OPTOMETRY [address] [place], [place] [phone] Tarka, Nury, OD [address] [place] [address] documented as of this encounter Visit Diagnoses Not on filedocumented in this encounter Additional Health Concerns Assessment Noted Time PHQ-9 Depression Total Score: 10 025 10:46 AM EST documented as of this encounter Care Teams Sanitary Aide Relationship Specialty Start Date End Date Manjeet Quiroga MD [address] [place] [address] PCP - General Internal Medicine 05/31/13 documented as of this encounter
--- OUTSIDE RECORDS SUMMARY | 2025-04-02 17:58 | XMS_ITS | Encounter Summary ---
Author Organization [employer] Address 75 [facility] 7 [place] [address] Care Team Providers Care Casting And Curing Operator Name Role Phone Manjeet Quiroga MD Primary Care Provider [phone] Encounter Details Date Type Department Care Team (Late st Contact Info) Description 03/09/2023 Orders Only [facility] CHC MED & PEDS [address] [place] [address] Manjeet Quiroga MD 505 [place] [address] Bilateral carpal tunnel syndrome (Primary Dx); Cervical [...] SOUTH CAMPUS CHC MED & PEDS [address] [place], [place] [phone] Manjeet Quiroga MD [address] [place] [address] 07/16/2025 10:30 AM EST Office Visit [facility] OPTOMETRY [address] [place] [address] Tarka, Nury, OD [address] [place] [address] documented as of this encounter Visit Diagnoses Diagnosis Bilateral carpal tunnel syndrome- Primary Carpal tunnel syndrome Cervical radiculopathy Brachial neuritis or radiculitis nos documented in this encounter Additional Health Concerns Assessment Noted Time PHQ-9 Depression Total Score: 0 01/29/20 23 4:36 PM EDT documented as of this encounter Care Teams Casting And Curing Operator Relationship Specialty Start Date End Date Manjeet Qurioga MD [address] [place] [address] PCP - General Internal Medicine 05/31/13 documented as of this encounter
--- OUTSIDE RECORDS SUMMARY | 2025-04-02 17:58 | XMS_ITS | Encounter Summary ---
Author Organization [employer] Address 75 [facility] 7t [place] [address] Care Team Providers Care Menagerie Superintendent Name Role Phone Manjeet Quiroga MD Primary Care Provider [phone] Encounter Details Date Type Department Care Team ([facility] st Contact Info) Description 04/02/2025 Results Follow-Up [facility] MEDICINE [address] [place] [address] Larissa Almanza, WALI [address] [place] [address] Chlamydia/N. Gonorrhoeae, PCR, Urine, RPR (Monitor) with Reflex to Titer, Hepatitis C Antibody with Reflex to HCV, RNA, Quantitative, Real-Time PCR, HIV-1/2 Antigen and Antibodies, Fourth Generation, with Reflexes Social History Tobacco Use Types Packs/Day Years [...] 2:30 PM EST Office Visit [facility] CHC MED & PEDS 505 [place] [address] Manjeet Quiroga MD 505 [place] [address] 07/16/2025 10:30 AM EST Office Visit [facility] OPTOMETRY 267 [place] [address] Nury Draper, OD [address] [place] [address] documented as of this encounter Visit Diagnoses Not on filedocumented in this encounter Additional Health Concerns Assessment Noted Time PHQ-9 Depression Total Score: 10 025 10:46 AM EST documented as of this encounter Care Teams Menagerie Superintendent Relationship Specialty Start Date End Date Manjeet Quiroga MD [address] [place] [address] PCP - General Internal Medicine 05/31/13 documented as of this encounter
--- OUTSIDE RECORDS SUMMARY | 2025-04-02 17:58 | XMS_ITS | Encounter Summary ---
Author Organization [employer] Address 75 [facility] 7 [place] [address] Care Team Providers Care Hazmat Technician Name Role Phone Manjeet Quiroga MD Primary Care Provider [phone] Reason for Visit * Reason Comments Med Refill Encounter Details Date Type Department Care Team ([facility] st Contact Info) Description 03/09/2023 Refill [facility] CHC MED & PEDS [address] [place] [address] Manjeet Quiroga MD [address] [place] [address] Type 2 diabetes mellitus with diabetic polyneuropathy [...] Description 04/27/2025 2:30 PM EST Office Visit [facility] CHC MED & PEDS [address] [place] [address] Manjeet Quiroga MD [address] [place] [address] 07/16/2025 10:30 AM EST Office Visit [facility] OPTOMETRY [address] [place] [address] Tarka, Nury, OD [address] [place] [address] documented as of this encounter Visit Diagnoses Diagnosis Type 2 diabetes mellitus with diabetic polyneuropathy (HCC) documented in this encounter Additional Health Concerns Assessment Noted Time PHQ-9 Depression Total Score: 0 01/29/20 23 4:36 PM EDT documented as of this encounter Care Teams Hazmat Technician Relationship Specialty Start Date End Date Manjeet Quiroga MD [address] [place] [address] PCP - General Internal Medicine 05/31/13 documented as of this encounter
--- OUTSIDE RECORDS SUMMARY | 2025-04-02 17:58 | XMS_ITS | Encounter Summary ---
Author Organization [employer] Address 75 [facility] 7 [place] [address] Care Team Providers Care Cracking And Fanning Machine Operator Name Role Phone Manjeet Quiroga MD Primary Care Provider [phone] Reason for Visit * Reason Comments Med Refill Encounter Details Date Type Department Care Team ([facility] st Contact Info) Description 03/08/2023 Refill [facility] CHC MED & PEDS 505 [place] [address] Manjeet Quiroga MD [address] [place] [address] Type 2 diabetes mellitus with diabetic polyneuropathy [...] 2:30 PM EST Office Visit [facility] CHC MED & PEDS [address] [place] [address] Manjeet Quiroga MD [address] [place] [address] 07/16/2025 10:30 AM EST Office Visit [facility] OPTOMETRY [address] [place] [address] Tarka, Nury, OD [address] [place] [address] documented as of this encounter Visit Diagnoses Diagnosis Type 2 diabetes mellitus with diabetic polyneuropathy (HCC) documented in this encounter Additional Health Concerns Assessment Noted Time PHQ-9 Depression Total Score: 0 01/29/20 23 4:36 PM EDT documented as of this encounter Care Teams Cracking And Fanning Machine Operator Relationship Specialty Start Date End Date Manjeet Quiroga MD [address] [place] [address] PCP - General Internal Medicine 05/31/13 documented as of this encounter
--- OUTSIDE RECORDS SUMMARY | 2025-04-02 17:59 | XMS_ITS | Clinical Summary ---
Author Organization [facility] Address [address] [facility] [address] [place] [address] Phone Care Team Providers Care Supervisor Blast Furnace Name Role Phone Manjeet Quiroga MD Primary Care Pr ovider Allergies No known active allergies Medications Lactobac 42-Bifid [id number]-[id number]-YYG 30-500-50 mg PwPk Take by mouth. Activ [...] I gave her a sample lot number [id number], expiration 7 01/2023. She has no history [...] Hemoglobin A1c (05/19/2022 2:13 PM EST) Pathologist [facility] Hemoglobin A1c 12.5(A) 4.2 - 5.8 % Other 05/19/2022 2:13 PM EST Tan York DO LAB POCT ENTER/EDIT ORDERABLES F inal Result * (ABNORMAL) Comprehensive metabolic panel (02/24/2021 7:50 AM EDT) Pathologist [facility] SODIUM 137 133 - 146 mmol/L [facility] POTASSIUM 4.5 3.3 - 5.1 mmol/L [facility] Comment:Specimen slightly he molyzed, result may be falsely elevated. CHLORIDE 102 96 - 108 mmol/L [facility] CO2 26 21 - 35 mmol/L [facility] BUN 15 6 - 19 mg/dL [facility] CREATININE 0.70 0.5 - 1.5 mg/dL [facility] GLUCOSE 164(H) 70 - 99 mg/dL [facility] ALBUMIN 3.9 3.9 - 4.8 g/dL [facility] TOTAL PROTEIN 7.3 6.5 - 8.0 g/dL [facility] CALCIUM 9.2 8.4 - 10.3 mg/dL [facility] ALKALINE PHOSPHATASE 81 39 - 117 U/L [facility] TOTAL BILIRUBIN 0.3 0.0 - 1.2 mg/dL [facility] AST 19 0 - 37 U/L [facility] ALT 14 0 - 40 U/L [facility] GLOBULIN 3.4 1 - 4.8 g/dL [facility] EGFR 113 >59 mL/min/1.7 3m2 [facility] Comment:Estimated glomerular filtration rate calculated using the CKD-EPI equation. ANION GAP 14 10 - 20 mmol/L [facility] Blood 02/24/2021 7:50 AM EDT 02/24/2021 7:51 AM EDT us Tan York DO LAB BLOOD BKR ORDERABLES Final R esult [address] [address] * (ABNORMAL) Lipid panel (02/24/2021 7:50 AM EDT) HDL 49 mg/dL [facility] Comment: Interpretation <40 mg/dL: Low HDL cholesterol (major risk factor for CHD) Greater than or equal to 60 mg/dL: High HDL cholesterol ( negative risk factor for CHD) HDL - cholesterol is affected by a number of factors, e.g. smoking, excerise, hormones, sex and age. CHOLESTEROL 151 0 - 240 mg/dL [facility] TRIGLYCERIDES 116 30 - 160 mg/dL [facility] LDL 79 50 - 129 mg/dL [facility] Comment: LDL levels in terms of risk for coronary heart disease: <100 mg/dL: Optimal 100-129 mg/dL: Near or above optimal 130-159 mg/dL: Borderline high 160-189 mg/dL: High >190 mg/dL: Very High CARDIAC RISK RATIO 3.1(L) 3.3 - 4.4 C [facility] Blood 02/24/2021 7:50 AM EDT 02/24/2021 7:51 AM EDT us Tan [place] DO LAB BLOOD BKR ORDERABLES Final R esult [facility] [address] [place] [address] from Last 3 Months or Most Recently Relevant to Health Maintenance Insurance [facility] [facility] [facility] [facility] [facility] C[address] [facility] C3 ACO Care Teams Supervisor Blast Furnace Relationship Specialty Start Date End Date Manjeet Quiroga MD [address] [place] [address] [place] [address] PCP - General Internal Medicine 01/08/21 Additional Source Comments The information contained in this document represents components of the legal health record. It is not the complete legal health record.[facility]
--- OUTSIDE RECORDS SUMMARY | 2025-04-02 17:59 | XMS_ITS | Encounter Summary ---
Author Organization [employer] Address [address] [place] [address] 7 [place] [address] Care Team Providers Care Hollow Core Door Frame Assembler Name Role Phone Manjeet Quiroga MD Primary Care Provider [phone] Encounter Details Date Type Department Care Team (Late Contact Info) Description 12/03/2022 Orders Only [facility] MEDICINE [address] [place] [address] Arlene Abarca LPN Social History Tobacco Use [...] Description 04/27/2025 2:30 PM EST Office Visit [facility] CHC MED & PEDS [address] [place], [place] [phone] Manjeet Quiroga MD 505 [place], [place] [phone] 07/16/2025 10:30 AM EST Office Visit [facility] OPTOMETRY [address] [place] [address] Bonny Nury, OD [address] [place] [address] documented as of this encounter Visit Diagnoses Not on filedocumented in this encounter Additional Health Concerns Assessment Noted Time PHQ-9 Depression Total Score: 8 10/14/19 23 2:38 PM EDT documented as of this encounter Care Teams Hollow Core Door Frame Assembler Relationship Specialty Start Date End Date Manjeet Quiroga MD [address] [place] [address] PCP - General Internal Medicine 05/31/13 documented as of this encounter
--- OUTSIDE RECORDS SUMMARY | 2025-04-02 17:59 | XMS_ITS | Encounter Summary ---
Author Organization [employer] Address [address] [place] [address] 7 [place] [address] Care Team Providers Care Slip Feeder Name Role Phone Manjeet Quiroga MD Primary Care Provider [phone] Encounter Details Date Type Department Care Team (Latest Contact Info) Description 02/28/2025 Results Follow-Up [facility] CHC MED & PEDS [address] [place] [address] Manjeet Quiroga MD [address] [place] [address] CBC auto differential, CBC auto differential, Comprehensive [...] Description 04/27/2025 2:30 PM EST Office Visit [facility] CHC MED & PEDS [address] [place] [address] Manjeet Quiroga MD [address] [place] [address] 07/16/2025 10:30 AM EST Office Visit [facility] OPTOMETRY [address] [place] [address] TarkaNury, OD [address] [place] [address] documented as of this encounter Visit Diagnoses Not on filedocumented in this encounter Additional Health Concerns Assessment Noted Time PHQ-9 Depression Total Score: 10 025 10:46 AM EST documented as of this encounter Care Teams Slip Feeder Relationship Specialty Start Date End Date Manjeet Quiroga MD [address] [place] [address] PCP - General Internal Medicine 05/31/13 documented as of this encounter
--- OUTSIDE RECORDS SUMMARY | 2025-04-02 17:59 | XMS_ITS | Clinical Summary ---
Author Organization [facility] Address [address] [facility] [address] [place] [address] Phone Care Team Providers Care Pointing Machine Operator Name Role Phone Manjeet Quiroga MD Primary Care Provider [phone] Allergies No known active allergies Medications Multiple [...] patient's age to complete this topic Insurance [facility] Medicaid [facility] Medicaid Care Teams Pointing Machine Operator Relationship Specialty Start Date End Date Manjeet Quiroga MD PCP - General 06/03/20
--- OUTSIDE RECORDS SUMMARY | 2025-04-02 17:59 | XMS_ITS | Encounter Summary ---
Author Organization [employer] Address [address] [place] [address] 7 [place] [address] Care Team Providers Care Airport Security Screener Name Role Phone Manjeet Quiroga MD Primary Care Provider [phone] Reason for Referral * Consultation (Routine) - Closed Specialty Diagnoses / Procedures Referred By Contryder cotto Referred To Contact Physical Therapy Diagnoses Hand paresthesia Neck pain Manjeet Quiroga MD [address] [place] [address] Phone: tel: fax: Physical Therapy, AT [address] [facility] [address] [place], [place] Phone: tel: fax: Referral ID Status Reason Start Date Expiration Date V isits Requested Visits Authorized [id number] Closed Specialty Services Required 08/10/2024 08/10/2025 1 1 Encounter Details Date Type Department Care Team (Late st Contact Info) Description 08/10/2024 Orders Only [facility] MEDICINE [address] [place] [address] Manjeet uQiroga MD [address] [place], [place] [phone] Hand paresthesia (Primary Dx); Neck pain Social [...] Upcoming Encounters Date Type Department Care Team ([facility] st Contact Info) Description 04/27/2025 2:30 PM EST Office Visit [facility] MED & PEDS 505 [place] [address] Manjeet Quiroga MD [address] [place] [address] 07/16/2025 10:30 AM EST Office Visit [facility] OPTOMETRY [address] [place], [place] [phone] Manjeetjosue Nury, OD [address] [place] [address] Scheduled Referrals Name Type Priority Associated Diagnoses [...] documented as of this encounter Care Teams Airport Security Screener Relationship Specialty Start Date End Date Manjeet Quiroga MD [address] [place] [address] PCP - General Internal Medicine 05/31/13 documented as of this encounter
--- OUTSIDE RECORDS SUMMARY | 2025-04-02 17:59 | XMS_ITS | Encounter Summary ---
Author Organization [employer] Address [address] [facility] 7 [place] [address] Care Team Providers Care Manager Utility Name Role Phone Manjeet Quiroga MD Primary Care Provider [phone] Reason for Visit * Reason Comments Med Refill Encounter Details Date Type Department Care Team ([facility] st Contact Info) Description 09/18/[address] [facility] CHC MED & PEDS [address] [place] [address] Manjeet Quiroga MD [address] [place] [address] Neck pain; Cervical radiculopathy; Plantar fasciitis, bilateral [...] PM EST Office Visit [facility] CHC MED & PEDS [address] [place] [address] Manjeet Quiroga MD [address] [place] [address] 07/16/2025 10:30 AM EST Office Visit [facility] OPTOMETRY [address] [place] [address] Nury Draper, OD [address] [place] [address] documented as of this encounter Visit Diagnoses Diagnosis Neck pain Cervicalgia Cervical radiculopathy Brachial neuritis or radiculitis nos Plantar fasciitis, bilateral documented in this encounter Additional Health Concerns Assessment Noted Time PHQ-9 Depression Total Score: 10 025 10:46 AM EST documented as of this encounter Care Teams Manager Utility Relationship Specialty Start Date End Date Manjeet Quiroga MD [address] [place] [address] PCP - General Internal Medicine 05/31/13 documented as of this encounter
--- OUTSIDE RECORDS SUMMARY | 2025-04-02 17:59 | XMS_ITS | Encounter Summary ---
Author Organization [employer] Address 75 [facility] 7t [place] [address] Care Team Providers Care Nut Threader Name Role Phone Manjeet Quiroga MD Primary Care Provider [phone] Encounter Details Date Type Department Care Team (Late st Contact Info) Description 10/06/2023 Telephone [facility] MEDICINE [address] [place] [address] Manjeet Quiroga MD 505 [place], [place] [phone] Social History Tobacco Use Types Packs/Day Years [...] Description 04/27/2025 2:30 PM EST Office Visit [facility] CHC MED & PEDS 505 [place], [place] [phone] Manjeet Quiroga MD 505 [place], [place] [phone] 07/16/2025 10:30 AM EST Office Visit [facility] OPTOMETRY 267 [place], [place] [phone] TarkaNury, OD 267 [place] [address] documented as of this encounter Visit Diagnoses Not on filedocumented in this encounter Additional Health Concerns Assessment Noted Time PHQ-9 Depression Total Score: 0 01/29/20 23 4:36 PM EDT documented as of this encounter Care Teams Nut Threader Relationship Specialty Start Date End Date Manjeet Quiroga MD 505 [place] [address] PCP - General Internal Medicine 05/31/13 documented as of this encounter
--- OUTSIDE RECORDS SUMMARY | 2025-04-02 17:59 | XMS_ITS | Encounter Summary ---
Author Organization [employer] Address 75 [facility] 7 [place] [address] Care Team Providers Care Bleach Boiler Puller Name Role Phone Manjeet Quiroga MD Primary Care Provider [phone] Encounter Details Date Type Department Care Team (Late st Contact Info) Description 02/13/2025 Orders Only [facility] [address] [place] [address] Provider, MD Emilia Social History Tobacco Use [...] [facility]EDS 505 [place] [address] Manjeet Quiroga MD 505 [place] [address] 07/16/2025 10:30 AM EST Office Visit [facility] OPTOMETRY 267 [place] [address] TarkaNury, OD 267 [place] [address] documented as of this encounter Procedures Procedure [...] documented as of this encounter Care Teams Bleach Boiler Puller Relationship Specialty Start Date End Date Manjeet Quiroga MD [address] [place] [address] PCP - General Internal Medicine 05/31/13 documented as of this encounter
--- OUTSIDE RECORDS SUMMARY | 2025-04-02 17:59 | XMS_ITS | Encounter Summary ---
Author Organization [employer] Address 75 [facility] 7t [place] [address] Care Team Providers Care Scouring Train Operator Name Role Phone Manjeet Quiroga MD Primary Care Provider [phone] Encounter Details Date Type Department Care Team [...] 2:30 PM EST Office Visit [facility] CHC MED & PEDS 505 [place], [place] [phone] Manjeet Quiroga MD 505 [place] [address] 07/16/2025 10:30 AM EST Office Visit [facility] OPTOMETRY 267 [place], [place] [phone] TarkaNury, OD 267 [place] [address] documented as of this encounter Visit Diagnoses Not on filedocumented in this encounter Additional Health Concerns Assessment Noted Time PHQ-9 Depression Total Score: 10 025 10:46 AM EST documented as of this encounter Care Teams Scouring Train Operator Relationship Specialty Start Date End Date Manjeet Quiroga MD 505 [place] [address] PCP - General Internal Medicine 05/31/13 documented as of this encounter
--- OUTSIDE RECORDS SUMMARY | 2025-04-02 17:59 | XMS_ITS | Encounter Summary ---
Author Organization [employer] [facility] Address [address] [place] [address] Care Team Providers Care Manager Post Name Role Phone Manjeet Quiroga MD Primary Care Provider [phone] Encounter Details Date Type Department Care Team (Late st Contact Info) Description 12/22/2022 Orders Only [facility] MED & PEDS 505 [place] [address] Cheryle Cruz LPN Social History Tobacco Use [...] Description 04/27/2025 2:30 PM EST Office Visit [facility] CHC MED & PEDS 505 [place] [address] Manjeet Quiroga MD 505 [place] [address] 07/16/2025 10:30 AM EST Office Visit [facility] OPTOMETRY 267 [place] [address] Nury Draper, OD 267 [place] [address] documented as of this encounter Visit Diagnoses Not on filedocumented in this encounter Additional Health Concerns Assessment Noted Time PHQ-9 Depression Total Score: 8 10/14/19 23 2:38 PM EDT documented as of this encounter Care Teams Manager Post Relationship Specialty Start Date End Date Manjeet Quiroga MD [address] [place] [address] PCP - General Internal Medicine 05/31/13 documented as of this encounter
--- OUTSIDE RECORDS SUMMARY | 2025-04-02 17:59 | XMS_ITS | Encounter Summary ---
Author Organization [employer] Address [address] [place] [address] 7 [place] [address] Care Team Providers Care Item Processing Clerk Name Role Phone Manjeet Quiroga MD Primary Care Provider [phone] Encounter Details Date Type Department Care Team (Late Contact Info) Description 10/28/2022 Orders Only [facility] CHC MED & PEDS 505 [place] [address] Manjeet Quiroga MD 505 [place] [address] Other emphysema (CMS/HCC) (Primary Dx); Type 2 [...] PM EST Office Visit [facility] CHC MED & PEDS 505 [place] [address] Manjeet Quiroga MD 505 [place] [address] 07/16/2025 10:30 AM EST Office Visit [facility] OPTOMETRY [address] [place] [address] Nury Draper, OD 267 [place] [address] documented as of this encounter Procedures Procedure Name Priority Date/Time Associated Diagnosis Comments QUANTIFERON(R)-TB GOLD PLUS, 1 TUBE Routine 11/10/2022 10:41 AM EDT Other emphysema (CMS/HCC) documented in this encounter Results * QuantiFERON??-TB Gold Plus, 1 Tube (11/10/2022 10:41 AM EDT) [facility] Quantiferon -TB Gold Plus, 1 Tube NEGATIVE NEGATIVE [facility] [place] [employer] Comment: Negative test result. M. tuberculosis complex infection unlikely. NIL 0.08 IU/mL [facility] [place] [employer] MITOGEN-NIL >10.00 IU/mL [facility] [place] [employer] TB1-NIL <0.00 IU/mL [facility] [place] [employer] TB2-NIL <0.00 IU/mL [facility] [place] [employer] Comment: The Nil tube value reflects the [...] T-lymphocytes. For additional information, please refer to https://education.Cuídate.BUMP Network/faq/WGO966 (This link is being provided for informational/ educational purposes only.) Blood Venous blood specimen / Unknown 11/10/2022 10:41 AM EDT 11/10/2022 10:42 AM EDT Manjeet Quiroga MD LAB BLOOD ORDERABLES Final Result Michael Bieker [address] [place] [address], [place] [address] [facility] [address] [place] [address] documented in this encounter Visit Diagnoses Diagnosis Other emphysema (HCC)- Primary Other emphysema Type 2 diabetes mellitus without complication, with long-term current use of insulin (HCC) documented in this encounter Additional Health Concerns Assessment Noted Time PHQ-9 Depression Total Score: 8 10/14/19 23 2:38 PM EDT documented as of this encounter Care Teams Item Processing Clerk Relationship Specialty Start Date End Date Manjeet Quiroga MD [address] [place] [address] PCP - General Internal Medicine 05/31/13 documented as of this encounter
--- OUTSIDE RECORDS SUMMARY | 2025-04-02 17:59 | XMS_ITS | Encounter Summary ---
Author Organization [employer] [facility] Address [address] [place] [address] Care Team Providers Care Hand Cigar Making Supervisor Name Role Phone Manjeet Quiroga MD Primary Care Provider [phone] Reason for Visit * Reason Comments Med Refill Encounter Details Date Type Department Care Team ([facility] Contact Info) Description 06/22/2022 Refill [facility] CHC MED & PEDS 505 [place] [address] Manjeet Quiroga MD 505 [place] [address] Bloating (Primary Dx) Social History Tobacco Use [...] Upcoming Encounters Date Type Department Care Team ([facility] Contact Info) Description 04/27/2025 2:30 PM EST Office Visit [facility] CHC MED & PEDS 505 [place], [place] [phone] Manjeet Quiroga MD 505 [place] [address] 07/16/2025 10:30 AM EST Office Visit [facility] OPTOMETRY [address] [place] [address] Nury Draper, OD [address] [place] [address] documented as of this encounter Visit Diagnoses Diagnosis Bloating- Primary Flatulence, eructation, and gas pain documented in this encounter Care Teams Hand Cigar Making Supervisor Relationship Specialty Start Date End Date Manjeet Quiroga MD [address] [place] [address] PCP - General Internal Medicine 05/31/13 documented as of this encounter
--- OUTSIDE RECORDS SUMMARY | 2025-04-02 17:59 | XMS_ITS | Clinical Summary ---
Author Organization [facility] Address [address] [place] [address] Phone Care Team Providers Care Conductor/Engineer Name Role Phone Manjeet Quiroga MD Primary Care Provider [phone] Allergies No known active allergies Medications diclofenac (VOLTAREN) 1 % topical gel Apply 4 g topically 2 times daily. 4 Active Lactobac. rhamnosus GG-inulin ([facility]) 10 billion cell -200 mg capsule, [...] mellitus type 2, co ntrolled, with complications ([facility] V24, [facility] V28) 03/30/2024 Normocytic anemia 01/23/2022 Acute nontraumatic kidney injury ([facility] V24) 0 12/23/2020 Acute renal failure syndrome ([facility] V24) 12/23 Atypical squamous cells of u [...] in one year Obesity, morbid, BMI 40.0-49.9 ([facility] V24, [facility] /[facility] V28) 07/05/2019 Anxiety 11/08/2017 Neck pain 04/27/2016 Alopecia 01/24/2013 Migraine 01/24/2013 Pes planus 01/24/2013 Chronic obstructive lung disease ([facility] V24, [facility] V28) 02/19/2012 Encounters Date Type Department Care Team Description 02/28/2025 10:27 AM EDT - 02/28/2025 11:59 PM EDT Hospital Encounter [facility] Ultrasound [address] [place] [phone] Hirsutism Discharge Disposition: Home or Self Care 02/28/2025 Results Follow-Up Obstetrics and Gynecology - [address] [phone] Judy Mckeon RN 02/13/2025 7:15 AM EDT - 02/13/2025 11:59 PM EDT Hospital Encounter Radiology Department - [address] [phone] LUQ pain Discharge Disposition: Home or Self Care 02/08/2025 10:00 AM EDT Office Visit Obstetrics & Gynecology - [address] [phone] Sherrell Santos, RYANM Women's annual routine gynecological examination (Primary Dx); LGSIL of cervix of undetermined significance; Papanicolaou smear of cervix with low risk human papillomavirus (HPV) DNA test positive; Female infertility; Venereal disease screening; Encounter for screening for viral disease; Vaginal discharge; Vaginal itching; LUQ pain 01/23/2025 9:00 AM EDT Office Visit Orthopedic Surgery [facility] [address] [facility] [address] [place] [phone] Ladarius Amaro, DPM Plantar fascial fibromatosis (Primary [...] to less than 46yo 02/24/2021,10/25/2020,07/23/2020 Hepatitis B (Bkvvzqs-I-Zuowo , Recombivax HB-Adult) 19yo and older 05/03/1998,01/03/1998,11/28/1997 [...] SURGERY 07/30/2016 PROCEDURE: HISTORICAL NECK SURGERY; COMMENT: [facility] Medical History Medical History Date Comments Anemia DX:Anemia Anxiety state DX:Anxiety state Asthma DX:Asthma Diabetes mellitus type 2, co ntrolled, with complications ([facility] V24, [facility] V28) DX:Diabetes mellitus type 2, controlled, with complications ([facility]) Bacterial vaginosis 01/24/2016 DX:Bacterial vaginosis; COMMENT: 10/05/14, [...] [facility] [address] [place], [place] [phone] Tasia Palma DO [address] [place], [place] 04/23/2025 1:30 PM EST Procedure visit Obstetrics and Gynecology - [facility] [address] [place], [place] [phone] 05/02/2025 9:45 AM EST Office Visit [facility] - [place] [address] [address] Ladarius Amaro, DPM [address] [phone] Health Maintenance Due Date Last Done Comments [...] Signed Date: 03/05/2025 14:03 ET Workstation ID: [id number] Transcribed By: Self Edit Transcribed Date: 03/05/2025 [...] Signed Date: 03/05/2025 14:03 ET Workstation ID: [id number] Transcribed By: Self Edit Transcribed Date: 03/05/2025 [...] Signed Date: 02/13/2025 08:20 ET Workstation ID: [id number] Transcribed By: Self Edit Transcribed Date: 02/13/2025 [...] Signed Date: 02/13/2025 08:20 ET Workstation ID: [id number] Transcribed By: Self Edit Transcribed Date: 02/13/2025 08:18 ET Sherrell Santos CNM IMG US PROCEDURES Final Resul t * Hepatitis C antibody (02/08/2025 10:48 AM EDT) Hepatitis C Antibody Negative Negative LAB CHEMISTRY METHOD 02/08/2025 1:20 PM EDT [facility] Blood Venous blood specimen / Unknown Venipuncture / Unknown 02/08/2025 10:48 AM EDT 02/08/2025 11:29 AM EDT Sherrell Santos [facility] LAB BLOOD ORDERABLES Final Re sult [facility] [address] [place] [address], [place] [phone] * HIV 1,2 antibody, p24 antigen with reflex to differentiation (02/08/2025 10:48 AM EDT) HIV Combo AB/AG Negative Negative LAB CHEMISTRY METHOD 02/08/2025 1:21 PM EDT [facility] Blood Venous blood specimen / Unknown Venipuncture / Unknown 02/08/2025 10:48 AM EDT 02/08/2025 11:29 AM EDT Narrative [facility] - 02/08/2025 1:21 PM EDT This assay is a 4th generation assay allowing for earlier detection of HIV infection by detecting the presence of the HIV-1 p24 antigen as well as the traditional antibodies to HIV type 1 (including group O) and type 2. Use of a 4th generation assay is the current CDC recommendation for HIV screening. [facility] BLOOD ORDERABLES Final Re sult Performing Organization Address [facility]/ZIP Co de Phone Number [facility] [address] [place] [address], [place] [phone] * Treponema pallidum antibody with reflex to RPR and particle agglutination (02/08/2025 10:48 AM EDT) T. Pallidum Antibodies Negative Negative LAB CHEMISTRY METHOD 02/08/2025 2:13 PM EDT [facility] Blood Venous blood specimen / Unknown Venipuncture / Unknown 02/08/2025 10:48 AM EDT 02/08/2025 11:29 AM EDT [facility] BLOOD ORDERABLES Final Re sult Performing Organization Address [facility] Co de Phone Number [facility] [address] [place] [address], [place] [phone] * Trichomonas vaginalis antigen (02/08/2025 10:36 AM EDT) Trichomonas vaginalis Negative Negative 02/08/2025 1:40 PM EDT [facility] Swab Vaginal structure / Unknown Non-blood Collection / Unknown 02/08/2025 10:36 AM EDT 02/08/2025 11:47 AM EDT [facility] MICROBIOLOGY - GENERAL OR DERABLES Final Result Performing Organization Address City/[facility]/ZIP Co de Phone Number [facility] [address] [place] [address], [place] [phone] * Chlamydia trachomatis and Neisseria gonorrhoeae molecular study (02/08/2025 10:36 AM EDT) Neisseria gonorrhoeae PCR Negative Negative LAB MOLECULAR DIAGNOSTICS METHOD 02/09/2025 1:18 PM EDT [facility] Chlamydia trachomatis PCR Negative Negative LAB MOLECULAR DIAGNOSTICS METHOD 02/09/2025 1:18 PM EDT [facility] Swab Vaginal structure / Unknown Non-blood Collection / Unknown 02/08/2025 10:36 AM EDT 02/08/2025 11:47 AM EDT [facility] MICROBIOLOGY - GENERAL OR DERABLES Final Result [facility] [address] [place] [address], * Wet prep, genital (02/08/2025 10:36 AM EDT) Clue Cells, Wet Prep Negative Negative 02/08/2025 1:40 PM EDT [facility] Yeast, Wet Prep Negative Negative 02/08/2025 1:40 PM EDT [facility] Trichomonas, Wet Prep Indeterminate Negative 02/08/2025 1:40 PM EDT [facility] Comment:Refer to Trichomonas antigen. Swab Vaginal structure / Unknown Non-blood Collection / Unknown 02/08/2025 10:36 AM EDT 02/08/2025 11:47 AM EDT [facility] MICROBIOLOGY - GENERAL OR DERABLES Final Result [facility] [address] [place] [address], * HPV genotype (02/08/2025 10:27 AM EDT) HPV Type 16 Negative Negative LAB MICROBIOLOGY METHOD 02/16/2025 6:40 AM EDT [facility] HPV Type 18/45 Negative Negative LAB MICROBIOLOGY METHOD 02/16/2025 6:40 AM EDT [facility] HPV Type 16,18, and others Valid LAB MICROBIOLOGY METHOD 02/16/2025 6:40 AM EDT [facility] Brushing Cervix uteri structure / Unknown 02/08/2025 10:27 AM EDT 02/09/2025 6:18 AM EDT Sherrell Santos [facility] MOLECULAR DIAGNOSTICS ORD ERABLES Final Result [facility] [address] [place] [address], [place] [phone] * (ABNORMAL) HPV with reflex genotype (02/08/2025 10:27 AM EDT) HPV Positive( A) Negative LAB MICROBIOLOGY METHOD 02/15/2025 8:00 AM EDT [facility] Brushing Cervix uteri structure / Unknown 02/08/2025 10:27 AM EDT 02/09/2025 6:18 AM EDT Sherrell DAVIS LAB MOLECULAR DIAGNOSTICS ORD ERABLES Final Result Performing Organization Address City/[facility]/ZIP Co de Phone Number [facility] [address] [place] [address], [place] [phone] * (ABNORMAL) Pap smear (02/08/2025 10:27 AM EDT) Interpretation Low grade squamous intraepithelial lesion Atypical squamous cells of undetermined significance, cannot exclude high grade(A) 02/28/2025 11:50 AM EDT [facility] at 1150 EDT Clinical Information Lgsil pos hpv 2023 colpo benign 02/28/2025 11:50 AM EDT [facility] General Categorization Epithelial cell abnormality, see interpretation 02/28/2025 11:50 AM EDT [facility] Other Findings Fungal organisms morphologically consistent with Jolene spp Shift in ele suggestive of bacterial vaginosis 02/28/2025 11:50 AM EDT [facility] Specimen Adequacy Satisfactory for evaluation, endocervical/lindsay sformation zone component absent 02/28/2025 11:50 AM EDT [facility] Pap Methodology Liquid Based Pap Test 02/28/2025 11:50 AM EDT [facility] Disclaimer The Pap test is a screening test which carries an inherent false negative rate. These test results should be correlated with the patient's clinical findings and history. This Pap test was processed using an automated screening system. Technical cytopathology services provided by [facility], at [address] [place] [phone] (CLIA # [id number]/Dashawn Reynoso MD, Inventory Controller.) 02/28/2025 11:50 AM EDT [facility] Console Pap Interpretation Reported 02/28/2025 11:50 AM [facility] Brushing Cervix uteri structure / Unknown 02/08/2025 10:27 AM EDT 02/09/2025 6:18 AM EDT Comment:Lgsil pos hpv 2023 c olpo benign Sherrell Santos CNNeptali LAB CYTOLOGY ORDERABLES Final Result [facility] [address] [place] [address], * Diabetes Eye Exam (09/03/2023) Diabetes: Annual Retina Eye Exam abstracted Historical Provider HEALTH MAINTENANCE Final Result * (ABNORMAL) Hemoglobin A1c (09/24/2022) Hemoglobin A1C 12.7(A) <=6.5 % Blood Venous blood specimen / Unknown us Historical Provider LAB BLOOD ORDERABLES Carol Ann racquel Result from Last 3 Months or Most Recently Relevant to Health Maintenance Insurance [facility] Care Teams Conductor/Engineer Relationship Specialty Start Date End Date Manjeet Quiroga MD [address] [place] [address] PCP - General Internal Medicine 07/22/20
--- OUTSIDE RECORDS SUMMARY | 2025-04-02 17:59 | XMS_ITS | Encounter Summary ---
Author Organization [employer] Address [address] [facility] [address] 7t [place] [address] Care Team Providers Care Family Dentist Name Role Phone Manjeet Quiroga MD Primary Care Provider [phone] Encounter Details Date Type Department Care Team (Late st Contact Info) Description 06/21/2024 Orders Only [facility] MEDICINE [address] [place] [address] Provider, MD Emilia Social History Tobacco Use [...] 2:30 PM EST Office Visit [facility] CHC MED & PEDS 505 [place] [address] Manjeet Quiroga MD 505 [place] [address] 07/16/2025 10:30 AM EST Office Visit [facility] OPTOMETRY [address] [place] [address] Nury Draper, OD 267 [place] [address] documented as of this encounter Procedures Procedure [...] Results * Colposcopy (10/20/2023 9:03 AM EDT) [facility] Provider IN CLINIC/BEDSIDE ORDERAB LES Final Result * HM PAP/HPV (09/17/2023 9:04 AM EDT) [facility] Provider HEALTH MAINTENANCE Final Result * Colposcopy (10/13/2021 9:22 AM EDT) [facility] Provider IN CLINIC/BEDSIDE ORDERAB LES Final Result * HM PAP/HPV (09/16/2021 9:15 AM EDT) [facility] Provider HEALTH MAINTENANCE Final Result * Colposcopy (07/23/2020 9:13 AM EST) [facility] Provider IN CLINIC/BEDSIDE ORDERAB LES Final Result * HM PAP/HPV (07/05/2020 9:11 AM EST) [facility] Provider HEALTH MAINTENANCE Final Result * HM PAP/HPV (02/21/2018 9:08 AM EDT) [facility] Provider HEALTH MAINTENANCE Final Result documented in this encounter Visit Diagnoses Not on filedocumented in this encounter Additional Health Concerns Assessment Noted Time PHQ-9 Depression Total Score: 10 025 10:46 AM EST documented as of this encounter Care Teams Family Dentist Relationship Specialty Start Date End Date Manjeet Quiroga MD [address] [place] [address] PCP - General Internal Medicine 05/31/13 documented as of this encounter
--- OUTSIDE RECORDS SUMMARY | 2025-04-02 17:59 | XMS_ITS | Encounter Summary ---
Author Organization [employer] Address [address] [facility] 7 [place] [address] Care Team Providers Care Driver Trainee Name Role Phone Manjeet Quiroga MD Primary Care Provider [phone] Reason for Visit * Reason Comments Med Refill Encounter Details Date Type Department Care Team ([facility] st Contact Info) Description 02/03/2024 Refill [facility] MEDICINE [address] [place] [address] Manjeet Quiroga MD 505 [place] [address] Social History Tobacco Use Types Packs/Day Years [...] Description 04/27/2025 2:30 PM EST Office Visit [facility] CHC MED & PEDS 505 [place] [address] Manjeet Quiroga MD 505 [place], [place] [phone] 07/16/2025 10:30 AM EST Office Visit [facility] OPTOMETRY [address] [place], [place] [phone] TarkaNury, OD 267 [place] [address] documented as of this encounter Visit Diagnoses Not on filedocumented in this encounter Additional Health Concerns Assessment Noted Time PHQ-9 Depression Total Score: 0 01/29/20 23 4:36 PM EDT documented as of this encounter Care Teams Driver Trainee Relationship Specialty Start Date End Date Manjeet Quiroga MD 505 [place] [address] PCP - General Internal Medicine 05/31/13 documented as of this encounter
--- OUTSIDE RECORDS SUMMARY | 2025-04-02 17:59 | XMS_ITS | Clinical Summary ---
Author Organization [employer] Address [address] [facility] 7 [place] [address] Care Team Providers Care Sewing Machine Bobbin Winder Name Role Phone Manjeet Quiroga MD Primary Care Provider [phone] Allergies No known active allergies Medications * This document contains information received from the source organization and may not represent a complete record from that organization. Blood Glucose Monitoring Suppl ([employer] [place] Lite) w/Device kitIndications :Type 2 diabetes mellitus without complication, without long-term current use of insulin ([facility]) Use 2 - 3 x day 1 kit 02/17/20 23 Active Continuous Blood Gluc Hedis Coordinator (FreeStyle Neisha 2 Clutier) deviceIndicati ons:Type 2 diabetes mellitus without complication, with long-term current use of insulin ([facility]) To use daily 1 each 08/26/19 24 Active Continuous Blood Gluc Sensor (FreeStyle Neisha 2 Sensor) miscIndication s:Type 2 diabetes mellitus without complication, with long-term current use of insulin ([facility]) To use daily 2 each 11 08/26/19 24 Active glipiZIDE (Glucotrol) 5 MG tabletIndicati ons:Type 2 diabetes mellitus without complication, without long-term current use of insulin ([facility]) 1 to 3 tabs ac breakfast 1 to 3 tabs ac supper 180 tablet 3 02/02/20 24 Active PARoxetine (Paxil) 10 MG tabletIndicati ons:Anxiety Take 1 tablet (10 mg) by mouth in the morning. 90 tablet 02/02/20 24 Active Alcohol Swabs (Alcohol Prep) 70 % pads To use 2 times a day 100 each 11 02/02/20 24 Active Lactobacillus- Inulin ([facility]) capsuleIndicat ions:Bloating TAKE 1 CAPSULE BY MOUTH EVERY DAY 30 capsule 11 07/14/19 25 Active gabapentin (Neurontin) 300 MG capsuleIndicat ions:Type 2 diabetes mellitus with diabetic neuropathy, without long-term current use of insulin ([facility]),Hand paresthesia Take 1 capsule (300 mg) [...] complication, without long-term current use of insulin ([facility]),Class 3 severe obesity due to excess calories with serious comorbidity and body mass index (BMI) of 40.0 to 44.9 in adult ([facility]) Inject 2.5 mg under the skin 1 (one) time per week. 2 mL 2 02/16/20 25 Active Ferrous Sulfate (iron) 325 (65 Fe) MG tabletIndicati ons:Type 2 diabetes mellitus without complication, without long-term current use of insulin ([facility]) TAKE 1 TABLET BY MOUTH EVERY OTHER DAY 45 tablet 11 02/21/20 25 Active Jardiance 25 MGIndications: Type 2 diabetes mellitus without complication, without long-term current use of insulin ([facility]) TAKE 1 TABLET BY MOUTH EVERY DAY [...] complication, without long-term current use of insulin ([facility]) TAKE 1 TABLET BY MOUTH EVERY DAY [...] complication, without long-term current use of insulin ([facility]) TAKE 1 TABLET BY MOUTH EVERY DAY [...] medication management. Intake completed with N at [facility] for OP individual therapy. clinician will [...] medication management. Intake completed with N at [facility] for OP individual therapy. clinician will [...] Encounters Date Type Department Care Team Description 04/02/2025 Results Follow-Up [facility] [address] [place] [address] Larissa Almanza, WALI Chlamydia/N. Gonorrhoeae, PCR, Urine, RPR (Monitor) with Reflex to Titer, Hepatitis C Antibody with Reflex to HCV, RNA, Quantitative, Real-Time PCR, HIV-1/2 Antigen and Antibodies, Fourth Generation, with Reflexes 04/02/2025 Results Follow-Up [facility] [address] [place] [address] Trinidad Ford RN Lipid Panel, Standard, Comprehensive Metabolic Panel, TSH W/Reflex to FT4 03/30/2025 9:40 AM EST Office Visit [facility] [address] [address] Larissa Almanza NP Rash (Primary Dx) 03/30/2025 Orders Only [facility] [address] [place] [phone] Manjeet Quiroga MD Transaminitis (Primary Dx) 03/30/2025 Travel 03/26/2025 Refill [facility] [address] [place] [phone] Manjeet Quiroga MD Type 2 diabetes mellitus without complication, without long-term current use of insulin ([facility]) 03/13/2025 3:20 PM EDT Office Visit [facility] [address] [address] Trinidad Bravo MD Cough in adult (Primary Dx); Sore throat; Nasal congestion; Chronic obstructive pulmonary disease, unspecified COPD type (CMS/HCC) (HCC) 03/13/2025 Travel 03/08/2025 11:15 AM EDT Telemedicine [facility] [address] [place] [phone] Manjeet Quiroga MD Skin rash (Primary Dx); Chronic obstructive pulmonary disease, unspecified COPD type (CMS/HCC) ([facility]); Hirsutism 03/07/2025 Telephone [facility] [address] [place] [address] Manjeet Quiroga MD Chart Prep 03/01/2025 Telephone [facility] [address] [place] [address] Manjeet Osman MD Results 02/28/2025 Results Follow-Up [facility] [address] [place] [address] Manjeet Cody MD CBC auto differential, CBC auto differential, Comprehensive Metabolic Panel, Additional followed-up results: 8 02/19/2025 Refill [facility] [address] [place] [address] Manjeet Quiroga MD Type 2 diabetes mellitus without complication, without long-term current use of insulin (CMS/HCC) 02/15/2025 1:00 PM EDT Office Visit [facility] [address] [place] [address] Manjeet Quiroga MD Type 2 diabetes mellitus without complication, without long-term current use of insulin (CMS/HCC) (Primary Dx); Chronic obstructive pulmonary disease, unspecified COPD type (CMS/HCC); Cervical radiculopathy; Bilateral carpal tunnel syndrome; Normocytic anemia; Neck pain; Cervical radiculopathy; Plantar fasciitis, bilateral; Hirsutism; Encounter for immunization; Class 3 severe obesity due to excess calories with serious comorbidity and body mass index (BMI) of 40.0 to 44.9 in adult 02/15/2025 Travel 02/14/2025 Telephone [facility] [address] [place] [address] Manjeet Quiroga MD Chart Prep 02/13/2025 Orders Only [place] [employer] [address] [place] [address] ProviderEmilia MD 01/01/2025 Refill [facility] [address] [place] [address] Manjeet Quiroga MD Type 2 diabetes mellitus without complication, without long-term current use of insulin (CMS/HCC) from Last 3 Months Immunizations Immunization Administration [...] housing situation today? I have jakitarik pittman 04/04/[address] you [...] 04/27/2025 2:30 PM EST Office Visit [facility] [address] [place] [address] Manjeet Quiroga MD [address] [place] [address] 07/16/2025 10:30 AM EST Office Visit [facility] [address] [place] [address] Nury Draper, OD [address] [place] [address] Health Maintenance Due Date Last Done Comments [...] Screening 03/08/2026 03/08/2025 Lipid Panel 03/30/2026 03/30/2025, 10/0 12/2024, 11/10/2022, Additional history exists Tobacco Screening [...] 05/03/1998, 01/03/1998, 11/28/1997 HPV Vaccines Completed 02/24/2021, 06/0 08/2020, 07/23/2020 Pneumococcal Vaccine: Pediatrics (0 to 5 Years) and At-Risk Patients (6 to 49) Years Completed 05/26/2023 Influenza Vaccine Completed 02/15/2025, , 03/10/2022, Additional history exists HIV Screening Completed 03/30/2025, 04/24/2024 Hepatitis C Screening Completed 03/30/2025, 024 Hepatitis A Vaccines Aged Out No long [...] Procedure Name Priority Date/Time Associated Diagnosis Comments HIV 1/2 ANTIGEN/ANTIBODY, FOURTH GENERATION W/RFL Routine 03/30/2025 10:49 AM EST Rash HEPATITIS C AB W/REFL TO HCV RNA, QN, PCR Routine 03/30/2025 10:49 AM EST Rash RPR (MONITOR) W/REFL TITER Routine 03/30/2025 10:49 AM EST Rash TSH W/REFLEX TO FT4 Routine 03/30/2025 1 0:49 AM EST Type 2 diabetes mellitus without complication, without long-term current use of insulin (HCC) COMPREHENSIVE METABOLIC PANEL Routine 03/30/2025 10:49 AM EST Type 2 diabetes mellitus without complication, without long-term current use of insulin (HCC) LIPID PANEL, STANDARD Routine 03/30/2025 10:49 AM EST Type 2 diabetes mellitus without complication, without long-term current use of insulin (HCC) HEMOGLOBIN A1C Routine 03/30/2025 10:49 AM EST Controlled type 2 diabetes mellitus with hyperglycemia, without long-term current use of insulin (HCC) CHLAMYDIA/TRICHOMONAS/ NEISSERIA GONORRHOEAE, PCR, URINE Routine 03/30/2025 12:00 AM EST Rash XR CHEST 2 VIEWS Routine 03/13/2025 4:07 [...] complication, without long-term current use of insulin ([facility]) TSH W/REFLEX TO FT4 Routine 02/28/2025 9:21 AM EDT Type 2 diabetes mellitus without complication, without long-term current use of insulin ([facility]) Normocytic anemia LIPID PANEL, STANDARD Routine 02/28/2025 9:21 AM EDT Type 2 diabetes mellitus without complication, without long-term current use of insulin ([facility]) Normocytic anemia COMPREHENSIVE METABOLIC PANEL Routine 02/28/2025 9:21 AM EDT Type 2 diabetes mellitus without complication, without long-term current use of insulin ([facility]) Normocytic anemia CBC WITH AUTO DIFFERENTIAL Routine 02/28/2025 9:21 AM EDT Type 2 diabetes mellitus without complication, without long-term current use of insulin ([facility]) Normocytic anemia CBC WITH AUTO DIFFERENTIAL Routine 02/28/2025 9:21 AM EDT Normocytic anemia US PELVIS TRANSVAGINAL Routine 02/28/2025 Hirsutism POCT GLUCOSE Routine 02/15/2025 3:23 PM EDT Type 2 diabetes mellitus without complication, without long-term current use of insulin ([facility]) POCT GLYCATED HEMOGLOBIN, TOTAL Routine 02/15/2025 3:22 PM EDT Type 2 diabetes mellitus without complication, without long-term current use of insulin ([facility]) US ABDOMEN LIMITED Routine 02/13/2025 2: 10 PM EDT HM PAP/HPV Routine 02/08/2025 ALBUMIN, RANDOM URINE W/CREATININE Routine 04/24/2024 1:30 PM EST Type 2 diabetes mellitus without complication, with long-term current use of insulin ([facility]) COLPOSCOPY Routine 10/20/2023 9:03 AM EDT from Last 3 Months or Most Recently Relevant to Health Maintenance Results * TSH W/Reflex to FT4 (03/30/2025 10:49 AM EST) Only the most recent of2 resultswithin the time period is included. TSH reflex Free T4 1.19 0.32 - 4.0 uIU/mL [facility] Blood Venous blood specimen / Unknown 03/30/2025 10:49 AM EST 03/30/2025 11:40 AM EST us Manjeet Qiuroga MD LAB BLOOD ORDERABLES Final Result [facility] [address] [place] [phone] * Hepatitis C Antibody with Reflex to HCV, RNA, Quantitative, Real-Time PCR (03/30/2025 10:49 AM EST) Hepatitis C Antibody Nonreactive Nonreactive [facility] Comment:Antibodies to HCV no t detected; does not exclude early acuteHCV infection. Blood Venous blood specimen / Unknown 03/30/2025 10:49 AM EST 03/30/2025 11:40 AM EST Larissa Almanza NP LAB BLOOD ORDERABLES Final Resul t Performing Organization Address [facility] Co de Phone Number [facility] [address] [place] [phone] * RPR (Monitor) with Reflex to??Titer (03/30/2025 10:49 AM EST) RPR (Monitor) w/Refl Titer NON-REACTI VE NON-REACT ADRIANA [facility] Comment:THIS TEST WAS PERFOR MED AT:[facility] [place] [phone] WESTBROOK MD Rapid Plasma Reagin Ab Titer TNP [facility] Blood Venous blood specimen / Unknown 03/30/2025 10:49 AM EST 03/30/2025 11:40 AM EST us Larissa Almanza TOP WADDY LAB BLOOD ORDERABLES Final Resul t Performing Organization Address [facility] de Phone Number [facility] [address] [place] [phone] * HIV-1/2 Antigen and Antibodies, Fourth Generation, with Reflexes (03/30/2025 10:49 AM EST) HIV AB/AG Nonreactive Nonreactive [facility] Comment:HIV-1 p24 Ag and/or HIV-1/HIV-2 Ab not detected.A test result that is nonreactive does not exclude thepossibility of exposure to or infection with HIV-1 and/orHIV-2. Nonreactive results in this assay for individualswith prior exposure to HIV-1 and/or HIV-2 may be due toantigen and antibody levels that are below the limit ofdetection of this assay.The [employer] HIV Ag/Ab Combo assay result andsupplemental assay results should be interpreted inconjunction with the patient's clinical presentation,history and other laboratory results. If the results areinconsistent with clinical evidence, additional testing issuggested to confirm the result. Blood Venous blood specimen / Unknown 03/30/2025 10:49 AM EST 03/30/2025 11:40 AM EST us Larissa Almanza NP LAB BLOOD ORDERABLES Final Resul t Performing Organization Address [facility] Co de Phone Number [facility] [address] [place] [phone] * (ABNORMAL) Hemoglobin A1c (03/30/2025 10:49 AM EST) Only the most recent of2 resultswithin the time period is included. Hemoglobin A1c 7.0(H) <6.0 % [facility] Comment:Hemoglobin A1C Refer ence Range Adults: 4.8 - 6.0 % Non diabetic: < 6.0 % Goal: < 7.0 %Additional Action Suggested: > 8.0 %Note: Hemoglobin A1c results are invalid for patients with abnormal amounts of HbF. Blood transfusions may impact the HbA1c concentration in the patient sample. Estimated Average Glucose 154 mg/dL [facility] Comment:eAG = Estimated ave rage glucose which is %A1C expressed asaverage glucose, using the formula of the W3M-NaqtaexLngqkhe Glucose study (ADAG), Diabetes Care, Vol.31,#8,Dec. 2007 Blood Venous blood specimen / Unknown 03/30/2025 10:49 AM EST 03/30/2025 11:40 AM EST us Manjeet Quiroga MD LAB BLOOD ORDERABLES Final Result Performing Organization Address [facility] Co de Phone Number [facility] [address] [place] [phone] * (ABNORMAL) Lipid Panel, Standard (03/30/2025 10:49 AM EST) Only the most recent of2 resultswithin the time period is included. Triglycerides 63 <150 mg/dL [facility] Comment:Desirable Triglyceri de: less than 150 mg/dLBorderline High Triglyceride 150-199 mg/dLHigh Triglyceride: 200-499 mg/dLVery High Triglyceride: greater than or equal to 5OO mg/dL Cholesterol 172 <200 mg/dL [facility] Comment:Desirable Cholestero l: less than 200 mg/dLBorderline High Cholesterol: 200-239 mg/dLHigh Cholesterol: greater than 239 mg/dL LDL Cholesterol Calculated 111(H) <100 mg/dL [facility] Comment:Desirable LDL: less than 100 mg/dLNear Optimal/Above Optimal LDL: 110- 129 mg/dLBorderline High LDL: 130-159 mg/dLHigh LDL: 160-189 mg/dLVery High LDL: greater than or equal to 190 mg/dL HDL Cholesterol 49 >40 mg/dL [facility] Comment:Desirable HDL: great er than 40 mg/dL Note: This HDL assay may give artificially low results in patients with liver disease. Blood Venous blood specimen / Unknown 03/30/2025 10:49 AM EST 03/30/2025 11:40 AM EST Manjeet Quiroga MD LAB BLOOD ORDERABLES Final Result [facility] [address] [place] [phone] * (ABNORMAL) Comprehensive Metabolic Panel (03/30/2025 10:49 AM EST) Only the most recent of2 resultswithin the time period is included. Sodium 138 135 - 145 mmol/L [facility] Potassium 4.0 3.3 - 5.1 mmol/L [facility] Chloride 106 96 - 108 mmol/L [facility] Carbon Dioxide 22 22 - 29 mmol/L [facility] Anion Gap 14 12 - 20 [facility] Urea Nitrogen (BUN) 16 9 - 16 mg/dL [facility] Creatinine, Serum 0.62 0.5 - 1.4 mg/dL [facility] Estimated Glomerular Filt Rate >60 [facility] Comment:Chronic Kidney Disea se: Estimated GFR < 60 mL/min/1.31q4Stgqex Kidney Disease: Estimated GFR < 15 mL/min/1.73m2 Glucose 92 60 - 115 mg/dL [facility] Calcium 9.3 8.4 - 10.2 mg/dL [facility] Bilirubin, Total 1.1(H) 0.0 - 1.0 mg/dL [facility] Aspartate Amino Transferase 34(H) 5 - 31 U/L [facility] Alanine Aminotransferase 26 0 - 31 U/L [facility] Total Protein 8.0 6.5 - 8.0 g/dL [facility] Albumin Level 4.5 3.5 - 5.0 g/dL [facility] Alkaline Phosphatase 92 39 - 117 U/L [facility] Blood Venous blood specimen / Unknown 03/30/2025 10:49 AM EST 03/30/2025 11:40 AM EST us Manjeet Quiroga MD LAB BLOOD ORDERABLES Final Result [facility] [address] [place] [phone] * Chlamydia/N. Gonorrhoeae, PCR, Urine (03/30/2025 12:00 AM EST) CT PCR, Urine NOT DETECTED Not Detect. [facility] Comment:A not detected test result [...] NG PCR, Urine NOT DETECTED Not Detect. [facility] Comment:A not detected test result [...] NP LAB URINE ORDERABLES Final Resul t [facility] [address] [place] [phone] * XR Chest 2 Views (03/13/2025 4:07 PM EDT) Anatomical Region Laterality Modality Chest Radiographic Candi ging 03/13/2025 4:07 PM EDT Narrative 03/13/2025 4:00 PM EDT [facility] [address] [place] [address] XRay Report Signed Patient: Josiane Pettit MR#: [id number] : 1985 Acct:[id number] Age/Sex: 40 / F ADM Date: 03/13/25 Loc: HO.HHCX Attending Dr: Trinidad Bravo MD Ordering Physician: Trinidad Bravo MD Date of Service: 03/13/25 Procedure(s): XR chest 2V Accession Number(s): [id number] cc: Trinidad Bravo MD Reason for Exam: [...] 03/13/25 1557 DD/ 1607 TD/TT: 03/13/25 1555 Geological Engineering Teacher: Procedure Note Donotuseinterpreter, Image - 03/13/[address] [address] XRay Report Signed Patient: Babar Pettit#: [id number] : 1985Acct:[id number] Age/Sex: 40 / FADM Date: 03/13/25 Loc: HO.HHCX Attending Dr: Trinidad Bravo MD Ordering Physician: Trinidad Bravo MD Date of Service: 03/13/25 Procedure(s): XR chest 2V Accession Number(s): [id number] cc: Trinidad Bravo MD Reason for Exam: [...] 03/13/25 1557 DD/ 1607 TD/TT: 03/13/25 1555 Geological Engineering Teacher: Trinidad Bravo MD IMG XR PROCEDURES Final Re sult * POCT Rapid Strep A MARIO ID NOW (03/13/2025 3:42 PM EDT) Pathologist [facility] Rapid Strep A Screen Negative Negative, None Detected QC Media Lot # [id number] Lot# Expiration Date Swab 03/13/2025 3:42 PM EDT Trinidad Bravo MD POINT OF CARE TEST ENTER/E DIT ORDERABLES Final Result * POCT Rapid Influenza A MARIO ID NOW (03/13/2025 3:41 PM EDT) Pathologist [facility] Influenza A Negative Negative, Indeterminate [facility] QC Media Lot # [id number] [facility] Lot# Expiration Date [facility] Swab 03/13/2025 3:41 PM EDT Trinidad Bravo MD POINT OF CARE TEST ENTER/E DIT ORDERABLES Final Result [facility] [address] [place] [phone] * POCT Rapid Covid-19 MARIO ID NOW (03/13/2025 3:41 PM EDT) Coronavirus Antigen PCR Negative Negative, Indeterminate, None Detected, Invalid, Specimen unsatisfactory for evaluation, Weakly Positive, 2+ QC Media Lot # [id number] Lot# Expiration Date [id number] Swab 03/13/2025 3:41 PM EDT us Trinidad Bravo MD POINT OF CARE TEST ENTER/E DIT ORDERABLES Final Result * POCT Rapid Influenza B MARIO ID NOW (03/13/2025 3:40 PM EDT) Pathologist [facility] Influenza B Negative Negative, Indeterminate [facility] QC Media Lot # [id number] [facility] Lot# Expiration Date 2 [facility] Swab 03/13/2025 3:40 PM EDT Trinidad Bravo MD POINT OF CARE TEST ENTER/E DIT ORDERABLES Final Result [facility] [address] [place] [phone] * (ABNORMAL) CBC auto differential (02/28/2025 9:21 AM EDT) Only the most recent of2 resultswithin the time period is included. Pathologist [facility] White Blood Count 10.9(H) 4.8 - 10.8 X10*3/uL [facility] Red Blood Count 4.70 4.20 - 5.50 X10*6/uL [facility] Hemoglobin 12.0 12.0 - 16.0 g/dl [facility] Hematocrit 38.6 37.0 - 47.0 % [facility] Mean Corpuscular Volume 82.1 80.0 - 98.0 fL [facility] Mean Corpuscular Hemoglobin 25.5(L) 27.0 - 33.0 pg [facility] Mean Corpuscular HGB Conc 31.1 31.0 - 35.0 g/dl [facility] Red Cell Distribution Width 15.3 11.0 - 16.0 % [facility] Platelet Count 272 160 - 400 X10*3/uL [facility] Mean Platelet Volume 11.6 9.4 - 12.3 fL [facility] Neutrophils Percent Auto 64.5 45 - 73 % [facility] Imm Gran Pct Auto 0.3 0.0 - 0.4 % [facility] Lymphocytes Percent Auto 18.1(L) 20 - 40 % [facility] Monocytes Percent Auto 9.0 2 - 11 % [facility] Eosinophils Percent Auto 7.5(H) 0 - 4 % [facility] Basophils Percent Auto 0.6 0 - 2 % [facility] NRBC Pct Auto 0.0 0.0 - 0.2 /100WBC [facility] Neutrophils Absolute Auto 7.0 2.0 - 8.3 x10*3/uL [facility] Imm Gran Abs Auto 0.03 0.00 - 0.03 X10*3/uL [facility] Lymphocytes Absolute Auto 2.0 1.2 - 4.9 X10*3/uL [facility] Monocytes Absolute Auto 1.0 0.1 - 1.2 X10*3/uL [facility] Eosinophils Absolute Auto 0.8(H) 0.0 - 0.4 X10*3/uL [facility] Basophils Absolute Auto 0.1 0.0 - 0.2 X10*3/uL [facility] NRBC Abs Auto 0.000 0.0 - 0.012 X10*3/uL [facility] Blood Venous blood specimen / Unknown 02/28/2025 9:21 AM EDT 02/28/2025 2:18 PM EDT us Manjeet Quiroga MD LAB BLOOD ORDERABLES Final Result [facility] [address] [place] [phone] * DHEA Sulfate (02/28/2025 9:21 AM EDT) DHEA Sulfate 133 19 - 237 mcg/dL [facility] Comment:THIS TEST WAS PERFOR MED AT:[facility] [place] [phone] WESTBROOK MD Blood Venous blood specimen / Unknown 02/28/2025 9:21 AM EDT 02/28/2025 2:18 PM EDT us Manjeet Quiroga MD LAB BLOOD ORDERABLES Final Result Performing Organization Address [facility]/ZIP Co de Phone Number [facility] [address] [place] [phone] * Testosterone, Total, males (Adult), [place] (02/28/2025 9:21 AM EDT) Testosterone, Total 13 2 - 45 ng/dL [facility] Comment:For additional infor mation, please refer tohttp://education.[employer]/faq/QoxdvKilkziiswnegHBWZCUMFI831(This link is being provided for informational/educational purposes only.)This test was developed and its analytical performancecharacteristics have been determined by [email or web address] [place], [place]. It hasnot been cleared or approved by the U.S. Food and DrugAdministration. This assay has been validated pursuantto the CLIA regulations and is used for clinicalpurposes.THIS TEST WAS PERFORMED AT:[facility] [place], [place] [id number] STEIN MD,PHD Blood Venous blood specimen / Unknown 02/28/2025 9:21 AM EDT 02/28/2025 2:18 PM EDT us Manjeet Quiroga MD LAB BLOOD ORDERABLES Final Result Performing Organization Address [facility]/ZIP Co de Phone Number [facility] [address] [place] [address] [phone] * US Pelvis Transvaginal (02/28/2025) Anatomical [...] 1:30 PM EST) Creatinine, Urine 61.75 mg/dL [facility] Microalbumin Urine <5.0 mg/L [facility] Microalbum Creatinine Ratio Ur TNP <30 ug/mg cr [facility] Comment:Unable to calculate albumin/creatinine ratio due to lowmicroalbumin or creatinine result. Urine (Urine, Random) 04/24/2024 1:30 PM EST 04/24/2024 2:09 PM EST Manjeet Quiroga MD LAB URINE ORDERABLES Final Result [facility] [address] [place] [address] [phone] * Colposcopy (10/20/2023 9:03 AM EDT) Historical Provider MD IN CLINIC/BEDSIDE ORDERAB LES Final Result from Last 3 Months or Most Recently Relevant to Health Maintenance Insurance [facility] Care Teams Sewing Machine Bobbin Winder Relationship Specialty Start Date End Date Manjeet Quiroga MD NPI: [id number] [place] [id number] PCP - General Internal Medicine 05/31/13
--- OUTSIDE RECORDS SUMMARY | 2025-04-02 17:59 | XMS_ITS | Encounter Summary ---
Author Organization [employer] Address [address] [facility] 7 [place] [address] Care Team Providers Care Sales Promotion Director Name Role Phone Manjeet Quiroga MD Primary Care Provider [phone] Encounter Details Date Type Department Care Team (Late st Contact Info) Description 10/06/2023 Orders Only [facility] MED & PEDS [address] [place], [place] [phone] Manjeet Quiroga MD 505 [place] [address] Type 2 diabetes mellitus without complication, without long-term current use of insulin ([facility]) (Primary Dx) Social History Tobacco Use Types [...] PM EST Office Visit [facility] CHC MED & PEDS [address] [place], [place] [phone] Manjeet Quiroga MD [address] [place] [address] 07/16/2025 10:30 AM EST Office Visit [facility] OPTOMETRY [address] [place] [address] Tarka, Nury, OD [address] [place] [address] documented as of this encounter Visit Diagnoses Diagnosis Type 2 diabetes mellitus without complication, without long-term current use of insulin (HCC)- Primary documented in this encounter Additional Health Concerns Assessment Noted Time PHQ-9 Depression Total Score: 0 01/29/20 23 4:36 PM EDT documented as of this encounter Care Teams Sales Promotion Director Relationship Specialty Start Date End Date Manjeet Quiroga MD [address] [place] [address] PCP - General Internal Medicine 05/31/13 documented as of this encounter
--- OUTSIDE RECORDS SUMMARY | 2025-04-02 17:59 | XMS_ITS | Encounter Summary ---
Author Organization [employer] Address [address] [facility] 7 [place] [address] Care Team Providers Care Vulnerability Assessment Analyst Name Role Phone Manjeet Quiroga MD Primary Care Provider [phone] Encounter Details Date Type Department Care Team (Late st Contact Info) Description 10/21/2023 Orders Only [facility] CHC MED & PEDS [address] [place] [address] Manjeet Quiroga MD [address] [place] [address] Type 2 diabetes mellitus without complication, without long-term current use of insulin ([facility]) Social History Tobacco Use Types Packs/Day [...] 2:30 PM EST Office Visit [facility] CHC MED & PEDS [address] [place] [address] Manjeet Quiroga MD [address] [place] [address] 07/16/2025 10:30 AM EST Office Visit [facility] OPTOMETRY [address] [place] [address] Tarka, Nury, OD [address] [place] [address] documented as of this encounter Visit Diagnoses Diagnosis Type 2 diabetes mellitus without complication, without long-term current use of insulin (HCC) documented in this encounter Additional Health Concerns Assessment Noted Time PHQ-9 Depression Total Score: 0 01/29/20 23 4:36 PM EDT documented as of this encounter Care Teams Vulnerability Assessment Analyst Relationship Specialty Start Date End Date Manjeet Quiroga MD [address] [place] [address] PCP - General Internal Medicine 05/31/13 documented as of this encounter
--- OUTSIDE RECORDS SUMMARY | 2025-04-02 17:59 | XMS_ITS | Encounter Summary ---
Author Organization [employer] Address [address] [place] [address] Care Team Providers Care Creative Specialist Name Role Phone Manjeet Quiroga MD Primary Care Provider [phone] Reason for Visit * Reason Onset Date Comments Med Refill 11/04/2022 Encounter Details Date Type Department Care Team ([facility] st Contact Info) Description 11/04/2022 Telephone [facility] MEDICINE [address] [place] [address] Manjeet Quiroga MD [address] [place] [address] Med Refill Social History Tobacco Use Types [...] Description 04/27/2025 2:30 PM EST Office Visit [facility] CHC MED & PEDS [address] [place] [address] Manjeet Quiroga MD [address] [place], [place] [phone] 07/16/2025 10:30 AM EST Office Visit [facility] OPTOMETRY [address] [place], [place] [phone] TarkaNury, OD [address] [place] [address] documented as of this encounter Visit Diagnoses Not on filedocumented in this encounter Additional Health Concerns Assessment Noted Time PHQ-9 Depression Total Score: 8 10/14/19 23 2:38 PM EDT documented as of this encounter Care Teams Creative Specialist Relationship Specialty Start Date End Date Manjeet Quiroga MD [address] [place] [address] PCP - General Internal Medicine 05/31/13 documented as of this encounter
--- OUTSIDE RECORDS SUMMARY | 2025-04-02 17:59 | XMS_ITS | Encounter Summary ---
Author Organization [employer] [facility] Address [address] [place] [address] [place] [address] Care Team Providers Care Glass Cutting Machine Operator Name Role Phone Manjeet Quiroga MD Primary Care Provider [phone] Encounter Details Date Type Department Care Team (Late Contact Info) Description 12/02/2022 Orders Only [facility] MED & PEDS [address] [place] [address] Cheryle Cruz LPN Social History Tobacco Use [...] Description 04/27/2025 2:30 PM EST Office Visit [facility] MED & PEDS [address] [place] [address] Manjeet Quiroga MD [address] [place] [address] 07/16/2025 10:30 AM EST Office Visit [facility] OPTOMETRY [address] [place] [address] Nury Draper, OD [address] [place] [address] documented as of this encounter Visit Diagnoses Not on filedocumented in this encounter Additional Health Concerns Assessment Noted Time PHQ-9 Depression Total Score: 8 10/14/19 23 2:38 PM EDT documented as of this encounter Care Teams Glass Cutting Machine Operator Relationship Specialty Start Date End Date Manjeet Quiroga MD [address] [place] [address] PCP - General Internal Medicine 05/31/13 documented as of this encounter
--- OUTSIDE RECORDS SUMMARY | 2025-04-02 17:59 | XMS_ITS | Encounter Summary ---
Author Organization [employer] Address [address] [place] [address] 7 [place] [address] Care Team Providers Care Wiener Packer Name Role Phone Manjeet Quiroga MD Primary Care Provider [phone] Encounter Details Date Type Department Care Team (Late Contact Info) Description 12/01/2022 Orders Only [facility] MED & PEDS [address] [place], [place] [phone] Manjeet Quiroga MD [address] [place] [address] Type 2 diabetes mellitus without complication, with long-term current use of insulin ([facility]) Social History Tobacco Use Types [...] Description 04/27/2025 2:30 PM EST Office Visit [facility] MED & PEDS [address] [place] [address] Manjeet Quiroga MD [address] [place] [address] 07/16/2025 10:30 AM EST Office Visit [facility] OPTOMETRY [address] [place] [address] Nury Draper, OD [address] [place] [address] documented as of this encounter Visit Diagnoses Diagnosis Type 2 diabetes mellitus without complication, with long-term current use of insulin (HCC) documented in this encounter Additional Health Concerns Assessment Noted Time PHQ-9 Depression Total Score: 8 10/14/19 23 2:38 PM EDT documented as of this encounter Care Teams Wiener Packer Relationship Specialty Start Date End Date Manjeet Quiroga MD [address] [place] [address] PCP - General Internal Medicine 05/31/13 documented as of this encounter
--- OUTSIDE RECORDS SUMMARY | 2025-04-02 17:59 | XMS_ITS | Encounter Summary ---
Author Organization [employer] Address 75 [facility] 7 [place] [address] Care Team Providers Care Ward Attendant Name Role Phone Manjeet Quiroga MD Primary Care Provider [phone] Reason for Visit * Reason Comments Med Refill Encounter Details Date Type Department Care Team ([facility] st Contact Info) Description 10/25/2023 Refill [facility] CHC MED & PEDS [address] [place] [address] Manjeet Quiroga MD [address] [place] [address] Mild episode of recurrent major depressive disorder [...] Description 04/27/2025 2:30 PM EST Office Visit [facility] CHC MED & PEDS [address] [place] [address] Manjeet Quiroga MD [address] [place] [address] 07/16/2025 10:30 AM EST Office Visit [facility] OPTOMETRY [address] [place] [address] Tarka, Nury, OD [address] [place] [address] documented as of this encounter Visit Diagnoses Diagnosis Mild episode of recurrent major depressive disorder (CMS/HCC) documented in this encounter Additional Health Concerns Assessment Noted Time PHQ-9 Depression Total Score: 0 01/29/20 23 4:36 PM EDT documented as of this encounter Care Teams Ward Attendant Relationship Specialty Start Date End Date Manjeet Quiroga MD [address] [place] [address] PCP - General Internal Medicine 05/31/13 documented as of this encounter
--- OUTSIDE RECORDS SUMMARY | 2025-04-02 17:59 | XMS_ITS | Encounter Summary ---
Author Organization [facility] Address [address] [place] [address] Care Team Providers Care Mold Sheet Cleaner Name Role Phone Manjeet Quiroga MD Primary Care Provider [phone] Encounter Details Date Type Department Care Team (Late Contact Info) Description 02/28/2025 Results Follow-Up Obstetrics and Gynecology [address] [phone] Judy Mckeon RN Social History Tobacco Use [...] Department Care Team (Late Contact Info) Description 04/23/2025 1:30 PM EST Procedure visit [facility] [address] [place], [place] [phone] Tasia Palma DO [address] [place], [place] 04/23/2025 1:30 PM EST Procedure visit [facility] [place] [address] [place], [place] [phone] 05/02/2025 9:45 AM EST Office Visit [facility] [place] [address] [facility] [address] [place] [phone] Ladarius Amaro DPM [address] [phone] documented as of this encounter Visit Diagnoses Not on filedocumented in this encounter Care Teams Mold Sheet Cleaner Relationship Specialty Start Date End Date Manjeet Quiroga MD [address] [place] [address] PCP - General Internal Medicine 07/22/20 documented as of this encounter
[2025-04-02 18:26] LABS: INTERNATIONAL NORM RATIO 1.0 (0.9-1.1); Prothrombin Time 12.5 SEC (11.2-13.5)
[2025-04-02 18:37] LABS: Iron 38 mcg/dL (30-160); Percent Iron Saturation 15 % (15-50); Total Iron Binding Capacity 261 mcg/dL (228-428); Unsaturated Iron Binding 223 ug/dL
[2025-04-02 18:53] LABS: Ferritin 51 ng/mL (10-122)
[2025-04-03 06:39] LABS: HBS Num1 31.77 mIU/mL (0-7.99); ~Hepatitis B Surface Antibody REACTIVE (Nonreactive)
== END 2025-04-02 16:17 | disposition home or self-care (01) ==
LOC: HO.HHCL 16:16
PROVIDERS: PCP Internal Medicine; Visit Provider Internal Medicine
DX: R74.01 Elevation of levels of liver transaminase levels (principal)
CPT/HCPCS: 36415; 82728; 82784; 83540; 85610; 86706

== ENCOUNTER 2025-04-17 15:10 | Outpatient (REF) | payer OTHER, SELFPAY ==
--- OUTSIDE RECORDS SUMMARY | 2025-04-17 14:00 | XMS_ITS | Encounter Summary ---
Author Organization [employer] Address [address] [place] [address] [place] [address] Care Team Providers Care Director Process Engineering Name Role Phone Manjeet Quiroga MD Primary Care Provider [phone] Reason for Visit * Reason Comments Follow-up Encounter Details Date Type Department Care Team ([facility] Contact Info) Description 04/17/2025 2:00 PM EST Office Visit [facility] CHC MED & PEDS [address] [place] [address] Manjeet Quiroga MD 505 [place] [address] Skin rash (Primary Dx); Type 2 diabetes mellitus without complication, without long-term current use of insulin (HCC); Health care maintenance Social History Tobacco Use Types Packs/Day Years [...] Sign Reading Time Taken Comments Blood Pressure 119/72 04/17/2025 2:05 PM EST Pulse 89 04/17/2025 2:05 PM EST Temperature 37.1 C (98.7 F) 04/17/2025 2:05 PM EST Respiratory Rate 20 04/17/2025 2:05 PM EST Oxygen Saturation - - Inhaled Oxygen Concentration - - Weight 97.5 kg (215 lb) 04/17/2025 2:05 PM EST Height 154.9 cm (5' 1 ) 04/17/2025 2:05 PM EST Body Mass Index 40.62 04/17/2025 2:05 PM EST documented in this encounter Progress Notes * Manjeet Quiroga MD - 04/17/2025 2:00 PM EST SUBJECTIVE Josiane Pettit is a 40 y.o. female who presents for Follow-up. HPI Josiane Rivera, 40-year-old female - Persistent rash with severe itching, primarily on the back, shoulders, top of hands, thighs, and behind the leg, worsening at night - Noted onset of symptoms after cousin, who is homeless, stayed at apartment for 2 days, slept on couch and used sheets - Attempted multiple treatments prior to visit: topical cream, steroids, and oral pills, with no relief - Reports scratching to the point of skin injury, especially at night - Denies itching in between fingers and at the tip of the breast - Noted development of black, scratchy patch behind leg and patches on skin - Lives alone in a one-bedroom apartment Problem List[1] Allergies[2] Medications Ordered Prior to Encounter[3] Review of Systems Constitutional: Negative for activity change, appetite change, chills and diaphoresis. HENT: Negative for dental problem, drooling, ear discharge, ear pain and hearing loss. Eyes: Negative for pain, discharge and itching. Respiratory: Negative for cough, choking and chest tightness. Cardiovascular: Negative for chest pain and leg swelling. Gastrointestinal: Negative for blood in stool and diarrhea. Genitourinary: Negative for difficulty urinating, dyspareunia, dysuria, enuresis, flank pain, frequency and genital sores. Musculoskeletal: Negative for arthralgias, gait problem and joint swelling. Skin: Positive for rash. Negative for pallor. Neurological: Negative for dizziness, seizures, speech difficulty, light- headedness and numbness. Psychiatric/Behavioral: Negative for behavioral problems, confusion and decreased concentration. OBJECTIVE Vitals: 04/17/25 1405 BP: 119/72 BP Location: Left arm Patient Position: Sitting BP Cuff Size: Adult Pulse: 89 Resp: 20 Temp: 98.7 ??F (37.1 ??C) TempSrc: Oral Weight: 215 lb (97.5 kg) Height: 5' 1 (1.549 m) Physical Exam Constitutional: General: She is not in acute distress. Appearance: Normal appearance. She is not ill-appearing, toxic-appearing or diaphoretic. Skin: Comments: Multiple erythematous papules, burrows of the periumbilical area of the abdomen, thighs, arms. Neurological: Mental Status: She is alert. - SKIN: Cutaneous eruption observed on the back, shoulders, top of hands, and thighs. No involvement between fingers. - Chlamydia trachomatis and Neisseria gonorrhoeae nucleic acid amplification: not detected (March 30, 2025) - Hemoglobin A1c: 7% (March 30, 2025) - LDL cholesterol: 111 mg/dL (March 30, 2025) - AST (aspartate aminotransferase): 34 U/L (March 30, 2025) - Ferritin: 51 ng/mL (March 30, 2025) - Abdominal ultrasound (left upper quadrant): no abnormality detected - Pelvic ultrasound: no evidence of polycystic ovary syndrome Assessment/Plan Assessment/Plan Diagnoses and all orders for this visit: Skin rash - permethrin (Elimite) 5 % cream; apply to skin from hairline to toes and wash off 8-10 hours later Type 2 diabetes mellitus without complication, without long-term current use of insulin ([facility]) - POCT Glucose Type 2 diabetes mellitus without complication, without long-term current use of insulin ([facility]): - Type 2 diabetes mellitus, glycemic control improving as evidenced by decreased A1c. - Continue current regimen including iron supplementation. Advised low cholesterol diet. Pending results for antitrypsin and smooth muscle antibody tests. Skin rash: - Skin rash consistent with scabies. - Prescribed topical permethrin cream, to be applied from neck to toe overnight, repeated in one week. Advised to wash all linens and clothing after application. Declined oral therapy in favor of topical treatment. This note was drafted using Ambient (AI) technology. The patient/patient's guardian has been informed and has consented to the use of this technology: Yes [1] Patient Active Problem List Diagnosis Acute renal failure syndrome Anxiety Chronic obstructive lung disease (HCC) Diabetes mellitus type 2, uncomplicated ([facility]) Normocytic anemia Obesity Alopecia Migraine Neck pain [...] 90 tablet 3 Blood Glucose Monitoring Suppl (Oncothyreon Lite) w/Device kit Use 2 - 3 x day 1 kit 0 celecoxib (CeleBREX) 200 MG capsule TAKE 1 CAPSULE BY MOUTH TWICE DAILY 60 capsule 0 cholecalciferol VITAMIN D (Vitamin D-3) 50 MCG (2000 UT) tablet TAKE 1 TABLET BY MOUTH EVERY DAY 90tablet 1 Continuous Blood Gluc [facility] (FreeStyle Neisha 2 Garvin) device To use daily 1 each 0 Continuous Blood Gluc Sensor (FreeStyle Neisha 2 Sensor) misc To use daily 2 each 11 cyclobenzaprine (Flexeril) 10 MG tablet Take 1 tablet (10 mg) by mouth at bedtime for 10 days. 10 tablet 0 Ferrous Sulfate (iron) 325 (65 Fe) MG tablet TAKE 1 TABLET BY MOUTH EVERY OTHER DAY 45 tablet 11 fexofenadine (Lou) 180 MG tablet Take 1 tablet (180 mg) by mouth if needed each day (Allergies). 30 tablet 3 fluticasone furoate (Arnuity Ellipta) 200 MCG/ACT inhaler Inhale 1 puff Once per day. Rinse mouth with water after use to reduce aftertaste and incidence of candidiasis. Do not swallow. 1 each 11 gabapentin (Neurontin) 300 MG capsule Take 1 capsule (300 mg) by mouth 3 times daily. 90 capsule 11 glipiZIDE (Glucotrol) 5 MG tablet 1 to 3 tabs ac breakfast 1 to 3 tabs ac supper 180 tablet 3 hydrocortisone 2.5 % cream Apply topically 2 times daily. 20 g 0 hydrOXYzine HCl (Atarax) 25 MG tablet Take 1 tablet (25 mg) by mouth if needed in the morning, at noon, and at bedtime for itching. 90 tablet 0 Jardiance 25 MG TAKE 1 TABLET BY MOUTH EVERY DAY 30 tablet 11 Lactobacillus-Inulin ([facility]) capsule TAKE 1 CAPSULE BY MOUTH EVERY DAY 30 capsule 11 lisinopril 5 MG tablet TAKE 1 TABLET BY MOUTH EVERY DAY 90 tablet 1 Mometasone Furoate (Asmanex HFA) 200 MCG/ACT aerosol 1 puff po bid 13 g 1 PARoxetine (Paxil) 10 MG tablet Take 1 tablet (10 mg) by mouth in the morning. 90 tablet 0 Tirzepatide (Mounjaro) 2.5 MG/0.5ML solution auto-injector Inject 2.5 mg under the skin 1 (one) time per week. 2 mL 2 triamcinolone (Kenalog) 0.1 % cream Apply topically if needed in the morning and at bedtime (pain and swelling). 30 g 2 No current facility-administered medications on file prior to visit. documented in this encounter Miscellaneous Notes * Addendum Note - Trinidad Acosta RN - 04/17/2025 2:00 PM ESTAddended by: TRINIDAD ACOSTA on: 04/17/2025 02:48 PM Modules accepted: Orders documented in this encounter Plan of Treatment Upcoming Encounters Date Type Department Care Team (Late st Contact Info) Description 04/27/2025 2:30 PM EST Office Visit [facility] CHC MED & PEDS [address] [place], [place] [phone] Manjeet Quiroga MD [address] [place], [place] [phone] 07/16/2025 10:30 AM EST Office Visit [facility] OPTOMETRY [address] [place], [place] [phone] TarkaNury, OD [address] [place] [address] Scheduled Orders Name Type Priority Associated Diagnoses Orde r Schedule T-SPOT .TB Lab Routine Health care maintenance Expected: 04/17/2025 (Approximate), Expires: 04/17/2026 documented as of this encounter Goals Goal Patient Goal Type Associated Problems Recent Progress Patient-Stated? Author Help patients manage their type 2 diabetes Care Plan Help patients manage their type 2 diabetes No Gena Sutton Weekly blood pressure task Care Plan Weekly blood pressure task No Gena Sutton Help patients manage their type 2 diabetes Care Plan Help patients manage their type 2 diabetes No Gena Sutton Patient has chronic kidney disease Care Plan Patient has chronic kidney disease No Gena Sutton Weekly blood pressure task Care Plan Weekly blood pressure task No Gena Sutton Patient has chronic kidney disease Care Plan Patient has chronic kidney disease No Gena Sutton Weekly blood pressure task Care Plan Weekly blood pressure task No Ced Ross Weekly blood pressure task Care Plan Weekly blood pressure task No Ced Ross Patient has chronic kidney disease Care Plan Patient has chronic kidney disease No Ced [place] Patient has chronic kidney disease Care Plan Patient has chronic kidney disease No Ced Ross Weekly blood pressure task Care Plan Weekly blood pressure task No Manjeet Quiroga MD Weekly blood pressure task Care Plan Weekly blood pressure task No Manjeet Quiroga MD Patient has chronic kidney disease Care Plan Patient has chronic kidney disease No Manjeet Quiroga MD Patient has chronic kidney disease Care Plan Patient has chronic kidney disease No Manjeet Quiroga MD Weekly blood pressure task Care Plan Weekly blood pressure task No Karla Dixon MA Weekly blood pressure task Care Plan Weekly blood pressure task No Karla Dixon MA Patient has chronic kidney disease Care Plan Patient has chronic kidney disease No Karla Dixon MA Patient has chronic kidney disease Care Plan Patient has chronic kidney disease No Karla Dixon MA documented as of this encounter Procedures Procedure Name Priority Date/Time Associated Diagnosis Comments POCT GLUCOSE Routine 04/17/2025 2:05 PM EST Type 2 diabetes mellitus without complication, without long-term current use of insulin ([facility]) documented in this encounter Results * (ABNORMAL) POCT Glucose (04/17/2025 2:05 PM EST) [facility] Glucose Blood, POC 230(A) 60 - 200 mg/dL QC Media Lot # [id number] Lot# Expiration Date Blood Capillary blood specimen / Unknown 04/17/2025 2:05 PM EST Manjeet Quiroga MD POINT OF CARE TEST ENTER/ED IT ORDERABLES Final Result documented in this encounter Visit Diagnoses Diagnosis Skin rash- Primary Rash and other nonspecific skin eruption Type 2 diabetes mellitus without complication, without long-term current use of insulin ([facility]) Health care maintenance documented in this encounter Additional Health Concerns Active Problems Noted Date Diagnosed Date Help patients manage their type 2 diabetes 04/04 Weekly blood pressure task 04/04/2025 Help patients manage their type 2 diabetes 04/04 Patient has chronic kidney disease 04/04/2025 Weekly blood pressure task 04/04/2025 Patient has chronic kidney disease 04/04/2025 Weekly blood pressure task 04/10/2025 Weekly blood pressure task 04/10/2025 Patient has chronic kidney disease 04/10/2025 Patient has chronic kidney disease 04/10/2025 Weekly blood pressure task 04/10/2025 Weekly blood pressure task 04/10/2025 Patient has chronic kidney disease 04/10/2025 Patient has chronic kidney disease 04/10/2025 Weekly blood pressure task 04/17/2025 Weekly blood pressure task 04/17/2025 Patient has chronic kidney disease 04/17/2025 Patient has chronic kidney disease 04/17/2025 Assessment Noted Time PHQ-9 Depression Total Score: 10 025 10:46 AM EST documented as of this encounter Care Teams Director Process Engineering Relationship Specialty Start Date End Date Manjeet Quiroga MD [address] [place] [address] PCP - General Internal Medicine 05/31/13 documented as of this encounter
--- OUTSIDE RECORDS SUMMARY | 2025-04-17 18:59 | XMS_ITS | Encounter Summary ---
Author Organization [id number] Address [address] [facility] 7 [place] [address] Care Team Providers Care Reclamation Engineer Name Role Phone Manjeet Quiroga MD Primary Care Provider [phone] Reason for Visit * Reason Comments Med Refill Encounter Details Date Type Department Care Team ([facility] st Contact Info) Description 03/08/2023 Refill [facility] [address] [place] [address] Manjeet Quiroga MD [address] [place] [address] Type 2 diabetes mellitus with diabetic polyneuropathy [...] Description 04/27/2025 2:30 PM EST Office Visit [facility] [address] [place] [address] Manjeet Quiroga MD [address] [place] [address] 07/16/2025 10:30 AM EST Office Visit [facility] [address] [place] [address] Tarka, Nury, OD [address] [place] [address] documented as of this encounter Visit Diagnoses Diagnosis Type 2 diabetes mellitus with diabetic polyneuropathy (HCC) documented in this encounter Additional Health Concerns Assessment Noted Time PHQ-9 Depression Total Score: 0 01/29/20 23 4:36 PM EDT documented as of this encounter Care Teams Reclamation Engineer Relationship Specialty Start Date End Date Manjeet Quiroga MD [address] [place] [address] PCP - General Internal Medicine 05/31/13 documented as of this encounter
--- OUTSIDE RECORDS SUMMARY | 2025-04-17 18:59 | XMS_ITS | Encounter Summary ---
Author Organization [employer] Address [address] [place] [address] Care Team Providers Care Caustic Cresylate Shift Superintendent Name Role Phone Manjeet Quiroga MD Primary Care Provider [phone] Encounter Details Date Type Department Care Team (Late Contact Info) Description 01/05/2023 Orders Only [facility] MED & PEDS [address] [place] [address] Manjeet Quiroga MD [address] [place] [address] Type 2 diabetes mellitus without complication, without long-term current use of insulin ([facility]) (Primary Dx) Social History Tobacco Use [...] Description 04/27/2025 2:30 PM EST Office Visit [facility] MED & PEDS [address] [place] [address] Manjeet Quiroga MD [address] [place], [place] [phone] 07/16/2025 10:30 AM EST Office Visit [facility] [address] [place] [address] Bonny Nury, OD [address] [place] [address] documented as of this encounter Visit Diagnoses Diagnosis Type 2 diabetes mellitus without complication, without long-term current use of insulin (HCC)- Primary documented in this encounter Additional Health Concerns Assessment Noted Time PHQ-9 Depression Total Score: 8 10/14/19 23 2:38 PM EDT documented as of this encounter Care Teams Caustic Cresylate Shift Superintendent Relationship Specialty Start Date End Date Manjeet Quiroga MD [address] [place] [address] PCP - General Internal Medicine 05/31/13 documented as of this encounter
--- OUTSIDE RECORDS SUMMARY | 2025-04-17 18:59 | XMS_ITS | Encounter Summary ---
Author Organization [email or web address] Address 75 [facility] 7 [place] [address] Care Team Providers Care General Car Yard Supervisor Name Role Phone Manjeet Quiroga MD Primary Care Provider [phone] Reason for Visit * Reason Onset Date Comments Results 04/04/2025 Encounter Details Date Type Department Care Team ([facility] Contact Info) Description 04/04/2025 Telephone [facility] [address] [place] [address] Manjeet Quiroga MD [address] [place] [address] Results Social History Tobacco Use Types Packs/Day Years [...] encounter Miscellaneous Notes * Telephone Encounter - Manjeet Quiroga MD - 04/06/2025 9:51 AM EST Pt called. All questions answered. Has a scheduled appointment on 04/17 with me for reevaluation ofa skin rash. * Telephone Encounter - Rosette Murphy RN - 04/04/2025 9:29 AM EST Called pt regarding request for lab results, spoke to pt. Advised results were received and need beverly reviewed by her PCP. Advised when reviewed we will call back with any recommendations or abnormal results. Pt also has a date in May for [place] and wants it moved up. Advised to call [facility] to see if it could be moved forward. Pt states wants us to call them and was advised once the facility has called she would need to call them for sooner appointment. Advised will FYI PCP. Pt understands and agrees with plan. * Telephone Encounter - Gena Sutton - 04/04/2025 8:55 AM EST Tc from pt requesting a call back with lab results and also stated that ultrasound appointment willbe for May and she want something sooner. PCP DR. Nevarez documented in this encounter Plan of Treatment Upcoming Encounters Date Type Department Care Team ([facility] st Contact Info) Description 04/27/2025 2:30 PM EST Office Visit [facility] [address] [place], [place] [phone] Manjeet Quiroga MD [address] [place], [place] [phone] 07/16/2025 10:30 AM EST Office Visit [facility] [address] [place], [place] [address] Nury Draper, OD [address] [place] [address] documented as of this encounter Goals Goal [...] Care Plan Patient has chronic kidney disease Gena Barrios documented as of this encounter Visit Diagnoses Not on filedocumented in this encounter Additional Health Concerns Active Problems Noted Date Diagnosed Date Help patients manage their type 2 diabetes 04/04 Weekly blood pressure task 04/04/2025 Help patients manage their type 2 diabetes 04/04 Patient has chronic kidney disease 04/04/2025 Weekly blood pressure task 04/04/2025 Patient has chronic kidney disease 04/04/2025 Assessment Noted Time PHQ-9 Depression Total Score: 10 025 10:46 AM EST documented as of this encounter Care Teams General Car Yard Supervisor Relationship Specialty Start Date End Date Manjeet Quiroga MD [address] [place] [address] PCP - General Internal Medicine 05/31/13 documented as of this encounter
--- OUTSIDE RECORDS SUMMARY | 2025-04-17 18:59 | XMS_ITS | Encounter Summary ---
Author Organization [employer] Address [address] [facility] 7 [place] [address] Care Team Providers Care Dealer Compliance Representative Name Role Phone Manjeet Quiroga MD Primary Care Provider [phone] Encounter Details Date Type Department Care Team (Late st Contact Info) Description 03/09/2023 Orders Only [facility] MED [facility] PEDS [address] [place] [address] Manjeet Quiroga MD [address] [place] [address] Bilateral carpal tunnel syndrome (Primary Dx); Cervical [...] Description 04/27/2025 2:30 PM EST Office Visit [facility] [address] [place], [place] [phone] Manjeet Quiroga MD [address] [place] [address] 07/16/2025 10:30 AM EST Office Visit [facility] [address] [place] [address] Tarka, Nury, OD [address] [place] [address] documented as of this encounter Visit Diagnoses Diagnosis Bilateral carpal tunnel syndrome- Primary Carpal tunnel syndrome Cervical radiculopathy Brachial neuritis or radiculitis nos documented in this encounter Additional Health Concerns Assessment Noted Time PHQ-9 Depression Total Score: 0 01/29/20 23 4:36 PM EDT documented as of this encounter Care Teams Dealer Compliance Representative Relationship Specialty Start Date End Date Manjeet Quiroga MD [address] [place] [address] PCP - General Internal Medicine 05/31/13 documented as of this encounter
--- OUTSIDE RECORDS SUMMARY | 2025-04-17 18:59 | XMS_ITS | Encounter Summary ---
Author Organization [employer] [facility] Address [address] [place] [address] Care Team Providers Care Regulatory Affairs Strategy Specialist Name Role Phone Manjeet Quiroga MD Primary Care Provider [phone] Encounter Details Date Type Department Care Team (Late Contact Info) Description 12/02/2022 Orders Only [facility] MED & PEDS [address] [place] [address] Cheryle Cruz LPN Social History Tobacco Use [...] 2:30 PM EST Office Visit [facility] MED & PEDS [address] [place] [address] Manjeet Quiroga MD [address] [place] [address] 07/16/2025 10:30 AM EST Office Visit [facility] [address] [place] [address] Nury Draper, OD [address] [place] [address] documented as of this encounter Visit Diagnoses Not on filedocumented in this encounter Additional Health Concerns Assessment Noted Time PHQ-9 Depression Total Score: 8 10/14/19 23 2:38 PM EDT documented as of this encounter Care Teams Regulatory Affairs Strategy Specialist Relationship Specialty Start Date End Date Manjeet Quiroga MD [address] [place] [address] PCP - General Internal Medicine 05/31/13 documented as of this encounter
--- OUTSIDE RECORDS SUMMARY | 2025-04-17 18:59 | XMS_ITS | Encounter Summary ---
Author Organization [employer] Address [address] [place] [address] [address] [place] [address] Care Team Providers Care Crane Engineer Name Role Phone Manjeet Quiroga MD Primary Care Provider [phone] Encounter Details Date Type Department Care Team (Late Contact Info) Description 12/03/2022 Orders Only [facility] MEDICINE [address] [place] [address] Arlene Abarca LPN Social History Tobacco Use [...] [facility] [address] [place], [place] [phone] Manjeet Quiroga MD [address] [place], [place] [phone] 07/16/2025 10:30 AM EST Office Visit [facility] [address] [place] [address] Bonny Nury, OD [address] [place] [address] documented as of this encounter Visit Diagnoses Not on filedocumented in this encounter Additional Health Concerns Assessment Noted Time PHQ-9 Depression Total Score: 8 10/14/19 23 2:38 PM EDT documented as of this encounter Care Teams Crane Engineer Relationship Specialty Start Date End Date Manjeet Quiroga MD [address] [place] [address] PCP - General Internal Medicine 05/31/13 documented as of this encounter
--- OUTSIDE RECORDS SUMMARY | 2025-04-17 18:59 | XMS_ITS | Encounter Summary ---
Author Organization [employer] Address [address] [facility] 7t [place] [address] Care Team Providers Care Risk Management Internship Name Role Phone Manjeet Quiroga MD Primary Care Provider [phone] Encounter Details Date Type Department Care Team (Latest Contact Info) Description 04/17/2025 Travel Social History Tobacco Use Types Packs/Day [...] Description 04/27/2025 2:30 PM EST Office Visit [facility] MED [facility] PEDS [address] [place] [address] Manjeet Quiroga MD [address] [place] [address] 07/16/2025 10:30 AM EST Office Visit [facility] [address] [place] [address] Nury Draper, OD [address] [place] [address] documented as of this encounter Goals Goal [...] [place] documented as of this encounter Visit Diagnoses [...] documented as of this encounter Care Teams Risk Management Internship Relationship Specialty Start Date End Date Manjeet Quiroga MD [address] [place] [address] PCP - General Internal Medicine 05/31/13 documented as of this encounter
--- OUTSIDE RECORDS SUMMARY | 2025-04-17 18:59 | XMS_ITS | Encounter Summary ---
Author Organization [employer] [facility] Address [address] [place] [address] Care Team Providers Care Machinist Name Role Phone Manjeet Quirgoa MD Primary Care Provider [phone] Encounter Details Date Type Department Care Team (Late st Contact Info) Description 12/22/2022 Orders Only [facility] MED & PEDS [address] [place] [address] Cheryle Cruz LPN Social History Tobacco Use [...] 04/27/2025 2:30 PM EST Office Visit [facility] MED & PEDS [address] [place] [address] Manjeet Quiroga MD [address] [place] [address] 07/16/2025 10:30 AM EST Office Visit [facility] [address] [place] [address] Nury Draper, OD [address] [place] [address] documented as of this encounter Visit Diagnoses Not on filedocumented in this encounter Additional Health Concerns Assessment Noted Time PHQ-9 Depression Total Score: 8 10/14/19 23 2:38 PM EDT documented as of this encounter Care Teams Machinist Relationship Specialty Start Date End Date Manjeet Quiroga MD [address] [place] [address] PCP - General Internal Medicine 05/31/13 documented as of this encounter
--- OUTSIDE RECORDS SUMMARY | 2025-04-17 18:59 | XMS_ITS | Clinical Summary ---
Author Organization [employer] Address [address] [facility] 7 [place] [address] Care Team Providers Care Senior Group Manager Name Role Phone Manjeet Quiroga MD Primary Care Provider [phone] Allergies No known active allergies Medications * This document contains information received from the source organization and may not represent a complete record from that organization. Blood Glucose Monitoring Suppl ([employer] [place] [employer]) w/Device kitIndications: Type 2 diabetes mellitus without complication, without long-term current use of insulin ([facility]) Use 2 - 3 x day 1 kit 02/17/20 23 Active Continuous Blood Gluc [place] [employer] ([employer] Neisha 2 [place]) deviceIndicatio ns:Type 2 diabetes mellitus without complication, with long-term current use of insulin ([facility]) To use daily 1 each 08/26/19 24 Active Continuous Blood Gluc Sensor ([employer] Neisha 2 Sensor) miscIndications :Type 2 diabetes mellitus without complication, with long-term current use of insulin ([facility]) To use daily 2 each 11 08/26/19 24 Active glipiZIDE (Glucotrol) 5 MG tabletIndicatio ns:Type 2 diabetes mellitus without complication, without long-term current use of insulin ([facility]) 1 to 3 tabs ac breakfast 1 to 3 tabs ac supper 180 tablet 3 02/02/20 24 Active PARoxetine (Paxil) 10 MG tabletIndicatio ns:Anxiety Take 1 tablet (10 mg) by mouth in the morning. 90 tablet 02/02/20 24 Active Alcohol Swabs (Alcohol Prep) 70 % pads To use 2 times a day 100 each 11 02/02/20 24 Active Lactobacillus-I nulin ([facility]) capsuleIndicati ons:Bloating TAKE 1 CAPSULE BY MOUTH EVERY DAY 30 capsule 11 07/14/19 25 Active gabapentin (Neurontin) 300 MG capsuleIndicati ons:Type 2 diabetes mellitus with diabetic neuropathy, without long-term current use of insulin ([facility]),Hand paresthesia Take 1 capsule (300 mg) by mouth 3 times daily. 90 capsule 11 08/08/19 25 026 Active cholecalciferol VITAMIN D (Vitamin D-3) 50 MCG (1999 [place]) tabletIndicatio ns:Health care maintenance TAKE 1 TABLET BY MOUTH EVERY DAY 90 tablet 1 10/26/19 25 Active Aspirin Low Dose 81 MG EC tablet TAKE 1 TABLET BY MOUTH EVERY DAY 90 tablet 3 12/29/19 25 Active cyclobenzaprine (Flexeril) 10 MG tabletIndicatio [...] complication, without long-term current use of insulin ([facility]),Class 3 severe obesity due to excess calories with serious comorbidity and body mass index (BMI) of 40.0 to 44.9 in adult ([facility]) Inject 2.5 mg under the skin 1 (one) time per week. 2 mL 2 02/16/20 25 Active Ferrous Sulfate (iron) 325 (65 Fe) MG tabletIndicatio ns:Type 2 diabetes mellitus without complication, without long-term current use of insulin ([facility]) TAKE 1 TABLET BY MOUTH EVERY OTHER DAY 45 tablet 11 02/21/20 25 Active Jardiance 25 MGIndications:T ype 2 diabetes mellitus without complication, without long-term current use of insulin ([facility]) TAKE 1 TABLET BY MOUTH [...] 1 03/13/20 25 Active lisinopril 5 MG tabletIndicatio ns:Type 2 diabetes mellitus without complication, without long-term current use of insulin ([facility]) TAKE 1 TABLET BY MOUTH [...] swelling). 30 g 2 03/30/20 25 Active hydrOXYzine HCl (Atarax) 25 MG tabletIndicatio ns:Pruritus Take 1 tablet (25 mg) by mouth if needed in the morning, at noon, and at bedtime for itching. 90 tablet 5 11:13 AM EST 04/10/20 25 025 Active permethrin (Elimite) 5 % creamIndication s:Skin rash apply to skin from hairline to toes and wash off 8-10 hours later 60 g 1 5 3:51 PM EST 04/17/20 25 Active lisinopril 5 MG tabletIndicatio ns:Type 2 diabetes mellitus without complication, without long-term current use of insulin ([facility]) TAKE 1 TABLET BY MOUTH EVERY DAY 90 tablet 01/03/20 25 025 Discontinued azithromycin (Zithromax) 250 MG tabletIndicatio ns:Cough in adult Take 2 tablets (500 mg) by mouth Once per day for 1 day, THEN 1 tablet (250 mg) Once per day for 4 days. 6 tablet 03/13/20 025 benzonatate (Tessalon Perles) 100 MG capsuleIndicati ons:Cough in adult Take 1 capsule (100 mg) by mouth if needed in the morning, at noon, and at bedtime for cough for up to 7 days. Do not crush or chew. 20 capsule 03/13/20 025 Active Problems Problem Noted Date Diagnosed [...] medication management. Intake completed with N at [facility] for OP individual therapy. clinician will provide [...] medication management. Intake completed with BHN at [facility] for OP individual therapy. clinician will provide [...] Encounters Date Type Department Care Team Description 04/17/2025 2:00 PM EST Office Visit [facility] [address] [place] [address] Manjeet Quiroga MD Skin rash (Primary Dx); Type 2 diabetes mellitus without complication, without long-term current use of insulin (HCC); Health care maintenance 04/17/2025 Travel 04/10/[address] [address] Manjeet Quiroga MD Nurse Triage 04/04/[address] [address] Manjeet Quiroga MD Results 04/03/2025 Results Follow-Up [facility] [address] [place] [address] Manjeet Quiroga MD Ferritin 04/02/2025 Results Follow-Up [address] [address] Larissa Almanza, WALI Chlamydia/N. Gonorrhoeae, PCR, Urine, RPR (Monitor) with Reflex to Titer, Hepatitis C Antibody with Reflex to HCV, RNA, Quantitative, Real-Time PCR, HIV-1/2 Antigen and Antibodies, Fourth Generation, with Reflexes 04/02/2025 Results Follow-Up [facility] [address] [place] [address] Trinidad Ford RN Lipid Panel, Standard, Comprehensive Metabolic Panel, TSH W/Reflex to FT4 03/30/2025 9:40 AM EST Office Visit [facility] [address] [place] [phone] Larissa Almanza, WALI Rash (Primary Dx) 03/30/2025 Orders Only [facility] [address] [place] [address] Manjeet Quiroga MD Transaminitis (Primary Dx); Pruritus 03/30/2025 Travel 03/26/2025 Refill [facility] [address] [place] [address] Manjeet Quiroga MD Type 2 diabetes mellitus without complication, without long-term current use of insulin (HCC) 03/13/2025 3:20 PM EDT Office Visit [facility] [address] [place] [address] Trinidad Bravo MD Cough in adult (Primary Dx); Sore throat; Nasal congestion; Chronic obstructive pulmonary disease, unspecified COPD type (CMS/HCC) (HCC) 03/13/2025 Travel 03/08/2025 11:15 AM EDT Telemedicine [facility] [address] [place] [address] Manjeet Quiroga MD Skin rash (Primary Dx); Chronic obstructive pulmonary disease, unspecified COPD type (CMS/HCC) ([facility]); Hirsutism 03/07/2025 Telephone [facility] [address] [place] [address] Manjeet Quiroga MD Chart Prep 03/01/2025 Telephone [facility] [address] [place] [address] Manjeet Quiroga MD Results 02/28/2025 Results Follow-Up [facility] [address] [place] [address] Manjeet Quiroga MD CBC auto differential, CBC auto differential, Comprehensive Metabolic Panel, Additional followed-up results: 8 02/19/2025 Refill [facility] [address] [place] [address] Manjeet Quiroga MD Type 2 diabetes mellitus without complication, without long-term current use of insulin ([facility]) 02/15/2025 1:00 PM EDT Office Visit [facility] [address] [place] [address] Manjeet Quiroga MD Type 2 diabetes mellitus without complication, without long-term current use of insulin ([facility]/HCC) (Primary Dx); Chronic obstructive pulmonary disease, unspecified COPD type (CMS/HCC); Cervical radiculopathy; Bilateral carpal tunnel syndrome; Normocytic anemia; Neck pain; Cervical radiculopathy; Plantar fasciitis, bilateral; Hirsutism; Encounter for immunization; Class 3 severe obesity due to excess calories with serious comorbidity and body mass index (BMI) of 40.0 to 44.9 in adult 02/15/2025 Travel 02/14/2025 Telephone [facility] [address] [place] [address] Manjeet Quiroga MD Chart Prep 02/13/2025 Orders Only [facility] [address] [place] [address] Provider, MD Emilia from Last 3 Months Immunizations Immunization Administration [...] 20 04/17/2025 2:05 PM EST Oxygen Saturation 98% 03/30/2025 9:48 AM EST Inhaled Oxygen Concentration - - Weight 97.5 kg (215 lb) 04/17/2025 2:05 PM EST Height 154.9 cm (5' 1 ) 04/17/2025 2:05 PM EST Body Mass Index 40.62 04/17/2025 2:05 PM EST Plan of Treatment Upcoming Encounters Date Type Department Care Team (Late st Contact Info) Description 04/27/2025 2:30 PM EST Office Visit [facility] [address] [place], [place] [phone] Manjeet Quiroga MD [address] [place] [address] 07/16/2025 10:30 AM EST Office Visit [facility] [address] [place], [place] [phone] Nury Draper, OD [address] [place], [place] [phone] Health Maintenance Due Date Last Done Comments Alcohol/Substance Use Screening 1999 Family Planning (PISQ) 2002 Eye Exam 09/02/2024 Depression Monitoring 12/11/2024 06/13/2024, 025 COVID-19 Vaccine ( season) 2025 05/26/2023, 07/02/2021, 01/20/2021, Additional history exists Colposcopy 02/09/2025 10/20/2023, 09/22, 07/23/2020 Diabetes: Urine Protein Screening 04/24/2025 04/24/2024, 08/26/2023, 01/22/2022, Additional history exists Diabetes: Hemoglobin A1C 06/30/2025 025, 02/28/2025, 02/15/2025, Additional history exists SDOH Screening 07/31/2025 07/31/2024 Diabetes: Foot Exam 11/16/2025 11/16/2024 Cervical Cancer Screening 02/08/2026 HPV/Cotest 02/08/2026 02/08/2025 Pap Smear 02/08/2026 02/08/2025, 08/23, 09/16/2021, Additional history exists Disability Screening 03/08/2026 03/08/2025 Lipid Panel 03/30/2026 03/30/2025, 12/2024, 11/10/2022, Additional history exists Tobacco Screening 04/17/2026 04/17/2025 DTaP/Tdap/Td Vaccines (8 - Td or Tdap) [...] on patient's age to complete this topic Goals Goal Patient Goal Type Associated Problems Recent Progress Patient-Stated? Author Help patients manage their type 2 diabetes Care Plan Help patients manage their type 2 diabetes Gena Barrios Weekly blood pressure task Care Plan Weekly blood pressure task Gena Barrios Help patients manage their type 2 diabetes Care Plan Help patients manage their type 2 diabetes Gena Barrios Patient has chronic kidney disease Care Plan Patient has chronic kidney disease Gena Barrios Weekly blood pressure task Care Plan Weekly blood pressure task No Herman Gena Patient has chronic kidney disease Care Plan [...] Plan Weekly blood pressure task No Karla Dixno MA Patient has chronic kidney disease Care Plan Patient has chronic kidney disease No Karla Dixon MA Patient has chronic kidney disease Care Plan Patient has chronic kidney disease No Karla Dixon MA Procedures Procedure Name Priority Date/Time Associated Diagnosis Comments POCT GLUCOSE Routine 04/17/2025 2:05 PM EST Type 2 diabetes mellitus without complication, without long-term current use of insulin (HCC) IRON AND TOTAL IRON BINDING CAPACITY Routine 04/02/2025 4:20 PM EST Transaminitis FERRITIN Routine 04/02/2025 4:20 PM EST Transaminitis PROTHROMBIN TIME-INR Routine 04/02/2025 4:20 PM EST Transaminitis IMMUNOGLOBULINS, QUANTITATIVE, IGA, IGG, IGM Routine 04/02/2025 4:00 PM EST Transaminitis HEPATITIS B SURFACE ANTIBODY, QUALITATIVE Routine 04/02/2025 1:49 PM EST Transaminitis HIV 1/2 ANTIGEN/ANTIBODY, FOURTH GENERATION W/RFL Routine [...] complication, without long-term current use of insulin ([facility]) TSH W/REFLEX TO FT4 Routine 02/28/2025 9 :21 AM EDT Type 2 diabetes mellitus without complication, without long-term current use of insulin ([facility]) Normocytic anemia LIPID PANEL, STANDARD Routine 02/28/2025 9:21 AM EDT Type 2 diabetes mellitus without complication, without long-term current use of insulin ([facility]) Normocytic anemia COMPREHENSIVE METABOLIC PANEL Routine 02/28/2025 9:21 AM EDT Type 2 diabetes mellitus without complication, without long-term current use of insulin ([facility]) Normocytic anemia CBC WITH AUTO DIFFERENTIAL Routine 02/28/2025 9:21 AM EDT Type 2 diabetes mellitus without complication, without long-term current use of insulin ([facility]) Normocytic anemia CBC WITH AUTO DIFFERENTIAL Routine [...] complication, with long-term current use of insulin ([facility]) COLPOSCOPY Routine 10/20/2023 9:03 AM EDT from Last 3 Months or Most Recently Relevant to Health Maintenance Results * (ABNORMAL) POCT Glucose (04/17/2025 2:05 PM EST) Only the most recent of2 resultswithin the time period is included. Glucose Blood, POC 230(A) 60 - 200 mg/dL [employer] Lot # [id number] Lot# Expiration Date Blood Capillary blood specimen / Unknown 04/17/2025 2:05 PM EST Manjeet Quiroga MD POINT OF CARE TEST ENTER/ED IT ORDERABLES Final Result * Iron And Total Iron Binding Capacity (04/02/2025 4:20 PM EST) [facility] Iron 38 30 - 160 mcg/dL [facility] Total Iron Binding Capacity 261 228 - 428 mcg/dL [facility] Percent Iron Saturation 15 15 - 50 % [facility] Unsaturated Iron Binding 223 ug/dL [facility] Blood Venous blood specimen / Unknown 04/02/2025 4:20 PM EST 04/02/2025 6:05 PM EST us Manjeet Quiroga MD LAB BLOOD ORDERABLES Final Result [facility] [address] [place] [phone] * Prothrombin Time-INR (04/02/2025 4:20 PM EST) Pathologist [facility] Prothrombin Time 12.5 11.2 - 13.5 SEC [facility] INTERNATIONAL NORM RATIO 1.0 0.9 - 1.1 [facility] Comment:INTERNATIONAL NORMAL IZED RATIO (INR) REFERENCE RANGES Reference RangeFor patients not on anticoagulant therapy: 0.9 - 1.1INR ranges for oral anticoagulanttherapy:For prevention and treatment of venous thrombosis and pulmonary embolism: 2.0 - 3.0For acute myocardial infarction with aspirin therapy: 2.0 - 3.0For acute myocardial infarction without aspirin therapy: 3.0 - 4.0For patients with mechanical prosthetic heart valves: 2.5 - 3.5 Blood Venous blood specimen / Unknown 04/02/2025 4:20 PM EST 04/02/2025 6:05 PM EST Manjeet Quiroga MD LAB BLOOD ORDERABLES Final Result Performing Organization Address [facility]/ZIP Co de Phone Number [facility] [address] [place] [phone] * Ferritin (04/02/2025 4:20 PM EST) Ferritin 51 10 - 122 ng/mL [facility] Blood Venous blood specimen / Unknown 04/02/2025 4:20 PM EST 04/02/2025 6:05 PM EST Manjeet Quiroga MD LAB BLOOD ORDERABLES Final Result Performing Organization Address [facility] Phone Number [facility] [address] [place] [phone] * (ABNORMAL) Immunoglobulins, Quantitative, IgA, IgG, IgM (04/02/2025 4:00 PM EST) IMMUNOGLOBULIN G 1256 600 - 1640 mg/dL [facility] IMMUNOGLOBULIN A 382(A) 47 - 310 mg/dL [facility] Immunoglobulin M 222 50 - 300 mg/dL [facility] Comment:THIS TEST WAS PERFOR MED AT:[employer] [place] [phone] WESTBROOK MD Blood Venous blood specimen / Unknown 04/02/2025 4:00 PM EST 04/02/2025 6:05 PM EST Manjeet Quiroga MD LAB BLOOD ORDERABLES Final Result Performing Organization Address [facility] de Phone Number [facility] [address] [place] [phone] * Hepatitis B Surface Antibody, Qualitative (04/02/2025 1:49 PM EST) Pathologist [facility] ~Hepatitis B Surface Antibody REACTIVE Nonreactive [facility] Comment:REACTIVE: > 11.99 mI U/mL Blood Venous blood specimen / Unknown 04/02/2025 1:49 PM EST 04/02/2025 6:05 PM EST Manjeet Quiroga MD LAB BLOOD ORDERABLES Final Result Performing Organization Address [facility] Number [facility] [address] [place] [phone] * TSH W/Reflex to FT4 (03/30/2025 10:49 AM EST) Only the most recent of2 resultswithin the time period is included. [facility] TSH reflex Free T4 1.19 0.32 - 4.0 uIU/mL [facility] Blood Venous blood specimen / Unknown 03/30/2025 10:49 AM EST 03/30/2025 11:40 AM EST Manjeet Quiroga MD LAB BLOOD ORDERABLES Final Result Performing Organization Address [facility] de Phone Number [facility] [address] [place] [phone] * Hepatitis C Antibody with Reflex to HCV, RNA, Quantitative, Real-Time PCR (03/30/2025 10:49 AM EST) Pathologist [facility] Hepatitis C Antibody Nonreactive Nonreactive [facility] Comment:Antibodies to HCV no t detected; does not exclude early acuteHCV infection. Blood Venous blood specimen / Unknown 03/30/2025 10:49 AM EST 03/30/2025 11:40 AM EST us Larissa Almanza [employer] LAB BLOOD ORDERABLES Final Resul t Performing Organization Address [facility] Co de Phone Number [facility] [address] [place] [phone] * RPR (Monitor) with Reflex to??Titer (03/30/2025 10:49 AM EST) RPR (Monitor) w/Refl Titer NON-REACTI VE NON-REACT ADRIANA [facility] Comment:THIS TEST WAS PERFOR MED AT:[employer] [place] [phone] WESTBROOK MD Rapid Plasma Reagin Ab Titer TNP [facility] Blood Venous blood specimen / Unknown 03/30/2025 10:49 AM EST 03/30/2025 11:40 AM EST us Larissa Almanza NP LAB BLOOD ORDERABLES Final Resul t Performing Organization Address [facility] Co de Phone Number [facility] [address] [place] [phone] * HIV-1/2 Antigen and Antibodies, Fourth Generation, with Reflexes (03/30/2025 10:49 AM EST) HIV AB/AG Nonreactive Nonreactive [facility] Comment:HIV-1 p24 Ag and/or HIV-1/HIV-2 Ab not detected.A test result that is nonreactive does not exclude thepossibility of exposure to or infection with HIV-1 and/orHIV-2. Nonreactive results in this assay for individualswith prior exposure to HIV-1 and/or HIV-2 may be due toantigen and antibody levels that are below the limit ofdetection of this assay.The [facility] and [employer] HIV Ag/Ab Combo assay result andsupplemental assay results should be interpreted inconjunction with the patient's clinical presentation,history and other laboratory results. If the results areinconsistent with clinical evidence, additional testing issuggested to confirm the result. Blood Venous blood specimen / Unknown 03/30/2025 10:49 AM EST 03/30/2025 11:40 AM EST us Larissa Almanza NP LAB BLOOD ORDERABLES Final Resul t Performing Organization Address City/[facility]/ZIP Co de Phone Number [facility] [address] [place] [phone] * (ABNORMAL) Hemoglobin A1c (03/30/2025 10:49 AM EST) Only the most recent of2 resultswithin the time period is included. Hemoglobin A1c 7.0(H) <6.0 % [facility] Comment:Hemoglobin A1C Refer ence Range Adults: 4.8 - 6.0 % Non diabetic: < 6.0 % Goal: < 7.0 %Additional Action Suggested: > 8.0 %Note: Hemoglobin A1c results are invalid for patients with abnormal amounts of HbF. Blood transfusions may impact the HbA1c concentration in the patient sample. Estimated Average Glucose 154 mg/dL [facility] Comment:eAG = Estimated ave rage glucose which is %A1C expressed asaverage glucose, using the formula of the [id number] Glucose study (ADAG), Diabetes Care, Vol.31,#8,Dec. 2007 Blood Venous blood specimen / Unknown 03/30/2025 10:49 AM EST 03/30/2025 11:40 AM EST us Manjeet Quiroga MD LAB BLOOD ORDERABLES Final Result Performing Organization Address [facility]/ZIP Co de Phone Number [facility] [address] [place] [phone] * (ABNORMAL) Lipid Panel, Standard (03/30/2025 10:49 AM EST) Only the most recent of2 resultswithin the time period is included. Triglycerides 63 <150 mg/dL [facility] Comment:Desirable Triglyceri de: less than 150 mg/dLBorderline High Triglyceride 150-199 mg/dLHigh Triglyceride: 200-499 mg/dLVery High Triglyceride: greater than or equal to 5OO mg/dL Cholesterol 172 <200 mg/dL [facility] Comment:Desirable Cholestero l: less than 200 mg/dLBorderline High Cholesterol: 200-239 mg/dLHigh Cholesterol: greater than 239 mg/dL LDL Cholesterol Calculated 111(H) <100 mg/dL [facility] Comment:Desirable LDL: less than 100 mg/dLNear Optimal/Above Optimal LDL: 110- 129 mg/dLBorderline High LDL: 130-159 mg/dLHigh LDL: 160-189 mg/dLVery High LDL: greater than or equal to 190 mg/dL HDL Cholesterol 49 >40 mg/dL [facility] Comment:Desirable HDL: great er than 40 mg/dL Note: This HDL assay may give artificially low results in patients with liver disease. Blood Venous blood specimen / Unknown 03/30/2025 10:49 AM EST 03/30/2025 11:40 AM EST us Manjeet Quiroga MD LAB BLOOD ORDERABLES Final Result [facility] [address] [place] [phone] * (ABNORMAL) Comprehensive Metabolic Panel (03/30/2025 10:49 AM EST) Only the most recent of2 resultswithin the time period is included. Sodium 138 135 - 145 mmol/L [facility] Potassium 4.0 3.3 - 5.1 mmol/L [facility] Chloride 106 96 - 108 mmol/L [facility] Carbon Dioxide 22 22 - 29 mmol/L [facility] Anion Gap 14 12 - 20 [facility] Urea Nitrogen (BUN) 16 9 - 16 mg/dL [facility] Creatinine, Serum 0.62 0.5 - 1.4 mg/dL [facility] Estimated Glomerular Filt Rate >60 [facility] Comment:Chronic Kidney Disea se: Estimated GFR < 60 mL/min/1.46f0Corlsl Kidney Disease: Estimated GFR < 15 mL/min/1.73m2 Glucose 92 60 - 115 mg/dL [facility] Calcium 9.3 8.4 - 10.2 mg/dL [facility] Bilirubin, Total 1.1(H) 0.0 - 1.0 mg/dL [facility] Aspartate Amino Transferase 34(H) 5 - 31 U/L [facility] Alanine Aminotransferase 26 0 - 31 U/L [facility] Total Protein 8.0 6.5 - 8.0 g/dL [facility] Albumin Level 4.5 3.5 - 5.0 g/dL [facility] Alkaline Phosphatase 92 39 - 117 U/L [facility] Blood Venous blood specimen / Unknown 03/30/2025 10:49 AM EST 03/30/2025 11:40 AM EST Manjeet Quiroga MD LAB BLOOD ORDERABLES Final Result [facility] [address] [place] [address] [phone] * Chlamydia/N. Gonorrhoeae, PCR, Urine (03/30/2025 12:00 AM EST) CT PCR, Urine NOT DETECTED Not Detect. [facility] Comment:A not detected test result [...] NG PCR, Urine NOT DETECTED Not Detect. [facility] Comment:A not detected test result [...] (Urine, Random) 03/30/2025 03/30/2025 us Larissa Almanza [employer] LAB URINE ORDERABLES Final Resul t Performing Organization Address City/State/[facility] Co de Phone Number [facility] [address] [place] [phone] * XR Chest 2 Views (03/13/2025 4:07 PM EDT) Anatomical Region Laterality Modality Chest Radiographic Candi ging 03/13/2025 4:07 PM EDT Narrative 03/13/2025 4:00 PM EDT [address] [address] XRay Report Signed Patient: Josiane Pettit MR#: [id number] : 1985 Acct:[id number] Age/Sex: 40 / F ADM Date: 03/13/25 Loc: HO.HHCX Attending Dr: Trinidad Bravo MD Ordering Physician: Trinidad Bravo MD Date of Service: 03/13/25 Procedure(s): XR chest 2V Accession Number(s): [id number] cc: Trinidad Bravo MD Reason for Exam: [...] by Florentino Monte MD in OV> 03/13/25 155 DD/ 160 TD/TT: 03/13/251554 Photographer Aerial: Procedure Note Donotuseinterpreter, Image - 03/13/[address] [address] XRay Report Signed Patient: Babar Pettit#: [id number] : 1985Acct:[id number] Age/Sex: 40 / FADM Date: 03/13/25 Loc: HO.HHCX Attending Dr: Trinidad Bravo MD Ordering Physician: Trinidad Bravo MD Date of Service: 03/13/25 Procedure(s): XR chest 2V Accession Number(s): [id number] cc: Trinidad Bravo MD Reason for Exam: [...] signed by Florentino Monte MDin OV> 03/13/25 155 DD/ 1607 TD/TT: 03/13/25 1555 Photographer Aerial: Trinidad Bravo MD IMG XR PROCEDURES Final Re sult * POCT Rapid Strep A MARIO ID NOW (03/13/2025 3:42 PM EDT) [facility] Rapid Strep A Screen Negative Negative, None Detected QC Media Lot # [id number] Lot# Expiration Date Swab 03/13/2025 3:42 PM EDT Trinidad Bravo MD POINT OF CARE TEST ENTER/E DIT ORDERABLES Final Result * POCT Rapid Influenza A MARIO ID NOW (03/13/2025 3:41 PM EDT) [facility] Influenza A Negative Negative, Indeterminate [facility] QC Media Lot # [id number] [facility] Lot# Expiration Date [facility] Swab 03/13/2025 3:41 PM EDT Trinidad Bravo MD POINT OF CARE TEST ENTER/E DIT ORDERABLES Final Result Performing Organization Address City/State/[facility] Co de Phone Number [facility] [address] [place] [phone] * POCT Rapid Covid-19 MARIO ID NOW (03/13/2025 3:41 PM EDT) [facility] Coronavirus Antigen PCR Negative Negative, Indeterminate, None Detected, Invalid, Specimen unsatisfactory for evaluation, Weakly Positive, 2+ QC Media Lot # [id number] Lot# Expiration Date ,026 Swab 03/13/2025 3:41 PM EDT us Trinidad Bravo MD POINT OF CARE TEST ENTER/E DIT ORDERABLES Final Result * POCT Rapid Influenza B MARIO ID NOW (03/13/2025 3:40 PM EDT) [facility] Influenza B Negative Negative, Indeterminate [facility] QC Media Lot # [id number] [facility] Lot# Expiration Date [facility] Swab 03/13/2025 3:40 PM EDT Trinidad Bravo MD POINT OF CARE TEST ENTER/E DIT ORDERABLES Final Result [facility] [address] [place] [address] [phone] * (ABNORMAL) CBC auto differential (02/28/2025 9:21 AM EDT) Only the most recent of2 resultswithin the time period is included. [facility] White Blood Count 10.9(H) 4.8 - 10.8 X10*3/uL [facility] Red Blood Count 4.70 4.20 - 5.50 X10*6/uL [facility] Hemoglobin 12.0 12.0 - 16.0 g/dl [facility] Hematocrit 38.6 37.0 - 47.0 % [facility] Mean Corpuscular Volume 82.1 80.0 - 98.0 fL [facility] Mean Corpuscular Hemoglobin 25.5(L) 27.0 - 33.0 pg [facility] Mean Corpuscular HGB Conc 31.1 31.0 - 35.0 g/dl [facility] Red Cell Distribution Width 15.3 11.0 - 16.0 % [facility] Platelet Count 272 160 - 400 X10*3/uL [facility] Mean Platelet Volume 11.6 9.4 - 12.3 fL [facility] Neutrophils Percent Auto 64.5 45 - 73 % [facility] Imm Gran Pct Auto 0.3 0.0 - 0.4 % [facility] Lymphocytes Percent Auto 18.1(L) 20 - 40 % [facility] Monocytes Percent Auto 9.0 2 - 11 % [facility] Eosinophils Percent Auto 7.5(H) 0 - 4 % [facility] Basophils Percent Auto 0.6 0 - 2 % [facility] NRBC Pct Auto 0.0 0.0 - 0.2 /100WBC [facility] Neutrophils Absolute Auto 7.0 2.0 - 8.3 x10*3/uL [facility] Imm Gran Abs Auto 0.03 0.00 - 0.03 X10*3/uL [facility] Lymphocytes Absolute Auto 2.0 1.2 - 4.9 X10*3/uL [facility] Monocytes Absolute Auto 1.0 0.1 - 1.2 X10*3/uL [facility] Eosinophils Absolute Auto 0.8(H) 0.0 - 0.4 X10*3/uL [facility] Basophils Absolute Auto 0.1 0.0 - 0.2 X10*3/uL [facility] NRBC Abs Auto 0.000 0.0 - 0.012 X10*3/uL [facility] Blood Venous blood specimen / Unknown 02/28/2025 9:21 AM EDT 02/28/2025 2:18 PM EDT us Manjeet Quiroga MD LAB BLOOD ORDERABLES Final Result Performing Organization Address [facility] Co de Phone Number [facility] [address] [place] [phone] * DHEA Sulfate (02/28/2025 9:21 AM EDT) DHEA Sulfate 133 19 - 237 mcg/dL [facility] Comment:THIS TEST WAS PERFOR MED AT:[facility] [address] [id number] WESTBROOK MD Blood Venous blood specimen / Unknown 02/28/2025 9:21 AM EDT 02/28/2025 2:18 PM EDT Manjeet Quiroga MD LAB BLOOD ORDERABLES Final Result Performing Organization Address City/[facility]/ZIP Co de Phone Number [facility] [address] [place] [address] [phone] * Testosterone, Total, males (Adult), [place] (02/28/2025 9:21 AM EDT) Testosterone, Total 13 2 - 45 ng/dL [facility] Comment:For additional infor robert, please refer [email or web address](This link is being provided for informational/educational purposes only.)This test was developed and its analytical performancecharacteristics have been determined by [employer] [place], [place]. It hasnot been cleared or approved by the U.S. Food and DrugAdministration. This assay has been validated pursuantto the CLIA regulations and is used for clinicalpurposes.THIS TEST WAS PERFORMED AT:[facility] [place] [address]TZJHVJDRYAN STEIN MD,PHD Blood Venous blood specimen / Unknown 02/28/2025 9:21 AM EDT 02/28/2025 2:18 PM EDT us Manjeet Quiroga MD LAB BLOOD ORDERABLES Final Result [facility] [address] [place] [phone] * US Pelvis Transvaginal (02/28/2025) Anatomical Region Laterality Modality Pelvis Ultrasound us Manjeet Quiroga MD IMG US PROCEDURES Final Res ult * (ABNORMAL) POCT Hgb A1c (02/15/2025 3:22 PM EDT) Hemoglobin A1C 7.2(A) 4.0 - 5.7 % QC Media Lot # [id number] Lot# Expiration Date ,[id number] Blood 02/15/2025 3:22 PM EDT Manjeet Quiroga [...] 1:30 PM EST) Creatinine, Urine 61.75 mg/dL [facility] Microalbumin Urine <5.0 mg/L [facility] Microalbum Creatinine Ratio Ur TNP <30 ug/mg cr [facility] Comment:Unable to calculate albumin/creatinine ratio due to lowmicroalbumin or creatinine result. Urine (Urine, Random) 04/24/2024 1:30 PM EST 04/24/2024 2:09 PM EST Manjeet Quiroga MD LAB URINE ORDERABLES Final Result [facility] [address] [place] [phone] * Colposcopy (10/20/2023 9:03 AM EDT) Historical Provider IN CLINIC/BEDSIDE ORDERAB LES Final Result from Last 3 Months or Most Recently Relevant to Health Maintenance Additional Health Concerns Active Problems Noted Date [...] 04/17/2025 Patient has chronic kidney disease 04/17/[address] [place] [address] [place] [address] Care Teams Senior Group Manager Relationship Specialty Start Date End Date Manjeet Quiroga MD [address] [place] [phone] PCP - General Internal Medicine 05/31/13
--- OUTSIDE RECORDS SUMMARY | 2025-04-17 18:59 | XMS_ITS | Encounter Summary ---
Author Organization [employer] Address [address] [facility] 7 [place] [address] Care Team Providers Care Pension Administrator Name Role Phone Manjeet Quiroga MD Primary Care Provider [phone] Reason for Visit * Reason Comments Med Refill Encounter Details Date Type Department Care Team ([facility] st Contact Info) Description 03/09/2023 Refill [facility] MED [facility] PEDS [address] [place] [address] Manjeet Quiroga MD [address] [place] [address] Type 2 diabetes mellitus with diabetic polyneuropathy [...] Description 04/27/2025 2:30 PM EST Office Visit [facility] MED [facility] PEDS [address] [place] [address] Manjeet Quiroga MD [address] [place] [address] 07/16/2025 10:30 AM EST Office Visit [facility] OPTOMETRY [address] [place] [address] Tarka, Nury, OD [address] [place] [address] documented as of this encounter Visit Diagnoses Diagnosis Type 2 diabetes mellitus with diabetic polyneuropathy (HCC) documented in this encounter Additional Health Concerns Assessment Noted Time PHQ-9 Depression Total Score: 0 01/29/20 23 4:36 PM EDT documented as of this encounter Care Teams Pension Administrator Relationship Specialty Start Date End Date Manjeet Quiroga MD [address] [place] [address] PCP - General Internal Medicine 05/31/13 documented as of this encounter
--- OUTSIDE RECORDS SUMMARY | 2025-04-17 18:59 | XMS_ITS | Encounter Summary ---
Author Organization [employer] Address [address] [place] [address] 7 [place] [address] Care Team Providers Care User Interface Designer Name Role Phone Manjeet Quiroga MD Primary Care Provider [phone] Encounter Details Date Type Department Care Team ([facility] Contact Info) Description 04/03/2025 Results Follow-Up [facility] MED & PEDS [address] [place] [address] Manjeet Quiroga MD [address] [place] [address] Ferritin Social History Tobacco Use Types Packs/Day Years [...] Description 04/27/2025 2:30 PM EST Office Visit [facility] MED [facility] PEDS [address] [place], [place] [phone] Manjeet Quiroga MD [address] [place] [address] 07/16/2025 10:30 AM EST Office Visit [facility] OPTOMETRY [address] [place] [address] Nury Draper, OD [address] [place] [address] documented as of this encounter Visit Diagnoses Not on filedocumented in this encounter Additional Health Concerns Assessment Noted Time PHQ-9 Depression Total Score: 10 025 10:46 AM EST documented as of this encounter Care Teams User Interface Designer Relationship Specialty Start Date End Date Manjeet Quiroga MD [address] [place] [address] PCP - General Internal Medicine 05/31/13 documented as of this encounter
--- OUTSIDE RECORDS SUMMARY | 2025-04-17 18:59 | XMS_ITS | Encounter Summary ---
Author Organization [employer] Address [address] [place] [address] 7 [place] [address] Care Team Providers Care Group Manager Name Role Phone Manjeet Quiroga MD Primary Care Provider [phone] Encounter Details Date Type Department Care Team (Late Contact Info) Description 12/01/2022 Orders Only [facility] MED & PEDS [address] [place], [place] [phone] Manjeet Quiroga MD [address] [place] [address] Type 2 diabetes mellitus without complication, with long-term current use of insulin ([facility]) Social History Tobacco Use Types [...] Description 04/27/2025 2:30 PM EST Office Visit [facility] MED & PEDS [address] [place] [address] Manjeet Quiroga MD [address] [place] [address] 07/16/2025 10:30 AM EST Office Visit [facility] OPTOMETRY [address] [place] [address] Nury Draper, OD [address] [place] [address] documented as of this encounter Visit Diagnoses Diagnosis Type 2 diabetes mellitus without complication, with long-term current use of insulin (HCC) documented in this encounter Additional Health Concerns Assessment Noted Time PHQ-9 Depression Total Score: 8 10/14/19 23 2:38 PM EDT documented as of this encounter Care Teams Group Manager Relationship Specialty Start Date End Date Manjeet Quiroga MD [address] [place] [address] PCP - General Internal Medicine 05/31/13 documented as of this encounter
--- OUTSIDE RECORDS SUMMARY | 2025-04-17 18:59 | XMS_ITS | Clinical Summary ---
Author Organization [facility] Address [address] [facility] [address] [place] [phone] Phone Care Team Providers Care Foot Caster Name Role Phone Manjeet Quiroga MD Primary Care Pr ovider Allergies No known active allergies Medications Lactobac 42-Bifid 3-mnnaxg-ELM 30-500-50 mg PwPk Take by mouth. Activ [...] I gave her a sample lot number [id number], expiration 7 01/2023. She has no history [...] Other 05/19/2022 2:13 PM EST [facility] LAB POCT ENTER/EDIT ORDERABLES F inal Result * (ABNORMAL) Comprehensive metabolic panel (02/24/2021 7:50 AM EDT) SODIUM 137 133 - 146 mmol/L [facility] POTASSIUM 4.5 3.3 - 5.1 mmol/L [facility] Comment:Specimen slightly he molyzed, result may be falsely elevated. CHLORIDE 102 96 - 108 mmol/L [facility] CO2 26 21 - 35 mmol/L [facility] BUN 15 6 - 19 mg/dL [facility] CREATININE 0.70 0.5 - 1.5 mg/dL [facility] GLUCOSE 164(H) 70 - 99 mg/dL [facility] ALBUMIN 3.9 3.9 - 4.8 g/dL [facility] TOTAL PROTEIN 7.3 6.5 - 8.0 g/dL [facility] CALCIUM 9.2 8.4 - 10.3 mg/dL [facility] ALKALINE PHOSPHATASE 81 39 - 117 U/L [facility] TOTAL BILIRUBIN 0.3 0.0 - 1.2 mg/dL [facility] AST 19 0 - 37 U/L [facility] ALT 14 0 - 40 U/L [facility] GLOBULIN 3.4 1 - 4.8 g/dL [facility] EGFR 113 >59 mL/min/1.7 3m2 [facility] Comment:Estimated glomerular filtration rate calculated using the CKD-EPI equation. ANION GAP 14 10 - 20 mmol/L [facility] Blood 02/24/2021 7:50 AM EDT 02/24/2021 7:51 AM EDT us [facility] DO LAB BLOOD BKR ORDERABLES Final R esult [address] [address] * (ABNORMAL) Lipid panel (02/24/2021 7:50 AM EDT) HDL 49 mg/dL [facility] Comment: Interpretation <40 mg/dL: Low HDL cholesterol (major risk factor for CHD) Greater than or equal to 60 mg/dL: High HDL cholesterol ( negative risk factor for CHD) HDL - cholesterol is affected by a number of factors, e.g. smoking, excerise, hormones, sex and age. CHOLESTEROL 151 0 - 240 mg/dL [facility] TRIGLYCERIDES 116 30 - 160 mg/dL [facility] LDL 79 50 - 129 mg/dL [facility] Comment: LDL levels in terms of risk for coronary heart disease: <100 mg/dL: Optimal 100-129 mg/dL: Near or above optimal 130-159 mg/dL: Borderline high 160-189 mg/dL: High >190 mg/dL: Very High CARDIAC RISK RATIO 3.1(L) 3.3 - 4.4 [facility] Blood 02/24/2021 7:50 AM EDT 02/24/2021 7:51 AM EDT us Tan [place] DO LAB BLOOD BKR ORDERABLES Final R esult [address] [place] [address] from Last 3 Months or Most Recently Relevant to Health Maintenance Insurance [facility] C3 [employer] [facility] [employer] [facility] [employer] [facility] C3 ACO Care Teams Foot Caster Relationship Specialty Start Date End Date Manjeet Quiroga MD [address] [place] [phone] PCP - General Internal Medicine 01/08/21 Additional Source Comments The information contained in this document represents components of the legal health record. It is not the complete legal health record.[facility]
--- OUTSIDE RECORDS SUMMARY | 2025-04-17 18:59 | XMS_ITS | Encounter Summary ---
Author Organization [employer] Address [address] [facility] [address] [place] [address] Care Team Providers Care Card Setter Name Role Phone Manjeet Quiroga MD Primary Care Provider [phone] Encounter Details Date Type Department Care Team (Late st Contact Info) Description 06/21/2024 Orders Only [facility] MEDICINE [address] [place] [address] Provider, MD Emilia Social History Tobacco Use [...] Description 04/27/2025 2:30 PM EST Office Visit [facility] CHC MED & PEDS [address] [place] [address] Manjeet Quiroga MD [address] [place] [address] 07/16/2025 10:30 AM EST Office Visit [facility] OPTOMETRY [address] [place] [address] uNry Draper, OD [address] [place] [address] documented as of this encounter Procedures Procedure [...] Results * Colposcopy (10/20/2023 9:03 AM EDT) [facility] Provider IN CLINIC/BEDSIDE ORDERAB LES Final Result * HM PAP/HPV (09/17/2023 9:04 AM EDT) [facility] Provider HEALTH MAINTENANCE Final Result * Colposcopy (10/13/2021 9:22 AM EDT) [facility] Provider IN CLINIC/BEDSIDE ORDERAB LES Final Result * HM PAP/HPV (09/16/2021 9:15 AM EDT) [facility] Provider HEALTH MAINTENANCE Final Result * Colposcopy (07/23/2020 9:13 AM EST) [facility] Provider IN CLINIC/BEDSIDE ORDERAB LES Final Result * HM PAP/HPV (07/05/2020 9:11 AM EST) [facility] Provider HEALTH MAINTENANCE Final Result * HM PAP/HPV (02/21/2018 9:08 AM EDT) [facility] Provider HEALTH MAINTENANCE Final Result documented in this encounter Visit Diagnoses Not on filedocumented in this encounter Additional Health Concerns Assessment Noted Time PHQ-9 Depression Total Score: 10 025 10:46 AM EST documented as of this encounter Care Teams Card Setter Relationship Specialty Start Date End Date Manjeet Quiroga MD [address] [place] [phone] PCP - General Internal Medicine 05/31/13 documented as of this encounter
--- OUTSIDE RECORDS SUMMARY | 2025-04-17 18:59 | XMS_ITS | Encounter Summary ---
Author Organization [employer] Address [address] [facility] 7 [place] [address] Care Team Providers Care Aqua Ammonia Operator Name Role Phone Manjeet Quiroga MD Primary Care Provider [phone] Reason for Visit * Reason Comments Med Refill Encounter Details Date Type Department Care Team ([facility] st Contact Info) Description 03/02/2023 Refill [facility] CH[facility] MED & PEDS [address] [place] [address] Manjeet Quiroga MD [address] [place] [address] Type 2 diabetes mellitus with diabetic polyneuropathy [...] Description 04/27/2025 2:30 PM EST Office Visit [facility] CH[facility] MED & PEDS [address] [place] [address] Manjeet Quiroga MD [address] [place] [address] 07/16/2025 10:30 AM EST Office Visit [facility] OPTOMETRY [address] [place] [address] Tarka, Nury, OD [address] [place] [address] documented as of this encounter Visit Diagnoses Diagnosis Type 2 diabetes mellitus with diabetic polyneuropathy (HCC) documented in this encounter Additional Health Concerns Assessment Noted Time PHQ-9 Depression Total Score: 0 01/29/20 23 4:36 PM EDT documented as of this encounter Care Teams Aqua Ammonia Operator Relationship Specialty Start Date End Date Manjeet Quiroga MD [address] [place] [address] PCP - General Internal Medicine 05/31/13 documented as of this encounter
--- OUTSIDE RECORDS SUMMARY | 2025-04-17 18:59 | XMS_ITS | Encounter Summary ---
Author Organization [employer] Address [address] [place] [address] 7 [place] [address] Care Team Providers Care Supervisor Carbon Electrodes Name Role Phone Manjeet Quiroga MD Primary Care Provider [phone] Reason for Referral * Imaging (Routine) - Authorized Specialty Diagnoses / Procedures Referred By Contac t Referred To Contact Radiology Diagnoses Transaminitis Procedures US Abdomen Comp w elastography Manjeet Quiroga MD [address] [place] [address] Phone: tel: fax: [address] [address] Phone: tel: fax: Referral ID Status Reason Start Date Expiration Date V isits Requested Visits Authorized [id number] Authorized 03/30/2025 03/30/2026 1 1 Encounter Details Date Type Department Care Team (Late st Contact Info) Description 03/30/2025 Orders Only [facility] CHC MED & PEDS [address] [place], [place] [phone] Manjete Quiroga MD [address] [place], [place] [phone] Transaminitis (Primary Dx); Pruritus Social History Tobacco Use Types Packs/Day Years [...] Upcoming Encounters Date Type Department Care Team ([facility] st Contact Info) Description 04/27/2025 2:30 PM EST Office Visit [facility] MED & PEDS [address] [place] [address] Manjeet Quiroga MD [address] [place] [address] 07/16/2025 10:30 AM EST Office Visit [facility] OPTOMETRY [address] [place] [address] Nury Draper, OD [address] [place] [address] Scheduled Orders Name Type Priority Associated Diagnoses Orde r Schedule US Abdomen Comp w elastography Imaging Routine Transaminitis Expected: 03/30/2025, Expires: 03/30/2026 Smooth Muscle Antibody with Reflex to Titer Lab Routine Transaminitis Expected: 03/30/2025 (Approximate), Expires: 03/30/2026 Alpha 1 Antitrypsin Lab Routine Transaminitis Expected: 03/30/2025 (Approximate), Expires: 03/30/2026 documented as of this encounter Procedures Procedure Name Priority Date/Time Associated Diagnosis Comments IRON AND TOTAL IRON BINDING CAPACITY Routine 04/02/2025 4:20 PM EST Transaminitis PROTHROMBIN TIME-INR Routine 04/02/2025 4:20 PM EST Transaminitis FERRITIN Routine 04/02/2025 4:20 PM EST Transaminitis IMMUNOGLOBULINS, QUANTITATIVE, IGA, IGG, IGM Routine 04/02/2025 4:00 PM EST Transaminitis HEPATITIS B SURFACE ANTIBODY, QUALITATIVE Routine 04/02/2025 1:49 PM EST Transaminitis documented in this encounter Results * Iron And Total Iron Binding Capacity (04/02/2025 4:20 PM EST) Iron 38 30 - 160 mcg/dL [facility] Total Iron Binding Capacity 261 228 - 428 mcg/dL [facility] Percent Iron Saturation 15 15 - 50 % [facility] Unsaturated Iron Binding 223 ug/dL [facility] Blood Venous blood specimen / Unknown 04/02/2025 4:20 PM EST 04/02/2025 6:05 PM EST us Manjeet Quiroga MD LAB BLOOD ORDERABLES Final Result Performing Organization Address [facility] Co de Phone Number [facility] [address] [place] [phone] * Ferritin (04/02/2025 4:20 PM EST) Ferritin 51 10 - 122 ng/mL [facility] Blood Venous blood specimen / Unknown 04/02/2025 4:20 PM EST 04/02/2025 6:05 PM EST us Manjeet Quiroga MD LAB BLOOD ORDERABLES Final Result Performing Organization Address [facility] Phone Number [facility] [address] [place] [phone] * Prothrombin Time-INR (04/02/2025 4:20 PM EST) Prothrombin Time 12.5 11.2 - 13.5 SEC [facility] INTERNATIONAL NORM RATIO 1.0 0.9 - 1.1 [facility] Comment:INTERNATIONAL NORMAL IZED RATIO (INR) REFERENCE [...] BLOOD ORDERABLES Final Result Performing Organization Address [facility] Co de Phone Number [facility] [address] [place] [phone] * (ABNORMAL) Immunoglobulins, Quantitative, IgA, IgG, IgM (04/02/2025 4:00 PM EST) IMMUNOGLOBULIN G 1256 600 - 1640 mg/dL [facility] IMMUNOGLOBULIN A 382(A) 47 - 310 mg/dL [facility] Immunoglobulin M 222 50 - 300 mg/dL [facility] Comment:THIS TEST WAS PERFOR MED AT:[facility] [place] [phone] WESTBROOK MD Blood Venous blood specimen / Unknown 04/02/2025 4:00 PM EST 04/02/2025 6:05 PM EST Manjeet Quiroga MD LAB BLOOD ORDERABLES Final Result Performing Organization Address [facility] Co de Phone Number [facility] [address] [place] [phone] * Hepatitis B Surface Antibody, Qualitative (04/02/2025 1:49 PM EST) Pathologist [facility] ~Hepatitis B Surface Antibody REACTIVE Nonreactive [facility] Comment:REACTIVE: > 11.99 mI U/mL Blood Venous blood specimen / Unknown 04/02/2025 1:49 PM EST 04/02/2025 6:05 PM EST Manjeet Quiroga MD LAB BLOOD ORDERABLES Final Result Performing Organization Address City/[facility] Co de Phone Number [facility] [address] [place] [phone] documented in this encounter Visit Diagnoses Diagnosis Transaminitis- Primary Nonspecific elevation of levels of transaminase or lactic acid dehydrogenase (LDH) Pruritus Unspecified pruritic disorder documented in this encounter Additional Health Concerns Assessment Noted Time PHQ-9 Depression Total Score: 10 025 10:46 AM EST documented as of this encounter Care Teams Supervisor Carbon Electrodes Relationship Specialty Start Date End Date Manjeet Quiroga MD [address] [place] [address] PCP - General Internal Medicine 05/31/13 documented as of this encounter
--- OUTSIDE RECORDS SUMMARY | 2025-04-17 19:00 | XMS_ITS | Encounter Summary ---
Author Organization [employer] Address [address] [facility] 7 [place] [address] Care Team Providers Care Family And Consumer Education Teacher Name Role Phone Manjeet Quiroga MD Primary Care Provider [phone] Reason for Visit * Reason Comments Med Refill Encounter Details Date Type Department Care Team ([facility] st Contact Info) Description 02/03/2024 Refill [facility] MEDICINE [address] [place] [address] Manjeet Quiroga MD [address] [place] [address] Social History Tobacco Use Types Packs/Day Years [...] 04/27/2025 2:30 PM EST Office Visit [facility] CHC MED & PEDS [address] [place] [address] Manjeet Quiroga MD [address] [place], [place] [phone] 07/16/2025 10:30 AM EST Office Visit [facility] OPTOMETRY [address] [place], [place] [phone] TarkaNury, OD [address] [place] [address] documented as of this encounter Visit Diagnoses Not on filedocumented in this encounter Additional Health Concerns Assessment Noted Time PHQ-9 Depression Total Score: 0 01/29/20 23 4:36 PM EDT documented as of this encounter Care Teams Family And Consumer Education Teacher Relationship Specialty Start Date End Date Manjeet Quiroga MD [address] [place] [address] PCP - General Internal Medicine 05/31/13 documented as of this encounter
--- OUTSIDE RECORDS SUMMARY | 2025-04-17 19:00 | XMS_ITS | Encounter Summary ---
Author Organization [employer] Address [address] [facility] 7 [place] [address] Care Team Providers Care Primer Inserting Machine Adjuster Name Role Phone Manjeet Quiroga MD Primary Care Provider [phone] Encounter Details Date Type Department Care Team (Late st Contact Info) Description 10/21/2023 Orders Only [facility] CHC MED & PEDS [address] [place] [address] Manjeet Quiroga MD [address] [place] [address] Type 2 diabetes mellitus without complication, without long-term current use of insulin ([facility]) Social History Tobacco Use Types Packs/Day Years [...] Description 04/27/2025 2:30 PM EST Office Visit [facility] CH[facility] MED & PEDS [address] [place] [address] Manjeet Quiroga MD [address] [place] [address] 07/16/2025 10:30 AM EST Office Visit [facility] OPTOMETRY [address] [place] [address] Tarka, Nury, OD [address] [place] [address] documented as of this encounter Visit Diagnoses Diagnosis Type 2 diabetes mellitus without complication, without long-term current use of insulin (HCC) documented in this encounter Additional Health Concerns Assessment Noted Time PHQ-9 Depression Total Score: 0 01/29/20 23 4:36 PM EDT documented as of this encounter Care Teams Primer Inserting Machine Adjuster Relationship Specialty Start Date End Date Manjeet Quiroga MD [address] [place] [address] PCP - General Internal Medicine 05/31/13 documented as of this encounter
--- OUTSIDE RECORDS SUMMARY | 2025-04-17 19:00 | XMS_ITS | Clinical Summary ---
Author Organization [address] [facility] Address [address] [place] [address] Phone Care Team Providers Care Mis Director Name Role Phone Manjeet Quiroga MD Primary Care Provider [phone] Allergies No known active allergies Medications diclofenac (VOLTAREN) 1 % topical gel Apply 4 g topically 2 times daily. 4 Active Lactobac. rhamnosus GG-inulin ([facility] [employer] [facility]) 10 billion cell -200 mg capsule, [...] mellitus type 2, co ntrolled, with complications ([employer] [facility] [employer] V24, [facility] V28) 03/30/2024 Normocytic anemia 01/23/2022 Acute nontraumatic kidney injury ([employer] V24) 0 12/23/2020 Acute renal failure syndrome ([employer] V24) 12/23 Atypical squamous cells of u [...] in one year Obesity, morbid, BMI 40.0-49.9 ([employer] [facility] V24, [facility] V28) 07/05/2019 Anxiety 11/08/2017 Neck pain 04/27/2016 Alopecia 01/24/2013 Migraine 01/24/2013 Pes planus 01/24/2013 Chronic obstructive lung disease ([facility] V24, [facility] [place] V28) 02/19/2012 Encounters Date Type Department Care Team Description 02/28/2025 10:27 AM EDT - 02/28/2025 11:59 PM EDT Hospital Encounter [facility] Ultrasound [address] [place] [phone] Hirsutism Discharge Disposition: Home or Self Care 02/28/2025 Results Follow-Up Obstetrics and Gynecology - [address] [phone] Judy Mckeon RN 02/13/2025 7:15 AM EDT - 02/13/2025 11:59 PM EDT Hospital Encounter Radiology Department - [address] [phone] LUQ pain Discharge Disposition: Home or Self Care 02/08/2025 10:00 AM EDT Office Visit Obstetrics & Gynecology - [address] [phone] Sherrell Santos, RYANM Women's annual routine gynecological examination (Primary Dx); LGSIL of cervix of undetermined significance; Papanicolaou smear of cervix with low risk human papillomavirus (HPV) DNA test positive; Female infertility; Venereal disease screening; Encounter for screening for viral disease; Vaginal discharge; Vaginal itching; LUQ pain 01/23/2025 9:00 AM EDT Office Visit Orthopedic Surgery [facility] [address] [facility] [address] [place] [phone] Ladarius Amaro, DPM Plantar fascial fibromatosis (Primary [...] to less than 46yo 02/24/2021,10/25/2020,07/23/2020 Hepatitis B (Dmkkaep-E-Ynsfd , Recombivax HB-Adult) 19yo and older 05/03/1998,01/03/1998,11/28/1997 [...] SURGERY 07/30/2016 PROCEDURE: HISTORICAL NECK SURGERY; COMMENT: [facility] Medical History Medical History Date Comments Anemia DX:Anemia Anxiety state DX:Anxiety state Asthma DX:Asthma Diabetes mellitus type 2, co ntrolled, with complications ([facility]/HCC V24, [facility] V28) [...] Obst[facility]cology [facility] [address] [place], [place] [phone] Tasia Palma DO [address] [place], [place] 04/23/2025 1:30 PM EST Procedure visit Obstetrics and Gynecology - [facility] [address] [place], [place] [phone] 05/02/2025 9:45 AM EST Office Visit Orthopedic Surgery - [place] [address] [phone] Ladarius Amaro, DPM [address] [phone] Health Maintenance Due Date Last Done Comments [...] Signed Date: 03/05/2025 14:03 ET Workstation ID: [id number] Transcribed By: Self Edit Transcribed Date: 03/05/2025 [...] Signed Date: 03/05/2025 14:03 ET Workstation ID: [id number] Transcribed By: Self Edit Transcribed Date: 03/05/2025 [...] Signed Date: 02/13/2025 08:20 ET Workstation ID: [id number] Transcribed By: Self Edit Transcribed Date: 02/13/2025 [...] Signed Date: 02/13/2025 08:20 ET Workstation ID: [id number] Transcribed By: Self Edit Transcribed Date: 02/13/2025 08:18 ET Sherrell Santos CNM IMG US PROCEDURES Final Resul t * Hepatitis C antibody (02/08/2025 10:48 AM EDT) Hepatitis C Antibody Negative Negative LAB CHEMISTRY METHOD 02/08/2025 1:20 PM EDT [facility] Blood Venous blood specimen / Unknown Venipuncture / Unknown 02/08/2025 10:48 AM EDT 02/08/2025 11:29 AM EDT Sherrell Santos [facility] BLOOD ORDERABLES Final Re sult [facility] [address] [place] [address], [place] [phone] * HIV 1,2 antibody, p24 antigen with reflex to differentiation (02/08/2025 10:48 AM EDT) HIV Combo AB/AG Negative Negative LAB CHEMISTRY METHOD 02/08/2025 1:21 PM EDT [facility] Blood Venous blood specimen / Unknown Venipuncture / Unknown 02/08/2025 10:48 AM EDT 02/08/2025 11:29 AM EDT Narrative [facility] - 02/08/2025 1:21 PM EDT This assay is a 4th generation assay allowing for earlier detection of HIV infection by detecting the presence of the HIV-1 p24 antigen as well as the traditional antibodies to HIV type 1 (including group O) and type 2. Use of a 4th generation assay is the current CDC recommendation for HIV screening. [facility] BLOOD ORDERABLES Final Re sult Performing Organization Address [facility]/ZIP Co de Phone Number [facility] [address] [place] [address], [place] [phone] * Treponema pallidum antibody with reflex to RPR and particle agglutination (02/08/2025 10:48 AM EDT) T. Pallidum Antibodies Negative Negative LAB CHEMISTRY METHOD 02/08/2025 2:13 PM EDT [facility] Blood Venous blood specimen / Unknown Venipuncture / Unknown 02/08/2025 10:48 AM EDT 02/08/2025 11:29 AM EDT [facility] BLOOD ORDERABLES Final Re sult Performing Organization Address [facility] Co de Phone Number [facility] [address] [place] [address], [place] [phone] * Trichomonas vaginalis antigen (02/08/2025 10:36 AM EDT) Trichomonas vaginalis Negative Negative 02/08/2025 1:40 PM EDT [facility] Swab Vaginal structure / Unknown Non-blood Collection / Unknown 02/08/2025 10:36 AM EDT 02/08/2025 11:47 AM EDT [facility] MICROBIOLOGY - GENERAL OR DERABLES Final Result Performing Organization Address City/[facility]/ZIP Co de Phone Number [facility] [address] [place] [address], [place] [phone] * Chlamydia trachomatis and Neisseria gonorrhoeae molecular study (02/08/2025 10:36 AM EDT) Neisseria gonorrhoeae PCR Negative Negative LAB MOLECULAR DIAGNOSTICS METHOD 02/09/2025 1:18 PM EDT [facility] Chlamydia trachomatis PCR Negative Negative LAB MOLECULAR DIAGNOSTICS METHOD 02/09/2025 1:18 PM EDT [facility] Swab Vaginal structure / Unknown Non-blood Collection / Unknown 02/08/2025 10:36 AM EDT 02/08/2025 11:47 AM EDT [facility] MICROBIOLOGY - GENERAL OR DERABLES Final Result [facility] [address] [place] [address], * Wet prep, genital (02/08/2025 10:36 AM EDT) Clue Cells, Wet Prep Negative Negative 02/08/2025 1:40 PM EDT [facility] Yeast, Wet Prep Negative Negative 02/08/2025 1:40 PM EDT [facility] Trichomonas, Wet Prep Indeterminate Negative 02/08/2025 1:40 PM EDT [facility] Comment:Refer to Trichomonas antigen. Swab Vaginal structure / Unknown Non-blood Collection / Unknown 02/08/2025 10:36 AM EDT 02/08/2025 11:47 AM EDT [facility] MICROBIOLOGY - GENERAL OR DERABLES Final Result [facility] [address] [place] [address], * HPV genotype (02/08/2025 10:27 AM EDT) HPV Type 16 Negative Negative LAB MICROBIOLOGY METHOD 02/16/2025 6:40 AM EDT [facility] HPV Type 18/45 Negative Negative LAB MICROBIOLOGY METHOD 02/16/2025 6:40 AM EDT [facility] HPV Type 16,18, and others Valid LAB MICROBIOLOGY METHOD 02/16/2025 6:40 AM EDT [facility] Brushing Cervix uteri structure / Unknown 02/08/2025 10:27 AM EDT 02/09/2025 6:18 AM EDT Sherrell Santos [facility] MOLECULAR DIAGNOSTICS ORD ERABLES Final Result [facility] [address] [place] [address], [place] [phone] * (ABNORMAL) HPV with reflex genotype (02/08/2025 10:27 AM EDT) HPV Positive( A) Negative LAB MICROBIOLOGY METHOD 02/15/2025 8:00 AM EDT [facility] Brushing Cervix uteri structure / Unknown 02/08/2025 10:27 AM EDT 02/09/2025 6:18 AM EDT Sherrell DAVIS LAB MOLECULAR DIAGNOSTICS ORD ERABLES Final Result Performing Organization Address City/[facility]/ZIP Co de Phone Number [facility] [address] [place] [address], [place] [phone] * (ABNORMAL) Pap smear (02/08/2025 10:27 AM EDT) Interpretation Low grade squamous intraepithelial lesion Atypical squamous cells of undetermined significance, cannot exclude high grade(A) 02/28/2025 11:50 AM EDT [facility] at 1150 EDT Clinical Information Lgsil pos hpv 2023 colpo benign 02/28/2025 11:50 AM EDT [facility] General Categorization Epithelial cell abnormality, see interpretation 02/28/2025 11:50 AM EDT [facility] Other Findings Fungal organisms morphologically consistent with Jolene spp Shift in lee suggestive of bacterial vaginosis 02/28/2025 11:50 AM EDT [facility] Specimen Adequacy Satisfactory for evaluation, endocervical/lindsay sformation zone component absent 02/28/2025 11:50 AM EDT [facility] Pap Methodology Liquid Based Pap Test 02/28/2025 11:50 AM EDT [facility] Disclaimer The Pap test is a screening test which carries an inherent false negative rate. These test results should be correlated with the patient's clinical findings and history. This Pap test was processed using an automated screening system. Technical cytopathology services provided by [facility], at [address] [place] [phone] (CLIA # [id number]/Dashawn Reynoso MD, I&C Technician.) 02/28/2025 11:50 AM EDT [facility] Console Pap Interpretation Reported 02/28/2025 11:50 AM [facility] Brushing Cervix uteri structure / Unknown 02/08/2025 10:27 AM EDT 02/09/2025 6:18 AM EDT Comment:Lgsil pos hpv 2023 c olpo benign Sherrell Santos CNNeptali LAB CYTOLOGY ORDERABLES Final Result [facility] [address] [place] [address], * Diabetes Eye Exam (09/03/2023) Diabetes: Annual Retina Eye Exam abstracted Historical Provider HEALTH MAINTENANCE Final Result * (ABNORMAL) Hemoglobin A1c (09/24/2022) Hemoglobin A1C 12.7(A) <=6.5 % Blood Venous blood specimen / Unknown us Historical Provider LAB BLOOD ORDERABLES Carol Ann racquel Result from Last 3 Months or Most Recently Relevant to Health Maintenance Insurance [employer] Care Teams Mis Director Relationship Specialty Start Date End Date Manjeet Quiroga MD [address] [place] [address] PCP - General Internal Medicine 07/22/20
--- OUTSIDE RECORDS SUMMARY | 2025-04-17 19:00 | XMS_ITS | Clinical Summary ---
Author Organization [facility] Address [address] [facility] [address] [place] [address] Phone Care Team Providers Care Mower Mechanic Name Role Phone Manjeet Quiroga MD Primary Care Provider [phone] Allergies No known active allergies Medications Multiple [...] [facility] Medicaid Care Teams Mower Mechanic Relationship Specialty Start Date End Date Manjeet Quiroga MD PCP - General 06/03/20
--- OUTSIDE RECORDS SUMMARY | 2025-04-17 19:00 | XMS_ITS | Encounter Summary ---
Author Organization [employer] Address [address] [facility] 7t [place] [address] Care Team Providers Care Desulfurizer Hand Name Role Phone Manjeet Quiroga MD Primary Care Provider [phone] Encounter Details Date Type Department Care Team (Late st Contact Info) Description 10/06/2023 Telephone [facility] MEDICINE [address] [place] [address] Manjeet Quiroga MD [address] [place], [place] [phone] Social History Tobacco Use Types Packs/Day Years [facility] [address] [place], [place] [phone] Manjeet Quiroga MD [address] [place], [place] [phone] 07/16/2025 10:30 AM EST Office Visit [facility] OPTOMETRY [address] [place], [place] [phone] TarkaNury, OD [address] [place] [address] documented as of this encounter Visit Diagnoses Not on filedocumented in this encounter Additional Health Concerns Assessment Noted Time PHQ-9 Depression Total Score: 0 01/29/20 23 4:36 PM EDT documented as of this encounter Care Teams Desulfurizer Hand Relationship Specialty Start Date End Date Manjeet Quiroga MD [address] [place] [address] PCP - General Internal Medicine 05/31/13 documented as of this encounter
--- OUTSIDE RECORDS SUMMARY | 2025-04-17 19:00 | XMS_ITS | Encounter Summary ---
Author Organization [employer] Address [address] [place] [address] Care Team Providers Care Telephone Messenger Name Role Phone Manjeet Quiroga MD Primary Care Provider [phone] Reason for Visit * Reason Onset Date Comments Med Refill 11/04/2022 Encounter Details Date Type Department Care Team ([facility] st Contact Info) Description 11/04/2022 Telephone [facility] MEDICINE [address] [place] [address] Manjeet Quiroga MD [address] [place] [address] Med Refill Social History Tobacco Use Types [...] Description 04/27/2025 2:30 PM EST Office Visit [facility] CHC MED & PEDS [address] [place] [address] Manjeet Quiroga MD [address] [place], [place] [phone] 07/16/2025 10:30 AM EST Office Visit [facility] OPTOMETRY [address] [place], [place] [phone] TarkaNury, OD [address] [place] [address] documented as of this encounter Visit Diagnoses Not on filedocumented in this encounter Additional Health Concerns Assessment Noted Time PHQ-9 Depression Total Score: 8 10/14/19 23 2:38 PM EDT documented as of this encounter Care Teams Telephone Messenger Relationship Specialty Start Date End Date Manjeet Quiroga MD [address] [place] [address] PCP - General Internal Medicine 05/31/13 documented as of this encounter
--- OUTSIDE RECORDS SUMMARY | 2025-04-17 19:00 | XMS_ITS | Encounter Summary ---
Author Organization [facility] [facility] Address [address] [place] [address] Care Team Providers Care Digital Media Manager Name Role Phone Manjeet Quiroga MD Primary Care Provider [phone] Reason for Visit * Reason Comments Med Refill Encounter Details Date Type Department Care Team ([facility] Contact Info) Description 06/22/2022 Refill [facility] MED [facility] PEDS [address] [place] [address] Manjeet Quiroga MD [address] [place] [address] Bloating (Primary Dx) Social History Tobacco Use [...] Upcoming Encounters Date Type Department Care Team ([facility] Contact Info) Description 04/27/2025 2:30 PM EST Office Visit [facility] MED [facility] PEDS [address] [place], [place] [phone] Manjeet Quiroga MD 505 [place] [address] 07/16/2025 10:30 AM EST Office Visit [facility] OPT[facility] [address] [place] [address] Nury Draper, OD [address] [place] [address] documented as of this encounter Visit Diagnoses Diagnosis Bloating- Primary Flatulence, eructation, and gas pain documented in this encounter Care Teams Digital Media Manager Relationship Specialty Start Date End Date Manjeet Quiroga MD [address] [place] [address] PCP - General Internal Medicine 05/31/13 documented as of this encounter
--- OUTSIDE RECORDS SUMMARY | 2025-04-17 19:00 | XMS_ITS | Encounter Summary ---
Author Organization [employer] Address [address] [place] [address] [place] [address] Care Team Providers Care Branch Library Clerk Name Role Phone Manjeet Quiroga MD Primary Care Provider [phone] Reason for Referral * Consultation (Routine) - Closed Specialty Diagnoses / Procedures Referred By Contryder cotto Referred To Contact Physical Therapy Diagnoses Hand paresthesia Neck pain Manjeet Quiroga MD [address] [place] [address] Phone: tel: fax: Physical Therapy, AT [address] [place], [place] Phone: tel: fax: Referral ID Status Reason Start Date Expiration Date V isits Requested Visits Authorized [id number] Closed Specialty Services Required 08/10/2024 08/10/2025 1 1 Encounter Details Date Type Department Care Team (Late st Contact Info) Description 08/10/2024 Orders Only [facility] [address] [place] [address] Manjeet Quiroga MD [address] [place], [place] [phone] Hand paresthesia (Primary Dx); Neck pain Social [...] Upcoming Encounters Date Type Department Care Team ([facility] st Contact Info) Description 04/27/2025 2:30 PM EST Office Visit [facility] MED [facility] PEDS 505 [place] [address] Manjeet Quiroga MD [address] [place] [address] 07/16/2025 10:30 AM EST Office Visit [facility] [address] [place], [place] [phone] Manjeetjosue Nury, OD [address] [place] [address] Scheduled Referrals Name Type Priority Associated Diagnoses [...] documented as of this encounter Care Teams Branch Library Clerk Relationship Specialty Start Date End Date Manjeet Quiroga MD [address] [place] [address] PCP - General Internal Medicine 05/31/13 documented as of this encounter
--- OUTSIDE RECORDS SUMMARY | 2025-04-17 19:00 | XMS_ITS | Encounter Summary ---
Author Organization [facility] Address [address] [place] [address] Care Team Providers Care Anthropology Instructor Name Role Phone Manjeet Quiroga MD Primary Care Provider [phone] Encounter Details Date Type Department Care Team (Late Contact Info) Description 02/28/2025 Results Follow-Up Obstetrics and Gynecology [address] [phone] Judy Mckeon RN Social History Tobacco Use [...] Upcoming Encounters Date Type Department Care Team ([facility] Contact Info) Description 04/23/2025 1:30 PM EST Procedure visit [facility] [place] [address] [place], [place] [phone] Tasia Palma DO [address] [place], [place] 04/23/2025 1:30 PM EST Procedure visit [facility] [place] [address] [place], [place] [phone] 05/02/2025 9:45 AM EST Office Visit Orthopedic Surgery - [place] [address] [facility] [address] [place] [phone] Ladarius Amaro DPM [address] [phone] documented as of this encounter Visit Diagnoses Not on filedocumented in this encounter Care Teams Anthropology Instructor Relationship Specialty Start Date End Date Manejet Quiroga MD [address] [place] [address] PCP - General Internal Medicine 07/22/20 documented as of this encounter
--- OUTSIDE RECORDS SUMMARY | 2025-04-17 19:00 | XMS_ITS | Encounter Summary ---
Author Organization [employer] Address [address] [employer] [employer] 7 [place] [address] Care Team Providers Care Special Education Teaching Assistant Name Role Phone Manjeet Quiroga MD Primary Care Provider [phone] Reason for Visit * Reason Comments Med Refill Encounter Details Date Type Department Care Team ([facility] st Contact Info) Description 10/25/2023 Refill [facility]EDS [address] [place] [address] Manjeet Quiroga MD 505 [place] [address] Mild episode of recurrent major depressive disorder [...] [facility] [address] [place] [address] Manjeet Quiroga MD [address] [place] [address] 07/16/2025 10:30 AM EST Office Visit [facility] [address] [place] [address] Tarka, Nury, OD [address] [place] [address] documented as of this encounter Visit Diagnoses Diagnosis Mild episode of recurrent major depressive disorder (CMS/HCC) documented in this encounter Additional Health Concerns Assessment Noted Time PHQ-9 Depression Total Score: 0 01/29/20 23 4:36 PM EDT documented as of this encounter Care Teams Special Education Teaching Assistant Relationship Specialty Start Date End Date Manjeet Quiroga MD [address] [place] [address] PCP - General Internal Medicine 05/31/13 documented as of this encounter
--- OUTSIDE RECORDS SUMMARY | 2025-04-17 19:00 | XMS_ITS | Encounter Summary ---
Author Organization [employer] Address [address] [facility] 7 [place] [address] Care Team Providers Care Retail Merchandising Specialist Name Role Phone Manjeet Quiroga MD Primary Care Provider [phone] Reason for Visit * Reason Comments Med Refill Encounter Details Date Type Department Care Team ([facility] st Contact Info) Description 09/18/2024 Refill [facility] MED & PEDS [address] [place] [address] Manjeet Quiroga MD [address] [place] [address] Neck pain; Cervical radiculopathy; Plantar fasciitis, bilateral [...] Description 04/27/2025 2:30 PM EST Office Visit [facility] MED & PEDS [address] [place] [address] Manjeet Quiroga MD [address] [place] [address] 07/16/2025 10:30 AM EST Office Visit [facility] OPTOMETRY [address] [place] [address] Nury Draper, OD [address] [place] [address] documented as of this encounter Visit Diagnoses Diagnosis Neck pain Cervicalgia Cervical radiculopathy Brachial neuritis or radiculitis nos Plantar fasciitis, bilateral documented in this encounter Additional Health Concerns Assessment Noted Time PHQ-9 Depression Total Score: 10 025 10:46 AM EST documented as of this encounter Care Teams Retail Merchandising Specialist Relationship Specialty Start Date End Date Manjeet Quiroga MD [address] [place] [address] PCP - General Internal Medicine 05/31/13 documented as of this encounter
--- OUTSIDE RECORDS SUMMARY | 2025-04-17 19:00 | XMS_ITS | Encounter Summary ---
Author Organization [employer] Address [address] [facility] 7 [place] [address] Care Team Providers Care Vocational Guidance Counselor Name Role Phone Manjeet Quiroga MD Primary Care Provider [phone] Encounter Details Date Type Department Care Team (Late st Contact Info) Description 02/13/2025 Orders Only [facility] [address] [place] [address] Provider, MD Emilia Social History Tobacco Use [...] Description 04/27/2025 2:30 PM EST Office Visit [facility] [address] [place] [address] Manjeet Quiroga MD [address] [place] [address] 07/16/2025 10:30 AM EST Office Visit [facility] [address] [place] [address] TarkaNury, OD [address] [place] [address] documented as of this encounter Procedures Procedure [...] documented as of this encounter Care Teams Vocational Guidance Counselor Relationship Specialty Start Date End Date Manjeet Quiroga MD [address] [place] [address] PCP - General Internal Medicine 05/31/13 documented as of this encounter
--- OUTSIDE RECORDS SUMMARY | 2025-04-17 19:00 | XMS_ITS | Encounter Summary ---
Author Organization [employer] [facility] Address [address] [facility] 7 [place] [address] Care Team Providers Care Yeast Washer Name Role Phone Manjeet Quiroga MD Primary Care Provider [phone] Encounter Details Date Type Department Care Team (Late st Contact Info) Description 10/06/2023 Orders Only [facility] CHC MED & PEDS [address] [place], [place] [phone] Manjeet Quiroga MD 505 [place] [address] Type 2 diabetes mellitus without complication, without long-term current use of insulin ([facility]) (Primary Dx) Social History Tobacco Use Types [...] Description 04/27/2025 2:30 PM EST Office Visit [facility] CH[facility] MED & PEDS [address] [place], [place] [phone] Manjeet Quiroga MD [address] [place] [address] 07/16/2025 10:30 AM EST Office Visit [facility] OPTOMETRY [address] [place] [address] Tarka, Nury, OD [address] [place] [address] documented as of this encounter Visit Diagnoses Diagnosis Type 2 diabetes mellitus without complication, without long-term current use of insulin (HCC)- Primary documented in this encounter Additional Health Concerns Assessment Noted Time PHQ-9 Depression Total Score: 0 01/29/20 23 4:36 PM EDT documented as of this encounter Care Teams Yeast Washer Relationship Specialty Start Date End Date Manjeet Quiroga MD [address] [place] [address] PCP - General Internal Medicine 05/31/13 documented as of this encounter
--- OUTSIDE RECORDS SUMMARY | 2025-04-17 19:00 | XMS_ITS | Encounter Summary ---
Author Organization [employer] Address [address] [place] [address] 7 [place] [address] Care Team Providers Care Endoscopy Registered Nurse Name Role Phone Manjeet Quiroga MD Primary Care Provider [phone] Encounter Details Date Type Department Care Team (Latest Contact Info) Description 02/28/2025 Results Follow-Up [facility] MED & PEDS [address] [place] [address] Manjeet Quiroga MD [address] [place] [address] CBC auto differential, CBC auto differential, Comprehensive [facility] [address] [place] [address] Manjeet Quiroga MD [address] [place] [address] 07/16/2025 10:30 AM EST Office Visit [facility] OPTOMETRY [address] [place] [address] TarkaNury, OD 267 [place] [address] documented as of this encounter Visit Diagnoses Not on filedocumented in this encounter Additional Health Concerns Assessment Noted Time PHQ-9 Depression Total Score: 10 025 10:46 AM EST documented as of this encounter Care Teams Endoscopy Registered Nurse Relationship Specialty Start Date End Date Manjeet Quiroga MD [address] [place] [address] PCP - General Internal Medicine 05/31/13 documented as of this encounter
--- OUTSIDE RECORDS SUMMARY | 2025-04-17 19:00 | XMS_ITS | Encounter Summary ---
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 Name Role Phone Manjeet Quiroga MD Primary Care Provider [phone] Encounter Details Date Type Department Care Team (Late Contact Info) Description 10/28/2022 Orders Only [facility] CHC MED & PEDS [address] [place] [address] Manjeet Quiroga MD [address] [place] [address] Other emphysema (CMS/HCC) (Primary Dx); Type 2 [...] 2:30 PM EST Office Visit [facility] CH[facility] MED & PEDS [address] [place] [address] Manjeet Quiroga MD [address] [place] [address] 07/16/2025 10:30 AM EST Office Visit [facility] OPTOMETRY [address] [place] [address] Nury Draper, OD [address] [place] [address] documented as of this encounter Procedures Procedure Name Priority Date/Time Associated Diagnosis Comments QUANTIFERON(R)-TB GOLD PLUS, 1 TUBE Routine 11/10/2022 10:41 AM EDT Other emphysema (CMS/HCC) documented in this encounter Results * QuantiFERON??-TB Gold Plus, 1 Tube (11/10/2022 10:41 AM EDT) [facility] Quantiferon -TB Gold Plus, 1 Tube NEGATIVE NEGATIVE [facility] [place] [facility] Comment: Negative test result. M. tuberculosis complex infection unlikely. NIL 0.08 IU/mL [facility] [place] [facility] MITOGEN-NIL >10.00 IU/mL [facility] TB1-NIL <0.00 IU/mL [facility] TB2-NIL <0.00 IU/mL [facility] Comment: The Nil tube value reflects the [...] T-lymphocytes. For additional information, please refer to https://education.makr.AudioTrip/faq/[email or web address] (This link is being provided for informational/ educational purposes only.) Blood Venous blood specimen / Unknown 11/10/2022 10:41 AM EDT 11/10/2022 10:42 AM EDT Manjeet Quiroga MD LAB BLOOD ORDERABLES Final Result [facility] [address] [place] [address], [place] [address] [facility] [address] [place] [address] documented in this encounter Visit Diagnoses Diagnosis Other emphysema (HCC)- Primary Other emphysema Type 2 diabetes mellitus without complication, with long-term current use of insulin (HCC) documented in this encounter Additional Health Concerns Assessment Noted Time PHQ-9 Depression Total Score: 8 10/14/19 23 2:38 PM EDT documented as of this encounter Care Teams Culinary Arts Teacher Relationship Specialty Start Date End Date Manjeet Quiroga MD [address] [place] [address] PCP - General Internal Medicine 05/31/13 documented as of this encounter
[2025-04-20 08:28] LABS: TS Negative Control Passed; TS Panel A 3; TS Panel B 0; TS Positive Control Passed; TSpotTB Negative (Negative)
== END 2025-04-17 15:11 | disposition home or self-care (01) ==
LOC: HO.CHCLDS 15:10
PROVIDERS: Visit Provider Internal Medicine
DX: Z00.00 Encounter for general adult medical examination without abnormal findings (principal); Z11.1 Encounter for screening for respiratory tuberculosis
CPT/HCPCS: 36415; 86481